=== PATIENT | female | born 1940 | race Caucasian/White ===

== ENCOUNTER 2018-02-26 19:42 | Inpatient (IN) ==
[2018-02-26] MEDS ORDERED: Ipratropium/Albuterol Neb 3 ML IH ONE (20:04)
--- NOTE | 2018-02-26 20:25 | Emergency Department Note ---
Disposition Clinical Impression: Sepsis Qualifiers: Sepsis type: sepsis due to unspecified organism Qualified Code(s): A41.9 - Sepsis, unspecified organism Disposition: Admitted As Inpatient Condition: Fair Forms: ED Satisfaction Letter Time of Disposition: 21:33 General Adult HPI - General Chief complaint: ED Shortness of Breath/Dyspnea Stated complaint: "LEANDRA" Time Seen by Provider: 02/26/18 19:54 Source: patient, family Mode of arrival: private vehicle Limitations: other Nursing Notes Reviewed: Yes Vital Signs Reviewed: Yes - History of Present Illness HPI Narrative: Patient is an 78-year-old female with no known medical problems that is only taking gabapentin, sertraline, Protonix who was recently admitted to [facility] last week Tuesday through for a UTI. During this admission they discovered that she had cancer in her liver, colon, and metastatic disease. She was scheduled for a biopsy this week but her condition deteriorated over the weekend, and family brought her into the emergency department to be evaluated. She is currently complaining of a fever, difficulty breathing, right upper quadrant abdominal pain, and a 4 pound weight gain over the last 1 day. Family is also complaining that she has no appetite and has not been eating or drinking as she should for the last several weeks. Pain Scale: 0 - Related Data Allergies Allergy/AdvReac Type Severity Reaction Status Date / Time No Known Allergies Allergy Verified 06/08/17 08:17 Constitutional: Reports: fever, chills Cardiovascular: Denies: chest pain Respiratory: Reports: cough, sputum production (frothy sputum) Gastrointestinal: Reports: abdominal pain, vomiting (post-tussive emesis), diarrhea, hematochezia ("coffee ground stool") Neurological: Reports: weakness Past Medical History - Past Medical History Medical history: Reports: cancer Surgical history: Reports: hysterectomy Psychiatric history: Reports: anxiety, depression - Social History Smoking Status: Former smoker Smokeless Tobacco Status: No Alcohol use: Reports: none Drug use: Reports: none Physical Exam - General Limitations: other General appearance: alert, in distress (breathing through pursed lips, diaphoretic) - Head Head exam: atraumatic, normocephalic - Eye Eye exam: Present: PERRL, EOMI, other (conjunctival pallor) - ENT ENT exam: mucous membranes moist - Neck Neck exam: Present: normal inspection, full ROM - Chest Chest inspection: Present: normal inspection, symmetric chest wall rise - Expanded Respiratory Exam Location: wheezes: Lower, rales: Lower - Cardiovascular Cardiovascular exam: Present: tachycardia - Abdominal Exam Abdominal exam: Present: soft, tenderness Abdominal tenderness: Present: RUQ, RLQ, suprapubic - Expanded Lower Extremity Exam Lower leg exam: Present: other (1+ valarie pitting edema) - Back Exam Back exam: Present: other (kyphotic) - Psychiatric Psychiatric exam: Present: anxious - Skin Skin exam: Present: dry, intact, other (warm to touch) Course Course Narrative: Pt has several positive signs for sepsis including tachycardia, tachypnea, and elevated temperature. Pt has valarie rales and signs of fluid overload so will cautiously hydrate her with an initial bolus of 500mL. Will get CXR, lab work to include blood cultures, lactic acid, CBC, BMP, hepatic panel, coagulation factors, stool guiac, troponin, EKG. Vital Signs Temperature 102.1 F H 02/26/18 19:52 Pulse Rate 115 02/26/18 19:52 Respiratory Rate 33 02/26/18 19:52 Blood Pressure 91/60 02/26/18 19:52 O2 Sat by Pulse Oximetry 92 02/26/18 19:52 Temperature 102.1 F H 02/26/18 19:52 Pulse Rate 115 02/26/18 19:52 Respiratory Rate 33 02/26/18 19:52 Blood Pressure 91/60 02/26/18 19:52 O2 Sat by Pulse Oximetry 92 02/26/18 19:52 Oxygen Delivery Oxygen Delivery Room Air Medical Decision Making - [facility] Narrative Medical decision making narrative: Pt's WBC was >22k, lactic was >2, she remained tachycardic in the low 100's, and temperature was in excess of 102 taken orally. She meets all SIRS criteria, and with recent admission for UTI, presumed urosepsis. Pt was given a dose of vancomycin and rocephin while in the department. Family's main concern was her weight gain and difficulty breathing, explained to them that she will need to be admitted for IV antibiotics and further workup. They expressed concerns that she has had recent Ct scans which show fairly extensive metastatic disease from an unknown source. She is scheduled to have biopsies at [facility] this upcoming Tuesday for further management, but wanted to have this managed here instead. I explained that she will need to have her current issue resolved before the cancer can be addressed. Family expressed understanding. Family and pt were given an opportunity to ask questions and their concerns were addressed. Spoke with Dr. Kinney, hospitalist, who accepts pt. - Medical Records Medical records reviewed: Yes I reviewed the patient's medical records. - Lab Data Lab results reviewed: Yes I reviewed the patient's lab results. Result diagrams: 02/26/18 20:05 02/26/18 20:05 Lab Results 02/26/18 02/26/18 02/26/18 Range/Units 20:05 20:05 20:05 WBC 22.3 H (4.3-11.1) K/mcL RBC 3.95 (3.82-4.97) M/mcL Hgb 10.8 L (11.5-15.4) g/dL Hct 33.6 L (35.3-44.9) % MCV 85.1 (83.0-100.0) fL MCH 27.3 L (28.0-33.3) pg MCHC 32.1 (31.6-35.5) g/dL RDW 15.2 H (11.5-14.5) % Plt Count 345 (140-400) K/mcL MPV 11.1 (9.4-12.4) fL Immature Gran % 1.7 (0-4) % Seg Neutrophils % 85.9 % Lymphocytes % 4.7 % Monocytes % 7.6 % Eosinophils % 0.0 % Basophils % 0.1 % Neutrophils # 19.1 H (1.6-8.9) K/mcL Lymphocytes # 1.1 (0.6-4.6) K/mcL Monocytes # 1.7 H (0.0-1.3) K/mcL Eosinophils # 0.0 (0.0-0.6) K/mcL Basophils # 0.0 (0.0-0.2) K/mcL PT (9.4-12.1) Seconds INR APTT (26.0-36.0) Seconds Sodium 133 L (136-145) mEq/L Potassium 3.6 (3.5-5.1) mEq/L Chloride 96 L (98-107) mEq/L Carbon Dioxide 25 (23-29) mEq/L BUN 14 (8-23) mg/dL Creatinine 0.94 (0.60-1.20) mg/dL Est GFR ( Amer) > 60 (> 60) Est GFR (Non-Af Amer) 57 L (> 60) BUN/Creatinine Ratio 15 (6-26) Glucose 144 H (70-105) mg/dL Calculated Osmolality 279 L (280-300) Lactic Acid 2.9 H (0.5-2.2) mmol/L Calcium 8.2 L (8.6-10.3) mg/dL Total Bilirubin 0.7 (0.3-1.0) mg/dL Direct Bilirubin 0.3 H (0.0-0.2) mg/dL Indirect Bilirubin 0.4 (0.0-1.2) mg/dL AST 97 H (13-39) Units/L ALT 36 (7-52) Units/L Alkaline Phosphatase 158 H (34-104) Units/L Troponin I 0.05 H* (< 0.04) ng/mL B-Natriuretic Peptide (Less than 100) pg/mL Serum Total Protein 6.4 (6.4-8.9) g/dL Albumin 2.9 L (3.5-5.7) g/dL Globulin 3.5 (2.4-3.5) g/dL Albumin/Globulin Ratio 0.8 L (1.1-2.2) Stool Occult Bld Scrn (Negative) 02/26/18 02/26/18 02/26/18 Range/Units 20:05 20:05 21:27 WBC (4.3-11.1) K/mcL RBC (3.82-4.97) M/mcL Hgb (11.5-15.4) g/dL Hct (35.3-44.9) % MCV (83.0-100.0) fL MCH (28.0-33.3) pg MCHC (31.6-35.5) g/dL RDW (11.5-14.5) % Plt Count (140-400) K/mcL MPV (9.4-12.4) fL Immature Gran % (0-4) % Seg Neutrophils % % Lymphocytes % % Monocytes % % Eosinophils % % Basophils % % Neutrophils # (1.6-8.9) K/mcL Lymphocytes # (0.6-4.6) K/mcL Monocytes # (0.0-1.3) K/mcL Eosinophils # (0.0-0.6) K/mcL Basophils # (0.0-0.2) K/mcL PT 17.6 H (9.4-12.1) Seconds INR 1.6 APTT 35.8 (26.0-36.0) Seconds Sodium (136-145) mEq/L Potassium (3.5-5.1) mEq/L Chloride (98-107) mEq/L Carbon Dioxide (23-29) mEq/L BUN (8-23) mg/dL Creatinine (0.60-1.20) mg/dL Est GFR ( Amer) (> 60) Est GFR (Non-Af Amer) (> 60) BUN/Creatinine Ratio (6-26) Glucose (70-105) mg/dL Calculated Osmolality (280-300) Lactic Acid (0.5-2.2) mmol/L Calcium (8.6-10.3) mg/dL Total Bilirubin (0.3-1.0) mg/dL Direct Bilirubin (0.0-0.2) mg/dL Indirect Bilirubin (0.0-1.2) mg/dL AST (13-39) Units/L ALT (7-52) Units/L Alkaline Phosphatase (34-104) Units/L Troponin I (< 0.04) ng/mL B-Natriuretic Peptide 94 (Less than 100) pg/mL Serum Total Protein (6.4-8.9) g/dL Albumin (3.5-5.7) g/dL Globulin (2.4-3.5) g/dL Albumin/Globulin Ratio (1.1-2.2) Stool Occult Bld Scrn Negative (Negative) - Radiology Data Radiology results reviewed: Yes I reviewed the patient's radiology results. Chest X-Ray 02/26/18 20:04 IMPRESSION: Questionable area of nodular increased opacification in the right upper lobe; however, overlying EKG lie limit sensitivity. Need for repeat evaluation should be determined clinically no focal consolidation elsewhere. D/ / Yoshi Bahena / Yoshi Bahena Interpreting Provider: Yoshi Bahena - EKG Data EKG #1 EKG attestation: Yes I reviewed and interpreted this EKG. EKG results narrative: HR 113, rhythm sinus tachycardia, axis left at -56. KS 141, QRS 82, QTc 320. No evidence of St elevation or depression.
--- NOTE | 2018-02-26 20:30 | Emergency Department Note ---
Disposition Clinical Impression: Sepsis Qualifiers: Sepsis type: sepsis due to unspecified organism Qualified Code(s): A41.9 - Sepsis, unspecified organism Disposition: Admitted As Inpatient Condition: Serious Forms: ED Satisfaction Letter General Adult HPI - General Chief complaint: ED Shortness of Breath/Dyspnea Stated complaint: "LEANDRA" Time Seen by Provider: 02/26/18 19:54 Source: patient, family Mode of arrival: private vehicle Limitations: other - History of Present Illness HPI Narrative: Attestation note: Patient was seen with the emergency medicine resident/nurse practitioner/physician general surgery physician assistant/transitional resident/medical student: Dr. KELSEY BOB I have personally performed a face to face evaluation on this patient. I have reviewed and agree with history and physical examination patient management and disposition. Briefly the salient points of the case are as follows: 78-year-old female via private vehicle accompanied by family members for shortness of breath. And fever slight confusion. Recently diagnosed by report with metastatic carcinoma involving liver and colon, and UTI. Patient says she has been having dark stools and she is not on blood thinners. She is febrile up to 102 tachycardic to 1:15 tachypnea to 33 hypoxic 92% on room air. Patient has bibasilar rales pitting edema patient is sepsis criteria positive. Patient will undergo a modified sepsis protocol due to the fact that we believe CHF is in the differential here we will hydrate cautiously and judiciously. Patient will get 500 mg bolus awaiting troponin lactic acid urinalysis and chest x-ray. Admission anticipated. Provided 45 minutes critical care service for this patient. Pain Scale: 0 - Related Data Allergies Allergy/AdvReac Type Severity Reaction Status Date / Time No Known Allergies Allergy Verified 06/08/17 08:17 Past Medical History - Past Medical History Medical history: Reports: cancer Surgical history: Reports: hysterectomy Psychiatric history: Reports: anxiety, depression - Social History Smoking Status: Former smoker Smokeless Tobacco Status: No Alcohol use: Reports: none Drug use: Reports: none Physical Exam - General Limitations: other General appearance: alert Course Vital Signs Temperature 102.1 F H 02/26/18 19:52 Pulse Rate 115 02/26/18 19:52 Respiratory Rate 33 02/26/18 19:52 Blood Pressure 91/60 02/26/18 19:52 O2 Sat by Pulse Oximetry 92 02/26/18 19:52 Temperature 102.1 F H 02/26/18 19:52 Pulse Rate 115 02/26/18 19:52 Respiratory Rate 33 02/26/18 19:52 Blood Pressure 91/60 02/26/18 19:52 O2 Sat by Pulse Oximetry 92 02/26/18 19:52 Oxygen Delivery Oxygen Delivery Room Air
[2018-02-26 20:36] LABS: Basophils % 0.1 %; Hematocrit 33.6 % (35.3-44.9); Hemoglobin 10.8 g/dL (11.5-15.4); Immature Granulocytes % 1.7 % (0-4); Lymphocytes # 1.1 K/mcL (0.6-4.6); Lymphocytes % 4.7 %; Mean Corpuscular HGB Conc 32.1 g/dL (31.6-35.5); Mean Corpuscular Hemoglobin 27.3 pg (28.0-33.3); Mean Corpuscular Volume 85.1 fL (83.0-100.0); Mean Platelet Volume 11.1 fL (9.4-12.4); Monocytes # 1.7 K/mcL (0.0-1.3); Monocytes % 7.6 %; Neutrophils # 19.1 K/mcL (1.6-8.9); Platelet Count 345 K/mcL (140-400); Red Blood Count 3.95 M/mcL (3.82-4.97); Red Cell Distribution Width 15.2 % (11.5-14.5); Segmented Neutrophils % 85.9 %
[2018-02-26 20:43] LABS: INR 1.6; Prothrombin Time 17.6 Seconds (9.4-12.1)
[2018-02-26 20:46] LABS: Activated Partial Thrombo Time 35.8 Seconds (26.0-36.0)
[2018-02-26 20:58] LABS: Alanine Aminotransferase 36 Units/L (7-52); Albumin 2.9 g/dL (3.5-5.7); Albumin/Globulin Ratio 0.8 (1.1-2.2); Alkaline Phosphatase 158 Units/L (34-104); Aspartate Amino Transferase 97 Units/L (13-39); BUN/Creatinine Ratio 15 (6-26); Bilirubin,Direct 0.3 mg/dL (0.0-0.2); Bilirubin,Indirect 0.4 mg/dL (0.0-1.2); Bilirubin,Total 0.7 mg/dL (0.3-1.0); Blood Urea Nitrogen 14 mg/dL (8-23); Calcium 8.2 mg/dL (8.6-10.3); Carbon Dioxide 25 mEq/L (23-29); Chloride 96 mEq/L (98-107); Globulin 3.5 g/dL (2.4-3.5); Glucose 144 mg/dL (70-105); Osmolality,Calculated 279 (280-300); Potassium 3.6 mEq/L (3.5-5.1); Sodium 133 mEq/L (136-145); Total Protein 6.4 g/dL (6.4-8.9); eGFR For Non-African Americans 57 (> 60)
[2018-02-26 21:05] LABS: Troponin I 0.05 ng/mL (< 0.04)
[2018-02-26] MEDS ORDERED: Aspirin 325 MG TABLET PO ONE (21:05)
[2018-02-26] MEDS ORDERED: cefTRIAXone 2,000 MG in Water for inj. (sterile) 20 ML 20 ML IVP ONE (21:05)
[2018-02-26] MEDS ORDERED: 0.9 % Sodium Chloride 500 ML IVC ONE (21:29)
[2018-02-27] MEDS ORDERED: Isovue-370 500 ML INFUS..BTL IV ONE (02:42)
--- NOTE | 2018-02-27 02:53 | Internal Med History&Physical ---
Addendum entered and electronically signed by Eric Kinney MD 02/27/18 19:47: I saw and evaluated the patient. I reviewed the residents note, performed my own physical examination and agree with findings and plan as documented in the residents note. Patient seen and examined on 02/27/18. Patient meeting sepsis criteria. Unclear source at this point. Patient has diagnosis of cancer however. Agree with repeat imaging, follow up the results, broad spectrum antibiotics. Original Note: Date of Encounter: 02/27/18 Time of Encounter: 02:50 Internal Medicine - H&P: HPI Chief complaint: Weakness Admitted From: Home Plans for Post Hospital Care: Home History of present illness: Ms. Cohen is a 78 year old female who presents here with chief complaint of weakness. Patient reports that she was just discharged her from [facility] after being treated for UTI and during that time she had right upper quadrant pain and underwent CT abdomen pelvis which showed multiple liver nodules and lung nodules. At [facility] patient had EGD and colonoscopy which were negative. She was treated with ceftriaxone IV 3 days. Patient had follow-up with oncology outpatient and for outpatient biopsy. Patient was discharged last but reports since then she is has been feeling very weak to the point she is not able to walk. She has gained 4 pounds in the last 24 hours. She reports having 2 episodes of coughing spells after eating and thereafter vomiting up her b reakfast. She denies bloody vomiting. Reviewing past medical records her colonoscopy done in May 2017 showed gastroparesis. Patient also reports bloating of her belly. She denies sick contacts. She reports a fever of 102 2 days ago. Patient denies headache, blurry vision, eye pain, eye discharge, ear pain, ear discharge, chest pain, nausea, vomiting, diarrhea, lower extremity pain, dysuria, hematuria. She reports lower extremity swelling, cough, shortness of breath. Past Med Surg Social Fam HX - Past Medical History Medical history: cancer Additional medical history: skin cancer, gastro ulcers Psychiatric history: anxiety, depression - Past Surgical History Surgical History: hysterectomy Additional surgical history: bladder sx, tendon repair, cscope - Social History Smoking Status: Former smoker Smokeless Tobacco Status: No Alcohol use: none Drug use: none Internal Medicine - H&P: Meds Allergy/AdvReac Type Severity Reaction Status Date / Time No Known Allergies Allergy Verified 06/08/17 08:17 All Systems PM: A 10-system review of systems was performed and is negative for pertinent findings except as documented above in the HPI. Review of systems: Constitutional: Reports fever, chills HEENT: Denies headache, trauma, blurry vision, eye discharge, ear pain, ear di scharge neck pain, sore throat, rhinorrhea Heart: Denies chest pain palpitations, reports LE edema Lungs: Reports shortness of breath cough Abdomen: Denies abdominal pain nausea vomiting diarrhea MSK: Denies back pain, falls, joint pain Kidney: Denies dysuria, hematuria Skin: Denies rash, ulcers Neuro: Denies numbness and tingling Psych: denies anxiety, depression - Constitutional Vitals: Temp Pulse Resp BP Pulse Ox 98.8 F 71 16 96/58 94 02/26/18 22:33 02/26/18 22:33 02/26/18 22:33 02/26/18 22:33 02/26/18 22:33 Exam: General: pleasant, without distress HEENT: Head atraumatic, normocephalic, EOMI, PERRL, absent ear discharge or trauma, Moist Mucous Membranes, uvula midline Neck: nontender to palpation, absent lymphadenopathy, Cardiovascualr: Regular rate and rhythm with no murmur, absent gallops or rubs, 1+ pedal edema, radial pulses 2 out of 4 Lungs: Bibasilar crackles, mild, not in respiratory distress Abdomen: Soft nontender, nondistended positive bowel sounds, absent hepatomegaly Skin: warm and dry, absent rash, absent open wounds and nodules MSK: absent clubbing, cyanosis, joints without swelling Neuro: Cranial nerves II through XII intact, UE and LE sensation equal bilaterally, UE and LEstrength 5/5, alert oriented 3, Psych: good insight and judgment, depressed Internal Med - H&P Results - Labs CBC & Chem 7: 02/27/18 03:03 02/27/18 03:03 Labs: Short CBC 02/26/18 Range/Units 20:05 WBC 22.3 H (4.3-11.1) K/mcL Hgb 10.8 L (11.5-15.4) g/dL Hct 33.6 L (35.3-44.9) % Plt Count 345 (140-400) K/mcL Neutrophils # 19.1 H (1.6-8.9) K/mcL BMP 02/26/18 20:05 Sodium 133 L Potassium 3.6 Chloride 96 L Carbon Dioxide 25 BUN 14 Creatinine 0.94 Glucose 144 H Calcium 8.2 L Cardiac Enzymes 02/26/18 Range/Units 20:05 Troponin I 0.05 H* (< 0.04) ng/mL Liver Function 02/26/18 Range/Units 20:05 Total Bilirubin 0.7 (0.3-1.0) mg/dL Direct Bilirubin 0.3 H (0.0-0.2) mg/dL AST 97 H (13-39) Units/L ALT 36 (7-52) Units/L Alkaline Phosphatase 158 H (34-104) Units/L Albumin 2.9 L (3.5-5.7) g/dL - Impressions ITS Impressions Chest X-Ray 02/26/18 20:04 IMPRESSION: Questionable area of nodular increased opacification in the right upper lobe; however, overlying EKG lie limit sensitivity. Need for repeat evaluation should be determined clinically no focal consolidation elsewhere. D/ / Yoshi Bahena / Yoshi Bahena Interpreting Provider: Yoshi Bahena - Assessment and plan (1) Sepsis Current Visit: Yes Status: Acute Assessment and plan: fever, leukocytosis, tachycardia, tachypnea Etiology unknown She was recently treated at [facility] for UTI with ceftriaxone for 3 days Blood cultures and urine cultures pending (collected after antibiotics given in ED) Initial lactic acid was 2.9 and repeat was 1.1 Patient was given IV fluids however she was not given sepsis dose as she is short of breath and has pulmonary crackles Patient was given vancomycin in the ED as well as ceftriaxone Chest x-ray negative for infection. We will obtain CT abdomen and pelvis and CT chest with contrast vancomycin and zosyn Qualifiers: Sepsis type: sepsis due to unspecified organism Qualified Code(s): A41.9 - Sepsis, unspecified organism (2) Acute respiratory failure with hypoxia Current Visit: Yes Status: Acute Assessment and plan: Suspecting secondary to fluid overload Patient does not have a history of heart disease, congestive heart failure Blood pressure is 96/58 she is receiving fluids for sepsis She is on 2 L oxygen satting 96%. Plan is to monitor via continuous pulse ox echocardiogram (3) Metastatic disease Current Visit: Yes Status: Acute Assessment and plan: CT scan at [facility] showed suspected sigmoid colon mass with metastasis to liver suspected pulmonary metastasis and suspected osseous metastasis. Patient underwent EGD and colonoscopy at [facility] which were negative for cancer. Oncology consulted. CT abdomen pelvis and CT chest ordered with IV contrast. (4) DVT prophylaxis Current Visit: Yes Status: Acute Assessment and plan: Heparin subcutaneous (5) Elevated troponin Current Visit: Yes Status: Acute Assessment and plan: Patient has elevated troponin of 0.05 and 0.06 respectively She denies history of heart disease She was given aspirin on admission. Was normal sinus tachycardia without ST elevation or depression. Patient denies chest pain. heart score 3 We will order echocardiogram - Time Spent With Patient Total time spent is greater than 50% in coordination of care (as documented) at patient's floor/unit and/or counseling patient:
[2018-02-27] MEDS ORDERED: Piperacillin/Tazobactam 3.375 GM in 0.9 % Sodium Chloride Mini Bag 100 ML IVPB SCH (03:00)
[2018-02-27 03:21] LABS: Basophils % 0.1 %; Hematocrit 30.3 % (35.3-44.9); Hemoglobin 9.6 g/dL (11.5-15.4); Lymphocytes # 1.4 K/mcL (0.6-4.6); Lymphocytes % 7.6 %; Mean Corpuscular HGB Conc 31.7 g/dL (31.6-35.5); Mean Corpuscular Hemoglobin 27.6 pg (28.0-33.3); Mean Corpuscular Volume 87.1 fL (83.0-100.0); Mean Platelet Volume 11.2 fL (9.4-12.4); Monocytes # 1.2 K/mcL (0.0-1.3); Monocytes % 6.4 %; Neutrophils # 15.6 K/mcL (1.6-8.9); Platelet Count 264 K/mcL (140-400); Red Blood Count 3.48 M/mcL (3.82-4.97); Red Cell Distribution Width 15.3 % (11.5-14.5); Segmented Neutrophils % 84.9 %
[2018-02-27 03:38] LABS: BUN/Creatinine Ratio 16 (6-26); Blood Urea Nitrogen 17 mg/dL (8-23); Calcium 7.8 mg/dL (8.6-10.3); Carbon Dioxide 28 mEq/L (23-29); Chloride 99 mEq/L (98-107); Glucose 111 mg/dL (70-105); Osmolality,Calculated 284 (280-300); Potassium 4.2 mEq/L (3.5-5.1); Sodium 136 mEq/L (136-145); eGFR For Non-African Americans 50 (> 60)
[2018-02-27 06:31] LABS: Bilirubin,Urine Small (Negative); Blood,Urine Negative (Negative); Clarity,Urine Cloudy (Clear); Color,Urine Dark Yellow (Yellow); Glucose,Urine (UA) Normal (Normal); Ketones,Urine Negative (Negative); Leukocyte Esterase,Urine Trace (Negative); Nitrite,Urine Negative (Negative); PH,Urine 5.5 pH Units (5.0-8.0); Protein,Urine 30 mg/dL (Neg-Trace); Specific Gravity,Urine 1.026 (1.010-1.025); Urobilinogen,Urine Normal (Normal)
[2018-02-27 06:34] LABS: Bacteria,Urine None Seen per hpf (None-Few); RBC,Urine 0-3 per hpf (0-3); Squamous Epithelial Cell,Urine Many per lpf (None-Few)
[2018-02-27 06:52] LABS: Hyaline Casts,Urine Moderate per lpf (None-Few)
[2018-02-27] MEDS: *HR* Heparin 5,000 UNIT/ML VIAL SQ SCH ×3 (06:59→22:40)
[2018-02-27] MEDS: Piperacillin/Tazobactam 3.375 GM in 0.9 % Sodium Chloride Mini Bag 100 ML IVPB SCH ×3 (08:32→22:40)
[2018-02-27] MEDS ORDERED: *HR* Dextrose 50 % in Water (Syg) 50 ML SYRINGE IVP PRN (09:21)
[2018-02-27] MEDS ORDERED: Dextrose Gel 15 GM/37.5 ML TUBE PO PRN ×2 (09:21)
[2018-02-27] MEDS ORDERED: D5% in Water 1,000 ML IVC PRN (09:21)
[2018-02-27] MEDS ORDERED: Albuterol 2.5 MG/3 ML NEBULIZER IH PRN (09:22)
[2018-02-27] MEDS ORDERED: Acetaminophen 650 MG RECTAL SUPP RC PRN (09:49)
[2018-02-27] MEDS ORDERED: MethylPREDNISolone 40 MG/ML VIAL IVP ONE (09:59)
--- NOTE | 2018-02-27 09:59 | Event Note ---
Date of Encounter: 02/27/18 Time of Encounter: 09:47 Patient seen and evaluated at bed side, patient reports that she is still feeling short of breath. Patient reports productive cough of yellow sputum, plus fever for the past couple of day after being discharged from another facility. They also report that she has gained about 9 pounds in less than a week. Physical exam: General: AOX$. in mild distress due to shortness of breath Lungs: crackles at the bases b/l, mild expiratory wheezing in the right lung. Heart: RRR, normal S1S2, no murmur, rugs or gallops Abdo: RUQ tenderness to palpation, hyperactive BS in all 4 quadrants. Extr: trace edema in the lower extr. Neuro: CN II-XII intact Rest of the physical exam unremarkable. Assessment and Plan 1. Sepsis possible due to pneumonia vs UTI vs r/o abdominal process 2. Pneumonia 3. Liver Nodules possible metastatic disease vs primary? 4. VTE prophylaxis 5. COPD 6. HTN 7. UTI 8. Elevated trops possible due to demand ischemia in the settings of sepsis Plan started on empiric antibiotics blood culture and urine culture CT chest abd/pelvis Hem&Onc has been consulted started on maintenance IV fluids D5NS@45mls/hr as patient is NPO to avoid hypoglycemia Accu-checks Q6HR plus lispro sliding scale PPI 40mg/IV daily Serial trops Furosemide 40mg/IV BID strict intake and output Nebs Q4RT scheduled solu-medrol 40mg/IV x1 limited TTE
[2018-02-27] MEDS: D5% in 0.9% NACL 1,000 ML IVC SCH (10:34)
[2018-02-27] MEDS: Pantoprazole 40 MG VIAL IVP SCH (10:36)
[2018-02-27] MEDS: Furosemide 40 MG/4 ML VIAL IVP SCH ×2 (10:36→17:29)
[2018-02-27] MEDS: Albuterol 2.5 MG/3 ML NEBULIZER IH SCH ×5 (10:37→23:45)
[2018-02-27] MEDS: Ondansetron 4 MG/2 ML VIAL IVP PRN (10:48)
[2018-02-27] MEDS: Insulin LISPRO 300 UNITS/3 ML VIAL SQ SCH ×2 (10:48→17:29)
[2018-02-27] MEDS ORDERED: Isovue-370 500 ML INFUS..BTL PO ONE (11:30)
[2018-02-27] MEDS: Acetaminophen 325 MG TABLET PO PRN (13:48)
--- NOTE | 2018-02-27 15:23 | Oncology Inp Consult Note ---
<Samantha Decker L - Last Filed: 02/27/18 17:11> Date of Encounter: 02/27/18 Time of Encounter: 15:21 Assessment and Plan (1) Metastatic disease Status: Acute Assessment and plan: CT chest/abdomen/pelvis obtained today reveals findings highly concerning for malignancy until proven otherwise with metastatic disease in the bilateral lungs, liver, and mediastinal and portocaval lymph nodes. Radiographic images were discussed with patient and family at bedside today along with need for tissue confirmation with CT guided liver bx Consult to IR placed for tomorrow, patient will be NPO after midnight Differential list remains long which may include cholangiocarcinoma, GI primary, lung primary, lymphoma, among others Further treatment options to be discussed once final pathology report received Of note, patient does not need to remain inpatient until final path has resulted should she be cleared otherwise from a medical standpoint We will continue to follow patient during her hospital stay, outpatient follow up will be arranged (2) Sepsis Status: Acute Assessment and plan: Etiology unclear with fever (TMAX 102.1 since admission),neutrophil predominant leukocytosis, tachycardia, tachypnea Recently treated at [facility] for UTI Blood cultures-NGTD Urine culture-trace leuk est, appears contaminated CXR negative Acute respiratory failure, suspecting fluid overload, Echo-pending Empirically treating with vanc/zosyn Qualifiers: Sepsis type: sepsis due to unspecified organism Qualified Code(s): A41.9 - Sepsis, unspecified organism - Data of Consult Patient: new to practice Consult date: 02/27/18 Requesting Physician: Sreekanth Archer MD Primary Care Provider: PCP NONE - Consult Narrative Reason for consult: Abnormal CT chest/abd/pel History of present illness: Ms. Cohen is a 78 year old female who presented to [facility] with chief complaint of weakness. She spent Tuesday- of last week in [facility] ER for similar complaints. She was found to have a UTI at that time which was treated with Rocephin. She had a CT chest/abdomen/pelvis which had revealed liver/lung lesions ([facility] report not available at this time) and she was planned for an outpatient CT guided liver lesion bx tomorrow with [facility]. She apparently had a EGD/Colonoscopy at [facility] last week which is reportedly negative (will request report). Since her discharge her dsicharge had progressed to the point where she had been unable to ambulate which led to her admission. Ms. Cohen states that she has just "not been feeling well" for a couple of months with fatigue, generalized malaise, SOB on exertion and poor appetite. She has recently lost about 15 pounds unintentionally. She reports pain to her RUQ abdomen. Generalized joint pain, mainly in bilateral hips. She reports fevers, chills and drenching night sweats. Patient denies headache, blurry vision, visual changes, chest pain, nausea, vomiting, diarrhea, lower extremity pain, dysuria, hematuria. She is a former smoker. Past Med Surg Social Fam HX - Past Medical History Medical history: cancer Additional medical history: skin cancer, gastro ulcers Psychiatric history: anxiety, depression - Past Surgical History Surgical History: hysterectomy Additional surgical history: bladder sx, tendon repair, cscope - Social History Smoking Status: Former smoker Smokeless Tobacco Status: No Alcohol use: none Drug use: none Medications and Allergies Gabapentin [Neurontin] 600 mg PO BID 02/27/18 [History] Pantoprazole Sodium [Protonix] 40 mg PO DAILY 02/27/18 [History] RX: Sertraline [Zoloft] 50 mg PO DAILY 02/27/18 [History] Allergy/AdvReac Type Severity Reaction Status Date / Time No Known Allergies Allergy Verified 02/27/18 08:26 Constitutional: Present: anorexia, chills, fatigue, fever(s), malaise, weakness, weight loss Eyes: Absent: change in vision Nose, mouth and throat: Absent: dysphagia Cardiovascular: Absent: chest pain, palpitations Respiratory: Present: cough, dyspnea on exertion. Absent: hemoptysis Gastrointestinal: Present: abdominal pain. Absent: change in bowel habits, hematochezia, melena, nausea, vomiting Genitourinary: Absent: dysuria Musculoskeletal: Present: arthralgias, muscle weakness, myalgias Integumentary: Absent: wounds Neurological: Absent: focal weakness Hematologic/Lymphatic: Present: as per HPI Oncology - Exam - Constitutional Vitals: Temp Pulse Resp BP Pulse Ox 101.4 F H 115 16 138/83 96 02/27/18 13:40 02/27/18 11:08 02/27/18 11:27 02/27/18 11:08 02/27/18 11:27 General appearance: febrile, cooperative, no acute distress - Head Head exam: Present: atraumatic - ENT ENT exam: Present: mucous membranes moist - Neck Neck exam: Absent: lymphadenopathy - Respiratory Respiratory exam: Present: decreased breath sounds. Absent: respiratory distress - Cardiovascular Cardiovascular exam: Present: RRR, +S1, +S2 - GI/Abdominal GI/Abdominal exam: Present: normal bowel sounds, soft. Absent: guarding, rebound Additional comments: RUQ tenderness - Extremities Exam Extremities exam: Absent: calf tenderness Additional comments: mild BLE edema - Neurological Exam Neurological exam: Present: alert, oriented X3, no focal deficits, strengths equal and symetr throughout - Psychiatric Psychiatric exam: Present: normal affect, normal mood Oncology - Results Labs: Consult Discharge Plan - Plan Referrals: NONE,PCP [Primary Care Provider] - <Sven Gr - Last Filed: 02/28/18 07:45> - Data of Consult Requesting Physician: Sreekanth Archer MD Primary Care Provider: PCP NONE - Consult Narrative History of present illness: Ms. Cohen is a 78 year old female Oncology - Exam - Constitutional Vitals: Temp Pulse Resp BP Pulse Ox 97.9 F 72 16 117/63 94 02/28/18 06:40 02/28/18 06:40 02/28/18 06:40 02/28/18 06:40 02/28/18 06:40 Oncology - Results Labs: 02/27/18 02/27/18 02/27/18 10:47 08:49 06:16 WBC RBC Hgb Hct MCV MCH MCHC RDW Plt Count MPV Immature Gran % Seg Neutrophils % Lymphocytes % Monocytes % Eosinophils % Basophils % Neutrophils # Lymphocytes # Monocytes # Eosinophils # Basophils # PT INR APTT Sodium Potassium Chloride Carbon Dioxide BUN Creatinine Est GFR ( Amer) Est GFR (Non-Af Amer) BUN/Creatinine Ratio Glucose POC Glucose 75 Calculated Osmolality Lactic Acid Calcium Total Bilirubin Direct Bilirubin Indirect Bilirubin AST ALT Alkaline Phosphatase Troponin I 0.04 H* B-Natriuretic Peptide Serum Total Protein Albumin Globulin Albumin/Globulin Ratio Urine Color Dark Yellow Urine Clarity Cloudy A Urine pH 5.5 Ur Specific [place] 1.026 H Urine Protein 30 H Urine Glucose (UA) Normal Urine Ketones Negative Urine Blood Negative Urine Nitrite Negative Urine Bilirubin Small H Urine Urobilinogen Normal Ur Leukocyte Esterase Trace H Urine Microscopic RBC 0-3 Urine Microscopic WBC 5-15 H Ur Squamous Epith Cells Many H Urine Bacteria None Seen Hyaline Casts Moderate H Ur Culture Indicated? NO. A Stool Occult Bld Scrn 02/27/18 02/27/18 02/27/18 03:03 03:03 03:03 WBC 18.4 H RBC 3.48 L Hgb 9.6 L Hct 30.3 L MCV 87.1 MCH 27.6 L MCHC 31.7 RDW 15.3 H Plt Count 264 MPV 11.2 Immature Gran % 1.0 Seg Neutrophils % 84.9 Lymphocytes % 7.6 Monocytes % 6.4 Eosinophils % 0.0 Basophils % 0.1 Neutrophils # 15.6 H Lymphocytes # 1.4 Monocytes # 1.2 Eosinophils # 0.0 Basophils # 0.0 PT INR APTT Sodium 136 Potassium 4.2 Chloride 99 Carbon Dioxide 28 BUN 17 Creatinine 1.05 Est GFR ( Amer) > 60 Est GFR (Non-Af Amer) 50 L BUN/Creatinine Ratio 16 Glucose 111 H POC Glucose Calculated Osmolality 284 Lactic Acid Calcium 7.8 L Total Bilirubin Direct Bilirubin Indirect Bilirubin AST ALT Alkaline Phosphatase Troponin I 0.06 H* B-Natriuretic Peptide Serum Total Protein Albumin Globulin Albumin/Globulin Ratio Urine Color Urine Clarity Urine pH Ur Specific [place] Urine Protein Urine Glucose (UA) Urine Ketones Urine Blood Urine Nitrite Urine Bilirubin Urine Urobilinogen Ur Leukocyte Esterase Urine Microscopic RBC Urine Microscopic WBC Ur Squamous Epith Cells Urine Bacteria Hyaline Casts Ur Culture Indicated? Stool Occult Bld Scrn 02/26/18 02/26/18 02/26/18 23:22 21:27 20:05 WBC RBC Hgb Hct MCV MCH MCHC RDW Plt Count MPV Immature Gran % Seg Neutrophils % Lymphocytes % Monocytes % Eosinophils % Basophils % Neutrophils # Lymphocytes # Monocytes # Eosinophils # Basophils # PT 17.6 H INR 1.6 APTT 35.8 Sodium Potassium Chloride Carbon Dioxide BUN Creatinine Est GFR ( Amer) Est GFR (Non-Af Amer) BUN/Creatinine Ratio Glucose POC Glucose Calculated Osmolality Lactic Acid 1.1 Calcium Total Bilirubin Direct Bilirubin Indirect Bilirubin AST ALT Alkaline Phosphatase Troponin I B-Natriuretic Peptide Serum Total Protein Albumin Globulin Albumin/Globulin Ratio Urine Color Urine Clarity Urine pH Ur Specific [place] Urine Protein Urine Glucose (UA) Urine Ketones Urine Blood Urine Nitrite Urine Bilirubin Urine Urobilinogen Ur Leukocyte Esterase Urine Microscopic RBC Urine Microscopic WBC Ur Squamous Epith Cells Urine Bacteria Hyaline Casts Ur Culture Indicated? Stool Occult Bld Scrn Negative 02/26/18 02/26/18 02/26/18 20:05 20:05 20:05 WBC RBC Hgb Hct MCV MCH MCHC RDW Plt Count MPV Immature Gran % Seg Neutrophils % Lymphocytes % Monocytes % Eosinophils % Basophils % Neutrophils # Lymphocytes # Monocytes # Eosinophils # Basophils # PT INR APTT Sodium 133 L Potassium 3.6 Chloride 96 L Carbon Dioxide 25 BUN 14 Creatinine 0.94 Est GFR ( Amer) > 60 Est GFR (Non-Af Amer) 57 L BUN/Creatinine Ratio 15 Glucose 144 H POC Glucose Calculated Osmolality 279 L Lactic Acid 2.9 H Calcium 8.2 L Total Bilirubin 0.7 Direct Bilirubin 0.3 H Indirect Bilirubin 0.4 AST 97 H ALT 36 Alkaline Phosphatase 158 H Troponin I 0.05 H* B-Natriuretic Peptide 94 Serum Total Protein 6.4 Albumin 2.9 L Globulin 3.5 Albumin/Globulin Ratio 0.8 L Urine Color Urine Clarity Urine pH Ur Specific [place] Urine Protein Urine Glucose (UA) Urine Ketones Urine Blood Urine Nitrite Urine Bilirubin Urine Urobilinogen Ur Leukocyte Esterase Urine Microscopic RBC Urine Microscopic WBC Ur Squamous Epith Cells Urine Bacteria Hyaline Casts Ur Culture Indicated? Stool Occult Bld Scrn 02/26/18 20:05 WBC 22.3 H RBC 3.95 Hgb 10.8 L Hct 33.6 L MCV 85.1 MCH 27.3 L MCHC 32.1 RDW 15.2 H Plt Count 345 MPV 11.1 Immature Gran % 1.7 Seg Neutrophils % 85.9 Lymphocytes % 4.7 Monocytes % 7.6 Eosinophils % 0.0 Basophils % 0.1 Neutrophils # 19.1 H Lymphocytes # 1.1 Monocytes # 1.7 H Eosinophils # 0.0 Basophils # 0.0 PT INR APTT Sodium Potassium Chloride Carbon Dioxide BUN Creatinine Est GFR ( Amer) Est GFR (Non-Af Amer) BUN/Creatinine Ratio Glucose POC Glucose Calculated Osmolality Lactic Acid Calcium Total Bilirubin Direct Bilirubin Indirect Bilirubin AST ALT Alkaline Phosphatase Troponin I B-Natriuretic Peptide Serum Total Protein Albumin Globulin Albumin/Globulin Ratio Urine Color Urine Clarity Urine pH Ur Specific [place] Urine Protein Urine Glucose (UA) Urine Ketones Urine Blood Urine Nitrite Urine Bilirubin Urine Urobilinogen Ur Leukocyte Esterase Urine Microscopic RBC Urine Microscopic WBC Ur Squamous Epith Cells Urine Bacteria Hyaline Casts Ur Culture Indicated? Stool Occult Bld Scrn - Attending Attestation I have seen and examined Ms. Cohen and agree with Ms. Decker's assessment. Patient appears to have a malignant process involving the majority of her liver as well as probable metastases involving the lungs. Primary at this juncture is unclear. She underwent normal EGD and colonoscopy at [facility]. This history is confirmed by the family as well. Patient remains unconvinced she has an underlying malignancy. I personally reviewed imaging and unfortunately believe she does have in fact have underlying metastatic malignancy undetermined primary. This certainly could represent a primary liver cancer, secondary process with metastases to the liver and lung, and less likely lymphoma. I reviewed her imaging results with the patient and family. I have ordered a CT- guided biopsy of the liver. We will discuss treatment options pending final pathology. Continue with supportive measures with hydration and infectious evaluation. Certainly her fevers may be related to the tumor burden in her liver although on infection should be ruled out. Inpatient Charges Provider: Dr. Elan Gr Consult - Inpatient Medicare Only: [id number]
[2018-02-28] MEDS: Insulin LISPRO 300 UNITS/3 ML VIAL SQ SCH ×5 (00:58→21:00)
[2018-02-28] MEDS: Albuterol 2.5 MG/3 ML NEBULIZER IH SCH ×6 (04:18→23:25)
[2018-02-28] MEDS: Piperacillin/Tazobactam 3.375 GM in 0.9 % Sodium Chloride Mini Bag 100 ML IVPB SCH ×2 (06:38→15:35)
[2018-02-28] MEDS: *HR* Heparin 5,000 UNIT/ML VIAL SQ SCH ×2 (07:02→14:57)
[2018-02-28] MEDS: Pantoprazole 40 MG VIAL IVP SCH (09:45)
[2018-02-28] MEDS: Furosemide 40 MG/4 ML VIAL IVP SCH (09:45)
[2018-02-28 12:53] LABS: Basophils % 0.1 %; Hematocrit 28.9 % (35.3-44.9); Hemoglobin 9.1 g/dL (11.5-15.4); Immature Granulocytes % 0.7 % (0-4); Lymphocytes # 0.9 K/mcL (0.6-4.6); Lymphocytes % 4.8 %; Mean Corpuscular HGB Conc 31.5 g/dL (31.6-35.5); Mean Corpuscular Hemoglobin 27.6 pg (28.0-33.3); Mean Corpuscular Volume 87.6 fL (83.0-100.0); Mean Platelet Volume 11.3 fL (9.4-12.4); Monocytes # 0.6 K/mcL (0.0-1.3); Monocytes % 3.5 %; Neutrophils # 16.2 K/mcL (1.6-8.9); Platelet Count 333 K/mcL (140-400); Red Cell Distribution Width 15.4 % (11.5-14.5); Segmented Neutrophils % 90.9 %
--- NOTE | 2018-02-28 12:53 | Internal Med Progress Note ---
Hospitalist Progress Note - Encounter Date of Encounter: 02/28/18 Time of Encounter: 09:00 - Subjective Interval History: Pt is less SOB, no further fever. Denies cough. - Exam Vitals: Temp Pulse Resp BP Pulse Ox 97.7 F 73 15 124/68 95 02/28/18 10:36 02/28/18 10:36 02/28/18 10:36 02/28/18 10:36 02/28/18 10:36 Exam: General: pleasant, without distress HEENT: Head atraumatic, normocephalic, EOMI, PERRL, absent ear discharge or trauma, Moist Mucous Membranes, uvula midline Neck: nontender to palpation, absent lymphadenopathy, Cardiovascualr: Regular rate and rhythm with no murmur, absent gallops or rubs, 1+ pedal edema, radial pulses 2 out of 4 Lungs: Bibasilar crackles, mild, not in respiratory distress Abdomen: Soft nontender, nondistended positive bowel sounds, absent hepatomegaly Skin: warm and dry, absent rash, absent open wounds and nodules MSK: absent clubbing, cyanosis, joints without swelling Neuro: Cranial nerves II through XII intact, UE and LE sensation equal bilaterally, UE and LEstrength 5/5, alert oriented 3, Psych: good insight and judgment, depressed - Assessment and Plan (1) Acute respiratory failure with hypoxia Current Visit: Yes Status: Acute Assessment and Plan: Slightly improved now. Lung metastatic disease vs PNA? vs Fluid overload. - Cont supportive treatment. - Echo shows EF 60-65%, Mild diastolic dysfunction, BNP 95, will switch lasix to PO. (2) DVT prophylaxis Current Visit: Yes Status: Acute Assessment and Plan: Heparin SC (3) Elevated troponin Current Visit: Yes Status: Acute Assessment and Plan: Mild elevated troponin on a sepsis picture, 3 sets of troponin 0.05-0.06-0.04, pt denies chest pain, likely demand ischemia. (4) Metastatic disease Current Visit: Yes Status: Acute Assessment and Plan: Oncology consult appreciated. Plan for IR biopsy. (5) Sepsis Current Visit: Yes Status: Acute Assessment and Plan: Etiology undetermined. Early PNA vs UTI. - Still has fever yesterday afternoon. Leukocytosis persists - Cont empirical vanco and zosyn, f/u blood culture. DVT Prophylaxis: Heparin sc - Time Spent with Patient Total time spent is greater than 50% in coordination of care (as documented) at patient's floor/unit and/or counseling patient: 30 min 25 - 35 minutes Plan of Care Discussed with: family Internal Medicine: Result - Labs CBC & Chem 7: 02/27/18 03:03 02/27/18 03:03 - ABG Interpretation ABG results: PT/INR, D-dimer PT 17.6 Seconds (9.4-12.1) H 02/26/18 20:05 - Impressions Impressions Echocardiogram 02/27/18 03:01 Impressions: LVEF 60-65%. Normal LV chamber size, wall thickness and function. Atypical septal motion consistent with bundle branch block. Mild left ventricular diastolic dysfunction. Normal right ventricular structure and function. No evidence of pulmonary hypertension. Abdomen/Pelvis CT 02/27/18 10:45 IMPRESSION: 1. Findings of metastatic disease in the bilateral lungs, liver, and mediastinal and portocaval lymph nodes. There may also be nonenlarged metastatic right supraclavicular lymph nodes. Potential primary considerations include a paramediastinal nodule in the right upper lobe or less likely liver. Consider biopsy and/or PET. 2. Incidental findings as above. D/ / Rubio Zapata MD / Rubio Zapata MD Interpreting Provider: Rubio Zapata MD Chest CT 02/27/18 10:45 IMPRESSION: 1. Findings of metastatic disease in the bilateral lungs, liver, and mediastinal and portocaval lymph nodes. There may also be nonenlarged metastatic right supraclavicular lymph nodes. Potential primary considerations include a paramediastinal nodule in the right upper lobe or less likely liver. Consider biopsy and/or PET. 2. Incidental findings as above. D/ / Rubio Zapata MD / Rubio Zapata MD Interpreting Provider: Rubio Zapata MD Consult Discharge Plan - Plan Referrals: NONE,PCP [Primary Care Provider] - (5) Sepsis Qualifiers: Sepsis type: sepsis due to unspecified organism Qualified Code(s): A41.9 - Sepsis, unspecified organism
[2018-02-28 13:07] LABS: BUN/Creatinine Ratio 30 (6-26); Blood Urea Nitrogen 23 mg/dL (8-23); Carbon Dioxide 30 mEq/L (23-29); Chloride 102 mEq/L (98-107); Glucose 118 mg/dL (70-105); Osmolality,Calculated 297 (280-300); Potassium 3.2 mEq/L (3.5-5.1); Sodium 141 mEq/L (136-145); eGFR For Non-African Americans > 60 (> 60)
[2018-02-28] MEDS ORDERED: *HR* FentaNYL (PF) 100 MCG/2 ML VIAL ONE (14:22)
[2018-02-28] MEDS ORDERED: *HR* Midazolam HCl 2 MG/2 ML VIAL ONE (14:22)
[2018-02-28] MEDS ORDERED: 0.9 % Sodium Chloride 500 ML ONE (14:23)
[2018-02-28] MEDS ORDERED: *HR* FentaNYL (PF) 100 MCG/2 ML VIAL IVP ONE (14:25)
[2018-02-28] MEDS ORDERED: *HR* Midazolam HCl 2 MG/2 ML VIAL IVP ONE (14:26)
--- NOTE | 2018-02-28 15:24 | Pre-Sedation Evaluation ---
Pre-sedation evaluation - Pre-sedation checklist Date of procedure: 02/28/18 Procedure: liver biopsy Recent Vitals: Last Vital Signs Temp 97.7 F 02/28/18 10:36 Pulse 74 02/28/18 14:44 Resp 16 02/28/18 11:51 BP 103/61 02/28/18 14:44 Pulse Ox 95 02/28/18 14:44 H&P (including ROS) documented in medical record: Yes Previous reaction to sedatives/anesthetics: No Dietary Status: NPO after Midnight Airway Assessment: Patient can open mouth completely, TMJ function normal, Micrognathia (under-bite, receding chin) absent, Neck with adequate range of motion Possible difficult airway: No ASA Classification *see protocol: CLASS II-Mild systemic disease Plan of Care: Pt appropriate candidate for procedure/moderate/conscious sedation, Risks/benefits of procedure/sedation discussed w/ patient/family, If not NPO; Risk of intake outweiged by necessity to perform procedure Cardiac Registry (Cardio Only) - Clincal Frailty Scale Clinical Frailty Scale: Managing Well
[2018-02-28] MEDS: D5% in 0.9% NACL 1,000 ML IVC SCH (15:34)
--- NOTE | 2018-02-28 16:04 | Procedure Note ---
Date of procedure: 02/28/18 Pre-op diagnosis: Liver masses Post-op diagnosis: same Procedure: Date 02/28/2018 Time 1330 Indication: Liver masses Resident: Stephen Mancera DO Attending: Dr. Birdie Pickard A time out was completed verifying correct patient, procedure, site, position. Vital signs were monitored throughout the patient procedure. The patient was laid in the supine position and position and site were identified with the use of a CT scanner. Appropriate site and angle were identified. Site of entry was marked, site of entry was prepped and draped in sterile fashion. 1% lidocaine was used to anesthetize the surrounding skin area. An introducer needle was stylette was inserted to appropriate depth of 7 cm. The position was confirmed with repeat CT scan. 3 core liver specimens were obtained through punch biopsy and the specimens were evaluated by pathologist who was present during the procedure. With appropriate samples obtained the introducer needle was removed and postprocedure CT scan was performed. The patient was transferred back to the inpatient unit without complication. Dr. Birdie Pickard was present for the entire procedure. Estimated blood loss: 1 mL The patient tolerated the procedure well and there were no complications. Anesthesia: local Surgeon: Stephen Mancera Was there an parts room assistant present: Yes Tin Pourer: Birdie Pickard Estimated blood loss (cc): 1 Specimen: liver biopsy specimens x3 Pathology: other Condition: stable Disposition: floor
--- NOTE | 2018-02-28 16:56 | Oncology Inp Progress Note ---
<Samantha Decker L - Last Filed: 02/28/18 16:54> Date of Encounter: 02/28/18 Time of Encounter: 16:00 (1) Metastatic disease Current Visit: Yes Status: Acute Assessment and plan: CT chest/abdomen/pelvis reveals findings highly concerning for malignancy until proven otherwise with metastatic disease in the bilateral lungs, liver, and mediastinal and portocaval lymph nodes. Radiographic images were discussed with patient and family at bedside today along with need for tissue confirmation with CT guided liver bx S/P CT guided core needle bx liver lesion today Exact primary is unknown, differential list remains lengthy which may include primary liver cancer with metastases, GI primary with mets, lung primary with mets, lymphoma (although less likely), among others Further treatment options to be discussed once final pathology report received Of note, patient does not need to remain inpatient until final path has resulted should she be cleared otherwise from a medical standpoint We will continue to follow patient during her hospital stay, outpatient follow up will be arranged (2) Sepsis Current Visit: Yes Status: Acute Assessment and plan: Etiology unclear with fever (TMAX 102.1 since admission),neutrophil predominant leukocytosis, tachycardia, tachypnea Recently treated at [place] for UTI Blood cultures-NGTD Urine culture-trace leuk est, appears contaminated CXR negative Acute respiratory failure, suspecting fluid overload, Echo-pending Empirically treating with vanc/zosyn Improving, with tachycardia, tachypnea resolved. She has been afebrile x24 hours Her neutrophil predominant/fevers may be secondary to tumor burden Continue to evaluate for infectious source, although source has not yet been identified Check respiratory PCR Qualifiers: Sepsis type: sepsis due to unspecified organism Qualified Code(s): A41.9 - Sepsis, unspecified organism Oncology: Subj Interval history: Ms. Cohen tolerated her biopsy well. No acute events overnight. SOB/Cough improving. Afebrile overnight. - Constitutional Vitals: Vital Signs Temp Pulse Resp BP Pulse Ox 02/28/18 16:34 16 96 02/28/18 16:11 76 115/74 95 02/28/18 15:56 97.8 F 73 118/75 96 02/28/18 15:41 70 106/69 94 02/28/18 15:26 98.5 F 71 14 110/70 94 02/28/18 14:44 74 103/61 95 02/28/18 14:39 73 111/60 96 02/28/18 14:34 71 119/56 95 02/28/18 11:51 16 95 02/28/18 10:36 97.7 F 73 15 124/68 95 02/28/18 09:50 95 02/28/18 07:50 16 95 02/28/18 06:40 97.9 F 72 16 117/63 94 02/28/18 04:18 16 98 02/28/18 03:43 97.8 F 60 17 101/64 95 02/27/18 23:46 18 97 02/27/18 21:06 18 95 02/27/18 20:00 97.9 F 65 17 112/70 97 Intake and Output 02/28/18 02/28/18 02/28/18 07:59 15:59 23:59 Intake Total 100 / 100 1100 / 1100 Output Total 0 / 0 Balance 100 / 100 1100 / 1100 Intake: IV Fluids 100 / 100 1100 / 1100 D5% And 0.9% Nacl 1000 Ml 1,000 1000 / 1000 ML @ 45 mls/hr IVC .[id number] [facility] Rx#:[id number] Zosyn 3.375 GM In 0.9 % Sodium 100 / 100 100 / 100 Chloride (Mini-Bag +) 100 ML @ 25 mls/hr IVPB Q8H [facility] Rx#: [id number] Oral 0 / 0 Output: Urine 0 / 0 Other: Stool Size Small Stool Consistency loose Stool Color Brown Yellow Green # Voids 1 # Bowel Movements 1 Blood Glucose* 123 103 General appearance: cooperative, no acute distress, no febrile - Head Head exam: Present: atraumatic - ENT ENT exam: Present: mucous membranes moist - Respiratory Respiratory exam: Present: decreased breath sounds. Absent: respiratory distress - Cardiovascular Cardiovascular exam: Present: RRR, +S1, +S2 - GI/Abdominal GI/Abdominal exam: Present: normal bowel sounds, soft, tenderness (tenderness RUQ) - Extremities Exam Extremities exam: Absent: calf tenderness - Neurological Exam Neurological exam: Present: alert, oriented X3, no focal deficits, strengths equal and symetr throughout - Psychiatric Psychiatric exam: Present: normal affect, normal mood - Skin Skin exam: Present: dry, intact, normal color, warm Oncology: Obj Data - Labs CBC & Chem 7: 02/28/18 10:07 02/28/18 10:07 - Impressions Impressions Echocardiogram 02/27/18 03:01 Impressions: LVEF 60-65%. Normal LV chamber size, wall thickness and function. Atypical septal motion consistent with bundle branch block. Mild left ventricular diastolic dysfunction. Normal right ventricular structure and function. No evidence of pulmonary hypertension. Liver Biopsy CT 02/28/18 00:00 IMPRESSION: Successful CT guided core biopsy of the right lobe liver mass. D/ / 02/28/2018 15:52:20 Birdie Pickard MD / bcarter Interpreting Provider: Birdie Pickard MD - ABG Interpretation ABG results: PT/INR, D-dimer PT 17.6 Seconds (9.4-12.1) H 02/26/18 20:05 Consult Discharge Plan - Plan Referrals: NONE,PCP [Primary Care Provider] - <Sven Gr - Last Filed: 02/28/18 21:39> - Constitutional Vitals: Vital Signs Temp Pulse Resp BP Pulse Ox 02/28/18 20:17 18 95 02/28/18 19:27 99.8 F H 74 18 96/59 95 02/28/18 16:34 16 96 02/28/18 16:11 76 115/74 95 02/28/18 15:56 97.8 F 73 118/75 96 02/28/18 15:41 70 106/69 94 02/28/18 15:26 98.5 F 71 14 110/70 94 02/28/18 14:44 74 103/61 95 02/28/18 14:39 73 111/60 96 02/28/18 14:34 71 119/56 95 02/28/18 11:51 16 95 02/28/18 10:36 97.7 F 73 15 124/68 95 02/28/18 09:50 95 02/28/18 07:50 16 95 02/28/18 06:40 97.9 F 72 16 117/63 94 02/28/18 04:18 16 98 02/28/18 03:43 97.8 F 60 17 101/64 95 02/27/18 23:46 18 97 Intake and Output 02/28/18 02/28/18 03/01/18 08:59 16:59 00:59 Intake Total 1100 / 1100 100 / 100 Output Total 0 / 0 350 / 350 Balance 1100 / 1100 100 / 100 -350 / -350 Intake: IV Fluids 1100 / 1100 100 / 100 D5% And 0.9% Nacl 1000 Ml 1,000 1000 / 1000 ML @ 45 mls/hr IVC .[id number] [facility] Rx#:[id number] Zosyn 3.375 GM In 0.9 % Sodium 100 / 100 100 / 100 Chloride (Mini-Bag +) 100 ML @ 25 mls/hr IVPB Q8H [facility] Rx#: [id number] Oral 0 / 0 Output: Urine 0 / 0 350 / 350 Other: Stool Size Small Small Stool Consistency loose soft Stool Color Brown Brown Yellow Green # Voids 1 # Bowel Movements 1 1 Blood Glucose* 123 103 164 Oncology: Obj Data - Labs CBC & Chem 7: 02/28/18 10:07 02/28/18 10:07 Labs: Laboratory Results - last 24 hr 02/27/18 02/27/18 02/28/18 16:54 20:03 00:45 WBC RBC Hgb Hct MCV MCH MCHC RDW Plt Count MPV Immature Gran % Seg Neutrophils % Lymphocytes % Monocytes % Eosinophils % Basophils % Neutrophils # Lymphocytes # Monocytes # Eosinophils # Basophils # Sodium Potassium Chloride Carbon Dioxide BUN Creatinine Est GFR ( Amer) Est GFR (Non-Af Amer) BUN/Creatinine Ratio Glucose POC Glucose 172 H 190 H 154 H Calculated Osmolality Calcium Chlamy pneumoniae PCR Adenovirus (PCR) B. pertussis DNA (PCR) B.parapertussis DNA PCR Coronavirus OC43 (PCR) Coronavirus HKU1 (PCR) Coronavirus 229E (PCR) Coronavirus NL63 (PCR) Human Metapneumovir PCR Influenza A (H1) PCR Influ A (H1N1/09) PCR Influenza A (H3) PCR Influenza A Untype (PCR) Influenza Type B (PCR) M.pneumoniae DNA (PCR) Parainfluenza 1 (PCR) Parainfluenza 2 (PCR) Parainfluenza 3 (PCR) Parainfluenza 4 (PCR) RSV (PCR) Entero/Rhino (PCR) 02/28/18 02/28/18 02/28/18 06:44 10:07 10:07 WBC 17.8 H RBC 3.30 L Hgb 9.1 L Hct 28.9 L MCV 87.6 MCH 27.6 L MCHC 31.5 L RDW 15.4 H Plt Count 333 MPV 11.3 Immature Gran % 0.7 Seg Neutrophils % 90.9 Lymphocytes % 4.8 Monocytes % 3.5 Eosinophils % 0.0 Basophils % 0.1 Neutrophils # 16.2 H Lymphocytes # 0.9 Monocytes # 0.6 Eosinophils # 0.0 Basophils # 0.0 Sodium 141 Potassium 3.2 L Chloride 102 Carbon Dioxide 30 H BUN 23 Creatinine 0.76 Est GFR ( Amer) > 60 Est GFR (Non-Af Amer) > 60 BUN/Creatinine Ratio 30 H Glucose 118 H POC Glucose 123 H Calculated Osmolality 297 Calcium 8.0 L Chlamy pneumoniae PCR Adenovirus (PCR) B. pertussis DNA (PCR) B.parapertussis DNA PCR Coronavirus OC43 (PCR) Coronavirus HKU1 (PCR) Coronavirus 229E (PCR) Coronavirus NL63 (PCR) Human Metapneumovir PCR Influenza A (H1) PCR Influ A (H1N1) PCR Influenza A (H3) PCR Influenza A Untype (PCR) Influenza Type B (PCR) M.pneumoniae DNA (PCR) Parainfluenza 1 (PCR) Parainfluenza 2 (PCR) Parainfluenza 3 (PCR) Parainfluenza 4 (PCR) RSV (PCR) Entero/Rhino (PCR) 02/28/18 18:11 WBC RBC Hgb Hct MCV MCH MCHC RDW Plt Count MPV Immature Gran % Seg Neutrophils % Lymphocytes % Monocytes % Eosinophils % Basophils % Neutrophils # Lymphocytes # Monocytes # Eosinophils # Basophils # Sodium Potassium Chloride Carbon Dioxide BUN Creatinine Est GFR ( Amer) Est GFR (Non-Af Amer) BUN/Creatinine Ratio Glucose POC Glucose Calculated Osmolality Calcium Chlamy pneumoniae PCR Not Detected Adenovirus (PCR) Not Detected B. pertussis DNA (PCR) Not Detected B.parapertussis DNA PCR Not Detected Coronavirus OC43 (PCR) Not Detected Coronavirus HKU1 (PCR) Not Detected Coronavirus 229E (PCR) Not Detected Coronavirus NL63 (PCR) Not Detected Human Metapneumovir PCR Not Detected Influenza A (H1) PCR Not Detected Influ A (H1N1/09) PCR Not Detected Influenza A (H3) PCR Not Detected Influenza A Untype (PCR) Not Detected Influenza Type B (PCR) Not Detected M.pneumoniae DNA (PCR) Not Detected Parainfluenza 1 (PCR) Not Detected Parainfluenza 2 (PCR) Not Detected Parainfluenza 3 (PCR) Not Detected Parainfluenza 4 (PCR) Not Detected RSV (PCR) Not Detected Entero/Rhino (PCR) Not Detected - Impressions Impressions Liver Biopsy CT 02/28/18 00:00 IMPRESSION: Successful CT guided core biopsy of the right lobe liver mass. D/ / 02/28/2018 15:52:20 Birdie Pickard MD / bcarter Interpreting Provider: Birdie Pickard MD - ABG Interpretation ABG results: PT/INR, D-dimer PT 17.6 Seconds (9.4-12.1) H 02/26/18 20:05 Inpatient Charges Provider: Dr. Elan Gr Follow up - Inpatient: [id number] - Attending Attestation I examined this patient and my medical decision-making was reviewed with the Advanced Practice Nurse. I agree with the documented findings, disposition and treatment plan as described except to the extent set forth below. She is feeling better. Fevers have improved clinically. Biopsy completed. Explained to family results will likely take until Thurs/Fri. Continue with infectious workup and PT/OT evaluation.
[2018-02-28 20:27] LABS: Adenovirus Not Detected (Not Detect); Bordetella Pertussis Not Detected (Not Detect); Chlamydophila pneumoniae Not Detected (Not Detect); Coronavirus 229E Not Detected (Not Detect); Coronavirus HKU1 Not Detected (Not Detect); Coronavirus NL63 Not Detected (Not Detect); Coronavirus OC43 Not Detected (Not Detect); Human Metapneumovirus Not Detected (Not Detect); Human Rhinovirus/Enterovirus Not Detected (Not Detect); Influenza A Subtype 2009 H1 Not Detected (Not Detect); Influenza A Untypeable Not Detected (Not Detect); Influenza B Not Detected (Not Detect); Mycoplasma pneumoniae Not Detected (Not Detect); Parainfluenza Virus 1 Not Detected (Not Detect); Parainfluenza Virus 2 Not Detected (Not Detect); Parainfluenza Virus 3 Not Detected (Not Detect); Parainfluenza Virus 4 Not Detected (Not Detect); Respiratory Syncytial Virus Not Detected (Not Detect)
[2018-03-01] MEDS: Piperacillin/Tazobactam 3.375 GM in 0.9 % Sodium Chloride Mini Bag 100 ML IVPB SCH ×3 (00:10→16:00)
[2018-03-01] MEDS: *HR* Heparin 5,000 UNIT/ML VIAL SQ SCH ×4 (00:10→20:19)
[2018-03-01 04:01] LABS: Basophils % 0.1 %; Hematocrit 26.4 % (35.3-44.9); Hemoglobin 8.2 g/dL (11.5-15.4); Lymphocytes # 0.9 K/mcL (0.6-4.6); Lymphocytes % 7.3 %; Mean Corpuscular HGB Conc 31.1 g/dL (31.6-35.5); Mean Corpuscular Hemoglobin 27.3 pg (28.0-33.3); Mean Platelet Volume 10.8 fL (9.4-12.4); Monocytes # 0.6 K/mcL (0.0-1.3); Neutrophils # 10.7 K/mcL (1.6-8.9); Platelet Count 308 K/mcL (140-400); Red Cell Distribution Width 15.7 % (11.5-14.5); Segmented Neutrophils % 86.6 %
[2018-03-01 04:33] LABS: BUN/Creatinine Ratio 26 (6-26); Blood Urea Nitrogen 20 mg/dL (8-23); Calcium 8.2 mg/dL (8.6-10.3); Carbon Dioxide 31 mEq/L (23-29); Chloride 103 mEq/L (98-107); Glucose 103 mg/dL (70-105); Osmolality,Calculated 295 (280-300); Potassium 3.3 mEq/L (3.5-5.1); Sodium 141 mEq/L (136-145); eGFR For Non-African Americans > 60 (> 60)
[2018-03-01] MEDS: Albuterol 2.5 MG/3 ML NEBULIZER IH SCH ×6 (04:37→23:28)
[2018-03-01 06:44] LABS: Vancomycin,Trough 15 mcg/mL (5-10)
[2018-03-01] MEDS: Furosemide 20 MG TABLET PO SCH (08:38)
[2018-03-01] MEDS: Insulin LISPRO 300 UNITS/3 ML VIAL SQ SCH ×4 (08:40→19:53)
--- NOTE | 2018-03-01 13:45 | Internal Med Progress Note ---
Hospitalist Progress Note - Encounter Date of Encounter: 03/01/18 Time of Encounter: 09:00 - Subjective Interval History: Pt is less SOB, T 99.8 yesterday evening. Denies cough or dysuria. Mild RUQ pain. - Exam Vitals: Temp Pulse Resp BP Pulse Ox 98.1 F 71 17 118/73 100 03/01/18 11:25 03/01/18 11:25 03/01/18 11:25 03/01/18 11:25 03/01/18 11:25 Exam: General: pleasant, without distress HEENT: Head atraumatic, normocephalic, EOMI, PERRL, absent ear discharge or trauma, Moist Mucous Membranes, uvula midline Neck: nontender to palpation, absent lymphadenopathy, Cardiovascualr: Regular rate and rhythm with no murmur, absent gallops or rubs, 1+ pedal edema, radial pulses 2 out of 4 Lungs: Bibasilar crackles, mild, not in respiratory distress Abdomen: Soft, mild RUQ tenderness w/o rebound/guarding, nondistended positive bowel sounds, absent hepatomegaly Skin: warm and dry, absent rash, absent open wounds and nodules MSK: absent clubbing, cyanosis, joints without swelling Neuro: Cranial nerves II through XII intact, UE and LE sensation equal bilateral ly, UE and LEstrength 5/5, alert oriented 3, Psych: good insight and judgment, depressed - Assessment and Plan (1) Acute respiratory failure with hypoxia Current Visit: Yes Status: Acute Assessment and Plan: Slightly improved now. Lung metastatic disease vs PNA? vs Fluid overload. - Cont supportive treatment. - Echo shows EF 60-65%, Mild diastolic dysfunction, BNP 95, will switch lasix to PO. (2) DVT prophylaxis Current Visit: Yes Status: Acute Assessment and Plan: Heparin SC (3) Elevated troponin Current Visit: Yes Status: Acute Assessment and Plan: Mild elevated troponin on a sepsis picture, 3 sets of troponin 0.05-0.06-0.04, pt denies chest pain, likely demand ischemia. (4) Metastatic disease Current Visit: Yes Status: Acute Assessment and Plan: Oncology consult appreciated. Had liver biopsy. Result pending, will cont follow up with oncology after discharge. (5) Sepsis Current Visit: Yes Status: Acute Assessment and Plan: Etiology undetermined. Early PNA vs UTI. - Improved leukocytosis. No fever - Cont empirical vanco and zosyn, blood culture no growth so far. DVT Prophylaxis: Heparin sc - Time Spent with Patient Total time spent is greater than 50% in coordination of care (as documented) at patient's floor/unit and/or counseling patient: 40 min Greater than 35 minutes Plan of Care Discussed with: patient Internal Medicine: Result - Labs CBC & Chem 7: 03/01/18 03:50 03/01/18 03:50 Labs: Short CBC 03/01/18 Range/Units 03:50 WBC 12.4 H (4.3-11.1) K/mcL Hgb 8.2 L (11.5-15.4) g/dL Hct 26.4 L (35.3-44.9) % Plt Count 308 (140-400) K/mcL Neutrophils # 10.7 H (1.6-8.9) K/mcL BMP 03/01/18 03:50 Sodium 141 Potassium 3.3 L Chloride 103 Carbon Dioxide 31 H BUN 20 Creatinine 0.78 Glucose 103 Calcium 8.2 L - ABG Interpretation ABG results: PT/INR, D-dimer PT 17.6 Seconds (9.4-12.1) H 02/26/18 20:05 - Impressions Impressions Liver Biopsy CT 02/28/18 00:00 IMPRESSION: Successful CT guided core biopsy of the right lobe liver mass. D/ / 02/28/2018 15:52:20 Birdie Pickard MD / bcarter Interpreting Provider: Birdie Pickard MD Consult Discharge Plan - Plan Referrals: NONE,PCP [Primary Care Provider] - (5) Sepsis Qualifiers: Sepsis type: sepsis due to unspecified organism Qualified Code(s): A41.9 - Sepsis, unspecified organism
[2018-03-01] MEDS: Acetaminophen 325 MG TABLET PO PRN (16:05)
--- NOTE | 2018-03-01 17:21 | Oncology Inp Progress Note ---
<Samantha Decker L - Last Filed: 03/01/18 17:18> Date of Encounter: 03/01/18 Time of Encounter: 16:00 (1) Metastatic disease Current Visit: Yes Status: Acute Assessment and plan: CT chest/abdomen/pelvis reveals findings highly concerning for malignancy until proven otherwise with metastatic disease in the bilateral lungs, liver, and mediastinal and portocaval lymph nodes. S/P CT guided core needle bx liver lesion with pathology still pending Exact primary is unknown, differential list remains lengthy which may include primary liver cancer with metastases, GI primary with mets, lung primary with mets, lymphoma (although less likely), among others Plan: Awaiting final pathology to discuss treatment options which will be initiated as an outpatient (patient does not need to stay inpatient for path to result) Patient and family hve concerns in regards to her appetite and mobility as well as support services once patient returns home Consult PT/OT and dietary services We will start remeron 7.5 mg to assist with appetite, mood and insomnia Encouraged intake and activity as tolerated (2) Sepsis Current Visit: Yes Status: Acute Assessment and plan: Etiology unclear with fever,neutrophil predominant leukocytosis, tachycardia, tachypnea initially on presentation Recently treated at [place] for UTI Blood cultures-NGTD Urine culture-trace leuk est, appears contaminated CXR negative Acute respiratory failure, suspecting fluid overload, lasix is ordered Empirically treating with vanc/zosyn Check respiratory PCR-Negative Fever trend, respiratory symptoms, vitals and leukocytosis appear to be improving Likely consider ATB de-escalation when cleared per primary team Qualifiers: Sepsis type: sepsis due to unspecified organism Qualified Code(s): A41.9 - Sepsis, unspecified organism Oncology: Subj Interval history: Ms. Cohen had no acute events overnight. Her family is at bedside. She reports RUQ abdominal pain. Her appetite is poor, she experiences indigestion with eating. She is not sleeping well which is multifactorial. Patient and family are concerned about her needs for physical therapy moving forward, we arranging for PT/OT evaluation. She had been up to the chair for a good bit of the morning. - Constitutional Vitals: Vital Signs Temp Pulse Resp BP Pulse Ox 03/01/18 16:23 97.9 F 77 18 119/74 94 03/01/18 16:05 18 97 03/01/18 11:25 98.1 F 71 17 118/73 100 03/01/18 11:18 18 97 03/01/18 07:50 18 90 03/01/18 07:47 98.0 F 74 18 112/71 90 03/01/18 04:52 98.3 F 79 18 128/71 98 03/01/18 04:37 17 97 02/28/18 23:25 17 96 02/28/18 23:09 98.2 F 78 18 117/69 96 02/28/18 20:17 18 95 02/28/18 19:27 99.8 F H 74 18 96/59 95 Intake and Output 03/01/18 03/01/18 03/01/18 07:59 15:59 23:59 Intake Total 100 / 100 460 / 460 Output Total 500 / 500 Balance 100 / 100 -40 / -40 Intake: IV Fluids 100 / 100 100 / 100 Zosyn 3.375 GM In 0.9 % Sodium 100 / 100 100 / 100 Chloride (Mini-Bag +) 100 ML @ 25 mls/hr IVPB Q8H [facility] Rx#: [id number] Oral 360 / 360 Output: Urine 500 / 500 Other: Meal Breakfast Percent of Meal Consumed 0% Stool Size Moderate Stool Consistency loose Stool Color Brown # Voids 1 # Bowel Movements 1 Weight 97.1 kg Blood Glucose* 101 128 Patient Weight 03/01/18 23:59 Weight 97.1 kg General appearance: cooperative, no acute distress, no febrile - Head Head exam: Present: atraumatic - ENT ENT exam: Present: mucous membranes moist - Respiratory Respiratory exam: Present: decreased breath sounds. Absent: respiratory distress - Cardiovascular Cardiovascular exam: Present: RRR, +S1, +S2 - GI/Abdominal GI/Abdominal exam: Present: normal bowel sounds, soft, tenderness. Absent: guarding, rebound - Extremities Exam Extremities exam: Absent: calf tenderness - Neurological Exam Neurological exam: Present: alert, oriented X3, no focal deficits, strengths equal and symetr throughout - Psychiatric Psychiatric exam: Present: normal affect, normal mood - Skin Skin exam: Present: dry, intact, normal color, warm Oncology: Obj Data - Labs CBC & Chem 7: 03/01/18 03:50 03/01/18 03:50 - Impressions Impressions Liver Biopsy CT 02/28/18 00:00 IMPRESSION: Successful CT guided core biopsy of the right lobe liver mass. D/ / 02/28/2018 15:52:20 Birdie Pickard MD / bcarter Interpreting Provider: Birdie Pickard MD - ABG Interpretation ABG results: PT/INR, D-dimer PT 17.6 Seconds (9.4-12.1) H 02/26/18 20:05 Consult Discharge Plan - Plan Referrals: NONE,PCP [Primary Care Provider] - <Sven Gr - Last Filed: 03/01/18 20:57> - Constitutional Vitals: Vital Signs Temp Pulse Resp BP Pulse Ox 03/01/18 19:40 16 92 03/01/18 19:30 97.7 F 63 16 93/54 96 03/01/18 16:23 97.9 F 77 18 119/74 94 03/01/18 16:05 18 97 03/01/18 11:25 98.1 F 71 17 118/73 100 03/01/18 11:18 18 97 03/01/18 07:50 18 90 03/01/18 07:47 98.0 F 74 18 112/71 90 03/01/18 04:52 98.3 F 79 18 128/71 98 03/01/18 04:37 17 97 02/28/18 23:25 17 96 02/28/18 23:09 98.2 F 78 18 117/69 96 Intake and Output 03/01/18 03/01/18 03/02/18 08:59 16:59 00:59 Intake Total 100 / 100 460 / 460 100 / 100 Output Total 500 / 500 Balance 100 / 100 -40 / -40 100 / 100 Intake: IV Fluids 100 / 100 100 / 100 100 / 100 Zosyn 3.375 GM In 0.9 % Sodium 100 / 100 100 / 100 100 / 100 Chloride (Mini-Bag +) 100 ML @ 25 mls/hr IVPB Q8H [facility] Rx#: [id number] Oral 360 / 360 Output: Urine 500 / 500 Other: Meal Breakfast Percent of Meal Consumed 0% Stool Size Moderate Stool Consistency loose Stool Color Brown # Voids 1 # Bowel Movements 1 Weight 97.1 kg Blood Glucose* 101 128 147 Patient Weight 03/02/18 00:59 Weight 97.1 kg Oncology: Obj Data - Labs CBC & Chem 7: 03/01/18 03:50 03/01/18 03:50 Labs: Laboratory Results - last 24 hr 02/28/18 02/28/18 02/28/18 10:40 15:49 19:25 WBC RBC Hgb Hct MCV MCH MCHC RDW Plt Count MPV Immature Gran % Seg Neutrophils % Lymphocytes % Monocytes % Eosinophils % Basophils % Neutrophils # Lymphocytes # Monocytes # Eosinophils # Basophils # Sodium Potassium Chloride Carbon Dioxide BUN Creatinine Est GFR ( Amer) Est GFR (Non-Af Amer) BUN/Creatinine Ratio Glucose POC Glucose 114 H 103 H 164 H Calculated Osmolality Calcium Vancomycin Trough 03/01/18 03/01/18 03/01/18 03:50 03:50 07:47 WBC 12.4 H RBC 3.00 L Hgb 8.2 L Hct 26.4 L MCV 88.0 MCH 27.3 L MCHC 31.1 L RDW 15.7 H Plt Count 308 MPV 10.8 Immature Gran % 1.0 Seg Neutrophils % 86.6 Lymphocytes % 7.3 Monocytes % 5.0 Eosinophils % 0.0 Basophils % 0.1 Neutrophils # 10.7 H Lymphocytes # 0.9 Monocytes # 0.6 Eosinophils # 0.0 Basophils # 0.0 Sodium 141 Potassium 3.3 L Chloride 103 Carbon Dioxide 31 H BUN 20 Creatinine 0.78 Est GFR ( Amer) > 60 Est GFR (Non-Af Amer) > 60 BUN/Creatinine Ratio 26 Glucose 103 POC Glucose 101 H Calculated Osmolality 295 Calcium 8.2 L Vancomycin Trough 15 H 03/01/18 11:23 WBC RBC Hgb Hct MCV MCH MCHC RDW Plt Count MPV Immature Gran % Seg Neutrophils % Lymphocytes % Monocytes % Eosinophils % Basophils % Neutrophils # Lymphocytes # Monocytes # Eosinophils # Basophils # Sodium Potassium Chloride Carbon Dioxide BUN Creatinine Est GFR ( Amer) Est GFR (Non-Af Amer) BUN/Creatinine Ratio Glucose POC Glucose 90 Calculated Osmolality Calcium Vancomycin Trough - Impressions Impressions Liver Biopsy CT 02/28/18 00:00 IMPRESSION: Successful CT guided core biopsy of the right lobe liver mass. D/ / 02/28/2018 15:52:20 Birdie Pickard MD / bcarter Interpreting Provider: Birdie Pickard MD - ABG Interpretation ABG results: PT/INR, D-dimer PT 17.6 Seconds (9.4-12.1) H 02/26/18 20:05 Inpatient Charges Provider: Dr. Elan Gr Follow up - Inpatient: [id number] - Attending Attestation I examined this patient and my medical decision-making was reviewed with the Advanced Practice Nurse. I agree with the documented findings, disposition and treatment plan as described except to the extent set forth below. She is feeling better. Afebrile since 02/27. Normal bowel movements. Mild abdominal pain about RUQ, stable. Pathology pending. PT recommended. Remeron started at night to aid appetite. Hopeful discharge soon. Pathology will be likely resulted Tuesday.
[2018-03-01] MEDS: Mirtazapine 15 MG TABLET PO SCH (20:19)
[2018-03-02] MEDS: D5% in 0.9% NACL 1,000 ML IVC SCH (00:20)
[2018-03-02] MEDS: Piperacillin/Tazobactam 3.375 GM in 0.9 % Sodium Chloride Mini Bag 100 ML IVPB SCH ×2 (00:25→07:45)
[2018-03-02] MEDS: Albuterol 2.5 MG/3 ML NEBULIZER IH SCH ×5 (03:15→20:41)
[2018-03-02 05:19] LABS: Basophils % 0.1 %; Eosinophils % 0.1 %; Hematocrit 25.3 % (35.3-44.9); Immature Granulocytes % 0.9 % (0-4); Lymphocytes # 1.2 K/mcL (0.6-4.6); Lymphocytes % 12.4 %; Mean Corpuscular HGB Conc 31.6 g/dL (31.6-35.5); Mean Corpuscular Hemoglobin 27.8 pg (28.0-33.3); Mean Corpuscular Volume 87.8 fL (83.0-100.0); Mean Platelet Volume 11.2 fL (9.4-12.4); Monocytes # 0.6 K/mcL (0.0-1.3); Monocytes % 6.3 %; Neutrophils # 7.8 K/mcL (1.6-8.9); Platelet Count 302 K/mcL (140-400); Red Blood Count 2.88 M/mcL (3.82-4.97); Red Cell Distribution Width 15.7 % (11.5-14.5); Segmented Neutrophils % 80.2 %
[2018-03-02 05:34] LABS: BUN/Creatinine Ratio 22 (6-26); Blood Urea Nitrogen 14 mg/dL (8-23); Carbon Dioxide 29 mEq/L (23-29); Chloride 103 mEq/L (98-107); Glucose 89 mg/dL (70-105); Osmolality,Calculated 290 (280-300); Potassium 3.8 mEq/L (3.5-5.1); Sodium 140 mEq/L (136-145); eGFR For Non-African Americans > 60 (> 60)
[2018-03-02] MEDS: *HR* Heparin 5,000 UNIT/ML VIAL SQ SCH ×3 (06:11→22:02)
[2018-03-02] MEDS: Insulin LISPRO 300 UNITS/3 ML VIAL SQ SCH ×4 (07:37→22:00)
[2018-03-02] MEDS: Furosemide 20 MG TABLET PO SCH (07:49)
[2018-03-02] MEDS: Acetaminophen 325 MG TABLET PO PRN (07:49)
[2018-03-02] MEDS: Lactobacillus 1 EACH CAP.SPRINK PO SCH (07:51)
[2018-03-02] MEDS: levoFLOXacin 750 MG TABLET PO SCH (10:28)
--- NOTE | 2018-03-02 11:26 | Internal Med Progress Note ---
Hospitalist Progress Note - Encounter Date of Encounter: 03/02/18 Time of Encounter: 09:00 - Subjective Interval History: Pt is less SOB, still on O2, no cough. Low fever this AM 100.3. Denies dysuria. Mild RUQ pain. - Exam Vitals: Temp Pulse Resp BP Pulse Ox 97.6 F 74 18 91/62 94 03/02/18 11:01 03/02/18 11:01 03/02/18 11:02 03/02/18 11:01 03/02/18 11:02 Exam: General: pleasant, without distress HEENT: Head atraumatic, normocephalic, EOMI, PERRL, absent ear discharge or trauma, Moist Mucous Membranes, uvula midline Neck: nontender to palpation, absent lymphadenopathy, Cardiovascualr: Regular rate and rhythm with no murmur, absent gallops or rubs, 1+ pedal edema, radial pulses 2 out of 4 Lungs: Bibasilar crackles, mild, not in respiratory distress Abdomen: Soft, mild RUQ tenderness w/o rebound/guarding, nondistended positive bowel sounds, absent hepatomegaly Skin: warm and dry, absent rash, absent open wounds and nodules MSK: absent clubbing, cyanosis, joints without swelling Neuro: Cranial nerves II through XII intact, UE and LE sensation equal bilaterally, UE and LEstrength 5/5, alert oriented 3, Psych: good insight and judgment, depressed - Assessment and Plan (1) DVT prophylaxis Current Visit: Yes Status: Acute Assessment and Plan: Heparin SC (2) Elevated troponin Current Visit: Yes Status: Acute Assessment and Plan: Mild elevated troponin on a sepsis picture, 3 sets of troponin 0.05-0.06-0.04, pt denies chest pain, likely demand ischemia. (3) Metastatic disease Current Visit: Yes Status: Acute Assessment and Plan: Oncology consult appreciated. Had liver biopsy. Result pending, will cont follow up with oncology after discharge. (4) Sepsis Current Visit: Yes Status: Acute Assessment and Plan: Etiology undetermined. Early PNA vs UTI. - Improved leukocytosis. Still low fever, difficult to say it is from infection or metastatic tumor - Finished 5 days of vanco and zosyn, blood culture no growth so far. Will switch to po levaquin now as WBC get down to normal, clinically pt has improved, no dysuria. DVT Prophylaxis: Heparin sc - Summary of Assessment and Plan Summary of Assessment and Plan: Plan to d/c soon, need PT/OT recommendation, benefit director consult as pt has poor appetite. May need Home O2. - Time Spent with Patient Total time spent is greater than 50% in coordination of care (as documented) at patient's floor/unit and/or counseling patient: 30 min 25 - 35 minutes Plan of Care Discussed with: patient Internal Medicine: Result - Labs CBC & Chem 7: 03/02/18 04:50 03/02/18 04:50 Labs: Short CBC 03/02/18 Range/Units 04:50 WBC 9.8 (4.3-11.1) K/mcL Hgb 8.0 L (11.5-15.4) g/dL Hct 25.3 L (35.3-44.9) % Plt Count 302 (140-400) K/mcL Neutrophils # 7.8 (1.6-8.9) K/mcL BMP 03/02/18 04:50 Sodium 140 Potassium 3.8 Chloride 103 Carbon Dioxide 29 BUN 14 Creatinine 0.63 Glucose 89 Calcium 8.0 L - ABG Interpretation ABG results: PT/INR, D-dimer PT 17.6 Seconds (9.4-12.1) H 02/26/18 20:05 Consult Discharge Plan - Plan Referrals: NONE,PCP [Primary Care Provider] - (4) Sepsis Qualifiers: Sepsis type: sepsis due to unspecified organism Qualified Code(s): A41.9 - Sepsis, unspecified organism
--- NOTE | 2018-03-02 17:10 | Oncology Inp Progress Note ---
<Samantha Decker L - Last Filed: 03/02/18 17:08> Date of Encounter: 03/02/18 Time of Encounter: 13:00 (1) Metastatic disease Current Visit: Yes Status: Acute Assessment and plan: CT chest/abdomen/pelvis reveals findings highly concerning for malignancy until proven otherwise with metastatic disease in the bilateral lungs, liver, and mediastinal and portocaval lymph nodes. S/P CT guided core needle bx liver lesion with official sign off still pending, however, in further discussion today with pathology her biopsy does resemble an adenocarcinoma. Origin of the adenocarcinoma will be determined with pending IHC stains. Ms. Cohen will have a follow up with Dr. Gr arranged for of next week, following her PET scan planned on Tuesday of next week which will need to be done as an outpatient. We will send for Next Gen/Foundation One Sequencing to determine appropriateness of targeted therapy Remeron has been started to help with sleep, mood and appetite. Please continue at discharge Per patient and family, she may be discharged within the next day pending clearance from her medical team. From an oncology standpoint further discussions and diagnostics will be performed as an outpatient. I will give patient follow up information prior to her discharge. We will otherwise sign off at this time, feel free to contact with any other questions or concerns. Oncology: Subj Interval history: Ms. Cohen is feeling slightly improved today. She has been evaluated by PT/OT who have recommended home health with therapy services. She slept well last night. Appetite has been slightly improved today in comparison with previous days. Family are at bedside. - Constitutional Vitals: Vital Signs Temp Pulse Resp BP Pulse Ox 03/02/18 15:47 98.4 F 70 16 143/76 96 03/02/18 11:02 18 94 03/02/18 11:01 97.6 F 74 16 91/62 100 03/02/18 07:39 18 92 03/02/18 07:12 100.2 F H 82 16 145/81 95 03/02/18 03:57 99 F 76 15 121/76 93 03/02/18 03:17 16 92 03/01/18 23:31 16 93 03/01/18 23:28 98.7 F 74 15 143/83 92 03/01/18 19:40 16 92 03/01/18 19:30 97.7 F 63 16 93/54 96 Intake and Output 03/02/18 03/02/18 03/02/18 07:59 15:59 23:59 Intake Total 350 / 350 440 / 440 Output Total 200 / 200 Balance 350 / 350 240 / 240 Intake: IV Fluids 350 / 350 Zosyn 3.375 GM In 0.9 % Sodium 100 / 100 Chloride (Mini-Bag +) 100 ML @ 25 mls/hr IVPB Q8H [facility]IA[facility] Rx#: [id number] Vancocin 1,500 MG In 0.9 % 250 / 250 Sodium Chloride 250 ML @ 166.67 mls/hr IVPB Q24H [facility]IA[facility] Rx#: [id number] Oral 440 / 440 Output: Urine 200 / 200 Other: Meal Lunch Percent of Meal Consumed 100% # Voids 1 Blood Glucose* 85 87 General appearance: cooperative, no acute distress, no febrile - Head Head exam: Present: atraumatic - ENT ENT exam: Present: mucous membranes moist - Respiratory Respiratory exam: Present: CTAB. Absent: respiratory distress - Cardiovascular Cardiovascular exam: Present: RRR, +S1, +S2 - GI/Abdominal GI/Abdominal exam: Present: normal bowel sounds, soft Additional comments: mild tenderness RUQ - Extremities Exam Extremities exam: Absent: calf tenderness - Neurological Exam Neurological exam: Present: alert, oriented X3, no focal deficits, strengths equal and symetr throughout - Psychiatric Psychiatric exam: Present: normal affect, normal mood - Skin Skin exam: Present: dry, intact, normal color, warm Oncology: Obj Data - Labs CBC & Chem 7: 03/02/18 04:50 03/02/18 04:50 - ABG Interpretation ABG results: PT/INR, D-dimer PT 17.6 Seconds (9.4-12.1) H 02/26/18 20:05 Consult Discharge Plan - Plan Referrals: NONE,PCP [Primary Care Provider] - <Sven Gr - Last Filed: 03/03/18 08:44> - Constitutional Vitals: Vital Signs Temp Pulse Resp BP Pulse Ox 03/03/18 07:46 100.9 F H 95 16 116/73 93 03/03/18 07:29 14 96 03/03/18 04:38 14 96 03/03/18 04:19 99.3 F 79 15 132/77 95 03/03/18 00:19 18 98 03/02/18 23:30 99.4 F 76 14 122/74 95 03/02/18 20:45 18 95 03/02/18 19:18 99.6 F 81 15 123/70 93 03/02/18 16:40 18 98 03/02/18 15:47 98.4 F 70 16 143/76 96 03/02/18 11:02 18 94 03/02/18 11:01 97.6 F 74 16 91/62 100 Intake and Output 03/02/18 03/03/18 03/03/18 16:59 00:59 08:59 Intake Total 440 / 440 Output Total 100 / 100 500 / 500 Balance 340 / 340 -500 / -500 Intake: Oral 440 / 440 Output: Urine 100 / 100 500 / 500 Other: Meal Lunch Percent of Meal Consumed 100% Stool Size Small Stool Consistency liquid # Bowel Movements 1 Weight 98.9 kg Blood Glucose* 87 117 78 Oncology: Obj Data - Labs CBC & Chem 7: 03/03/18 06:35 03/03/18 06:35 Labs: Laboratory Results - last 24 hr 03/01/18 03/01/18 03/02/18 15:50 19:34 07:14 WBC RBC Hgb Hct MCV MCH MCHC RDW Plt Count MPV Immature Gran % Seg Neutrophils % Lymphocytes % Monocytes % Eosinophils % Basophils % Neutrophils # Lymphocytes # Monocytes # Eosinophils # Basophils # Sodium Potassium Chloride Carbon Dioxide BUN Creatinine Est GFR ( Amer) Est GFR (Non-Af Amer) BUN/Creatinine Ratio Glucose POC Glucose 128 H 147 H 85 Calculated Osmolality Calcium 03/02/18 03/02/18 03/03/18 11:04 15:47 06:35 WBC 14.2 H RBC 3.05 L Hgb 8.3 L Hct 26.5 L MCV 86.9 MCH 27.2 L MCHC 31.3 L RDW 15.8 H Plt Count 333 MPV 10.5 Immature Gran % 0.9 Seg Neutrophils % 86.0 Lymphocytes % 7.3 Monocytes % 5.6 Eosinophils % 0.1 Basophils % 0.1 Neutrophils # 12.2 H Lymphocytes # 1.0 Monocytes # 0.8 Eosinophils # 0.0 Basophils # 0.0 Sodium Potassium Chloride Carbon Dioxide BUN Creatinine Est GFR ( Amer) Est GFR (Non-Af Amer) BUN/Creatinine Ratio Glucose POC Glucose 122 H 87 Calculated Osmolality Calcium 03/03/18 06:35 WBC RBC Hgb Hct MCV MCH MCHC RDW Plt Count MPV Immature Gran % Seg Neutrophils % Lymphocytes % Monocytes % Eosinophils % Basophils % Neutrophils # Lymphocytes # Monocytes # Eosinophils # Basophils # Sodium 138 Potassium 3.8 Chloride 100 Carbon Dioxide 29 BUN 9 Creatinine 0.55 L Est GFR ( Amer) > 60 Est GFR (Non-Af Amer) > 60 BUN/Creatinine Ratio 16 Glucose 82 POC Glucose Calculated Osmolality 284 Calcium 8.2 L - ABG Interpretation ABG results: PT/INR, D-dimer PT 17.6 Seconds (9.4-12.1) H 02/26/18 20:05 Inpatient Charges Provider: Dr. Elan Gr Follow up - Inpatient: [id number] - Attending Attestation I examined this patient and my medical decision-making was reviewed with the Advanced Practice Nurse. I agree with the documented findings, disposition and treatment plan as described except to the extent set forth below. She is feeling better. She has defervesced and her energy is improved. She is eating better and ambulating. Pathology does show adenocarcinoma by preliminary report. Origin is to be determined. This was discussed with the family today. I recommended further staining to try to delineate origin of the cancer. I also discussed pursuing Foundation 1 testing which will be requested as well. I will establish outpatient follow-up in my office next week to discuss further management of her carcinoma. Patient and family were informed of the diagnosis as well as the implications of having metastatic adenocarcinoma. Treatment is to be determined. All questions were answered to the best of my ability. I spent 40 minutes in [id number] time counseling the patient today. Follow-up will be established as above. We will otherwise sign off. Patient may be discharged per the primary team.
[2018-03-02] MEDS: Mirtazapine 15 MG TABLET PO SCH (22:01)
[2018-03-03] MEDS: Albuterol 2.5 MG/3 ML NEBULIZER IH SCH ×6 (00:17→20:34)
[2018-03-03] MEDS: *HR* Heparin 5,000 UNIT/ML VIAL SQ SCH ×3 (06:36→20:54)
[2018-03-03 07:50] LABS: Basophils % 0.1 %; Eosinophils % 0.1 %; Hematocrit 26.5 % (35.3-44.9); Hemoglobin 8.3 g/dL (11.5-15.4); Immature Granulocytes % 0.9 % (0-4); Lymphocytes % 7.3 %; Mean Corpuscular HGB Conc 31.3 g/dL (31.6-35.5); Mean Corpuscular Hemoglobin 27.2 pg (28.0-33.3); Mean Corpuscular Volume 86.9 fL (83.0-100.0); Mean Platelet Volume 10.5 fL (9.4-12.4); Monocytes # 0.8 K/mcL (0.0-1.3); Monocytes % 5.6 %; Neutrophils # 12.2 K/mcL (1.6-8.9); Platelet Count 333 K/mcL (140-400); Red Blood Count 3.05 M/mcL (3.82-4.97); Red Cell Distribution Width 15.8 % (11.5-14.5)
[2018-03-03 08:09] LABS: BUN/Creatinine Ratio 16 (6-26); Blood Urea Nitrogen 9 mg/dL (8-23); Calcium 8.2 mg/dL (8.6-10.3); Carbon Dioxide 29 mEq/L (23-29); Chloride 100 mEq/L (98-107); Glucose 82 mg/dL (70-105); Osmolality,Calculated 284 (280-300); Potassium 3.8 mEq/L (3.5-5.1); Sodium 138 mEq/L (136-145); eGFR For Non-African Americans > 60 (> 60)
[2018-03-03] MEDS: Insulin LISPRO 300 UNITS/3 ML VIAL SQ SCH ×4 (08:35→20:28)
[2018-03-03] MEDS: Lactobacillus 1 EACH CAP.SPRINK PO SCH (08:51)
[2018-03-03] MEDS: Furosemide 20 MG TABLET PO SCH (08:51)
[2018-03-03] MEDS: Acetaminophen 325 MG TABLET PO PRN (08:52)
[2018-03-03] MEDS: levoFLOXacin 750 MG TABLET PO SCH (08:52)
--- NOTE | 2018-03-03 15:41 | Electrocardiograph Report ---
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
[2018-03-03] MEDS: Piperacillin/Tazobactam 3.375 GM in 0.9 % Sodium Chloride Mini Bag 100 ML IVPB SCH (17:29)
--- NOTE | 2018-03-03 19:22 | Oncology Inp Progress Note ---
<Samantha Decker L - Last Filed: 03/03/18 14:11> Date of Encounter: 03/03/18 Time of Encounter: 14:05 (1) Metastatic disease Current Visit: Yes Status: Acute Assessment and plan: CT chest/abdomen/pelvis reveals metastatic disease in the bilateral lungs, liver, and mediastinal and portocaval lymph nodes. S/P CT guided core needle bx liver lesion with official sign off still pending, however, in further discussion today with pathology her biopsy does resemble an adenocarcinoma. Origin of the adenocarcinoma will be determined with pending IHC stains. Ms. Cohen will have a follow up with Dr. Gr arranged for of next week, following her PET scan planned on Tuesday of next week which will need to be done as an outpatient. We will send for Next Gen/Foundation One Sequencing to determine appropriateness of targeted therapy Remeron has been started to help with sleep, mood and appetite. Please continue at discharge She was given information for follow up with Dr. Gr today (2) Leukocytosis Current Visit: Yes Status: Acute Assessment and plan: Patient initially meeting sepsis criteria upon admission Recently treated at [facility] for UTI, discharged 3 days prior to current admission to [facility] Blood cultures revealed NGTD Urine culture with skin contaminants CXR was negative Respiratory PCR was negative Empiric treatment with vancomycin and Zosyn was initiated upon admission and later de-escalated to PO Levaquin Her WBC count normalized yesterday to 9.8, increased today to 14.2, She has experienced intermittent fevers since her admission, MAXIMUM TEMPERATURE of 100.9 in past 24 hours at around 700 this morning. ID has been consulted by hospitalist this morning, appreciate recommendations Unless clear etiology of her infectious source is found of which workup thus far appears to be negative, her neutrophil predominant leukocytosis and fevers may very well be secondary to her active malignant state. Hepatocellular carcinoma or other tumors metastatic to the liver are known to cause FUO (final path is still pending but patient does have significant liver metastases with greater than [address] Follow up information has been given to patient/family We will otherwise sign off, please feel free to contact for any other questions or concerns Qualifiers: Qualified Code(s): D72.828 - Other elevated white blood cell count Oncology: Subj Interval history: Ms. Cohen feels well today. Her ROS is mainly unremarkable other than fatigue and manageable RUQ pain for which she declines need for pain medication for. She had a 100.9F temperature this morning. Her WBC resulted at 14.3 this AM, an increase from the day prior. - Constitutional Vitals: Vital Signs Temp Pulse Resp BP Pulse Ox 03/03/18 11:23 16 96 03/03/18 11:11 97.7 F 84 16 93/61 96 03/03/18 09:23 96 03/03/18 09:01 93 03/03/18 07:46 100.9 F H 95 16 116/73 93 03/03/18 07:29 14 96 03/03/18 04:38 14 96 03/03/18 04:19 99.3 F 79 15 132/77 95 03/03/18 00:19 18 98 03/02/18 23:30 99.4 F 76 14 122/74 95 03/02/18 20:45 18 95 03/02/18 19:18 99.6 F 81 15 123/70 93 03/02/18 16:40 18 98 03/02/18 15:47 98.4 F 70 16 143/76 96 Intake and Output 03/02/18 03/03/18 03/03/18 23:59 07:59 15:59 Intake Total 950 / 950 Output Total 500 / 500 Balance -500 / -500 950 / 950 Intake: Oral 950 / 950 Output: Urine 500 / 500 Other: Meal Lunch Percent of Meal Consumed 100% Stool Size Small Stool Consistency liquid # Bowel Movements 1 Weight 98.9 kg Blood Glucose* 117 78 120 General appearance: cooperative, no acute distress, no febrile - ENT ENT exam: Present: mucous membranes moist - Respiratory Respiratory exam: Present: decreased breath sounds, CTAB. Absent: respiratory distress - Cardiovascular Cardiovascular exam: Present: RRR, +S1, +S2 - GI/Abdominal GI/Abdominal exam: Present: normal bowel sounds, soft, tenderness (RUQ) - Extremities Exam Extremities exam: Present: pedal edema. Absent: calf tenderness - Neurological Exam Neurological exam: Present: alert, oriented X3, no focal deficits, strengths equal and symetr throughout - Psychiatric Psychiatric exam: Present: flat affect - Skin Skin exam: Present: dry, intact, normal color, warm Oncology: Obj Data - Labs CBC & Chem 7: 03/03/18 06:35 03/03/18 06:35 - ABG Interpretation ABG results: PT/INR, D-dimer PT 17.6 Seconds (9.4-12.1) H 02/26/18 20:05 Consult Discharge Plan - Plan Referrals: NONE,PCP [Primary Care Provider] - <[email or web address] novak - Last Filed: 03/03/18 19:18> Oncology: Subj Interval history: I examined this patient and my medical decision-making was reviewed with the Advanced Practice Nurse, Samantha Decker. I agree with the documented findings, disposition and treatment plan as described except to the extent set forth below. - Constitutional Vitals: Vital Signs Temp Pulse Resp BP Pulse Ox 03/03/18 16:29 98.9 F 84 16 110/69 96 03/03/18 15:59 16 96 03/03/18 11:23 16 96 03/03/18 11:11 97.7 F 84 16 93/61 96 03/03/18 09:23 96 03/03/18 09:01 93 03/03/18 07:46 100.9 F H 95 16 116/73 93 03/03/18 07:29 14 96 03/03/18 04:38 14 96 03/03/18 04:19 99.3 F 79 15 132/77 95 03/03/18 00:19 18 98 03/02/18 23:30 99.4 F 76 14 122/74 95 03/02/18 20:45 18 95 03/02/18 19:18 99.6 F 81 15 123/70 93 Intake and Output 03/03/18 03/03/18 03/03/18 07:59 15:59 23:59 Intake Total 950 / 950 Output Total 500 / 500 Balance -500 / -500 950 / 950 Intake: Oral 950 / 950 Output: Urine 500 / 500 Other: Meal Lunch Percent of Meal Consumed 100% Stool Size Small Stool Consistency liquid # Bowel Movements 1 Blood Glucose* 78 120 125 Oncology: Obj Data - Labs CBC & Chem 7: 03/03/18 06:35 03/03/18 06:35 Labs: Laboratory Results - last 24 hr 03/02/18 03/03/18 03/03/18 19:21 06:35 06:35 WBC 14.2 H RBC 3.05 L Hgb 8.3 L Hct 26.5 L MCV 86.9 MCH 27.2 L MCHC 31.3 L RDW 15.8 H Plt Count 333 MPV 10.5 Immature Gran % 0.9 Seg Neutrophils % 86.0 Lymphocytes % 7.3 Monocytes % 5.6 Eosinophils % 0.1 Basophils % 0.1 Neutrophils # 12.2 H Lymphocytes # 1.0 Monocytes # 0.8 Eosinophils # 0.0 Basophils # 0.0 Sodium 138 Potassium 3.8 Chloride 100 Carbon Dioxide 29 BUN 9 Creatinine 0.55 L Est GFR ( Amer) > 60 Est GFR (Non-Af Amer) > 60 BUN/Creatinine Ratio 16 Glucose 82 POC Glucose 117 H Calculated Osmolality 284 Calcium 8.2 L 03/03/18 07:43 WBC RBC Hgb Hct MCV MCH MCHC RDW Plt Count MPV Immature Gran % Seg Neutrophils % Lymphocytes % Monocytes % Eosinophils % Basophils % Neutrophils # Lymphocytes # Monocytes # Eosinophils # Basophils # Sodium Potassium Chloride Carbon Dioxide BUN Creatinine Est GFR ( Amer) Est GFR (Non-Af Amer) BUN/Creatinine Ratio Glucose POC Glucose 78 Calculated Osmolality Calcium - ABG Interpretation ABG results: PT/INR, D-dimer PT 17.6 Seconds (9.4-12.1) H 02/26/18 20:05 Inpatient Charges Follow up - Inpatient: [id number]
--- NOTE | 2018-03-03 19:26 | Infectious Disease Consult ---
Date of Encounter: 03/03/18 Time of Encounter: 10:20 Assessment and Plan (1) Sepsis Status: Acute Assessment and plan: - Meets 4/4 SIRS criteria with fever 102.1, HR 115, RR 33, WBC 22.3 on presentation - Source: Unclear - Organism: unknown - Etiology less likely infectious, more likely related to malignancy as below, however will workup alternatives. - Continues to meet sepsis criteria today with fever 100.9 and HR 95 overnight, WBC 14.2 (leukocyte predominance) - WBC had initially improved to 9.8 yesterday on Vancomycin and Zosyn - UA shows trace leukocyte esterase, many epithelial cells. - Blood culture 02/27 NG x 2 - ROS does not point to suspected infectious diagnosis CT abdomen/pelvis on 02/27 showed findings of metastatic disease in the bilateral lungs, liver and mediastinal and portacaval lymph nodes. No obvious infection CT of the chest on 02/27 showed nodules indicative of metastatic disease as above. Again no obvious signs of infection CXR on 02/26 showed an area of nodular increased opacification of the right upper lobe Started on vancomycin, Zosyn on presentation. Completed total of 5 days. Stopped 03/02 Levaquin started 03/02, total of 1 day. Plan - Suspect this is most likely related to malignancy versus less likely reactive, inflammatory, infectious etiologies - We will repeat CT scan of chest, abdomen and pelvis to rule out new infectious causes - We will repeat urinalysis, blood cultures - Obtain strep pneumo urine antigen, Legionella antigen - We will restart vancomycin and Zosyn as patient appeared to be clinically improving on those antibiotics. (day 6) - Will obtain urine results and culture from [place]. - Depending on results of CT scan, it would be reasonable to discharge over weekend on PO abx. Qualifiers: Sepsis type: sepsis due to unspecified organism Qualified Code(s): A41.9 - Sepsis, unspecified organism (2) Leukocytosis Status: Acute Assessment and plan: - as above. - Neutrophil predominant. - Etiology unclear. Qualifiers: Leukocytosis type: other Qualified Code(s): D72.828 - Other elevated white blood cell count (3) Metastatic disease Status: Acute Assessment and plan: - Mets to liver, lung. - Primary site unclear, staining pending. - Liver bx performed and pending. - Heme/Onc following. Infectious Disease HPI - Data of Consult Patient: new to practice Consult date: 03/03/18 Requesting Physician: Sreekanth Archer MD Primary Care Provider: PCP NONE - Consult Narrative Reason for consult: Persistent leukocytosis and fevers History of present illness: Ms. Cohen is a 78 year old female who presents to the ED with compliant of shortness of breath on 02/26. Infectious disease is consulted for persistent leukocytosis and fever on 03/03. Patient has a PMH of cancer in liver, colon and metastatic disease, recent UTI, anxiety, remote past history of smoking tobacco while teenager briefly and depression. Patient was recently admitted to [facility] for weakness from 02/19 to 02/23 for a UTI and treated with 3 day course of rocephin. There was concern at that visit for malignancy given CT of the pelvis showing liver and lung nodules however EGD and colonoscopy were performed with negative findings and she was instructed to follow up with heme/onc as an outpatient. She states she was feeling better briefly before becoming lethargic, decreased appetite again before this admission. Patient presented to the ED with shortness of breath and weakness on 02/26. On presentation, she was febrile at 102.1, HR 115, BP 91/60, RR 33. She had a WBC of 22.3 with normal differentiation. Her lactic acid was 2.9. Urinalysis on admission had trace leukocyte esterase and pyuria with many epithelial cells. Blood cultures were drawn on 02/27 and are pending. CXR showed questionable area of nodular opacification in RUL. CT chest, abd, pelvis was obtained with findings of likely metastatic disease in bilateral lungs, liver, and mediastinal LN and portocaval LN. Potential primary source was RUL or less likely liver. Liver biopsy obtained 02/28 and pending. Onc following. E chocardiogram shows EF 60-65% and mild diastolic dysfunction. She was started on Vancomycin and zosyn. Patient is seen. Has a fever of 100.9 and heart rate is 95. Appears alert and oriented x3. Admits to shortness of breath on exertion. Upon questioning patient denies night sweats, chills, myalgias or fatigue. Denies other extremity joint pain or stiffness. Denies nausea, vomiting or diarrhea. Admits to abdominal pain which she points is at RLQ. Denies chest pain. Denies any oral thrush or skin lesions. Patient states appetite is normal. Patient traveled to [place] on January and stayed with son. No sick contacts reported during stay. Denies dysuria, frequency, urgency. Does admit to one loose bowel movement this morning but otherwise normal for her. CC: Sreekanth Archer MD Past Med Surg Social Fam HX - Past Medical History Medical history: cancer Additional medical history: skin cancer, gastro ulcers Psychiatric history: anxiety, depression - Past Surgical History Surgical History: hysterectomy Additional surgical history: bladder sx, tendon repair, cscope - Social History Smoking Status: Former smoker Smokeless Tobacco Status: No Alcohol use: none Drug use: none Infectious Disease-CN:Meds Gabapentin [Neurontin] 600 mg PO BID 02/27/18 [History] Pantoprazole Sodium [Protonix] 40 mg PO DAILY 02/27/18 [History] RX: Sertraline [Zoloft] 50 mg PO DAILY 02/27/18 [History] Allergy/AdvReac Type Severity Reaction Status Date / Time No Known Allergies Allergy Verified 02/27/18 08:26 Review of systems: - Constitutional: Admits to fevers, chills., Fatigue. Denies weight loss - Head/Neck: Denies JEAN, neck stiffness - EENT: Denies vision changes/blurriness, tinnitus, auditory changes, rhinorrhea, congestion, sore throat, odynaphagia - CVS: Admits to dyspnea on exertion. Denies chest pain, palpitations, orthopnea, edema, PND, - Pulm: Admits to shortness of breath. Denies cough, sputum, hematemesis, wheezing - GI: Admits to decreased appetite, abdominal pain. Denies nausea, vomiting, diarrhea, constipation, melena - : Denies dysuria, increased frequency, urgency, hematuria, - MSK: Denies joint pain, limited ROM, joint swelling - Skin: Denies rashes, ulcers, color changes - Neuro: Denies JEAN, paresthesias, focal deficits, ataxia Exam - Constitutional Vitals: Temp Pulse Resp BP Pulse Ox 97.7 F 84 16 93/61 96 03/03/18 11:11 03/03/18 11:11 03/03/18 11:23 03/03/18 11:11 03/03/18 11:23 Exam: Gen.: Vitals noted. No acute distress. AAOx3. Resting comfortably in bed Neck: No lymphadenopathy, no nuchal regidity or limited ROM. HEENT: PERRL/EOMI, oropharynx clear, Normocephalic, atraumatic, MMM, no oral thrush, no conjunctival hemorrhage Cardiac: RRR, no murmur, +S1/S2 Pulmonary: CTA bilaterally, no wheezes, rales or rhonchi, equal chest expansion Abdomen: soft, mildly tender to palpation diffusely but in right lower quadrant most prominently., BS noted, no guarding, no rebound. MSK: ROM intact, no joint swelling noted Extremities: no BLE edema, nontender calf, no cyanosis or clubbing Skin: No rashes appreciated Neuro: A&Ox3, moves all extremities, no focal deficits Psych: Appropriate mood and behavior Infectious Disease CN: Results - Labs CBC & Chem 7: 03/03/18 06:35 03/03/18 06:35 Cultures: Cultures 02/27/18 03:03 Blood Culture - Preliminary Peripheral Venipuncture Culture is incubating and being continuously monitored for growth. Final report to follow. 02/27/18 03:03 Blood Culture - Preliminary Peripheral Venipuncture Culture is incubating and being continuously monitored for growth. Final report to follow. Serology: Serology 02/28/18 02/27/18 02/26/18 Range/Units 18:11 06:16 21:27 Urine Color Dark Yellow (Yellow) Urine Clarity Cloudy A (Clear) Urine pH 5.5 (5.0-8.0) pH Units Ur Specific [place] 1.026 H (1.010-1.025) Urine Protein 30 H (Neg-Trace) mg/dL Urine Glucose (UA) Normal (Normal) mg/dL Urine Ketones Negative (Negative) mg/dL Urine Blood Negative (Negative) Urine Nitrite Negative (Negative) Urine Bilirubin Small H (Negative) Urine Urobilinogen Normal (Normal) mg/dL Ur Leukocyte Esterase Trace H (Negative) Urine Microscopic RBC 0-3 (0-3) per hpf Urine Microscopic WBC 5-15 H (0-3) per hpf Ur Squamous Epith Cells Many H (None-Few) per lpf Urine Bacteria None Seen (None-Few) per hpf Hyaline Casts Moderate H (None-Few) per lpf Ur Culture Indicated? NO. A (NO) Stool Occult Bld Scrn Negative (Negative) Chlamy pneumoniae PCR Not Detected (Not Detect) Adenovirus (PCR) Not Detected (Not Detect) B. pertussis DNA (PCR) Not Detected (Not Detect) B.parapertussis DNA PCR Not Detected (Not Detect) Coronavirus OC43 (PCR) Not Detected (Not Detect) Coronavirus HKU1 (PCR) Not Detected (Not Detect) Coronavirus 229E (PCR) Not Detected (Not Detect) Coronavirus NL63 (PCR) Not Detected (Not Detect) Human Metapneumovir PCR Not Detected (Not Detect) Influenza A (H1) PCR Not Detected (Not Detect) Influ A (H1N1/09) PCR Not Detected (Not Detect) Influenza A (H3) PCR Not Detected (Not Detect) Influenza A Untype (PCR) Not Detected (Not Detect) Influenza Type B (PCR) Not Detected (Not Detect) M.pneumoniae DNA (PCR) Not Detected (Not Detect) Parainfluenza 1 (PCR) Not Detected (Not Detect) Parainfluenza 2 (PCR) Not Detected (Not Detect) Parainfluenza 3 (PCR) Not Detected (Not Detect) Parainfluenza 4 (PCR) Not Detected (Not Detect) RSV (PCR) Not Detected (Not Detect) Entero/Rhino (PCR) Not Detected (Not Detect) Consult Discharge Plan - Plan Referrals: NONE,PCP [Primary Care Provider] - - Attending Attestation I examined this patient and my medical decision-making was reviewed with the Resident Physician. I agree with the documented findings, disposition and treatment plan as described except to the extent set forth below. This is an addendum to original report dictated by resident physician. Please refer to resident's note for full detail. Patient is an 78-year-old woman who presented to [facility] on 02/26/2018 with shortness of breath. Workup revealed metastatic disease in the bilateral lungs, liver and mediastinal and portocaval lymph nodes. Primary source of the malignancy is not clear yet. Status post liver biopsy with pathology report pending. I did discuss with the hematology/oncology team and they think this is highly malignant. Apparently during this time patient continued to have leukocytosis and fever. The interesting thing is when the patient was on broad- spectrum antibiotics including vancomycin/Zosyn her fever curve improved and actually resolved and her WBC continued to improve from 20 to on admission to 9.8 on 03/02/2018. Patient was switched to Levaquin and vancomycin and Zosyn were stopped and then the patient's fever curve started getting worse and the WBC increased back up to 14,000. Extensive physical exam and review of system really did not suggest an active infection. Patient denies any complaints. She did have one episode of diarrhea but not enough to be called C. difficile. Patient also has this chronic abdominal pain not sure if this is from all the metastases. After long discussion with the family who is eager to take the patient home and discussing with hematology/oncology and the primary team, we decided to be aggressive and repeat CT chest abdomen pelvis picture there is no acute infection or intra-abdominal perforation or post obstructive pneumonia etc. We will also get blood cultures. Repeat urine culture. Restart vancomycin and Zosyn will call vancomycin trough around 10. Once the cultures finalize and the imaging is reviewed we will make further recommendations on what antibiotics he use if any and for what duration. Prognosis is guarded at best. Appreciate oncology recommendations
--- NOTE | 2018-03-03 19:34 | Internal Med Progress Note ---
Hospitalist Progress Note - Encounter Date of Encounter: 03/03/18 Time of Encounter: 09:00 - Subjective Interval History: Pt is less SOB, still on O2, no cough. Low fever this AM 100.9. Denies dysuria. Mild RUQ pain. WBC level increased. - Exam Vitals: Temp Pulse Resp BP Pulse Ox 97.7 F 84 16 93/61 96 03/03/18 11:11 03/03/18 11:11 03/03/18 15:59 03/03/18 11:11 03/03/18 15:59 Exam: General: pleasant, without distress HEENT: Head atraumatic, normocephalic, EOMI, PERRL, absent ear discharge or trauma, Moist Mucous Membranes, uvula midline Neck: nontender to palpation, absent lymphadenopathy, Cardiovascualr: Regular rate and rhythm with no murmur, absent gallops or rubs, 1+ pedal edema, radial pulses 2 out of 4 Lungs: Bibasilar crackles, mild, not in respiratory distress Abdomen: Soft, mild RUQ tenderness w/o rebound/guarding, nondistended positive bowel sounds, absent hepatomegaly Skin: warm and dry, absent rash, absent open wounds and nodules MSK: absent clubbing, cyanosis, joints without swelling Neuro: Cranial nerves II through XII intact, UE and LE sensation equal bilaterally, UE and LEstrength 5/5, alert oriented 3, Psych: good insight and judgment, depressed - Assessment and Plan (1) DVT prophylaxis Current Visit: Yes Status: Acute Assessment and Plan: Heparin SC (2) Elevated troponin Current Visit: Yes Status: Acute Assessment and Plan: Mild elevated troponin on a sepsis picture, 3 sets of troponin 0.05-0.06-0.04, pt denies chest pain, likely demand ischemia. (3) Metastatic disease Current Visit: Yes Status: Acute Assessment and Plan: Oncology consult appreciated. Had liver biopsy. Result pending, will cont follow up with oncology after discharge. (4) Sepsis Current Visit: Yes Status: Acute Assessment and Plan: Etiology undetermined. Early PNA vs UTI. - Improved leukocytosis on vanco and zosyn but increased WBC again. Still low fever, difficult to say it is from infection or metastatic tumor - ID consult appreciated. Restart vanco and zosyn now. F/U new culture and CT result. DVT Prophylaxis: Heparin sc - Time Spent with Patient Total time spent is greater than 50% in coordination of care (as documented) at patient's floor/unit and/or counseling patient: 40 min Greater than 35 minutes Plan of Care Discussed with: patient Internal Medicine: Result - Labs CBC & Chem 7: 03/03/18 06:35 03/03/18 06:35 Labs: Short CBC 03/03/18 Range/Units 06:35 WBC 14.2 H (4.3-11.1) K/mcL Hgb 8.3 L (11.5-15.4) g/dL Hct 26.5 L (35.3-44.9) % Plt Count 333 (140-400) K/mcL Neutrophils # 12.2 H (1.6-8.9) K/mcL BMP 03/03/18 06:35 Sodium 138 Potassium 3.8 Chloride 100 Carbon Dioxide 29 BUN 9 Creatinine 0.55 L Glucose 82 Calcium 8.2 L - ABG Interpretation ABG results: PT/INR, D-dimer PT 17.6 Seconds (9.4-12.1) H 02/26/18 20:05 Consult Discharge Plan - Plan Referrals: NONE,PCP [Primary Care Provider] - (4) Sepsis Qualifiers: Sepsis type: sepsis due to unspecified organism Qualified Code(s): A41.9 - Sepsis, unspecified organism
[2018-03-03 20:27] LABS: Bilirubin,Urine Small (Negative); Blood,Urine Negative (Negative); Clarity,Urine Slightly Cloudy (Clear); Color,Urine Yellow (Yellow); Glucose,Urine (UA) Normal (Normal); Ketones,Urine Trace mg/dL (Negative); Leukocyte Esterase,Urine Negative (Negative); Nitrite,Urine Negative (Negative); PH,Urine 5.5 pH Units (5.0-8.0); Protein,Urine 30 mg/dL (Neg-Trace); Specific Gravity,Urine 1.025 (1.010-1.025); Urobilinogen,Urine Normal (Normal)
[2018-03-03 20:48] LABS: Bacteria,Urine Few per hpf (None-Few); RBC,Urine 0-3 per hpf (0-3); Squamous Epithelial Cell,Urine Many per lpf (None-Few); WBC,Urine 0-3 per hpf (0-3)
[2018-03-03] MEDS: Mirtazapine 15 MG TABLET PO SCH (20:54)
[2018-03-04] MEDS: Albuterol 2.5 MG/3 ML NEBULIZER IH SCH ×7 (00:20→23:42)
[2018-03-04] MEDS: Piperacillin/Tazobactam 3.375 GM in 0.9 % Sodium Chloride Mini Bag 100 ML IVPB SCH ×3 (00:43→15:52)
[2018-03-04] MEDS: *HR* Heparin 5,000 UNIT/ML VIAL SQ SCH ×3 (05:26→21:27)
[2018-03-04 05:39] LABS: Basophils % 0.1 %; Eosinophils # 0.1 K/mcL (0.0-0.6); Eosinophils % 0.4 %; Hemoglobin 8.1 g/dL (11.5-15.4); Immature Granulocytes % 1.5 % (0-4); Lymphocytes # 1.1 K/mcL (0.6-4.6); Lymphocytes % 8.5 %; Mean Corpuscular HGB Conc 31.2 g/dL (31.6-35.5); Mean Corpuscular Hemoglobin 27.3 pg (28.0-33.3); Mean Corpuscular Volume 87.5 fL (83.0-100.0); Mean Platelet Volume 10.7 fL (9.4-12.4); Monocytes # 0.8 K/mcL (0.0-1.3); Monocytes % 6.1 %; Neutrophils # 11.3 K/mcL (1.6-8.9); Platelet Count 332 K/mcL (140-400); Red Blood Count 2.97 M/mcL (3.82-4.97); Red Cell Distribution Width 15.9 % (11.5-14.5); Segmented Neutrophils % 83.4 %
[2018-03-04] MEDS: Insulin LISPRO 300 UNITS/3 ML VIAL SQ SCH ×4 (07:35→20:58)
[2018-03-04] MEDS: Lactobacillus 1 EACH CAP.SPRINK PO SCH (08:11)
[2018-03-04] MEDS: Furosemide 20 MG TABLET PO SCH (08:12)
[2018-03-04] MEDS: Ondansetron 4 MG/2 ML VIAL IVP PRN (08:39)
--- NOTE | 2018-03-04 13:19 | Internal Med Progress Note ---
Hospitalist Progress Note - Encounter Date of Encounter: 03/04/18 Time of Encounter: 09:00 - Subjective Interval History: Pt still mild SOB, still on O2, no increased cough. No fever overnight. Mild RUQ pain. - Exam Vitals: Temp Pulse Resp BP Pulse Ox 99.2 F 78 16 106/69 92 03/04/18 11:03 03/04/18 11:03 03/04/18 11:15 03/04/18 11:03 03/04/18 11:15 Exam: General: AAO x 3, without distress HEENT: Head atraumatic, normocephalic, EOMI, PERRL, absent ear discharge or trauma, Moist Mucous Membranes, uvula midline Neck: nontender to palpation, absent lymphadenopathy, Cardiovascualr: Regular rate and rhythm with no murmur, absent gallops or rubs, 1+ pedal edema, radial pulses 2 out of 4 Lungs: CTA b/L Abdomen: Soft, mild RUQ tenderness w/o rebound/guarding, nondistended positive bowel sounds, absent hepatomegaly Skin: warm and dry, absent rash, absent open wounds and nodules MSK: absent clubbing, cyanosis, joints without swelling Neuro: Cranial nerves II through XII intact, UE and LE sensation equal bilaterally, UE and LEstrength 5/5, alert oriented 3, Psych: good insight and judgment, depressed - Assessment and Plan (1) DVT prophylaxis Current Visit: Yes Status: Acute Assessment and Plan: Heparin SC (2) Elevated troponin Current Visit: Yes Status: Acute Assessment and Plan: Mild elevated troponin on a sepsis picture, 3 sets of troponin 0.05-0.06-0.04, pt denies chest pain, likely demand ischemia. (3) Metastatic disease Current Visit: Yes Status: Acute Assessment and Plan: Oncology consult appreciated. Had liver biopsy. Result pending, will cont follow up with oncology after discharge. (4) Sepsis Current Visit: Yes Status: Acute Assessment and Plan: Repeat CT shows new consolidation, consider HAP - ID consult appreciated. Restart vanco and zosyn now. - WBC slightly trend down today. - Blood culture repeated, f/u result. (5) HAP (hospital-acquired pneumonia) Current Visit: Yes Status: Acute Assessment and Plan: Repeat CT shows PNA, will treat pt as HAP with vanco and zosyn. Legionella and macoplasm test negative, no levaquin added. Further abx treatment per ID. DVT Prophylaxis: Heparin SC - Time Spent with Patient Total time spent is greater than 50% in coordination of care (as documented) at patient's floor/unit and/or counseling patient: 40 min Greater than 35 minutes Plan of Care Discussed with: patient Internal Medicine: Result - Labs CBC & Chem 7: 03/04/18 05:18 03/03/18 06:35 Labs: Short CBC 03/04/18 Range/Units 05:18 WBC 13.5 H (4.3-11.1) K/mcL Hgb 8.1 L (11.5-15.4) g/dL Hct 26.0 L (35.3-44.9) % Plt Count 332 (140-400) K/mcL Neutrophils # 11.3 H (1.6-8.9) K/mcL Urine 03/03/18 Range/Units 19:49 Urine Color Yellow (Yellow) Urine Clarity Slightly Cloudy A (Clear) Urine pH 5.5 (5.0-8.0) pH Units Ur Specific [place] 1.025 (1.010-1.025) Urine Protein 30 H (Neg-Trace) mg/dL Urine Glucose (UA) Normal (Normal) mg/dL - ABG Interpretation ABG results: PT/INR, D-dimer PT 17.6 Seconds (9.4-12.1) H 02/26/18 20:05 - Impressions Impressions Abdomen/Pelvis CT 03/03/18 14:33 IMPRESSION: Within the chest, there is redemonstration of metastatic disease. However, there is also new consolidation seen within the posterior right upper lobe, along with small bilateral pleural effusions with adjacent airspace disease. Pneumonia and/or aspiration is likely. Given the pleural effusions, also correlate with any clinical evidence of a component of pulmonary edema. Redemonstration of metastatic disease within the abdomen pelvis, which appears basically unchanged, given differences in technique. There is small volume ascites within the abdomen, which is new when compared to the previous exam. Moderate stool burden, especially within the rectum. D/ / Alexis Watkins MD / Alexis Watkins MD Interpreting Provider: Alexis Watkins MD Chest CT 03/03/18 14:33 IMPRESSION: Within the chest, there is redemonstration of metastatic disease. However, there is also new consolidation seen within the posterior right upper lobe, along with small bilateral pleural effusions with adjacent airspace disease. Pneumonia and/or aspiration is likely. Given the pleural effusions, also correlate with any clinical evidence of a component of pulmonary edema. Redemonstration of metastatic disease within the abdomen pelvis, which appears basically unchanged, given differences in technique. There is small volume ascites within the abdomen, which is new when compared to the previous exam. Moderate stool burden, especially within the rectum. D/ / Alexis Watkins MD / Alexis Watkins MD Interpreting Provider: Alexis Watkins MD Consult Discharge Plan - Plan Referrals: NONE,PCP [Primary Care Provider] - (4) Sepsis Qualifiers: Sepsis type: sepsis due to unspecified organism Qualified Code(s): A41.9 - Sepsis, unspecified organism
[2018-03-04] MEDS: Acetaminophen 325 MG TABLET PO PRN (16:55)
[2018-03-04] MEDS: Mirtazapine 15 MG TABLET PO SCH (21:26)
[2018-03-05] MEDS: Piperacillin/Tazobactam 3.375 GM in 0.9 % Sodium Chloride Mini Bag 100 ML IVPB SCH ×2 (01:06→13:29)
[2018-03-05] MEDS ORDERED: *HR* LORazepam 0.5 MG TABLET PO ONE (01:10)
[2018-03-05] MEDS: Albuterol 2.5 MG/3 ML NEBULIZER IH SCH ×6 (04:30→23:21)
[2018-03-05 05:49] LABS: Basophils % 0.2 %; Eosinophils % 0.1 %; Hematocrit 25.7 % (35.3-44.9); Immature Granulocytes % 1.7 % (0-4); Lymphocytes # 1.6 K/mcL (0.6-4.6); Lymphocytes % 10.8 %; Mean Corpuscular HGB Conc 31.1 g/dL (31.6-35.5); Mean Corpuscular Hemoglobin 27.2 pg (28.0-33.3); Mean Corpuscular Volume 87.4 fL (83.0-100.0); Mean Platelet Volume 10.6 fL (9.4-12.4); Monocytes # 0.9 K/mcL (0.0-1.3); Neutrophils # 11.7 K/mcL (1.6-8.9); Platelet Count 323 K/mcL (140-400); Red Blood Count 2.94 M/mcL (3.82-4.97); Segmented Neutrophils % 81.2 %
[2018-03-05 06:08] LABS: Calcium 7.9 mg/dL (8.6-10.3); Potassium 3.7 mEq/L (3.5-5.1)
[2018-03-05] MEDS: *HR* Heparin 5,000 UNIT/ML VIAL SQ SCH ×3 (06:45→20:51)
[2018-03-05] MEDS: Insulin LISPRO 300 UNITS/3 ML VIAL SQ SCH ×4 (08:25→22:26)
[2018-03-05] MEDS ORDERED: Aminoglycoside Consult 1 EACH MC ONE (08:53)
[2018-03-05] MEDS: Lactobacillus 1 EACH CAP.SPRINK PO SCH (09:34)
--- NOTE | 2018-03-05 12:59 | Internal Med Progress Note ---
Hospitalist Progress Note - Encounter Date of Encounter: 03/05/18 Time of Encounter: 09:00 - Subjective Interval History: Pt still mild SOB, still on O2, no increased cough. No fever overnight. Mild RUQ pain. Feels frustrated because cannot go home. - Exam Vitals: Temp Pulse Resp BP Pulse Ox 99 F 91 16 95/60 92 03/05/18 11:00 03/05/18 11:00 03/05/18 11:13 03/05/18 11:00 03/05/18 11:13 Exam: General: AAO x 3, without distress HEENT: Head atraumatic, normocephalic, EOMI, PERRL, absent ear discharge or trauma, Moist Mucous Membranes, uvula midline Neck: nontender to palpation, absent lymphadenopathy, Cardiovascualr: Regular rate and rhythm with no murmur, absent gallops or rubs, 1+ pedal edema, radial pulses 2 out of 4 Lungs: CTA b/L Abdomen: Soft, mild RUQ tenderness w/o rebound/guarding, nondistended positive bowel sounds, absent hepatomegaly Skin: warm and dry, absent rash, absent open wounds and nodules MSK: absent clubbing, cyanosis, joints without swelling Neuro: Cranial nerves II through XII intact, UE and LE sensation equal bilaterally, UE and LEstrength 5/5, alert oriented 3, Psych: good insight and judgment, depressed - Assessment and Plan (1) DVT prophylaxis Current Visit: Yes Status: Acute Assessment and Plan: Heparin SC (2) Elevated troponin Current Visit: Yes Status: Acute Assessment and Plan: Mild elevated troponin on a sepsis picture, 3 sets of troponin 0.05-0.06-0.04, pt denies chest pain, likely demand ischemia. (3) Metastatic disease Current Visit: Yes Status: Acute Assessment and Plan: Oncology consult appreciated. Had liver biopsy. Result pending, will cont follow up with oncology after discharge. (4) Sepsis Current Visit: Yes Status: Acute Assessment and Plan: Repeat CT shows new consolidation, consider HAP - ID consult appreciated. - Hold vanco b/o [place], cont zosyn with dosing per renal function - MRSA screen negative. - Persist leukocytosis, no fever. - Blood culture repeated, f/u result. (5) HAP (hospital-acquired pneumonia) Current Visit: Yes Status: Acute Assessment and Plan: Repeat CT shows PNA, will treat pt as HAP with zosyn. Hold vanco now b/o [place]. Legionella and macoplasm test negative, no levaquin added. Further abx choice per ID. (6) Acute renal failure Current Visit: Yes Status: Acute Assessment and Plan: Mild elevated Cr level to 1.32, vanco trough 31. Will hold vanco and lasix now, avoid nephrotoxic medications. Closely monitor renal function. DVT Prophylaxis: Heparin SC - Time Spent with Patient Total time spent is greater than 50% in coordination of care (as documented) at patient's floor/unit and/or counseling patient: 25 - 35 minutes Plan of Care Discussed with: patient Internal Medicine: Result - Labs CBC & Chem 7: 03/05/18 05:33 03/05/18 04:00 Labs: Short CBC 03/05/18 Range/Units 05:33 WBC 14.4 H (4.3-11.1) K/mcL Hgb 8.0 L (11.5-15.4) g/dL Hct 25.7 L (35.3-44.9) % Plt Count 323 (140-400) K/mcL Neutrophils # 11.7 H (1.6-8.9) K/mcL BMP 03/05/18 04:00 Sodium 138 Potassium 3.7 Chloride 100 Carbon Dioxide 24 BUN 13 Creatinine 1.32 H Glucose 69 L Calcium 7.9 L - ABG Interpretation ABG results: PT/INR, D-dimer PT 17.6 Seconds (9.4-12.1) H 02/26/18 20:05 Consult Discharge Plan - Plan Referrals: NONE,PCP [Primary Care Provider] - (4) Sepsis Qualifiers: Sepsis type: sepsis due to unspecified organism Qualified Code(s): A41.9 - Sepsis, unspecified organism (6) Acute renal failure Qualifiers: Acute renal failure type: unspecified Qualified Code(s): N17.9 - Acute kidney failure, unspecified
[2018-03-05] MEDS: Mirtazapine 15 MG TABLET PO SCH (20:51)
[2018-03-06] MEDS: Piperacillin/Tazobactam 3.375 GM in 0.9 % Sodium Chloride Mini Bag 100 ML IVPB SCH (00:30)
[2018-03-06] MEDS: Albuterol 2.5 MG/3 ML NEBULIZER IH SCH ×5 (04:08→20:12)
[2018-03-06] MEDS: *HR* Heparin 5,000 UNIT/ML VIAL SQ SCH ×3 (05:08→20:29)
[2018-03-06 05:41] LABS: Basophils % 0.2 %; Eosinophils % 0.3 %; Hematocrit 23.9 % (35.3-44.9); Hemoglobin 7.5 g/dL (11.5-15.4); Immature Granulocytes % 1.5 % (0-4); Lymphocytes # 1.1 K/mcL (0.6-4.6); Lymphocytes % 9.4 %; Mean Corpuscular HGB Conc 31.4 g/dL (31.6-35.5); Mean Corpuscular Hemoglobin 27.1 pg (28.0-33.3); Mean Corpuscular Volume 86.3 fL (83.0-100.0); Mean Platelet Volume 10.7 fL (9.4-12.4); Monocytes # 0.7 K/mcL (0.0-1.3); Neutrophils # 9.6 K/mcL (1.6-8.9); Platelet Count 331 K/mcL (140-400); Red Blood Count 2.77 M/mcL (3.82-4.97); Red Cell Distribution Width 16.1 % (11.5-14.5); Segmented Neutrophils % 82.6 %
[2018-03-06] MEDS: Acetaminophen 325 MG TABLET PO PRN ×2 (05:48→16:40)
[2018-03-06 06:08] LABS: Calcium 7.8 mg/dL (8.6-10.3); Potassium 3.6 mEq/L (3.5-5.1)
[2018-03-06] MEDS: Insulin LISPRO 300 UNITS/3 ML VIAL SQ SCH ×4 (07:13→21:00)
[2018-03-06] MEDS: Lactobacillus 1 EACH CAP.SPRINK PO SCH (07:47)
--- NOTE | 2018-03-06 15:49 | Internal Med Progress Note ---
Hospitalist Progress Note - Encounter Date of Encounter: 03/06/18 Time of Encounter: 09:00 - Subjective Interval History: Pt still mild SOB, still on O2, no increased cough or worsening SOB. Still spike low fever. - Exam Vitals: Temp Pulse Resp BP Pulse Ox 98.9 F 84 12 123/73 98 03/06/18 11:30 03/06/18 11:30 03/06/18 12:00 03/06/18 11:30 03/06/18 12:00 Exam: General: AAO x 3, without distress HEENT: Head atraumatic, normocephalic, EOMI, PERRL, absent ear discharge or trauma, Moist Mucous Membranes, uvula midline Neck: nontender to palpation, absent lymphadenopathy, Cardiovascualr: Regular rate and rhythm with no murmur, absent gallops or rubs, 1+ pedal edema, radial pulses 2 out of 4 Lungs: Scattered crackles b/l Abdomen: Soft, mild RUQ tenderness w/o rebound/guarding, nondistended positive bowel sounds, absent hepatomegaly Skin: warm and dry, absent rash, absent open wounds and nodules MSK: absent clubbing, cyanosis, joints without swelling Neuro: Cranial nerves II through XII intact, UE and LE sensation equal bilaterally, UE and LEstrength 5/5, alert oriented 3, Psych: good insight and judgment, depressed - Assessment and Plan (1) DVT prophylaxis Current Visit: Yes Status: Acute Assessment and Plan: Heparin SC (2) Elevated troponin Current Visit: Yes Status: Acute Assessment and Plan: Mild elevated troponin on a sepsis picture, 3 sets of troponin 0.05-0.06-0.04, pt denies chest pain, likely demand ischemia. (3) Metastatic disease Current Visit: Yes Status: Acute Assessment and Plan: Oncology consult appreciated. Had liver biopsy. Result pending, will cont follow up with oncology after discharge. (4) Sepsis Current Visit: Yes Status: Acute Assessment and Plan: Repeat CT shows new consolidation, consider HAP - ID consult appreciated. - WBC trend down, switch to po doxycyclin and augmentin today per ID - MRSA screen negative. - Repeated blood culture so far no growth. (5) HAP (hospital-acquired pneumonia) Current Visit: Yes Status: Acute Assessment and Plan: Repeat CT shows PNA, switch to po augmentin and doxycyclin now. (6) Acute renal failure Current Visit: Yes Status: Acute Assessment and Plan: Possibly due to vanco use. Worsening renal function to Cr 1.69 today, pt state good urine output (750 ml per RN record), avoid nephrotoxic medications. Cont to closely monitor renal function. Consider nephro consult if still getting worse. Strict I/O. DVT Prophylaxis: Heparin SC - Time Spent with Patient Total time spent is greater than 50% in coordination of care (as documented) at patient's floor/unit and/or counseling patient: 25 - 35 minutes Plan of Care Discussed with: family Internal Medicine: Result - Labs CBC & Chem 7: 03/06/18 04:00 03/06/18 05:07 Labs: Short CBC 03/06/18 Range/Units 04:00 WBC 11.6 H (4.3-11.1) K/mcL Hgb 7.5 L (11.5-15.4) g/dL Hct 23.9 L (35.3-44.9) % Plt Count 331 (140-400) K/mcL Neutrophils # 9.6 H (1.6-8.9) K/mcL BMP 03/06/18 05:07 Sodium 138 Potassium 3.6 Chloride 100 Carbon Dioxide 28 BUN 16 Creatinine 1.69 H Glucose 71 Calcium 7.8 L - ABG Interpretation ABG results: PT/INR, D-dimer PT 17.6 Seconds (9.4-12.1) H 02/26/18 20:05 Consult Discharge Plan - Plan Referrals: NONE,PCP [Primary Care Provider] - (4) Sepsis Qualifiers: Sepsis type: sepsis due to unspecified organism Qualified Code(s): A41.9 - Se psis, unspecified organism (6) Acute renal failure Qualifiers: Acute renal failure type: unspecified Qualified Code(s): N17.9 - Acute kidney failure, unspecified
[2018-03-06] MEDS ORDERED: Piperacillin/Tazobactam 3.375 GM in 0.9 % Sodium Chloride Mini Bag 100 ML IVPB SCH (16:00)
--- NOTE | 2018-03-06 16:34 | Infectious Disease Progress No ---
Date of Encounter: 03/06/18 Time of Encounter: 10:42 - Assessment and Plan (1) Sepsis Current Visit: Yes Status: Resolved -Resolved - Met 4/4 SIRS criteria with fever 102.1, HR 115, RR 33, WBC 22.3 on presentation - Source: Pulmonary - Organism: unknown - Etiology possibly mixed with malignancy etiology - No longer meets sirs criteria however was noted to have a fever of 100.7 last evening. Leukocytosis has resolved to 11.6 - WBC had initially improved to 9.8 yesterday on Vancomycin and Zosyn - UA shows trace leukocyte esterase, many epithelial cells. - Blood culture 02/27 NG x 2 - Blood culture 03/03 NG x2 - Strep pneumo urine antigen, Legionella negative - MRSA swab negative on day [address] abdomen/pelvis on 02/27 showed findings of metastatic disease in the bilateral lungs, liver and mediastinal and portacaval lymph nodes. No obvious infection CT of the chest on 02/27 showed nodules indicative of metastatic disease as above. Again no obvious signs of infection CXR on 02/26 showed an area of nodular increased opacification of the right upper lobe CT of the chest, abdomen and pelvis on 03/03 does show suspicious right upper lobe consolidation suspicious for pneumonia and/or aspiration. Started on vancomycin, Zosyn on presentation. Completed total of 5 days. Stopped 03/02. Restarted 03/03 Levaquin started 03/02, total of 1 day. Plan - Currently has received 8 days of vancomycin, 9 days of Zosyn. - We will discontinue vancomycin and Zosyn. Will start Augmentin and doxycycline to cover for both aspiration and MRSA. Recommended treatment through 03/17/18. -We will defer to primary team for need for [employer] if concern for aspiration Qualifiers: Sepsis type: sepsis due to unspecified organism Qualified Code(s): A41.9 - Sepsis, unspecified organism (2) Leukocytosis Current Visit: Yes Status: Acute As above for sepsis Likely secondary to combination of malignancy, reaction, infection Qualifiers: Leukocytosis type: other Qualified Code(s): D72.828 - Other elevated white blood cell count (3) Acute renal failure Current Visit: Yes Status: Acute - BUNs/creatinine of 16/1.69 - Patient did present with creatinine of 0.94 - Patient does admit to poor by mouth intake, in combination with vancomycin therapy - Vancomycin has been held on previous 2 doses. We will discontinue today - Further management per primary team - Renally dose antibiotics Qualifiers: Acute renal failure type: unspecified Qualified Code(s): N17.9 - Acute kidney failure, unspecified (4) Metastatic disease Current Visit: Yes Status: Acute - Mets to liver, lung. - Primary site unclear, staining pending. - Liver bx performed and pending. - Heme/Onc following. We will follow up as outpatient - Subjective Interval history: Patient was seen and examined up at since morning with family. She states that overall she is feeling well with no symptoms of fevers, chills. Her shortness of breath has resolved. She is not complaining of cough at this time. Infect Dis PN-Objective Data - Labs CBC & Chem 7: 03/06/18 04:00 03/06/18 05:07 Labs: Laboratory Results - last 24 hr 03/04/18 03/05/18 03/05/18 20:36 07:57 12:05 WBC RBC Hgb Hct MCV MCH MCHC RDW Plt Count MPV Immature Gran % Seg Neutrophils % Lymphocytes % Monocytes % Eosinophils % Basophils % Neutrophils # Lymphocytes # Monocytes # Eosinophils # Basophils # Sodium Potassium Chloride Carbon Dioxide BUN Creatinine Est GFR ( Amer) Est GFR (Non-Af Amer) BUN/Creatinine Ratio Glucose POC Glucose 87 66 L 124 H Calculated Osmolality Calcium Vancomycin Trough 03/05/18 03/06/18 03/06/18 16:07 04:00 05:07 WBC 11.6 H RBC 2.77 L Hgb 7.5 L Hct 23.9 L MCV 86.3 MCH 27.1 L MCHC 31.4 L RDW 16.1 H Plt Count 331 MPV 10.7 Immature Gran % 1.5 Seg Neutrophils % 82.6 Lymphocytes % 9.4 Monocytes % 6.0 Eosinophils % 0.3 Basophils % 0.2 Neutrophils # 9.6 H Lymphocytes # 1.1 Monocytes # 0.7 Eosinophils # 0.0 Basophils # 0.0 Sodium 138 Potassium 3.6 Chloride 100 Carbon Dioxide 28 BUN 16 Creatinine 1.69 H Est GFR ( Amer) 35 L Est GFR (Non-Af Amer) 29 L BUN/Creatinine Ratio 9 Glucose 71 POC Glucose 94 Calculated Osmolality 286 Calcium 7.8 L Vancomycin Trough 20 H Cultures: Cultures 02/27/18 03:03 Blood Culture - Final Peripheral Venipuncture No growth. Final report. 02/27/18 03:03 Blood Culture - Final Peripheral Venipuncture No growth. Final report. 03/03/18 19:49 Legionella Antigen - Final Urine,Clean Catch Streptococcus pneumoniae Antigen (M - Final 03/03/18 14:52 Blood Culture - Preliminary Peripheral Venipuncture Culture is incubating and being continuously m onitored for growth. Final report to follow. 03/03/18 14:52 Blood Culture - Preliminary Peripheral Venipuncture Culture is incubating and being continuously monitored for growth. Final report to follow. Serology 03/05/18 03/03/18 02/28/18 Range/Units 09:48 19:49 18:11 Urine Color Yellow (Yellow) Urine Clarity Slightly Cloudy A (Clear) Urine pH 5.5 (5.0-8.0) pH Units Ur Specific [place] 1.025 (1.010-1.025) Urine Protein 30 H (Neg-Trace) mg/dL Urine Glucose (UA) Normal (Normal) mg/dL Urine Ketones Trace H (Negative) mg/dL Urine Blood Negative (Negative) Urine Nitrite Negative (Negative) Urine Bilirubin Small H (Negative) Urine Urobilinogen Normal (Normal) mg/dL Ur Leukocyte Esterase Negative (Negative) Urine Microscopic RBC 0-3 (0-3) per hpf Urine Microscopic WBC 0-3 (0-3) per hpf Ur Squamous Epith Cells Many H (None-Few) per lpf Urine Bacteria Few (None-Few) per hpf Hyaline Casts (None-Few) per lpf Ur Culture Indicated? NO (NO) Nasal Screen MRSA (PCR) Negative (Negative) Stool Occult Bld Scrn (Negative) Chlamy pneumoniae PCR Not Detected (Not Detect) Adenovirus (PCR) Not Detected (Not Detect) B. pertussis DNA (PCR) Not Detected (Not Detect) B.parapertussis DNA PCR Not Detected (Not Detect) Coronavirus OC43 (PCR) Not Detected (Not Detect) Coronavirus HKU1 (PCR) Not Detected (Not Detect) Coronavirus 229E (PCR) Not Detected (Not Detect) Coronavirus NL63 (PCR) Not Detected (Not Detect) Human Metapneumovir PCR Not Detected (Not Detect) Influenza A (H1) PCR Not Detected (Not Detect) Influ A (H1N1/09) PCR Not Detected (Not Detect) Influenza A (H3) PCR Not Detected (Not Detect) Influenza A Untype (PCR) Not Detected (Not Detect) Influenza Type B (PCR) Not Detected (Not Detect) M.pneumoniae DNA (PCR) Not Detected (Not Detect) Parainfluenza 1 (PCR) Not Detected (Not Detect) Parainfluenza 2 (PCR) Not Detected (Not Detect) Parainfluenza 3 (PCR) Not Detected (Not Detect) Parainfluenza 4 (PCR) Not Detected (Not Detect) RSV (PCR) Not Detected (Not Detect) Entero/Rhino (PCR) Not Detected (Not Detect) 02/27/18 02/26/18 Range/Units 06:16 21:27 Urine Color Dark Yellow (Yellow) Urine Clarity Cloudy A (Clear) Urine pH 5.5 (5.0-8.0) pH Units Ur Specific [place] 1.026 H (1.010-1.025) Urine Protein 30 H (Neg-Trace) mg/dL Urine Glucose (UA) Normal (Normal) mg/dL Urine Ketones Negative (Negative) mg/dL Urine Blood Negative (Negative) Urine Nitrite Negative (Negative) Urine Bilirubin Small H (Negative) Urine Urobilinogen Normal (Normal) mg/dL Ur Leukocyte Esterase Trace H (Negative) Urine Microscopic RBC 0-3 (0-3) per hpf Urine Microscopic WBC 5-15 H (0-3) per hpf Ur Squamous Epith Cells Many H (None-Few) per lpf Urine Bacteria None Seen (None-Few) per hpf Hyaline Casts Moderate H (None-Few) per lpf Ur Culture Indicated? NO. A (NO) Nasal Screen MRSA (PCR) (Negative) Stool Occult Bld Scrn Negative (Negative) Chlamy pneumoniae PCR (Not Detect) Adenovirus (PCR) (Not Detect) B. pertussis DNA (PCR) (Not Detect) B.parapertussis DNA PCR (Not Detect) Coronavirus OC43 (PCR) (Not Detect) Coronavirus HKU1 (PCR) (Not Detect) Coronavirus 229E (PCR) (Not Detect) Coronavirus NL63 (PCR) (Not Detect) Human Metapneumovir PCR (Not Detect) Influenza A (H1) PCR (Not Detect) Influ A (H1N1/09) PCR (Not Detect) Influenza A (H3) PCR (Not Detect) Influenza A Untype (PCR) (Not Detect) Influenza Type B (PCR) (Not Detect) M.pneumoniae DNA (PCR) (Not Detect) Parainfluenza 1 (PCR) (Not Detect) Parainfluenza 2 (PCR) (Not Detect) Parainfluenza 3 (PCR) (Not Detect) Parainfluenza 4 (PCR) (Not Detect) RSV (PCR) (Not Detect) Entero/Rhino (PCR) (Not Detect) Exam - Constitutional Vitals: Temp Pulse Resp BP Pulse Ox 98.9 F 84 12 123/73 98 03/06/18 11:30 03/06/18 11:30 03/06/18 12:00 03/06/18 11:30 03/06/18 12:00 Exam: Gen.: Vitals noted. No acute distress. AAOx3 HEENT: PERRL/EOMI, oropharynx clear, Normocephalic, atraumatic, MMM Cardiac: RRR, no murmur, +S1/S2 Pulmonary: CTA bilaterally, no wheezes, rales or rhonchi, equal chest expansion Abdomen: soft, nontender, BS noted, no guarding, no rebound. MSK: ROM intact, no joint swelling noted Extremities: no BLE edema, nontender calf, no cyanosis or clubbing Neuro: A&Ox3, moves all extremities, no focal deficits Psych: Appropriate mood and behavior Consult Discharge Plan - Plan Referrals: NONE,PCP [Primary Care Provider] - - Attending Attestation I examined this patient and my medical decision-making was reviewed with the Resident Physician. I agree with the documented findings, disposition and treatment plan as described except to the extent set forth below.
[2018-03-06] MEDS: Amoxicillin/Clavulanate 500 MG TABLET PO SCH (16:40)
[2018-03-06] MEDS: Doxycycline 100 MG CAPSULE PO SCH (20:28)
[2018-03-06] MEDS: Mirtazapine 15 MG TABLET PO SCH (20:28)
[2018-03-07] MEDS: Albuterol 2.5 MG/3 ML NEBULIZER IH SCH ×4 (00:14→11:57)
[2018-03-07] MEDS ORDERED: Melatonin 3 MG TABLET PO ONE (04:04)
[2018-03-07] MEDS: *HR* Heparin 5,000 UNIT/ML VIAL SQ SCH ×3 (04:19→20:29)
[2018-03-07 04:22] LABS: Basophils % 0.2 %; Eosinophils % 0.2 %; Hematocrit 23.1 % (35.3-44.9); Hemoglobin 7.4 g/dL (11.5-15.4); Immature Granulocytes % 1.5 % (0-4); Lymphocytes # 0.9 K/mcL (0.6-4.6); Lymphocytes % 6.9 %; Mean Corpuscular Hemoglobin 27.3 pg (28.0-33.3); Mean Corpuscular Volume 85.2 fL (83.0-100.0); Mean Platelet Volume 10.7 fL (9.4-12.4); Monocytes # 0.7 K/mcL (0.0-1.3); Neutrophils # 11.3 K/mcL (1.6-8.9); Platelet Count 310 K/mcL (140-400); Red Blood Count 2.71 M/mcL (3.82-4.97); Segmented Neutrophils % 86.2 %
[2018-03-07 04:30] LABS: Calcium 7.7 mg/dL (8.6-10.3); Potassium 3.5 mEq/L (3.5-5.1)
[2018-03-07] MEDS: Insulin LISPRO 300 UNITS/3 ML VIAL SQ SCH ×4 (07:20→20:19)
[2018-03-07] MEDS ORDERED: 0.9 % Sodium Chloride 1,000 ML IVC SCH (08:00)
[2018-03-07] MEDS: Doxycycline 100 MG CAPSULE PO SCH ×2 (09:01→20:29)
[2018-03-07] MEDS: Amoxicillin/Clavulanate 500 MG TABLET PO SCH ×2 (09:01→17:03)
[2018-03-07] MEDS: Lactobacillus 1 EACH CAP.SPRINK PO SCH (09:01)
--- NOTE | 2018-03-07 09:22 | Internal Med Progress Note ---
Hospitalist Progress Note - Encounter Date of Encounter: 03/07/18 Time of Encounter: 08:50 - Subjective Interval History: Seen and evaluated at bedside with her daughter 78 YO F being managed for sepsis ivonne due to HCAP treated with vanco and zosyn. 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 Infectious disease since signed off 03/06. The patient is now on oral antibiotics. Of note, patient's renal function continues to worsen, vancomycin was discontinued 03/04 - Exam Vitals: Temp Pulse Resp BP Pulse Ox 98.9 F 92 16 116/64 95 03/07/18 07:10 03/07/18 07:10 03/07/18 07:45 03/07/18 07:10 03/07/18 07:45 Exam: General: AAO x 3, without distress HEENT: Head atraumatic, normocephalic, EOMI, PERRL, absent ear discharge or trauma, Moist Mucous Membranes, uvula midline Neck: Normal inspection Cardiovascular: Regular rate and rhythm with no murmur, absent gallops or rubs, 1+ pedal edema, radial pulses 2 out of 4 Lungs: Scattered crackles to the neck Abdomen: Soft, mild RUQ tenderness w/o rebound/guarding, nondistended positive bowel sounds, absent hepatomegaly Skin: warm and dry, absent rash, absent open wounds and nodules MSK: absent clubbing, cyanosis, joints without swelling Neuro: Cranial nerves II through XII intact, UE and LE sensation equal bilaterally, UE and LEstrength 5/5, alert oriented 3, Psych: good insight and judgment, flat affect - Assessment and Plan (1) Sepsis Current Visit: Yes Status: Resolved Assessment and Plan: Met 4/4 SIRS criteria with fever 102.1, HR 115, RR 33, WBC 22.3 on presentation Source is likely pulmonary as Repeat CT 03/03 shows new consolidation, consider HAP Cultures negative till date and causative organism is unknown, MRSA screen negative Legionella and Strep Ag negative ID consult appreciated. Patient has received 8 days of vancomycin, 9 days of Zosyn Now on doxycycline and Augmetin, recommended to continue through 03/17 Leukocytosis improving, still having fevers,last temp 101.8 on 03/06 Fever might also be due to her metastatic disease Will continue to monitor (2) Metastatic disease Current Visit: Yes Status: Acute Assessment and Plan: Oncology consult appreciated. Had liver biopsy. Result pending, will cont follow up with oncology after discharge. (3) DVT prophylaxis Current Visit: Yes Status: Acute Assessment and Plan: Heparin SC (4) Elevated troponin Current Visit: Yes Status: Acute Assessment and Plan: Mild elevated troponin on a sepsis picture, 3 sets of troponin 0.05-0.06-0.04, pt denies chest pain, likely demand ischemia. (5) HAP (hospital-acquired pneumonia) Current Visit: Yes Status: Acute Assessment and Plan: As in sepsis (6) Acute renal failure Current Visit: Yes Status: Acute Assessment and Plan: Possibly due to vanco use. Presenting Cr 0.55, Cr now 1.7 UO per chart is 750 on 03/05 , no records since then patient had not made urine since a.m, according tt her daughter Wayne strict I and Os Started on gentle hydration, 75cc/hr, monitor resp status, nephrology evaluation DVT Prophylaxis: Heparin SC - Time Spent with Patient Total time spent is greater than 50% in coordination of care (as documented) at patient's floor/unit and/or counseling patient: Plan of Care Discussed with: patient Internal Medicine: Result - Labs CBC & Chem 7: 03/07/18 03:45 03/07/18 03:45 Labs: Short CBC 03/07/18 Range/Units 03:45 WBC 13.1 H (4.3-11.1) K/mcL Hgb 7.4 L (11.5-15.4) g/dL Hct 23.1 L (35.3-44.9) % Plt Count 310 (140-400) K/mcL Neutrophils # 11.3 H (1.6-8.9) K/mcL BMP 03/07/18 03:45 Sodium 140 Potassium 3.5 Chloride 101 Carbon Dioxide 30 H BUN 19 Creatinine 1.77 H Glucose 86 Calcium 7.7 L - ABG Interpretation ABG results: PT/INR, D-dimer PT 17.6 Seconds (9.4-12.1) H 02/26/18 20:05 Consult Discharge Plan - Plan Referrals: NONE,PCP [Primary Care Provider] - (1) Sepsis Qualifiers: Sepsis type: sepsis due to unspecified organism Qualified Code(s): A41.9 - Sepsis, unspecified organism (6) Acute renal failure Qualifiers: Acute renal failure type: unspecified Qualified Code(s): N17.9 - Acute kidney failure, unspecified
--- NOTE | 2018-03-07 11:40 | Nephrology Consult Note ---
Date of Encounter: 03/07/18 Time of Encounter: 11:30 Assessment and Plan (1) GARLAND (acute kidney injury) Current Visit: Yes Status: Acute Baseline GFR appears to be greater than 60. GFR is 28 today. No urine output noted in EMR, instructed RN to please keep accurate I&O. Avoid nephrotoxins and renal dose as needed. GARLAND workup has been ordered. (2) HAP (hospital-acquired pneumonia) Current Visit: Yes Status: Acute Per ID. (3) Metastatic disease Current Visit: Yes Status: Acute (4) Sepsis Current Visit: Yes Status: Resolved Per ID. Qualifiers: Sepsis type: sepsis due to unspecified organism Qualified Code(s): A41.9 - Sepsis, unspecified organism History of Present Illness - Reason for Consult Consult date: 03/07/18 Acute Kidney Injury Requesting physician: Sam Guzmán - Chief Complaint difficulty in breathing - History of Present Illness Ms. Cohen is a 78-year-old female that presented to the ED on 02/26/18 for deterioration in health. She was inpatient at [facility] the week before and treated for UTI. During that admission it was found that she had cancer in her liver, colon, and metastatic disease. She was scheduled for a biopsy later in the week but did not feel well at home and was brought to the ED by concerned family members. She did report a fever, difficulty in breathing, and right upper quadrant abdominal pain. No known medical history. She is currently being seen by oncology, appreciate recommendations. She is a DNR CC/DNI. [place] [facility] have been consulted to evaluate acute kidney injury. Her EMR GFR is routinely greater than 60 and she has never been told that she has CKD in the past. She has never seen a sales warehouse driver in the past. She does admit to using 2-4 Aleve tablets a week for arthritis pain. Her daughter is at bedside and reports that she is still making urine, however there is no urine output for yesterday or today. GARLAND workup has been ordered to rule out other metabolic processes. It seems likely that AK I is related to IV vancomycin was stopped on 03/04/18. Past Med Surg Social Fam HX - Past Medical History Medical history: cancer Additional medical history: skin cancer, gastro ulcers Psychiatric history: anxiety, depression - Past Surgical History Surgical History: hysterectomy Additional surgical history: bladder sx, tendon repair, cscope - Social History Smoking Status: Former smoker Smokeless Tobacco Status: No Alcohol use: none Drug use: none Medications and Allergies Gabapentin [Neurontin] 600 mg PO BID 02/27/18 [History] Pantoprazole Sodium [Protonix] 40 mg PO DAILY 02/27/18 [History] Sertraline [Zoloft] 50 mg PO DAILY 02/27/18 [History] Allergy/AdvReac Type Severity Reaction Status Date / Time No Known Allergies Allergy Verified 02/27/18 08:26 Review of Systems All Systems review (narrative): The remainder of the systems are negative. Constitutional: chills, fatigue, fever(s) Cardiovascular: dyspnea, no chest pain, no edema, no orthopnea, no palpitations Gastrointestinal: abdominal pain, nausea, no diarrhea, no vomiting Genitourinary Female: no flank pain, no hematuria, no urinary frequency, no urinary hesitancy, no urinary incontinence Exam - Vital Signs Vital signs: Initial Vital Signs Temp Pulse Resp BP Pulse Ox 102.1 F H 115 33 91/60 92 02/26/18 19:52 02/26/18 19:52 02/26/18 19:52 02/26/18 19:52 02/26/18 19:52 Vital Signs - Last 8 Hours Temp Pulse Resp BP Pulse Ox 03/07/18 11:05 95 03/07/18 10:58 98.7 F 83 16 106/65 95 03/07/18 07:45 16 95 03/07/18 07:10 98.9 F 92 16 116/64 93 03/07/18 04:50 18 94 03/07/18 04:32 99.4 F 81 16 124/67 94 Intake and Output 03/06/18 03/07/18 03/07/18 23:59 07:59 15:59 Intake Total 0 / 0 Balance 0 / 0 Intake: Oral 0 / 0 Other: Weight 82.4 kg Blood Glucose* 144 83 131 - General Appearance General appearance: well-developed, well-nourished, obese EENT: ATNC, hearing intact, vision intact Neck: supple Respiratory: clear Cardiology: edema (Trace bilat lower extremity edema noted. ), normal S1, normal S2 Gastrointestinal: normoactive bowel sounds, no tenderness, no guarding Integumentary: no rash, warm and dry Neurologic: alert and oriented x3 Psychiatric: mood/affect appropriate, cooperative Results - Lab Results 03/07/18 03:45 03/07/18 03:45 Most recent lab results Calcium 7.7 mg/dL (8.6-10.3) L 03/07/18 03:45 Consult Discharge Plan - Plan Referrals: NONE,PCP [Primary Care Provider] -
[2018-03-07 13:10] LABS: Bilirubin,Urine Negative (Negative); Blood,Urine Negative (Negative); Clarity,Urine Cloudy (Clear); Color,Urine Yellow (Yellow); Glucose,Urine (UA) Normal (Normal); Ketones,Urine Negative (Negative); Leukocyte Esterase,Urine Moderate (Negative); Nitrite,Urine Negative (Negative); PH,Urine 5.5 pH Units (5.0-8.0); Protein,Urine 30 mg/dL (Neg-Trace); Specific Gravity,Urine 1.018 (1.010-1.025); Urobilinogen,Urine Normal (Normal)
[2018-03-07 13:12] LABS: Bacteria,Urine None Seen per hpf (None-Few); Squamous Epithelial Cell,Urine Many per lpf (None-Few); WBC,Urine 50-100 per hpf (0-3)
[2018-03-07] MEDS ORDERED: Albuterol 2.5 MG/3 ML NEBULIZER IH PRN (13:35)
[2018-03-07 13:36] LABS: Protein/Creatinine Ratio,Urine 0.87 mg/mg (0.00-0.20); Sodium, Urine 14.7 mEq/L
--- NOTE | 2018-03-07 13:52 | Infectious Disease Progress No ---
Date of Encounter: 03/07/18 Time of Encounter: 13:50 - Assessment and Plan (1) Sepsis Current Visit: Yes Status: Resolved -Resolved - Met 4/4 SIRS criteria with fever 102.1, HR 115, RR 33, WBC 22.3 on presentation - Source: Pulmonary - Organism: unknown - Etiology possibly mixed with malignancy etiology - Continues to intermittently meet sirs criteria with a fever of 101.8 last evening. Leukocytosis has been stable at 13.1 - Was transitioned from vancomycin and Zosyn to by mouth Augmentin and doxycycline yesterday 03/07 - UA shows trace leukocyte esterase, many epithelial cells. - Blood culture 02/27 NG x 2 - Blood culture 03/03 NG x2 - Strep pneumo urine antigen, Legionella negative - MRSA swab negative on day [address] abdomen/pelvis on 02/27 showed findings of metastatic disease in the bilateral lungs, liver and mediastinal and portacaval lymph nodes. No obvious infection CT of the chest on 02/27 showed nodules indicative of metastatic disease as above. Again no obvious signs of infection CXR on 02/26 showed an area of nodular increased opacification of the right upper lobe CT of the chest, abdomen and pelvis on 03/03 does show suspicious right upper lobe consolidation suspicious for pneumonia and/or aspiration. Started on vancomycin, Zosyn on presentation. Completed 8 days of vancomycin, 9 days of Zosyn Levaquin started 03/02, stopped 03/03, total of 1 day. Plan - Etiologies of fevers and leukocytosis may be mixed and related to known malignancy. We will continue monitor on current regimen at this time -Continue Augmentin and doxycycline, day 2. Recommend continuation of treatment through 03/17/18 -We will defer to primary team for need for [employer] if concern for aspiration Qualifiers: Sepsis type: sepsis due to unspecified organism Qualified Code(s): A41.9 - Sepsis, unspecified organism (2) Leukocytosis Current Visit: Yes Status: Acute As above for sepsis Likely secondary to combination of malignancy, reaction, infection Qualifiers: Leukocytosis type: other Qualified Code(s): D72.828 - Other elevated white blood cell count (3) Acute renal failure Current Visit: Yes Status: Acute - BUN/creatinine of 19/1.77, which is stable from yesterday at 1.69 - Patient did present with creatinine of 0.94 - Patient does admit to poor by mouth intake, in combination with vancomycin therapy. Vancomycin trough of 20 on 03/07 - Vancomycin has been discontinued - Further management per primary team. Nephrology has been consulted - Renally dose antibiotics Qualifiers: Acute renal failure type: unspecified Qualified Code(s): N17.9 - Acute kidney failure, unspecified (4) Metastatic disease Current Visit: Yes Status: Acute - Mets to liver, lung. - Primary site unclear, staining pending. - Liver bx performed and pending. - Heme/Onc following. We will follow up as outpatient - Subjective Interval history: Patient was seen and examined up at since morning with family. She states overall she is feeling about the same with no complaints of fevers, chills. She is still oxygen dependent on 2 L via nasal cannula. She is still complaining of a productive cough with thick yellow sputum. Denies any symptoms of nausea, vomiting, changes in bowel movement, changes in urination. Infect Dis PN-Objective Data - Labs CBC & Chem 7: 03/08/18 05:56 03/08/18 05:56 Labs: Laboratory Results - last 24 hr 03/05/18 03/06/18 03/06/18 21:01 07:08 11:30 WBC RBC Hgb Hct MCV MCH MCHC RDW Plt Count MPV Immature Gran % Seg Neutrophils % Lymphocytes % Monocytes % Eosinophils % Basophils % Neutrophils # Lymphocytes # Monocytes # Eosinophils # Basophils # Sodium Potassium Chloride Carbon Dioxide BUN Creatinine Est GFR ( Amer) Est GFR (Non-Af Amer) BUN/Creatinine Ratio Glucose POC Glucose 105 H 72 103 H Calculated Osmolality Calcium Urine Color Urine Clarity Urine pH Ur Specific [place] Urine Protein Urine Glucose (UA) Urine Ketones Urine Blood Urine Nitrite Urine Bilirubin Urine Urobilinogen Ur Leukocyte Esterase Urine Microscopic RBC Urine Microscopic WBC Ur Squamous Epith Cells Urine Bacteria Urine Creatinine Protein/Creatinin Ratio Urine Sodium Urine Total Protein 03/06/18 03/07/18 03/07/18 16:46 03:45 03:45 WBC 13.1 H RBC 2.71 L Hgb 7.4 L Hct 23.1 L MCV 85.2 MCH 27.3 L MCHC 32.0 RDW 16.0 H Plt Count 310 MPV 10.7 Immature Gran % 1.5 Seg Neutrophils % 86.2 Lymphocytes % 6.9 Monocytes % 5.0 Eosinophils % 0.2 Basophils % 0.2 Neutrophils # 11.3 H Lymphocytes # 0.9 Monocytes # 0.7 Eosinophils # 0.0 Basophils # 0.0 Sodium 140 Potassium 3.5 Chloride 101 Carbon Dioxide 30 H BUN 19 Creatinine 1.77 H Est GFR ( Amer) 33 L Est GFR (Non-Af Amer) 28 L BUN/Creatinine Ratio 11 Glucose 86 POC Glucose 112 H Calculated Osmolality 292 Calcium 7.7 L Urine Color Urine Clarity Urine pH Ur Specific [place] Urine Protein Urine Glucose (UA) Urine Ketones Urine Blood Urine Nitrite Urine Bilirubin Urine Urobilinogen Ur Leukocyte Esterase Urine Microscopic RBC Urine Microscopic WBC Ur Squamous Epith Cells Urine Bacteria Urine Creatinine Protein/Creatinin Ratio Urine Sodium Urine Total Protein 03/07/18 03/07/18 12:37 12:37 WBC RBC Hgb Hct MCV MCH MCHC RDW Plt Count MPV Immature Gran % Seg Neutrophils % Lymphocytes % Monocytes % Eosinophils % Basophils % Neutrophils # Lymphocytes # Monocytes # Eosinophils # Basophils # Sodium Potassium Chloride Carbon Dioxide BUN Creatinine Est GFR ( Amer) Est GFR (Non-Af Amer) BUN/Creatinine Ratio Glucose POC Glucose Calculated Osmolality Calcium Urine Color Yellow Urine Clarity Cloudy A Urine pH 5.5 Ur Specific [place] 1.018 Urine Protein 30 H Urine Glucose (UA) Normal Urine Ketones Negative Urine Blood Negative Urine Nitrite Negative Urine Bilirubin Negative Urine Urobilinogen Normal Ur Leukocyte Esterase Moderate H Urine Microscopic RBC 3-5 H Urine Microscopic WBC 50-100 H Ur Squamous Epith Cells Many H Urine Bacteria None Seen Urine Creatinine 140 Protein/Creatinin Ratio 0.87 H Urine Sodium 14.7 Urine Total Protein 122 H Cultures: Cultures 02/27/18 03:03 Blood Culture - Final Peripheral Venipuncture No growth. Final report. 02/27/18 03:03 Blood Culture - Final Peripheral Venipuncture No growth. Final report. 03/03/18 19:49 Legionella Antigen - Final Urine,Clean Catch Streptococcus pneumoniae Antigen (M - Final 03/03/18 14:52 Blood Culture - Preliminary Peripheral Venipuncture Culture is incubating and being continuously monitored for growth. Final report to follow. 03/03/18 14:52 Blood Culture - Preliminary Peripheral Venipuncture Culture is incubating and being continuously monitored for growth. Final report to follow. Serology 03/07/18 03/07/18 03/05/18 Range/Units 12:37 12:37 09:48 Urine Color Yellow (Yellow) Urine Clarity Cloudy A (Clear) Urine pH 5.5 (5.0-8.0) pH Units Ur Specific [place] 1.018 (1.010-1.025) Urine Protein 30 H (Neg-Trace) mg/dL Urine Glucose (UA) Normal (Normal) mg/dL Urine Ketones Negative (Negative) mg/dL Urine Blood Negative (Negative) Urine Nitrite Negative (Negative) Urine Bilirubin Negative (Negative) Urine Urobilinogen Normal (Normal) mg/dL Ur Leukocyte Esterase Moderate H (Negative) Urine Microscopic RBC 3-5 H (0-3) per hpf Urine Microscopic WBC 50-100 H (0-3) per hpf Ur Eosinophil Smear Pending Ur Squamous Epith Cells Many H (None-Few) per lpf Urine Bacteria None Seen (None-Few) per hpf Hyaline Casts (None-Few) per lpf Ur Culture Indicated? (NO) Urine Creatinine 140 mg/dL Protein/Creatinin Ratio 0.87 H (0.00-0.20) mg/mg Urine Sodium 14.7 mEq/L Urine Total Protein 122 H (1-14) mg/dL Nasal Screen MRSA (PCR) Negative (Negative) Stool Occult Bld Scrn (Negative) Chlamy pneumoniae PCR (Not Detect) Adenovirus (PCR) (Not Detect) B. pertussis DNA (PCR) (Not Detect) B.parapertussis DNA PCR (Not Detect) Coronavirus OC43 (PCR) (Not Detect) Coronavirus HKU1 (PCR) (Not Detect) Coronavirus 229E (PCR) (Not Detect) Coronavirus NL63 (PCR) (Not Detect) Human Metapneumovir PCR (Not Detect) Influenza A (H1) PCR (Not Detect) Influ A (H1N1/09) PCR (Not Detect) Influenza A (H3) PCR (Not Detect) Influenza A Untype (PCR) (Not Detect) Influenza Type B (PCR) (Not Detect) M.pneumoniae DNA (PCR) (Not Detect) Parainfluenza 1 (PCR) (Not Detect) Parainfluenza 2 (PCR) (Not Detect) Parainfluenza 3 (PCR) (Not Detect) Parainfluenza 4 (PCR) (Not Detect) RSV (PCR) (Not Detect) Entero/Rhino (PCR) (Not Detect) 03/03/18 02/28/18 02/27/18 Range/Units 19:49 18:11 06:16 Urine Color Yellow Dark Yellow (Yellow) Urine Clarity Slightly Cloudy A Cloudy A (Clear) Urine pH 5.5 5.5 (5.0-8.0) pH Units Ur Specific [place] 1.025 1.026 H (1.010-1.025) Urine Protein 30 H 30 H (Neg-Trace) mg/dL Urine Glucose (UA) Normal Normal (Normal) mg/dL Urine Ketones Trace H Negative (Negative) mg/dL Urine Blood Negative Negative (Negative) Urine Nitrite Negative Negative (Negative) Urine Bilirubin Small H Small H (Negative) Urine Urobilinogen Normal Normal (Normal) mg/dL Ur Leukocyte Esterase Negative Trace H (Negative) Urine Microscopic RBC 0-3 0-3 (0-3) per hpf Urine Microscopic WBC 0-3 5-15 H (0-3) per hpf Ur Eosinophil Smear Ur Squamous Epith Cells Many H Many H (None-Few) per lpf Urine Bacteria Few None Seen (None-Few) per hpf Hyaline Casts Moderate H (None-Few) per lpf Ur Culture Indicated? NO NO. A (NO) Urine Creatinine mg/dL Protein/Creatinin Ratio (0.00-0.20) mg/mg Urine Sodium mEq/L Urine Total Protein (1-14) mg/dL Nasal Screen MRSA (PCR) (Negative) Stool Occult Bld Scrn (Negative) Chlamy pneumoniae PCR Not Detected (Not Detect) Adenovirus (PCR) Not Detected (Not Detect) B. pertussis DNA (PCR) Not Detected (Not Detect) B.parapertussis DNA PCR Not Detected (Not Detect) Coronavirus OC43 (PCR) Not Detected (Not Detect) Coronavirus HKU1 (PCR) Not Detected (Not Detect) Coronavirus 229E (PCR) Not Detected (Not Detect) Coronavirus NL63 (PCR) Not Detected (Not Detect) Human Metapneumovir PCR Not Detected (Not Detect) Influenza A (H1) PCR Not Detected (Not Detect) Influ A (H1N1/09) PCR Not Detected (Not Detect) Influenza A (H3) PCR Not Detected (Not Detect) Influenza A Untype (PCR) Not Detected (Not Detect) Influenza Type B (PCR) Not Detected (Not Detect) M.pneumoniae DNA (PCR) Not Detected (Not Detect) Parainfluenza 1 (PCR) Not Detected (Not Detect) Parainfluenza 2 (PCR) Not Detected (Not Detect) Parainfluenza 3 (PCR) Not Detected (Not Detect) Parainfluenza 4 (PCR) Not Detected (Not Detect) RSV (PCR) Not Detected (Not Detect) Entero/Rhino (PCR) Not Detected (Not Detect) 02/26/18 Range/Units 21:27 Urine Color (Yellow) Urine Clarity (Clear) Urine pH (5.0-8.0) pH Units Ur Specific [place] (1.010-1.025) Urine Protein (Neg-Trace) mg/dL Urine Glucose (UA) (Normal) mg/dL Urine Ketones (Negative) mg/dL Urine Blood (Negative) Urine Nitrite (Negative) Urine Bilirubin (Negative) Urine Urobilinogen (Normal) mg/dL Ur Leukocyte Esterase (Negative) Urine Microscopic RBC (0-3) per hpf Urine Microscopic WBC (0-3) per hpf Ur Eosinophil Smear Ur Squamous Epith Cells (None-Few) per lpf Urine Bacteria (None-Few) per hpf Hyaline Casts (None-Few) per lpf Ur Culture Indicated? (NO) Urine Creatinine mg/dL Protein/Creatinin Ratio (0.00-0.20) mg/mg Urine Sodium mEq/L Urine Total Protein (1-14) mg/dL Nasal Screen MRSA (PCR) (Negative) Stool Occult Bld Scrn Negative (Negative) Chlamy pneumoniae PCR (Not Detect) Adenovirus (PCR) (Not Detect) B. pertussis DNA (PCR) (Not Detect) B.parapertussis DNA PCR (Not Detect) Coronavirus OC43 (PCR) (Not Detect) Coronavirus HKU1 (PCR) (Not Detect) Coronavirus 229E (PCR) (Not Detect) Coronavirus NL63 (PCR) (Not Detect) Human Metapneumovir PCR (Not Detect) Influenza A (H1) PCR (Not Detect) Influ A (H1N1/09) PCR (Not Detect) Influenza A (H3) PCR (Not Detect) Influenza A Untype (PCR) (Not Detect) Influenza Type B (PCR) (Not Detect) M.pneumoniae DNA (PCR) (Not Detect) Parainfluenza 1 (PCR) (Not Detect) Parainfluenza 2 (PCR) (Not Detect) Parainfluenza 3 (PCR) (Not Detect) Parainfluenza 4 (PCR) (Not Detect) RSV (PCR) (Not Detect) Entero/Rhino (PCR) (Not Detect) Exam - Constitutional Vitals: Temp Pulse Resp BP Pulse Ox 98.7 F 83 16 106/65 96 03/07/18 10:58 03/07/18 10:58 03/07/18 11:57 03/07/18 10:58 03/07/18 11:57 Exam: Gen.: Vitals noted. No acute distress. AAOx3 HEENT: PERRL/EOMI, oropharynx clear, Normocephalic, atraumatic, MMM Cardiac: RRR, no murmur, +S1/S2 Pulmonary: And expiratory wheezes appreciated on auscultation. equal chest expansion Abdomen: soft, nontender, BS noted, no guarding, no rebound. Extremities: 2+, R>L BLE edema, nontender calf, no cyanosis or clubbing Neuro: A&Ox3, moves all extremities, no focal deficits Psych: Appropriate mood and behavior Consult Discharge Plan - Plan Referrals: NONE,PCP [Primary Care Provider] - - Attending Attestation I examined this patient and my medical decision-making was reviewed with the Resident Physician. I agree with the documented findings, disposition and treatment plan as described except to the extent set forth below. 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 I expect her kidney function to plateau and then hopefully start improving Appreciate nephrology recommendation Continue current antibiotics Prognosis poor
[2018-03-07] MEDS: Ipratropium/Albuterol Neb 3 ML IH SCH ×2 (15:39→21:00)
[2018-03-07] MEDS: Ondansetron 4 MG/2 ML VIAL IVP PRN (18:34)
[2018-03-07] MEDS: Acetaminophen 325 MG TABLET PO PRN (20:28)
[2018-03-07] MEDS: Mirtazapine 15 MG TABLET PO SCH (20:29)
[2018-03-08] MEDS: Ipratropium/Albuterol Neb 3 ML IH SCH ×4 (03:13→22:28)
[2018-03-08] MEDS: *HR* Heparin 5,000 UNIT/ML VIAL SQ SCH ×3 (05:38→20:14)
[2018-03-08 06:13] LABS: Basophils % 0.2 %; Eosinophils % 0.1 %; Hematocrit 27.4 % (35.3-44.9); Hemoglobin 8.6 g/dL (11.5-15.4); Immature Granulocytes % 1.5 % (0-4); Lymphocytes # 0.9 K/mcL (0.6-4.6); Lymphocytes % 5.4 %; Mean Corpuscular HGB Conc 31.4 g/dL (31.6-35.5); Mean Corpuscular Hemoglobin 27.1 pg (28.0-33.3); Mean Corpuscular Volume 86.4 fL (83.0-100.0); Mean Platelet Volume 10.5 fL (9.4-12.4); Monocytes # 0.8 K/mcL (0.0-1.3); Monocytes % 4.7 %; Neutrophils # 14.8 K/mcL (1.6-8.9); Platelet Count 302 K/mcL (140-400); Red Blood Count 3.17 M/mcL (3.82-4.97); Red Cell Distribution Width 16.2 % (11.5-14.5); Segmented Neutrophils % 88.1 %
[2018-03-08 06:30] LABS: Uric Acid 7.3 mg/dL (2.3-7.6)
[2018-03-08 06:32] LABS: Calcium 7.8 mg/dL (8.6-10.3); Potassium 3.5 mEq/L (3.5-5.1)
[2018-03-08 06:45] LABS: VBG Ionized Calcium 1.05 mmol/L (1.15-1.35)
[2018-03-08 06:59] LABS: Hepatitis A Antibody IgM Nonreactive (Nonreactive); Hepatitis B Core IgM Nonreactive (Nonreactive); Hepatitis B Surface Antigen Nonreactive (Nonreactive); Hepatitis C Virus Antibody Nonreactive (Nonreactive)
[2018-03-08] MEDS: Lactobacillus 1 EACH CAP.SPRINK PO SCH (08:08)
[2018-03-08] MEDS: Amoxicillin/Clavulanate 500 MG TABLET PO SCH ×2 (08:09→17:13)
[2018-03-08] MEDS: Doxycycline 100 MG CAPSULE PO SCH ×2 (08:09→20:14)
[2018-03-08] MEDS: Insulin LISPRO 300 UNITS/3 ML VIAL SQ SCH ×4 (08:09→20:25)
--- NOTE | 2018-03-08 10:15 | Infectious Disease Progress No ---
Date of Encounter: 03/08/18 Time of Encounter: 10:09 - Assessment and Plan (1) Sepsis Status: Resolved -Resolved - Met 4/4 SIRS criteria with fever 102.1, HR 115, RR 33, WBC 22.3 on presentation - Source: Pulmonary - Organism: unknown - Etiology possibly mixed with malignancy etiology - Continues to intermittently meet sirs criteria heart rate of 106 and leukocytosis 16.7 which is mildly increased from 13.1 - Was transitioned from vancomycin and Zosyn to by mouth Augmentin and doxycycline 03/07 - UA shows trace leukocyte esterase, many epithelial cells. - Blood culture 02/27 NG x 2 - Blood culture 03/03 NG x2 - Strep pneumo urine antigen, Legionella negative - MRSA swab negative on day [address] abdomen/pelvis on 02/27 showed findings of metastatic disease in the bilateral lungs, liver and mediastinal and portacaval lymph nodes. No obvious infection CT of the chest on 02/27 showed nodules indicative of metastatic disease as above. Again no obvious signs of infection CXR on 02/26 showed an area of nodular increased opacification of the right upper lobe CT of the chest, abdomen and pelvis on 03/03 does show suspicious right upper lobe consolidation suspicious for pneumonia and/or aspiration. Started on vancomycin, Zosyn on presentation. Completed 8 days of vancomycin, 9 days of Zosyn Levaquin started 03/02, stopped 03/03, total of 1 day. --Per patient, primary team is considering repeat chest x-ray. I do agree with this to further evaluate for her increasing shortness of breath as well as increasing leukocytosis. Plan - Etiologies of fevers and leukocytosis may be mixed and related to known malignancy. We will continue monitor on current regimen at this time - If Xray shows worsening of PNA, consider broadening Abx coverage to zosyn. CrCl >20, no need to dose adjust. - Will also obtain peripheral smear to check for toxic granulation. -Continue Augmentin and doxycycline, day 3. Recommend continuation of treatment through 03/17/18 -We will defer to primary team for need for MANAGER [employer] if concern for aspiration Qualifiers: Sepsis type: sepsis due to unspecified organism Qualified Code(s): A41.9 - Sepsis, unspecified organism (2) Leukocytosis Status: Acute As above for sepsis Likely secondary to combination of malignancy, reaction, infection Qualifiers: Leukocytosis type: other Qualified Code(s): D72.828 - Other elevated white blood cell count (3) Acute renal failure Status: Acute - Creatinine 1.70 which is mildly improved from 1.77 yesterday - Patient did present with creatinine of 0.94 - Patient does admit to poor by mouth intake, in combination with vancomycin therapy. Vancomycin trough of 20 on 03/07 - Vancomycin has been discontinued - Further management per primary team. Nephrology has been consulted - Renally dose antibiotics Qualifiers: Acute renal failure type: unspecified Qualified Code(s): N17.9 - Acute kidney failure, unspecified (4) Metastatic disease Status: Acute - Mets to liver, lung. - Primary site unclear, staining pending. - Liver bx performed and pending. - Heme/Onc following. We will follow up as outpatient (5) Acute respiratory failure with hypoxia Status: Acute - Tolerating 2L O2 - Known PNA on CT as above - +5.5L since admission, however unclear of etiology - Management as above and per primary team. - Subjective Interval history: Patient was seen and examined up at since morning with family. She states overall she is feeling about the same as yesterday but is complaining of increased shortness of breath with wheezing. She continues to have a productive cough with thick yellow sputum. She did have one episode of emesis yesterday after drinking a large amount of ice water prior to her retroperitoneal ultrasound. She denies any further symptoms of nausea, vomiting as well as fevers, chills, dysuria, frequency, urgency, hematuria, changes in bowel movements. Infect Dis PN-Objective Data - Labs CBC & Chem 7: 03/09/18 03:50 03/09/18 03:50 Labs: Laboratory Results - last 24 hr 03/06/18 03/07/18 03/07/18 20:22 07:06 10:53 WBC RBC Hgb Hct MCV MCH MCHC RDW Plt Count MPV Immature Gran % Seg Neutrophils % Lymphocytes % Monocytes % Eosinophils % Basophils % Neutrophils # Lymphocytes # Monocytes # Eosinophils # Basophils # Sodium Potassium Chloride Carbon Dioxide BUN Creatinine Est GFR ( Amer) Est GFR (Non-Af Amer) BUN/Creatinine Ratio Glucose POC Glucose 144 H 83 131 H Calculated Osmolality Uric Acid Calcium Venous Ioniz Calcium Creatine Kinase Urine Color Urine Clarity Urine pH Ur Specific [place] Urine Protein Urine Glucose (UA) Urine Ketones Urine Blood Urine Nitrite Urine Bilirubin Urine Urobilinogen Ur Leukocyte Esterase Urine Microscopic RBC Urine Microscopic WBC Ur Eosinophil Smear Ur Squamous Epith Cells Urine Bacteria Urine Creatinine Protein/Creatinin Ratio Urine Sodium Urine Total Protein Stool Occult Blood Hepatitis A IgM Ab Hep Bs Antigen Hep B Core IgM Ab Hepatitis C Ab Screen Blood Type Antibody Screen 03/07/18 03/07/18 03/07/18 12:37 12:37 13:13 WBC RBC Hgb Hct MCV MCH MCHC RDW Plt Count MPV Immature Gran % Seg Neutrophils % Lymphocytes % Monocytes % Eosinophils % Basophils % Neutrophils # Lymphocytes # Monocytes # Eosinophils # Basophils # Sodium Potassium Chloride Carbon Dioxide BUN Creatinine Est GFR ( Amer) Est GFR (Non-Af Amer) BUN/Creatinine Ratio Glucose POC Glucose Calculated Osmolality Uric Acid Calcium Venous Ioniz Calcium Creatine Kinase Urine Color Yellow Urine Clarity Cloudy A Urine pH 5.5 Ur Specific [place] 1.018 Urine Protein 30 H Urine Glucose (UA) Normal Urine Ketones Negative Urine Blood Negative Urine Nitrite Negative Urine Bilirubin Negative Urine Urobilinogen Normal Ur Leukocyte Esterase Moderate H Urine Microscopic RBC 3-5 H Urine Microscopic WBC 50-100 H Ur Eosinophil Smear 0 Ur Squamous Epith Cells Many H Urine Bacteria None Seen Urine Creatinine 140 Protein/Creatinin Ratio 0.87 H Urine Sodium 14.7 Urine Total Protein 122 H Stool Occult Blood Hepatitis A IgM Ab Hep Bs Antigen Hep B Core IgM Ab Hepatitis C Ab Screen Blood Type A POSITIVE Antibody Screen NEGATIVE 03/07/18 03/07/18 03/07/18 15:58 17:00 19:15 WBC RBC Hgb Hct MCV MCH MCHC RDW Plt Count MPV Immature Gran % Seg Neutrophils % Lymphocytes % Monocytes % Eosinophils % Basophils % Neutrophils # Lymphocytes # Monocytes # Eosinophils # Basophils # Sodium Potassium Chloride Carbon Dioxide BUN Creatinine Est GFR ( Amer) Est GFR (Non-Af Amer) BUN/Creatinine Ratio Glucose POC Glucose 97 88 Calculated Osmolality Uric Acid Calcium Venous Ioniz Calcium Creatine Kinase Urine Color Urine Clarity Urine pH Ur Specific [place] Urine Protein Urine Glucose (UA) Urine Ketones Urine Blood Urine Nitrite Urine Bilirubin Urine Urobilinogen Ur Leukocyte Esterase Urine Microscopic RBC Urine Microscopic WBC Ur Eosinophil Smear Ur Squamous Epith Cells Urine Bacteria Urine Creatinine Protein/Creatinin Ratio Urine Sodium Urine Total Protein Stool Occult Blood Negative Hepatitis A IgM Ab Hep Bs Antigen Hep B Core IgM Ab Hepatitis C Ab Screen Blood Type Antibody Screen 03/08/18 03/08/18 03/08/18 05:56 05:56 05:56 WBC 16.7 H RBC 3.17 L Hgb 8.6 L Hct 27.4 L MCV 86.4 MCH 27.1 L MCHC 31.4 L RDW 16.2 H Plt Count 302 MPV 10.5 Immature Gran % 1.5 Seg Neutrophils % 88.1 Lymphocytes % 5.4 Monocytes % 4.7 Eosinophils % 0.1 Basophils % 0.2 Neutrophils # 14.8 H Lymphocytes # 0.9 Monocytes # 0.8 Eosinophils # 0.0 Basophils # 0.0 Sodium 139 Potassium 3.5 Chloride 102 Carbon Dioxide 28 BUN 21 Creatinine 1.70 H Est GFR ( Amer) 35 L Est GFR (Non-Af Amer) 29 L BUN/Creatinine Ratio 12 Glucose 74 POC Glucose Calculated Osmolality 290 Uric Acid 7.3 Calcium 7.8 L Venous Ioniz Calcium Creatine Kinase 30 Urine Color Urine Clarity Urine pH Ur Specific [place] Urine Protein Urine Glucose (UA) Urine Ketones Urine Blood Urine Nitrite Urine Bilirubin Urine Urobilinogen Ur Leukocyte Esterase Urine Microscopic RBC Urine Microscopic WBC Ur Eosinophil Smear Ur Squamous Epith Cells Urine Bacteria Urine Creatinine Protein/Creatinin Ratio Urine Sodium Urine Total Protein Stool Occult Blood Hepatitis A IgM Ab Hep Bs Antigen Hep B Core IgM Ab Hepatitis C Ab Screen Blood Type Antibody Screen 03/08/18 03/08/18 05:56 06:41 WBC RBC Hgb Hct MCV MCH MCHC RDW Plt Count MPV Immature Gran % Seg Neutrophils % Lymphocytes % Monocytes % Eosinophils % Basophils % Neutrophils # Lymphocytes # Monocytes # Eosinophils # Basophils # Sodium Potassium Chloride Carbon Dioxide BUN Creatinine Est GFR ( Amer) Est GFR (Non-Af Amer) BUN/Creatinine Ratio Glucose POC Glucose Calculated Osmolality Uric Acid Calcium Venous Ioniz Calcium 1.05 L Creatine Kinase Urine Color Urine Clarity Urine pH Ur Specific [place] Urine Protein Urine Glucose (UA) Urine Ketones Urine Blood Urine Nitrite Urine Bilirubin Urine Urobilinogen Ur Leukocyte Esterase Urine Microscopic RBC Urine Microscopic WBC Ur Eosinophil Smear Ur Squamous Epith Cells Urine Bacteria Urine Creatinine Protein/Creatinin Ratio Urine Sodium Urine Total Protein Stool Occult Blood Hepatitis A IgM Ab Nonreactive Hep Bs Antigen Nonreactive Hep B Core IgM Ab Nonreactive Hepatitis C Ab Screen Nonreactive Blood Type Antibody Screen Cultures: Cultures 02/27/18 03:03 Blood Culture - Final Peripheral Venipuncture No growth. Final report. 02/27/18 03:03 Blood Culture - Final Peripheral Venipuncture No growth. Final report. 03/03/18 19:49 Legionella Antigen - Final Urine,Clean Catch Streptococcus pneumoniae Antigen (M - Final 03/03/18 14:52 Blood Culture - Preliminary Peripheral Venipuncture Culture is incubating and being continuously monitored for growth. Final report to follow. 03/03/18 14:52 Blood Culture - Preliminary Peripheral Venipuncture Culture is incubating and being continuously monitored for growth. Final report to follow. Serology 03/08/18 03/07/18 03/07/18 Range/Units 05:56 17:00 12:37 Urine Color (Yellow) Urine Clarity (Clear) Urine pH (5.0-8.0) pH Units Ur Specific [place] (1.010-1.025) Urine Protein (Neg-Trace) mg/dL Urine Glucose (UA) (Normal) mg/dL Urine Ketones (Negative) mg/dL Urine Blood (Negative) Urine Nitrite (Negative) Urine Bilirubin (Negative) Urine Urobilinogen (Normal) mg/dL Ur Leukocyte Esterase (Negative) Urine Microscopic RBC (0-3) per hpf Urine Microscopic WBC (0-3) per hpf Ur Eosinophil Smear (None Seen) % Ur Squamous Epith Cells (None-Few) per lpf Urine Bacteria (None-Few) per hpf Hyaline Casts (None-Few) per lpf Ur Culture Indicated? (NO) Urine Creatinine 140 mg/dL Protein/Creatinin Ratio 0.87 H (0.00-0.20) mg/mg Urine Sodium 14.7 mEq/L Urine Total Protein 122 H (1-14) mg/dL Nasal Screen MRSA (PCR) (Negative) Stool Occult Bld Scrn (Negative) Stool Occult Blood Negative (Negative) Chlamy pneumoniae PCR (Not Detect) Adenovirus (PCR) (Not Detect) B. pertussis DNA (PCR) (Not Detect) B.parapertussis DNA PCR (Not Detect) Coronavirus OC43 (PCR) (Not Detect) Coronavirus HKU1 (PCR) (Not Detect) Coronavirus 229E (PCR) (Not Detect) Coronavirus NL63 (PCR) (Not Detect) Hepatitis A IgM Ab Nonreactive (Nonreactive) Hep Bs Antigen Nonreactive (Nonreactive) Hep B Core IgM Ab Nonreactive (Nonreactive) Hepatitis C Ab Screen Nonreactive (Nonreactive) Human Metapneumovir PCR (Not Detect) Influenza A (H1) PCR (Not Detect) Influ A (H1N1/09) PCR (Not Detect) Influenza A (H3) PCR (Not Detect) Influenza A Untype (PCR) (Not Detect) Influenza Type B (PCR) (Not Detect) M.pneumoniae DNA (PCR) (Not Detect) Parainfluenza 1 (PCR) (Not Detect) Parainfluenza 2 (PCR) (Not Detect) Parainfluenza 3 (PCR) (Not Detect) Parainfluenza 4 (PCR) (Not Detect) RSV (PCR) (Not Detect) Entero/Rhino (PCR) (Not Detect) 03/07/18 03/05/18 03/03/18 Range/Units 12:37 09:48 19:49 Urine Color Yellow Yellow (Yellow) Urine Clarity Cloudy A Slightly Cloudy A (Clear) Urine pH 5.5 5.5 (5.0-8.0) pH Units Ur Specific [place] 1.018 1.025 (1.010-1.025) Urine Protein 30 H 30 H (Neg-Trace) mg/dL Urine Glucose (UA) Normal Normal (Normal) mg/dL Urine Ketones Negative Trace H (Negative) mg/dL Urine Blood Negative Negative (Negative) Urine Nitrite Negative Negative (Negative) Urine Bilirubin Negative Small H (Negative) Urine Urobilinogen Normal Normal (Normal) mg/dL Ur Leukocyte Esterase Moderate H Negative (Negative) Urine Microscopic RBC 3-5 H 0-3 (0-3) per hpf Urine Microscopic WBC 50-100 H 0-3 (0-3) per hpf Ur Eosinophil Smear 0 (None Seen) % Ur Squamous Epith Cells Many H Many H (None-Few) per lpf Urine Bacteria None Seen Few (None-Few) per hpf Hyaline Casts (None-Few) per lpf Ur Culture Indicated? NO (NO) Urine Creatinine mg/dL Protein/Creatinin Ratio (0.00-0.20) mg/mg Urine Sodium mEq/L Urine Total Protein (1-14) mg/dL Nasal Screen MRSA (PCR) Negative (Negative) Stool Occult Bld Scrn (Negative) Stool Occult Blood (Negative) Chlamy pneumoniae PCR (Not Detect) Adenovirus (PCR) (Not Detect) B. pertussis DNA (PCR) (Not Detect) B.parapertussis DNA PCR (Not Detect) Coronavirus OC43 (PCR) (Not Detect) Coronavirus HKU1 (PCR) (Not Detect) Coronavirus 229E (PCR) (Not Detect) Coronavirus NL63 (PCR) (Not Detect) Hepatitis A IgM Ab (Nonreactive) Hep Bs Antigen (Nonreactive) Hep B Core IgM Ab (Nonreactive) Hepatitis C Ab Screen (Nonreactive) Human Metapneumovir PCR (Not Detect) Influenza A (H1) PCR (Not Detect) Influ A (H1N1/09) PCR (Not Detect) Influenza A (H3) PCR (Not Detect) Influenza A Untype (PCR) (Not Detect) Influenza Type B (PCR) (Not Detect) M.pneumoniae DNA (PCR) (Not Detect) Parainfluenza 1 (PCR) (Not Detect) Parainfluenza 2 (PCR) (Not Detect) Parainfluenza 3 (PCR) (Not Detect) Parainfluenza 4 (PCR) (Not Detect) RSV (PCR) (Not Detect) Entero/Rhino (PCR) (Not Detect) 02/28/18 02/27/18 02/26/18 Range/Units 18:11 06:16 21:27 Urine Color Dark Yellow (Yellow) Urine Clarity Cloudy A (Clear) Urine pH 5.5 (5.0-8.0) pH Units Ur Specific [place] 1.026 H (1.010-1.025) Urine Protein 30 H (Neg-Trace) mg/dL Urine Glucose (UA) Normal (Normal) mg/dL Urine Ketones Negative (Negative) mg/dL Urine Blood Negative (Negative) Urine Nitrite Negative (Negative) Urine Bilirubin Small H (Negative) Urine Urobilinogen Normal (Normal) mg/dL Ur Leukocyte Esterase Trace H (Negative) Urine Microscopic RBC 0-3 (0-3) per hpf Urine Microscopic WBC 5-15 H (0-3) per hpf Ur Eosinophil Smear (None Seen) % Ur Squamous Epith Cells Many H (None-Few) per lpf Urine Bacteria None Seen (None-Few) per hpf Hyaline Casts Moderate H (None-Few) per lpf Ur Culture Indicated? NO. A (NO) Urine Creatinine mg/dL Protein/Creatinin Ratio (0.00-0.20) mg/mg Urine Sodium mEq/L Urine Total Protein (1-14) mg/dL Nasal Screen MRSA (PCR) (Negative) Stool Occult Bld Scrn Negative (Negative) Stool Occult Blood (Negative) Chlamy pneumoniae PCR Not Detected (Not Detect) Adenovirus (PCR) Not Detected (Not Detect) B. pertussis DNA (PCR) Not Detected (Not Detect) B.parapertussis DNA PCR Not Detected (Not Detect) Coronavirus OC43 (PCR) Not Detected (Not Detect) Coronavirus HKU1 (PCR) Not Detected (Not Detect) Coronavirus 229E (PCR) Not Detected (Not Detect) Coronavirus NL63 (PCR) Not Detected (Not Detect) Hepatitis A IgM Ab (Nonreactive) Hep Bs Antigen (Nonreactive) Hep B Core IgM Ab (Nonreactive) Hepatitis C Ab Screen (Nonreactive) Human Metapneumovir PCR Not Detected (Not Detect) Influenza A (H1) PCR Not Detected (Not Detect) Influ A (H1N1/09) PCR Not Detected (Not Detect) Influenza A (H3) PCR Not Detected (Not Detect) Influenza A Untype (PCR) Not Detected (Not Detect) Influenza Type B (PCR) Not Detected (Not Detect) M.pneumoniae DNA (PCR) Not Detected (Not Detect) Parainfluenza 1 (PCR) Not Detected (Not Detect) Parainfluenza 2 (PCR) Not Detected (Not Detect) Parainfluenza 3 (PCR) Not Detected (Not Detect) Parainfluenza 4 (PCR) Not Detected (Not Detect) RSV (PCR) Not Detected (Not Detect) Entero/Rhino (PCR) Not Detected (Not Detect) - Impressions Impressions Retroperitoneum Ultrasound 03/07/18 18:00 IMPRESSION: Normal sonographic appearance of the kidneys. Hepatic metastatic disease. D/ / 03/07/2018 19:07:23 Mac Kimbrough MD / caterina Interpreting Provider: Mac Kimbrough MD Exam - Constitutional Vitals: Temp Pulse Resp BP Pulse Ox 98.3 F 106 16 138/83 91 03/08/18 07:13 03/08/18 07:13 03/08/18 07:13 03/08/18 07:13 03/08/18 07:13 Exam: Gen.: Vitals noted. No acute distress. AAOx3 HEENT: PERRL/EOMI, oropharynx clear, Normocephalic, atraumatic, MMM Cardiac: RRR, no murmur, +S1/S2 Pulmonary: Very faint expiratory wheezes diffusely, slight crackles auscultated in left middle. equal chest expansion Abdomen: soft, nontender, BS noted, no guarding, no rebound. MSK: ROM intact, no joint swelling noted Extremities: 2+ BL pitting edema, nontender calf, no cyanosis or clubbing Neuro: A&Ox3, moves all extremities, no focal deficits Psych: Appropriate mood and behavior Consult Discharge Plan - Plan Instructions: Acute Respiratory Distress Syndrome (DC), Acute Kidney Injury (DC), Anemia (GEN), Pneumonia (DC) Referrals: Yolanda Watts MD [Non-Partnered Physician] - (Office will call patient with an appointment date and time. If you do not hear from them by Tuesday after noon please call and get a 5-7 day hospital follow up) Prescriptions: RX: Albuterol Neb [Proventil Neb] 2.5 mg IH Q4H PRN #12 PRN Reason: Shortness Of Breath/Wheezing RX: Amoxicillin/Clavulanate [Augmentin] 500 mg PO BIDWM #16 tablet RX: Doxycycline 100 mg PO BID #16 capsule RX: Furosemide [Lasix] 20 mg PO DAILY #30 tablet RX: Lactobacillus [Culturelle] 2 each PO DAILY #60 cap.sprink RX: Mirtazapine [Remeron] 7.5 mg PO HS #15 tablet - Attending Attestation I examined this patient and my medical decision-making was reviewed with the Resident Physician. I agree with the documented findings, disposition and treatment plan as described except to the extent set forth below.
--- NOTE | 2018-03-08 11:05 | Internal Med Progress Note ---
Hospitalist Progress Note - Encounter Date of Encounter: 03/08/18 Time of Encounter: 09:00 - Subjective Interval History: Seen and evaluated at bedside with her daughter 78 YO F being managed for sepsis ivonne due to HCAP treated with vanco and zosyn. She has significant metastatic disease to lung and liver from an unknown primary, likely adenocarcinoma according to onc Patient also with acute resp failure requiring O2,not previously on O2 prior to admission Infectious disease was following for suspected sepsis and persistent leukocytosis. The patient is now on oral antibiotics. Of note, patient's renal function continues to worsen, vancomycin was discontinued 03/04 Last fever 03/06 , afebrile since Patient today wheezing diffusely on exam, she denies new complains UA from 03/07 noted, LE +, will order culture since leukocytosis is persistent FOBT was negative and Hb stable at 8 Will repeat CXR - Exam Vitals: Temp Pulse Resp BP Pulse Ox 98.4 F 110 16 92/63 91 03/08/18 11:02 03/08/18 11:02 03/08/18 11:02 03/08/18 11:02 03/08/18 11:02 Exam: General: AAO x 3, without distress HEENT: Head atraumatic, normocephalic, EOMI, PERRL, absent ear discharge or trauma, Moist Mucous Membranes, uvula midline Neck: Normal inspection Cardiovascular: Regular rate and rhythm with no murmur, absent gallops or rubs, 1+ pedal edema, radial pulses 2 out of 4 Lungs: Scattered crackles to the neck, diffuse wheezig audibly Abdomen: Soft, mild RUQ tenderness w/o rebound/guarding, nondistended positive bowel sounds, absent hepatomegaly Skin: warm and dry, absent rash, absent open wounds and nodules MSK: absent clubbing, cyanosis, joints without swelling, bilateral pitting pedal edema Neuro: Cranial nerves II through XII intact, UE and LE sensation equal bi laterally, UE and LEstrength 5/5, alert oriented 3, Psych: good insight and judgment, flat affect - Assessment and Plan (1) Sepsis Current Visit: Yes Status: Resolved Assessment and Plan: Met 4/4 SIRS criteria with fever 102.1, HR 115, RR 33, WBC 22.3 on presentation Source is likely pulmonary as Repeat CT 03/03 shows new consolidation, consider HAP Cultures negative till date and causative organism is unknown, MRSA screen negative Legionella and Strep Ag negative ID consult appreciated. Patient has received 8 days of vancomycin, 9 days of Zosyn Now on doxycycline and Augmetin, recommended to continue through 03/17 Leukocytosis remains persistent and worsening still having fevers,last temp 101.8 on 03/06 Repeat CXR ordered for today Continue current antibiotics, pending CXR review (2) Metastatic disease Current Visit: Yes Status: Acute Assessment and Plan: Oncology consult appreciated. Had liver biopsy. Result pending, will cont follow up with oncology after discharge. (3) DVT prophylaxis Current Visit: Yes Status: Acute Assessment and Plan: Heparin SC (4) Elevated troponin Current Visit: Yes Status: Acute Assessment and Plan: Mild elevated troponin on a sepsis picture, 3 sets of troponin 0.05-0.06-0.04, pt denies chest pain, likely demand ischemia. (5) HAP (hospital-acquired pneumonia) Current Visit: Yes Status: Acute Assessment and Plan: As in sepsis Rpt CXR today 03/08 (6) Acute renal failure Current Visit: Yes Status: Acute Assessment and Plan: Possibly due to vanco use. Presenting Cr 0.55, Cr now 1.7 UO per chart is 750 on 03/05 UOP 400 cc 03/07 Continue strict I and Os Continue gentle hydration (7) Anemia Current Visit: Yes Status: Acute Assessment and Plan: Presented with Hb of 10.8, baseline 13 (2015) Hb 03/07 7.4, FOBT negative, no obvious source Patient with new diagnosis of adenocarcinoma with sepsis Check Anemia work up Continue to monitor Type and screen done Transfuse for Hb <7 - Time Spent with Patient Total time spent is greater than 50% in coordination of care (as documented) at patient's floor/unit and/or counseling patient: Plan of Care Discussed with: patient Internal Medicine: Result - Labs CBC & Chem 7: 03/08/18 05:56 03/08/18 05:56 Labs: Short CBC 03/08/18 Range/Units 05:56 WBC 16.7 H (4.3-11.1) K/mcL Hgb 8.6 L (11.5-15.4) g/dL Hct 27.4 L (35.3-44.9) % Plt Count 302 (140-400) K/mcL Neutrophils # 14.8 H (1.6-8.9) K/mcL BMP 03/08/18 05:56 Sodium 139 Potassium 3.5 Chloride 102 Carbon Dioxide 28 BUN 21 Creatinine 1.70 H Glucose 74 Calcium 7.8 L Urine 03/07/18 Range/Units 12:37 Urine Color Yellow (Yellow) Urine Clarity Cloudy A (Clear) Urine pH 5.5 (5.0-8.0) pH Units Ur Specific [place] 1.018 (1.010-1.025) Urine Protein 30 H (Neg-Trace) mg/dL Urine Glucose (UA) Normal (Normal) mg/dL - ABG Interpretation ABG results: PT/INR, D-dimer PT 17.6 Seconds (9.4-12.1) H 02/26/18 20:05 - Impressions Impressions Retroperitoneum Ultrasound 03/07/18 18:00 IMPRESSION: Normal sonographic appearance of the kidneys. Hepatic metastatic disease. D/ / 03/07/2018 19:07:23 Mac Kimbrough MD / caterina Interpreting Provider: Mac Kimbrough MD Consult Discharge Plan - Plan Referrals: NONE,PCP [Primary Care Provider] - (1) Sepsis Qualifiers: Sepsis type: sepsis due to unspecified organism Qualified Code(s): A41.9 - Sepsis, unspecified organism (6) Acute renal failure Qualifiers: Acute renal failure type: unspecified Qualified Code(s): N17.9 - Acute kidney failure, unspecified (7) Anemia Qualifiers: Anemia type: unspecified type Qualified Code(s): D64.9 - Anemia, unspecified
[2018-03-08] MEDS ORDERED: 0.9 % Sodium Chloride 1,000 ML IVC SCH (12:00)
--- NOTE | 2018-03-08 12:19 | Nephrology Progress Note ---
Addendum entered and electronically signed by Rod Wise MD 03/08/18 22:59: I examined this patient and discussed the medical decision-making with DANIELLE Bearden. I agree with the documented findings, disposition and treatment plan as described except to the extent set forth below. Original Note: Date of Encounter: 03/08/18 Time of Encounter: 12:17 - Assessment and Plan (1) GARLAND (acute kidney injury) Current Visit: Yes Status: Acute Baseline GFR appears to be greater than 60. GFR is 29 today. 400 cc urine noted in EMR, encouraged accurate I/O. Avoid nephrotoxins and renal dose as needed. GARLAND workup unremarkable, most likely from IV vanco. 1 liter NS ordered. (2) HAP (hospital-acquired pneumonia) Current Visit: Yes Status: Acute Per ID. (3) Metastatic disease Current Visit: Yes Status: Acute Per oncology. (4) Sepsis Current Visit: Yes Status: Resolved Per ID. Qualifiers: Sepsis type: sepsis due to unspecified organism Qualified Code(s): A41.9 - Sepsis, unspecified organism (5) Anemia Current Visit: Yes Status: Acute Goal Hgb 10-11. Hgb today is 8.6. Iron profile ordered for am. Qualifiers: Anemia type: unspecified type Qualified Code(s): D64.9 - Anemia, unspecified Subjective Principal diagnosis: LEANDRA Interval history: Pt seen and examined, doing well. Denies nausea/vomiting/diarrhea. Admits to feeling fatigued. Encouraged adequate PO intake with patient. Objective - Vital Signs Vital signs: Vital Signs Temp Pulse Resp BP Pulse Ox 03/08/18 11:02 98.4 F 110 16 92/63 91 03/08/18 07:13 98.3 F 106 16 138/83 91 03/08/18 03:23 98.7 F 82 16 112/68 93 03/07/18 21:00 18 91 03/07/18 19:16 99.2 F 98 17 125/79 92 03/07/18 16:00 99.1 F 83 16 119/71 95 Intake and Output 03/07/18 03/08/18 03/08/18 23:59 07:59 15:59 Intake Total 945 / 945 400 / 400 760 / 760 Output Total 200 / 200 Balance 745 / 745 400 / 400 760 / 760 Intake: Oral 945 / 945 400 / 400 760 / 760 Output: Urine 200 / 200 Other: Meal Dinner Breakfast Percent of Meal Consumed 0% 0% Stool Size Small Stool Consistency soft Stool Color Green Weight 86.8 kg Blood Glucose* 88 70 105 Patient Weight 03/08/18 23:59 Weight 86.8 kg - General Appearance General appearance: Present: well-developed, well-nourished EENT: Present: ATNC, hearing intact, vision intact Neck: Present: supple Respiratory: Present: clear Cardiology: Present: no edema, normal S1, normal S2 Gastrointestinal: Present: normoactive bowel sounds, no tenderness, no guarding Integumentary: Present: no rash, warm and dry Neurologic: Present: alert and oriented x3 Psychiatric: Present: mood/affect appropriate, cooperative - Lab 03/08/18 05:56 03/08/18 05:56 Most recent lab results Calcium 7.8 mg/dL (8.6-10.3) L 03/08/18 05:56 Urine Creatinine 140 mg/dL 03/07/18 12:37 Urine Sodium 14.7 mEq/L 03/07/18 12:37 Urine Total Protein 122 mg/dL (1-14) H 03/07/18 12:37 Consult Discharge Plan - Plan Referrals: NONE,PCP [Primary Care Provider] -
[2018-03-08] MEDS: Acetaminophen 325 MG TABLET PO PRN (20:14)
[2018-03-08] MEDS: Mirtazapine 15 MG TABLET PO SCH (20:14)
[2018-03-09 04:11] LABS: Basophils % 0.1 %; Eosinophils % 0.2 %; Hematocrit 23.2 % (35.3-44.9); Hemoglobin 7.1 g/dL (11.5-15.4); Immature Granulocytes % 1.4 % (0-4); Lymphocytes # 1.1 K/mcL (0.6-4.6); Lymphocytes % 7.7 %; Mean Corpuscular HGB Conc 30.6 g/dL (31.6-35.5); Mean Corpuscular Hemoglobin 26.7 pg (28.0-33.3); Mean Corpuscular Volume 87.2 fL (83.0-100.0); Mean Platelet Volume 10.7 fL (9.4-12.4); Monocytes # 0.7 K/mcL (0.0-1.3); Monocytes % 4.9 %; Neutrophils # 12.5 K/mcL (1.6-8.9); Platelet Count 235 K/mcL (140-400); Red Blood Count 2.66 M/mcL (3.82-4.97); Red Cell Distribution Width 16.2 % (11.5-14.5); Segmented Neutrophils % 85.7 %
[2018-03-09 04:30] LABS: Alanine Aminotransferase 16 Units/L (7-52); Albumin 2.1 g/dL (3.5-5.7); Albumin/Globulin Ratio 0.8 (1.1-2.2); Alkaline Phosphatase 151 Units/L (34-104); Aspartate Amino Transferase 51 Units/L (13-39); BUN/Creatinine Ratio 13 (6-26); Bilirubin,Total 0.4 mg/dL (0.3-1.0); Blood Urea Nitrogen 23 mg/dL (8-23); Calcium 7.5 mg/dL (8.6-10.3); Carbon Dioxide 25 mEq/L (23-29); Chloride 103 mEq/L (98-107); Globulin 2.6 g/dL (2.4-3.5); Glucose 85 mg/dL (70-105); Osmolality,Calculated 289 (280-300); Potassium 3.3 mEq/L (3.5-5.1); Sodium 138 mEq/L (136-145); Total Protein 4.7 g/dL (6.4-8.9); eGFR For Non-African Americans 28 (> 60)
[2018-03-09] MEDS: Ipratropium/Albuterol Neb 3 ML IH SCH ×3 (04:48→16:35)
[2018-03-09] MEDS: *HR* Heparin 5,000 UNIT/ML VIAL SQ SCH ×2 (05:24→13:55)
[2018-03-09 06:05] LABS: Iron < 10 mcg/dL (50-170); Transferrin 82 mg/dL (203-362)
[2018-03-09 06:25] LABS: Ferritin > 1500 ng/mL (10-120)
[2018-03-09] MEDS: Insulin LISPRO 300 UNITS/3 ML VIAL SQ SCH ×2 (07:15→11:45)
[2018-03-09] MEDS: Amoxicillin/Clavulanate 500 MG TABLET PO SCH (09:50)
[2018-03-09] MEDS: Lactobacillus 1 EACH CAP.SPRINK PO SCH (09:50)
[2018-03-09] MEDS: Doxycycline 100 MG CAPSULE PO SCH (09:50)
--- NOTE | 2018-03-09 10:52 | Nephrology Progress Note ---
Date of Encounter: 03/09/18 Time of Encounter: 10:49 - Assessment and Plan (1) GARLAND (acute kidney injury) Current Visit: Yes Status: Acute Baseline GFR appears to be greater than 60. GFR is 28 today. Unsure if I/O is accurate. Avoid nephrotoxins and renal dose as needed. GARLAND workup unremarkable, most likely from IV vanco. (2) HAP (hospital-acquired pneumonia) Current Visit: Yes Status: Acute Per ID. (3) Metastatic disease Current Visit: Yes Status: Acute Per oncology. (4) Sepsis Current Visit: Yes Status: Resolved Per ID. Qualifiers: Sepsis type: sepsis due to unspecified organism Qualified Code(s): A41.9 - Sepsis, unspecified organism (5) Anemia Current Visit: Yes Status: Acute Goal Hgb 10-11. Hgb is 7.1. Iron profile: Iron is less than 10. T sat TNP Transferrin 82 Ferritin greater than 1500. Folate 12.9. Stool Occult Blood is negative. Qualifiers: Anemia type: unspecified type Qualified Code(s): D64.9 - Anemia, unspecified Subjective Principal diagnosis: LEANDRA Interval history: Pt seen and examined, doing well. Denies nausea/vomiting/diarrhea. Is overall feeling better today. Asks when she can go home. Objective - Vital Signs Vital signs: Vital Signs Temp Pulse Resp BP Pulse Ox 03/09/18 07:09 98.7 F 93 14 125/71 98 03/09/18 04:48 16 95 03/09/18 03:25 99.6 F 81 16 122/74 93 03/08/18 23:06 97.5 F L 78 16 109/69 95 03/08/18 22:28 18 95 03/08/18 19:45 98.8 F 93 16 105/69 92 03/08/18 16:42 16 94 03/08/18 15:44 98.2 F 92 16 93/63 92 03/08/18 11:02 98.4 F 110 16 92/63 91 Intake and Output 03/08/18 03/09/18 03/09/18 23:59 07:59 15:59 Output Total 200 / 200 Balance -200 / -200 Output: Urine 200 / 200 Other: # Voids 1 Weight 88.6 kg Blood Glucose* 129 82 - General Appearance General appearance: Present: well-developed, well-nourished EENT: Present: ATNC, hearing intact, vision intact Neck: Present: supple Respiratory: Present: clear Cardiology: Present: no edema, normal S1, normal S2 Gastrointestinal: Present: normoactive bowel sounds, no tenderness, no guarding Integumentary: Present: no rash, warm and dry Neurologic: Present: alert and oriented x3 Psychiatric: Present: mood/affect appropriate, cooperative - Lab 03/09/18 03:50 03/09/18 03:50 Most recent lab results Calcium 7.5 mg/dL (8.6-10.3) L 03/09/18 03:50 Urine Creatinine 140 mg/dL 03/07/18 12:37 Urine Sodium 14.7 mEq/L 03/07/18 12:37 Urine Total Protein 122 mg/dL (1-14) H 03/07/18 12:37 Consult Discharge Plan - Plan Referrals: Yolanda Watts MD [Non-Partnered Physician] -
[2018-03-09 11:29] VITALS: BP 100/64
--- NOTE | 2018-03-09 11:57 | Infectious Disease Progress No ---
Date of Encounter: 03/09/18 Time of Encounter: 10:10 - Assessment and Plan (1) Sepsis Status: Resolved The patient had four SIRS criteria on admission. Likely secondary to PNA. Improved. WBC remains elevated, but improved. Afebrile x 36 hours. Tachycardia and tachypnea resolved. Blood cultures drawn 02/27/18 x 2 sets are negative. Repeat blood cultures drawn 03/03/18 are negative x 2 sets. CXR on 02/26 showed an area of nodular increased opacification of the right upper lobe. CT abdomen/pelvis on 02/27 showed findings of metastatic disease in the bilateral lungs, liver and mediastinal and portacaval lymph nodes. No obvious infection CT of the chest on 02/27 showed nodules indicative of metastatic disease as above. Again no obvious signs of infection CT of the chest, abdomen and pelvis on 03/03 does show suspicious right upper lobe consolidation suspicious for pneumonia and/or aspiration. Completed 8 days of Vanc and 9 days of Zosyn. Currently on Augmentin and doxycycline. Recommendations: Await peripheral smear. Continue doxycycline 100mg PO BID. (day 3) Continue Augmentin 875mg PO BID. (day 3) Duration of treatment depends on the clinical picture, but recommend continuing treatment through 03/17/18. Monitor renal function and for drug toxicity and dose-adjust antibiotics. Qualifiers: Sepsis type: sepsis due to unspecified organism Qualified Code(s): A41.9 - Sepsis, unspecified organism (2) Leukocytosis Status: Acute As above for sepsis Likely secondary to combination of malignancy, reaction, infection. Peripheral smear is pending. Qualifiers: Leukocytosis type: other Qualified Code(s): D72.828 - Other elevated white blood cell count (3) HAP (hospital-acquired pneumonia) Status: Acute Location: [facility]. Causative organism: Unclear. CT chest suspicious for RUL pneumonia. S. pneumo and Legionella UAT negative. Unable to get sputum culture as the patient does not have a cough. Antibiotics as above. (4) Acute respiratory failure with hypoxia Status: Acute Likely secondary to PNA and malignancy. Tolerating 2L O2 Known PNA on CT as above Management as above and per primary team. (5) Acute renal failure Status: Acute Etiology unclear. Stable. Nephrology consulted. Continue to trend. Dose-adjust antibiotics. Qualifiers: Acute renal failure type: unspecified Qualified Code(s): N17.9 - Acute kidney failure, unspecified (6) Metastatic disease Status: Acute Mets to liver, lung. Primary site unclear, staining pending. Liver bx performed and pending. Heme/Onc following. We will follow up as outpatient. - Subjective Interval history: Patient seen and examined. No acute events noted overnight. Patient states overall she fells better and wants to go home. Denies fevers, chills, or rigors. Denies chest pain, shortness of breath, or cough. Denies nausea, vomiting, or diarrhea. Denies abdominal pain or urinary complaints. Denies oral thrush. Denies pain anywhere at this time. She reports she was able to eat breakfast and her appetite is better. Infect Dis PN-Objective Data - Labs CBC & Chem 7: 03/09/18 03:50 03/09/18 03:50 Labs: Laboratory Results - last 24 hr 03/08/18 03/08/18 03/08/18 07:03 10:58 15:41 WBC RBC Hgb Hct MCV MCH MCHC RDW Plt Count MPV Immature Gran % Seg Neutrophils % Lymphocytes % Monocytes % Eosinophils % Basophils % Neutrophils # Lymphocytes # Monocytes # Eosinophils # Basophils # Smear Path Review Sodium Potassium Chloride Carbon Dioxide BUN Creatinine Est GFR ( Amer) Est GFR (Non-Af Amer) BUN/Creatinine Ratio Glucose POC Glucose 70 105 H 132 H Calculated Osmolality Calcium Iron % Saturation Transferrin Ferritin Total Bilirubin AST ALT Alkaline Phosphatase Serum Total Protein Albumin Globulin Albumin/Globulin Ratio Folate 03/08/18 03/09/18 03/09/18 19:48 03:50 03:50 WBC 14.6 H RBC 2.66 L Hgb 7.1 L D Hct 23.2 L MCV 87.2 MCH 26.7 L MCHC 30.6 L RDW 16.2 H Plt Count 235 MPV 10.7 Immature Gran % 1.4 Seg Neutrophils % 85.7 Lymphocytes % 7.7 Monocytes % 4.9 Eosinophils % 0.2 Basophils % 0.1 Neutrophils # 12.5 H Lymphocytes # 1.1 Monocytes # 0.7 Eosinophils # 0.0 Basophils # 0.0 Smear Path Review Sodium 138 Potassium 3.3 L Chloride 103 Carbon Dioxide 25 BUN 23 Creatinine 1.77 H Est GFR ( Amer) 33 L Est GFR (Non-Af Amer) 28 L BUN/Creatinine Ratio 13 Glucose 85 POC Glucose 129 H Calculated Osmolality 289 Calcium 7.5 L Iron < 10 L % Saturation TNP Transferrin 82 L Ferritin > 1500 H Total Bilirubin 0.4 AST 51 H ALT 16 Alkaline Phosphatase 151 H Serum Total Protein 4.7 L Albumin 2.1 L Globulin 2.6 Albumin/Globulin Ratio 0.8 L Folate 03/09/18 03/09/18 03/09/18 06:15 06:15 07:11 WBC RBC Hgb Hct MCV MCH MCHC RDW Plt Count MPV Immature Gran % Seg Neutrophils % Lymphocytes % Monocytes % Eosinophils % Basophils % Neutrophils # Lymphocytes # Monocytes # Eosinophils # Basophils # Smear Path Review See Below Sodium Potassium Chloride Carbon Dioxide BUN Creatinine Est GFR ( Amer) Est GFR (Non-Af Amer) BUN/Creatinine Ratio Glucose POC Glucose 82 Calculated Osmolality Calcium Iron % Saturation Transferrin Ferritin Total Bilirubin AST ALT Alkaline Phosphatase Serum Total Protein Albumin Globulin Albumin/Globulin Ratio Folate 12.9 Cultures: Cultures 03/03/18 14:52 Blood Culture - Final Peripheral Venipuncture No growth. Final report. 03/03/18 14:52 Blood Culture - Final Peripheral Venipuncture No growth. Final report. 02/27/18 03:03 Blood Culture - Final Peripheral Venipuncture No growth. Final report. 02/27/18 03:03 Blood Culture - Final Peripheral Venipuncture No growth. Final report. 03/03/18 19:49 Legionella Antigen - Final Urine,Clean Catch Streptococcus pneumoniae Antigen (M - Final Serology 03/08/18 03/07/18 03/07/18 Range/Units 05:56 17:00 12:37 Urine Color (Yellow) Urine Clarity (Clear) Urine pH (5.0-8.0) pH Units Ur Specific Squires (1.010-1.025) Urine Protein (Neg-Trace) mg/dL Urine Glucose (UA) (Normal) mg/dL Urine Ketones (Negative) mg/dL Urine Blood (Negative) Urine Nitrite (Negative) Urine Bilirubin (Negative) Urine Urobilinogen (Normal) mg/dL Ur Leukocyte Esterase (Negative) Urine Microscopic RBC (0-3) per hpf Urine Microscopic WBC (0-3) per hpf Ur Eosinophil Smear (None Seen) % Ur Squamous Epith Cells (None-Few) per lpf Urine Bacteria (None-Few) per hpf Hyaline Casts (None-Few) per lpf Ur Culture Indicated? (NO) Urine Creatinine 140 mg/dL Protein/Creatinin Ratio 0.87 H (0.00-0.20) mg/mg Urine Sodium 14.7 mEq/L Urine Total Protein 122 H (1-14) mg/dL Nasal Screen MRSA (PCR) (Negative) Stool Occult Bld Scrn (Negative) Stool Occult Blood Negative (Negative) Chlamy pneumoniae PCR (Not Detect) Adenovirus (PCR) (Not Detect) B. pertussis DNA (PCR) (Not Detect) B.parapertussis DNA PCR (Not Detect) Coronavirus OC43 (PCR) (Not Detect) Coronavirus HKU1 (PCR) (Not Detect) Coronavirus 229E (PCR) (Not Detect) Coronavirus NL63 (PCR) (Not Detect) Hepatitis A IgM Ab Nonreactive (Nonreactive) Hep Bs Antigen Nonreactive (Nonreactive) Hep B Core IgM Ab Nonreactive (Nonreactive) Hepatitis C Ab Screen Nonreactive (Nonreactive) Human Metapneumovir PCR (Not Detect) Influenza A (H1) PCR (Not Detect) Influ A (H1N1/09) PCR (Not Detect) Influenza A (H3) PCR (Not Detect) Influenza A Untype (PCR) (Not Detect) Influenza Type B (PCR) (Not Detect) M.pneumoniae DNA (PCR) (Not Detect) Parainfluenza 1 (PCR) (Not Detect) Parainfluenza 2 (PCR) (Not Detect) Parainfluenza 3 (PCR) (Not Detect) Parainfluenza 4 (PCR) (Not Detect) RSV (PCR) (Not Detect) Entero/Rhino (PCR) (Not Detect) 03/07/18 03/05/18 03/03/18 Range/Units 12:37 09:48 19:49 Urine Color Yellow Yellow (Yellow) Urine Clarity Cloudy A Slightly Cloudy A (Clear) Urine pH 5.5 5.5 (5.0-8.0) pH Units Ur Specific Squires 1.018 1.025 (1.010-1.025) Urine Protein 30 H 30 H (Neg-Trace) mg/dL Urine Glucose (UA) Normal Normal (Normal) mg/dL Urine Ketones Negative Trace H (Negative) mg/dL Urine Blood Negative Negative (Negative) Urine Nitrite Negative Negative (Negative) Urine Bilirubin Negative Small H (Negative) Urine Urobilinogen Normal Normal (Normal) mg/dL Ur Leukocyte Esterase Moderate H Negative (Negative) Urine Microscopic RBC 3-5 H 0-3 (0-3) per hpf Urine Microscopic WBC 50-100 H 0-3 (0-3) per hpf Ur Eosinophil Smear 0 (None Seen) % Ur Squamous Epith Cells Many H Many H (None-Few) per lpf Urine Bacteria None Seen Few (None-Few) per hpf Hyaline Casts (None-Few) per lpf Ur Culture Indicated? NO (NO) Urine Creatinine mg/dL Protein/Creatinin Ratio (0.00-0.20) mg/mg Urine Sodium mEq/L Urine Total Protein (1-14) mg/dL Nasal Screen MRSA (PCR) Negative (Negative) Stool Occult Bld Scrn (Negative) Stool Occult Blood (Negative) Chlamy pneumoniae PCR (Not Detect) Adenovirus (PCR) (Not Detect) B. pertussis DNA (PCR) (Not Detect) B.parapertussis DNA PCR (Not Detect) Coronavirus OC43 (PCR) (Not Detect) Coronavirus HKU1 (PCR) (Not Detect) Coronavirus 229E (PCR) (Not Detect) Coronavirus NL63 (PCR) (Not Detect) Hepatitis A IgM Ab (Nonreactive) Hep Bs Antigen (Nonreactive) Hep B Core IgM Ab (Nonreactive) Hepatitis C Ab Screen (Nonreactive) Human Metapneumovir PCR (Not Detect) Influenza A (H1) PCR (Not Detect) Influ A (H1N1/09) PCR (Not Detect) Influenza A (H3) PCR (Not Detect) Influenza A Untype (PCR) (Not Detect) Influenza Type B (PCR) (Not Detect) M.pneumoniae DNA (PCR) (Not Detect) Parainfluenza 1 (PCR) (Not Detect) Parainfluenza 2 (PCR) (Not Detect) Parainfluenza 3 (PCR) (Not Detect) Parainfluenza 4 (PCR) (Not Detect) RSV (PCR) (Not Detect) Entero/Rhino (PCR) (Not Detect) 02/28/18 02/27/18 02/26/18 Range/Units 18:11 06:16 21:27 Urine Color Dark Yellow (Yellow) Urine Clarity Cloudy A (Clear) Urine pH 5.5 (5.0-8.0) pH Units Ur Specific Squires 1.026 H (1.010-1.025) Urine Protein 30 H (Neg-Trace) mg/dL Urine Glucose (UA) Normal (Normal) mg/dL Urine Ketones Negative (Negative) mg/dL Urine Blood Negative (Negative) Urine Nitrite Negative (Negative) Urine Bilirubin Small H (Negative) Urine Urobilinogen Normal (Normal) mg/dL Ur Leukocyte Esterase Trace H (Negative) Urine Microscopic RBC 0-3 (0-3) per hpf Urine Microscopic WBC 5-15 H (0-3) per hpf Ur Eosinophil Smear (None Seen) % Ur Squamous Epith Cells Many H (None-Few) per lpf Urine Bacteria None Seen (None-Few) per hpf Hyaline Casts Moderate H (None-Few) per lpf Ur Culture Indicated? NO. A (NO) Urine Creatinine mg/dL Protein/Creatinin Ratio (0.00-0.20) mg/mg Urine Sodium mEq/L Urine Total Protein (1-14) mg/dL Nasal Screen MRSA (PCR) (Negative) Stool Occult Bld Scrn Negative (Negative) Stool Occult Blood (Negative) Chlamy pneumoniae PCR Not Detected (Not Detect) Adenovirus (PCR) Not Detected (Not Detect) B. pertussis DNA (PCR) Not Detected (Not Detect) B.parapertussis DNA PCR Not Detected (Not Detect) Coronavirus OC43 (PCR) Not Detected (Not Detect) Coronavirus HKU1 (PCR) Not Detected (Not Detect) Coronavirus 229E (PCR) Not Detected (Not Detect) Coronavirus NL63 (PCR) Not Detected (Not Detect) Hepatitis A IgM Ab (Nonreactive) Hep Bs Antigen (Nonreactive) Hep B Core IgM Ab (Nonreactive) Hepatitis C Ab Screen (Nonreactive) Human Metapneumovir PCR Not Detected (Not Detect) Influenza A (H1) PCR Not Detected (Not Detect) Influ A (H1N1/09) PCR Not Detected (Not Detect) Influenza A (H3) PCR Not Detected (Not Detect) Influenza A Untype (PCR) Not Detected (Not Detect) Influenza Type B (PCR) Not Detected (Not Detect) M.pneumoniae DNA (PCR) Not Detected (Not Detect) Parainfluenza 1 (PCR) Not Detected (Not Detect) Parainfluenza 2 (PCR) Not Detected (Not Detect) Parainfluenza 3 (PCR) Not Detected (Not Detect) Parainfluenza 4 (PCR) Not Detected (Not Detect) RSV (PCR) Not Detected (Not Detect) Entero/Rhino (PCR) Not Detected (Not Detect) - Impressions Impressions Chest X-Ray 03/08/18 12:37 IMPRESSION: No evidence of acute cardiopulmonary disease. A known mild pneumonia in the posterior right upper lobe, as well as small bilateral pleural effusions seen on recent chest CT, are not evident on the current radiograph. CT follow-up is recommended. There is known metastatic disease in the chest, which is also not well visualized radiographically. D/ / Mac Roper MD / Mac Roper MD Interpreting Provider: Mac Roper MD Exam - Constitutional Vitals: Temp Pulse Resp BP Pulse Ox 98.1 F 81 16 100/64 100 03/09/18 11:28 03/09/18 11:28 03/09/18 11:28 03/09/18 11:28 03/09/18 11:28 General appearance: cooperative, no acute distress, obese - Head Head exam: Present: atraumatic, normal inspection, normocephalic - Eye Eye exam: Present: EOMI, normal appearance, PERRL Pupils: Present: normal accommodation - ENT ENT exam: Present: mucous membranes moist - Neck Neck exam: Present: normal inspection - Respiratory Respiratory exam: Present: CTAB. Absent: rales, respiratory distress, rhonchi, wheezes - Cardiovascular Cardiovascular exam: Present: RRR, +S1, +S2 - GI/Abdominal GI/Abdominal exam: Present: distended (obese), normal bowel sounds, soft. Abs ent: tenderness - Extremities Exam Extremities exam: Present: normal inspection. Absent: joint swelling, pedal edema, tenderness - Neurological Exam Neurological exam: Present: alert, oriented X3, no focal deficits - Psychiatric Psychiatric exam: Present: normal affect, normal mood - Skin Skin exam: Present: dry, intact, normal color, warm Consult Discharge Plan - Plan Instructions: Acute Respiratory Distress Syndrome (DC), Acute Kidney Injury (DC), Anemia (GEN), Pneumonia (DC) Referrals: Yolanda Watts MD [Non-Partnered Physician] - (Office will call patient with an appointment date and time. If you do not hear from them by Tuesday after noon ple ase call and get a 5-7 day hospital follow up) Prescriptions: RX: Albuterol Neb [Proventil Neb] 2.5 mg IH Q4H PRN #12 PRN Reason: Shortness Of Breath/Wheezing RX: Amoxicillin/Clavulanate [Augmentin] 500 mg PO BIDWM #16 tablet RX: Doxycycline 100 mg PO BID #16 capsule RX: Furosemide [Lasix] 20 mg PO DAILY #30 tablet RX: Lactobacillus [Culturelle] 2 each PO DAILY #60 cap.sprink RX: Mirtazapine [Remeron] 7.5 mg PO HS #15 tablet - Attending Attestation I examined this patient and my medical decision-making was reviewed [facility]. I agree with the documented findings, disposition and treatment plan as described except to the extent set forth below.
--- NOTE | 2018-03-09 13:17 | Discharge Summary ---
- NOTES TO OUTPATIENT PROVIDER Notes to Outpatient Provider: Follow up with PCP for HB and Chem check. Patient has a prolonged hospital course with GARLAND (likely pre-renal and due to vanco toxicity), Sepsis due to PNA, Acute hypoxic respiratory failure and COPDE. Of note, her renal function has not improved, nor return to baseline, patient has a new anemia with unknown source with Hb of 7. 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 Herself anf her daughter have decided to be discharged home regardless , with close follow up with PCP. They understand the risk of worsening renal disease, electrolyte derangement and possible further morbidity with anemia. She is to complete her antibiotics courde through 03/17. She also qualified for home O2 and is discharged on same. Follow up with PCP and Oncology Orders not resulted at time of discharge: Pending orders 03/08/18 10:32 Culture,Urine [RM] Stat 03/10/18 04:00 Chem 7 [Basic Metabolic Panel] AM 0400 Complete Blood Count [HEME] AM 0400 Date of Encounter: 03/09/18 Time of Encounter: 13:17 - Discharge Diagnosis (1) Sepsis Priority: Primary Status: Resolved Assessment and Plan: Met 4/4 SIRS criteria on admission, with fever 102.1, HR 115, RR 33, WBC 22.3 on presentation Source is likely pulmonary as Repeat CT 03/03 shows new consolidation Pneumonia is bacterial, organism unknown Cultures negative till date and causative organism is unknown, MRSA screen negative Legionella and Strep Ag negative Patient has received 8 days of vancomycin, 9 days of Zosyn Now on doxycycline and Augmetin, recommended to continue through 03/17 Leukocytosis remains persistent She has been afebrile since 03/06 Repeat CXR ordered for today03/08 showed stable PNA and metastatic disease Patient also with acute hypoxic failure requiring O2 Discharged home with antibiotics, throu 03/17 Qualifiers: Sepsis type: sepsis due to unspecified organism Qualified Code(s): A41.9 - Sepsis, unspecified organism (2) Metastatic disease Priority: Primary Status: Acute Assessment and Plan: Oncology consult appreciated. Had liver biopsy. Result pending, will cont follow up with oncology after discharge. (3) DVT prophylaxis Priority: Primary Status: Resolved (4) Elevated troponin Priority: Primary Status: Resolved Assessment and Plan: Mild elevated troponin on a sepsis picture, 3 sets of troponin 0.05-0.06-0.04, pt denies chest pain, likely demand ischemia. (5) HAP (hospital-acquired pneumonia) Priority: Primary Status: Acute Assessment and Plan: See sepsis (6) Acute renal failure Priority: Primary Status: Acute Assessment and Plan: Possibly due to vanco use. Presenting Cr 0.55, Cr now 1.77 Renal USS unremarkable, nephrology was following Renal function did not improve with IVF hydration Follow up with PCP and or nephrology Qualifiers: Acute renal failure type: unspecified Qualified Code(s): N17.9 - Acute kidney failure, unspecified (7) Anemia Priority: Primary Status: Acute Assessment and Plan: Presented with Hb of 10.8, baseline 13 (2015) Hb 03/07 7.4, FOBT negative, no obvious source Patient with new diagnosis of adenocarcinoma with sepsis Iron levels low, Hb this a.m 7 Patient wishes to not await further monitoring Follow up with PCP and or oncology Qualifiers: Anemia type: unspecified type Qualified Code(s): D64.9 - Anemia, unspecified (8) COPD (chronic obstructive pulmonary disease) Priority: Secondary Status: Suspected Assessment and Plan: continue duonebs and O2 at home Qualifiers: COPD type: unspecified COPD Qualified Code(s): J44.9 - Chronic obstructive pulmonary disease, unspecified (9) Acute respiratory failure with hypoxia Priority: Primary Status: Acute Assessment and Plan: Discharged home with home O2 Hospital course: Ms. Cohen is a 78 year old female Patient has a prolonged hospital course with G[facility] (likely pre-renal and due to vanco toxicity), Sepsis due to PNA, Acute hypoxic respiratory failure and COPDE. Of note, her renal function has not improved, nor return to baseline, patient has a new anemia with unknown source with Hb of 7. 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 They understand the risk of worsening renal disease, electrolyte derangement and possible further morbidity with anemia. She is to complete her antibiotics courde through 03/17. She also qualified for home O2 and is discharged on same Follow up with PCP for HB and Chem check. Follow up with Oncology for metastatic disease See each individual diagnosis for further details Discharge discussed with: patient, family, nurse, case management - Time Spent with Patient Total time spent providing and/or coordinating discharge services: Greater than 30 minutes (45 mins spent on chart review, face to face, education, documentation and med rec) - Discharge Medications Home Medications: Gabapentin [Neurontin] 600 mg PO BID 02/27/18 [History] Pantoprazole Sodium [Protonix] 40 mg PO DAILY 02/27/18 [History] RX: Sertraline [Zoloft] 50 mg PO DAILY 02/27/18 [History] Allergies/Adverse Reactions: Allergy/AdvReac Type Severity Reaction Status Date / Time No Known Allergies Allergy Verified 02/27/18 08:26 Date of admission: 02/27/18 12:56 Primary care physician: PCP NONE Consults: 02/26/18 23:01 Consult to Pastoral Services [CONS] Routine Comment: 02/27/18 02:44 Consult to Oncology [CONS] Routine Consulting Provider: [facility] Reason for Consult: metastatic disease, unknown primary Call Completed: No 02/27/18 17:07 Consult to Interventional Radiology [CONS] Routine Consulting Provider: Radiology Interventional [facility] Reason for Consult: ct guided bx liver lesion (order placed after hours, will call in AM) Call Completed: No 02/28/18 10:08 Consult to Invasive Line Access Team [CONS] Routine Reason for Consult: limited IV access Line Type: EPIV Time Notified: 10:09 Call Completed: Yes 03/01/18 15:30 Consult to Occupational Therapy [CONS] Routine Comment: Evaluate, develop and implement POC Reason for Consult: weakness Does patient have active BEDREST order?: No Is patient medically & hemodynamically stable?: Yes Patient assessed for mobility or mobilized this visit?: Yes Consult to Physical Therapy [CONS] Routine Comment: Evaluate, develop and implement POC Reason for Consult: weakness Does patient have active BEDREST order?: Yes Is patient medically & hemodynamically stable?: Yes Patient assessed for mobility or mobilized this visit?: No consult to wood preparation supervisor [Consult to Nutrition] [CONS] Routine Comment: Consulting Provider: NUTRITION Reason for Dietary Consult: Other Other:: poor appetite 03/01/18 15:36 Consult to Social Service(Oncology) [CONS] Routine Comment: y Consulting Provider: Hall,Yinzhong Reason for Consult: home services Time Notified: 15:37 Call Completed: Yes 03/03/18 08:54 Consult to Infectious Diseases [CONS] Routine Consulting Provider: [facility] [place] Reason for Consult: Persist leukocytosis and fever Call Completed: No 03/07/18 07:56 Consult to Nephrology [CONS] Routine Consulting Provider: [facility] [place]/AGUSTIN/YAN/LYNDON Reason for Consult: GARLAND Call Completed: No Discharging clinician: Sam Guzmán Anticipated date of discharge: 03/09/18 - Constitutional Vitals: Temp Pulse Resp BP Pulse Ox 98.1 F 81 16 100/64 100 03/09/18 11:28 03/09/18 11:28 03/09/18 11:28 03/09/18 11:28 03/09/18 11:28 Exam: General: AAO x 3, without distress HEENT: Head atraumatic, normocephalic, EOMI, PERRL, absent ear discharge or trauma, Moist Mucous Membranes, uvula midline Neck: Normal inspection Cardiovascular: Regular rate and rhythm with no murmur, absent gallops or rubs, 1+ pedal edema, radial pulses 2 out of 4 Lungs: Scattered crackles up to to the neck, no wheezing today Abdomen: Soft, mild RUQ tenderness w/o rebound/guarding, non-distended positive bowel sounds, absent hepatomegaly Skin: warm and dry, absent rash, absent open wounds and nodules MSK: absent clubbing, cyanosis, joints without swelling, bilateral pitting pedal edema Neuro: Cranial nerves II through XII intact, UE and LE sensation equal bilaterally, UE and LEstrength 5/5, alert oriented 3, Psych: good insight and judgment, flat affect - Patient Status Disposition: Home Health Service Condition: Fair Functional capacity at discharge: uses cane/walker Overall status at discharge: patient is not back to baseline - Discharge Instructions Follow Up With: Yolanda Watts MD [Non-Partnered Physician] - - Diet and Activity Activity: resume usual activities as tolerated, wear oxygen at all times Diet: low salt diet
--- NOTE | 2018-03-09 15:37 | Physician Discharge Referral ---
Home Health/Hosp Referral Info Transfer to: Home Health Provider in Charge Post Discharge: PCP - Diagnosis (1) Sepsis Priority: Primary Status: Resolved (2) Metastatic disease Priority: Primary Status: Acute (3) DVT prophylaxis Priority: Primary Status: Resolved (4) Elevated troponin Priority: Primary Status: Resolved (5) HAP (hospital-acquired pneumonia) Priority: Primary Status: Acute (6) Acute renal failure Priority: Primary Status: Acute (7) Anemia Priority: Primary Status: Acute (8) COPD (chronic obstructive pulmonary disease) Priority: Secondary Status: Suspected (9) Acute respiratory failure with hypoxia Priority: Primary Status: Acute - Respiratory Orders Oxygen / L per min Smoking Cessation: Smoking cessation has been advised. For more information, call the [employer] Quit Line at 1-833-REFN-NOW. - Diet/Nutrition Diet/Nutrition Orders: Renal, Cardiac - Services Needed Following services are medically necessary services: Nursing, Home Health Aide, Physical Therapy, Occupational Therapy - Transfer Medications Prescriptions: Albuterol Neb [Proventil Neb] 2.5 mg IH Q4H PRN #12 PRN Reason: Shortness Of Breath/Wheezing Amoxicillin/Clavulanate [Augmentin] 500 mg PO BIDWM #16 tablet Doxycycline 100 mg PO BID #16 capsule Furosemide [Lasix] 20 mg PO DAILY #30 tablet Lactobacillus [Culturelle] 2 each PO DAILY #60 cap.sprink Mirtazapine [Remeron] 7.5 mg PO HS #15 tablet Home Medications: Gabapentin [Neurontin] 600 mg PO BID 02/27/18 [History] Pantoprazole Sodium [Protonix] 40 mg PO DAILY 02/27/18 [History] Sertraline [Zoloft] 50 mg PO DAILY 02/27/18 [History] Albuterol Neb [Proventil Neb] 2.5 mg IH Q4H PRN #12 03/09/18 [Rx] Amoxicillin/Clavulanate [Augmentin] 500 mg PO BIDWM #16 tablet 03/09/18 [Rx] Doxycycline 100 mg PO BID #16 capsule 03/09/18 [Rx] Furosemide [Lasix] 20 mg PO DAILY #30 tablet 03/09/18 [Rx] Lactobacillus [Culturelle] 2 each PO DAILY #60 cap.sprink 03/09/18 [Rx] Mirtazapine [Remeron] 7.5 mg PO HS #15 tablet 03/09/18 [Rx] Allergies/Adverse Reactions: Allergy/AdvReac Type Severity Reaction Status Date / Time No Known Allergies Allergy Verified 02/27/18 08:26 Certification: Further, I certify that my clinical findings support that this patient is homebound (i.e. absences from home require considerable and taxing effort and are for medical reasons or gnosticism services or infrequently or short duration when for other reasons) because: Homebound Reason: Patient requires assistance of a person or device to safely leave home Attestation: My signature below is to certify that this patient is under my care and that I, or nurse practitioner, or a physician's assistant site manager working with me, has a [id number] encounter with this patient.
== END 2018-03-09 17:33 | disposition home health service (06) | DRG 871 ==
LOC: EMEROOARM 19:42 → 2ANU 19:42 → SUATTDRO 21:43 → 2ANU 22:19 → SUATTDRO 02-27 12:56 → 2ANU 02-28 15:53
PROVIDERS: ADMIT Family Medicine; ATTEND Internal Medicine

== ENCOUNTER 2018-03-13 19:07 | Inpatient (IN) ==
[2018-03-13] MEDS ORDERED: 0.9 % Sodium Chloride 1,000 ML IVC ONE (19:35)
--- NOTE | 2018-03-13 19:37 | Emergency Department Note ---
Disposition Clinical Impression: Elevated troponin, Dehydration, Lower extremity edema Sepsis Qualifiers: Sepsis type: sepsis due to unspecified organism Qualified Code(s): A41.9 - Sepsis, unspecified organism Pneumonia Qualifiers: Pneumonia type: due to unspecified organism Laterality: bilateral Lung location: upper lobe of lung Qualified Code(s): J18.1 - Lobar pneumonia, unspecified organism Disposition: Admitted As Inpatient Condition: Fair Time of Disposition: 03:39 General Adult HPI - General Chief complaint: ED Fever Stated complaint: "weakness,fever,abnormal labs sent by " Time Seen by Provider: 03/13/18 19:21 Source: patient Mode of arrival: ambulatory Limitations: no limitations Nursing Notes Reviewed: Yes Vital Signs Reviewed: Yes - History of Present Illness HPI Narrative: Patient is an 78-year-old female with a past medical history of HTN, HLD, COPD (former smoker), carotid stenosis, 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 Discussed the emergency department for evaluation of weakness. Patient was recently discharged from the hospital after being treated for sepsis secondary to pneumonia. Patient did have improvement of symptoms upon discharge however since discharge patient's condition is been declining states that she is feels very weak and is unable to perform activities that she usually is able to and had labwork done earlier today which showed worsening of her leukocytosis as well as kidney injury and was told to come to the emergency department for evaluation. Patient was on Augmentin and doxycycline outpatient which was to be completed by March 17. Chest admits to taking dose of Lasix this past weekend but concerns for fluid overload states that she initially had improvement however she began to worsen again afterwards. She denies any nausea, vomiting, chest pain, dyspnea, abdominal pain, diarrhea. She missed a fever yesterday evening of 102 degrees Fahrenheit. Pain Scale: 8 - Related Data Home Medications Medication Instructions Recorded Confirmed RX: Gabapentin [Neurontin] 600 mg PO BID 02/27/18 02/27/18 RX: Pantoprazole Sodium [Protonix] 40 mg PO DAILY 02/27/18 02/27/18 RX: Sertraline [Zoloft] 50 mg PO DAILY 02/27/18 02/27/18 Previous Rx's Medication Instructions Recorded RX: Albuterol Neb [Proventil Neb] 2.5 mg IH Q4H PRN #12 03/09/18 RX: Amoxicillin/Clavulanate 500 mg PO BIDWM #16 tablet 03/09/18 [Augmentin] RX: Doxycycline 100 mg PO BID #16 capsule 03/09/18 RX: Furosemide [Lasix] 20 mg PO DAILY #30 tablet 03/09/18 RX: Lactobacillus [Culturelle] 2 each PO DAILY #60 cap.sprink 03/09/18 RX: Mirtazapine [Remeron] 7.5 mg PO HS #15 tablet 03/09/18 Allergies Allergy/AdvReac Type Severity Reaction Status Date / Time No Known Allergies Allergy Verified 03/13/18 19:12 All systems ED: reviewed and negative except as stated. Review of Systems: As Per HPI Constitutional: Reports: fever, chills, weakness Cardiovascular: Denies: chest pain, palpitations, dyspnea on exertion Respiratory: Denies: cough, dyspnea Gastrointestinal: Denies: abdominal pain, nausea, vomiting Genitourinary: Denies: urgency, dysuria Integumentary: Denies: rash Past Medical History - Past Medical History Medical history: Reports: cancer Surgical history: Reports: hysterectomy Psychiatric history: Reports: anxiety, depression - Social History Smoking Status: Former smoker Smokeless Tobacco Status: No Alcohol use: Reports: none Drug use: Reports: none Physical Exam Patient is laying in the room with occult hollow over her face. She is in no acute distress. She is tachycardic and borderline hypotensive with systolic in the 90s. She is on 2 L nasal cannula with oxygen saturation 95% according to family the patient has been on 2 L since discharge from the hospital for COPD. - General Limitations: no limitations General appearance: alert, in no apparent distress - Head Head exam: atraumatic, normocephalic - Eye Eye exam: Present: normal appearance, PERRL, EOMI - ENT ENT exam: normal exam, normal oropharynx, mucous membranes dry - Neck Neck exam: Present: normal inspection, full ROM, trachea midline - Chest Chest inspection: Present: normal inspection, symmetric chest wall rise - Respiratory Respiratory exam: Present: other (Crackles in the bilateral bases.). Absent: respiratory distress - Cardiovascular Cardiovascular exam: Present: regular rate, normal rhythm, tachycardia, normal heart sounds, +S1, +S2 - Abdominal Exam Abdominal exam: Present: soft, Non-Tender, normal bowel sounds - Extremities Exam Extremities exam: Present: normal capillary refill, pedal edema. Absent: tenderness - Neurological Exam Neurological exam: Present: alert, oriented X3 - Psychiatric Psychiatric exam: Present: normal affect, normal mood - Skin Skin exam: Present: warm, dry, intact, normal color Course Course Narrative: Patient was discharged recently from [facility] after being treated for sepsis secondary to him pneumonia. According the patient family since discharge over the past 4 days patient has been becoming progressively weak as well as spiking a fever yesterday of 102.6 which was resolved today. The family mentions concern for fluid overload on Tuesday in which they gave the patient a double dose of her Lasix which she has been off since her prior hospitalization. This initially she had improvement in symptoms however she began to his parents increasing weakness. Pulmonary review patient's lab work she has a significant leukocytosis in the 20,000. Her hemoglobin is 8.7 which appears to be a chronic anemia. Her lab work is remarkable for signs of dehydration as well as acute kidney injury. Her troponin is elevated at 0.1. BNP is low. Patient's chest x-ray shows bilateral atypical pneumonia. Her EKG was nonischemic. Patient was treated for pneumonia and considered septic therefore she received 1 L of normal saline. She did not receive the 30 mL perky bolus due to having edema of the bilateral extremities as well as crackles in the bases so fluids were given cautiously. Patient is going to be admitted to the hospital for pneumonia she was started on IV antibiotics in the emergency department. Is also concerned the patient is potentially hypovolemic secondary to her Lasix dosage was given 2 days ago. Patient's tachycardia and borderline hypotension improved with fluids. Admission to the hospital by Dr. Kinney. Vital Signs Temperature 98.0 F 03/13/18 19:10 Pulse Rate 105 03/13/18 19:10 Respiratory Rate 18 03/13/18 19:10 Blood Pressure 87/54 03/13/18 19:10 O2 Sat by Pulse Oximetry 97 03/13/18 19:10 Temperature 98.0 F 03/13/18 19:37 Pulse Rate 96 03/13/18 21:55 Respiratory Rate 16 03/13/18 21:55 Blood Pressure 98/49 03/13/18 21:55 O2 Sat by Pulse Oximetry 96 03/13/18 21:55 Oxygen Delivery Oxygen Delivery Nasal Cannula Medical Decision Making - Medical Records Medical records reviewed: Yes I reviewed the patient's medical records. - Lab Data Lab results reviewed: Yes I reviewed the patient's lab results. Result diagrams: 03/14/18 03:25 03/14/18 03:25 Lab Results 03/13/18 03/13/18 03/13/18 Range/Units 20:32 20:32 20:32 WBC 20.3 H (4.3-11.1) K/mcL RBC 3.14 L (3.82-4.97) M/mcL Hgb 8.4 L (11.5-15.4) g/dL Hct 27.2 L (35.3-44.9) % MCV 86.6 (83.0-100.0) fL MCH 26.8 L (28.0-33.3) pg MCHC 30.9 L (31.6-35.5) g/dL RDW 16.8 H (11.5-14.5) % Plt Count 209 (140-400) K/mcL MPV 11.8 (9.4-12.4) fL Immature Gran % 2.0 (0-4) % Seg Neutrophils % 85.2 % Lymphocytes % 7.7 % Monocytes % 5.0 % Eosinophils % 0.0 % Basophils % 0.1 % Neutrophils # 17.3 H (1.6-8.9) K/mcL Lymphocytes # 1.6 (0.6-4.6) K/mcL Monocytes # 1.0 (0.0-1.3) K/mcL Eosinophils # 0.0 (0.0-0.6) K/mcL Basophils # 0.0 (0.0-0.2) K/mcL Nucleated RBCs/100 WBC 0.2 H (0) /100 WBC Sodium 140 (136-145) mEq/L Potassium 3.8 (3.5-5.1) mEq/L Chloride 102 (98-107) mEq/L Carbon Dioxide 25 (23-29) mEq/L BUN 37 H (8-23) mg/dL Creatinine 2.15 H (0.60-1.20) mg/dL Est GFR ( Amer) 27 L (> 60) Est GFR (Non-Af Amer) 22 L (> 60) BUN/Creatinine Ratio 17 (6-26) Glucose 88 (70-105) mg/dL Calculated Osmolality 298 (280-300) Lactic Acid 2.2 (0.5-2.2) mmol/L Calcium 7.8 L (8.6-10.3) mg/dL Phosphorus 4.0 (2.7-4.5) mg/dL Magnesium 1.5 L (1.6-2.6) mg/dL Total Bilirubin 0.5 (0.3-1.0) mg/dL Direct Bilirubin 0.2 (0.0-0.2) mg/dL Indirect Bilirubin 0.3 (0.0-1.2) mg/dL AST 96 H (13-39) Units/L ALT 22 (7-52) Units/L Alkaline Phosphatase 202 H (34-104) Units/L Troponin I 0.12 H* (< 0.04) ng/mL B-Natriuretic Peptide (Less than 100) pg/mL Serum Total Protein 5.5 L (6.4-8.9) g/dL Albumin 2.2 L (3.5-5.7) g/dL Globulin 3.3 (2.4-3.5) g/dL Albumin/Globulin Ratio 0.7 L (1.1-2.2) Urine Color (Yellow) Urine Clarity (Clear) Urine pH (5.0-8.0) pH Units Ur Specific [place] (1.010-1.025) Urine Protein (Neg-Trace) mg/dL Urine Glucose (UA) (Normal) mg/dL Urine Ketones (Negative) mg/dL Urine Blood (Negative) Urine Nitrite (Negative) Urine Bilirubin (Negative) Urine Urobilinogen (Normal) mg/dL Ur Leukocyte Esterase (Negative) Urine Microscopic RBC (0-3) per hpf Urine Microscopic WBC (0-3) per hpf Ur Squamous Epith Cells (None-Few) per lpf Urine Bacteria (None-Few) per hpf Hyaline Casts (None-Few) per lpf Ur Culture Indicated? (NO) 03/13/18 03/13/18 Range/Units 20:32 21:01 WBC (4.3-11.1) K/mcL RBC (3.82-4.97) M/mcL Hgb (11.5-15.4) g/dL Hct (35.3-44.9) % MCV (83.0-100.0) fL MCH (28.0-33.3) pg MCHC (31.6-35.5) g/dL RDW (11.5-14.5) % Plt Count (140-400) K/mcL MPV (9.4-12.4) fL Immature Gran % (0-4) % Seg Neutrophils % % Lymphocytes % % Monocytes % % Eosinophils % % Basophils % % Neutrophils # (1.6-8.9) K/mcL Lymphocytes # (0.6-4.6) K/mcL Monocytes # (0.0-1.3) K/mcL Eosinophils # (0.0-0.6) K/mcL Basophils # (0.0-0.2) K/mcL Nucleated RBCs/100 WBC (0) /100 WBC Sodium (136-145) mEq/L Potassium (3.5-5.1) mEq/L Chloride (98-107) mEq/L Carbon Dioxide (23-29) mEq/L BUN (8-23) mg/dL Creatinine (0.60-1.20) mg/dL Est GFR ( Amer) (> 60) Est GFR (Non-Af Amer) (> 60) BUN/Creatinine Ratio (6-26) Glucose (70-105) mg/dL Calculated Osmolality (280-300) Lactic Acid (0.5-2.2) mmol/L Calcium (8.6-10.3) mg/dL Phosphorus (2.7-4.5) mg/dL Magnesium (1.6-2.6) mg/dL Total Bilirubin (0.3-1.0) mg/dL Direct Bilirubin (0.0-0.2) mg/dL Indirect Bilirubin (0.0-1.2) mg/dL AST (13-39) Units/L ALT (7-52) Units/L Alkaline Phosphatase (34-104) Units/L Troponin I (< 0.04) ng/mL B-Natriuretic Peptide 158 H (Less than 100) pg/mL Serum Total Protein (6.4-8.9) g/dL Albumin (3.5-5.7) g/dL Globulin (2.4-3.5) g/dL Albumin/Globulin Ratio (1.1-2.2) Urine Color Dark Yellow (Yellow) Urine Clarity Turbid A (Clear) Urine pH 5.0 (5.0-8.0) pH Units Ur Specific [place] 1.029 H (1.010-1.025) Urine Protein 30 H (Neg-Trace) mg/dL Urine Glucose (UA) Normal (Normal) mg/dL Urine Ketones Negative (Negative) mg/dL Urine Blood Trace H (Negative) Urine Nitrite Negative (Negative) Urine Bilirubin Small H (Negative) Urine Urobilinogen Normal (Normal) mg/dL Ur Leukocyte Esterase Small H (Negative) Urine Microscopic RBC 0-3 (0-3) per hpf Urine Microscopic WBC 15-30 H (0-3) per hpf Ur Squamous Epith Cells Many H (None-Few) per lpf Urine Bacteria None Seen (None-Few) per hpf Hyaline Casts Few (None-Few) per lpf Ur Culture Indicated? NO. A (NO) - Radiology Data Radiology results reviewed: Yes I reviewed the patient's radiology results. Chest X-Ray 03/13/18 19:35 IMPRESSION: Bilateral upper lobe infiltrates, stable compared to the most recent chest. D/ / Jack Donovan MD / Jack Donovan MD Interpreting Provider: Jack Donovan MD - EKG Data EKG #1 EKG attestation: Yes I reviewed and interpreted this EKG. EKG results narrative: EKG done at 19:31 shows sinus tachycardia rate of 102 bpm. Normal axis. Intervals within normal limits. No ischemic. Critical Care Time Critical Care Time: Yes Total Critical Care Time: 35 Attestation: Non-ST elevation myocardial infarction, acute bacteremia. Hypotension. Attestation Statement - Attestation Attestation: Dr. Matthews note: Patient was seen in conjunction with resident Dr. Vargas. Please see his charting for complete documentation. I spent [id number] time with the patient and I agree with the patient's treatment and disposition. Patient arrives with family who report a measured temperature for the last day and a half. Patient was admitted until 5 days ago for pneumonia. At baseline she is on oxygen. She arrives with hypoxia with saturations between 85 and 87%. She denies any pain. She complains of weakness. Her weakness and blood pressure are consistent with over diuresis. She mentate's well. She has no focal neurological signs or symptoms. She denies diaphoresis chest pain or any increase in her baseline shortness of breath. Elevated troponin is noted. Troponins will be trended. Hydration was given to the extent necessary due to her edema. Infection is covering cultures are obtained. Admitted in stabilized and improved condition
[2018-03-13 20:45] LABS: Basophils % 0.1 %; Hematocrit 27.2 % (35.3-44.9); Hemoglobin 8.4 g/dL (11.5-15.4); Lymphocytes # 1.6 K/mcL (0.6-4.6); Lymphocytes % 7.7 %; Mean Corpuscular HGB Conc 30.9 g/dL (31.6-35.5); Mean Corpuscular Hemoglobin 26.8 pg (28.0-33.3); Mean Corpuscular Volume 86.6 fL (83.0-100.0); Mean Platelet Volume 11.8 fL (9.4-12.4); Neutrophils # 17.3 K/mcL (1.6-8.9); Nucleated Red Blood Cells 0.2 /100 WBC (0); Platelet Count 209 K/mcL (140-400); Red Blood Count 3.14 M/mcL (3.82-4.97); Red Cell Distribution Width 16.8 % (11.5-14.5); Segmented Neutrophils % 85.2 %
[2018-03-13 21:07] LABS: Albumin 2.2 g/dL (3.5-5.7); Albumin/Globulin Ratio 0.7 (1.1-2.2); Bilirubin,Direct 0.2 mg/dL (0.0-0.2); Bilirubin,Indirect 0.3 mg/dL (0.0-1.2); Bilirubin,Total 0.5 mg/dL (0.3-1.0); Calcium 7.8 mg/dL (8.6-10.3); Globulin 3.3 g/dL (2.4-3.5); Magnesium 1.5 mg/dL (1.6-2.6); Potassium 3.8 mEq/L (3.5-5.1); Total Protein 5.5 g/dL (6.4-8.9)
[2018-03-13 21:09] LABS: Troponin I 0.12 ng/mL (< 0.04)
[2018-03-13 21:10] LABS: Bilirubin,Urine Small (Negative); Blood,Urine Trace (Negative); Clarity,Urine Turbid (Clear); Color,Urine Dark Yellow (Yellow); Glucose,Urine (UA) Normal (Normal); Ketones,Urine Negative (Negative); Leukocyte Esterase,Urine Small (Negative); Nitrite,Urine Negative (Negative); Protein,Urine 30 mg/dL (Neg-Trace); Specific Gravity,Urine 1.029 (1.010-1.025); Urobilinogen,Urine Normal (Normal)
[2018-03-13 21:12] LABS: Bacteria,Urine None Seen per hpf (None-Few); Squamous Epithelial Cell,Urine Many per lpf (None-Few); WBC,Urine 15-30 per hpf (0-3)
[2018-03-13] MEDS ORDERED: Aspirin 325 MG TABLET PO ONE (21:36)
[2018-03-13] MEDS ORDERED: Piperacillin/Tazobactam 3.375 GM in Water for inj. (sterile) 20 ML 20 ML IVP ONE (21:37)
[2018-03-13 21:46] LABS: Hyaline Casts,Urine Few per lpf (None-Few); RBC,Urine 0-3 per hpf (0-3)
[2018-03-13] MEDS ORDERED: 0.9 % Sodium Chloride 500 ML ONE (23:04)
[2018-03-14] MEDS ORDERED: Acetaminophen 325 MG TABLET PO PRN (00:28)
[2018-03-14] MEDS ORDERED: Naloxone 0.4 MG/ML INJ IVP PRN (00:28)
[2018-03-14] MEDS ORDERED: Levofloxacin 750 MG/150 ML 750 MG/150 ML BAG IVPB SCH (01:00)
--- NOTE | 2018-03-14 01:01 | Internal Med History&Physical ---
<RylandTristen márquez - Last Filed: 03/14/18 01:33> Date of Encounter: 03/14/18 Time of Encounter: 00:45 Internal Medicine - H&P: HPI Chief complaint: lethargy, fevers, chills Admitted From: Emergency Dept Plans for Post Hospital Care: Home History of present illness: Ms. 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 Patient arrived to [facility] with complaint of significant lethargy, fever's, chills, nonproductive cough, intermittent shortness of breath. Of note, patient was recently hospitalized from 02/27 03/09 after being treated for sepsis secondary to pneumonia, acute hypoxic respiratory failure with COPD exacerbation and GARLAND. She was discharged home on 2L oxygen. During this time, she had been seen by infectious disease service, and was discharged home on Augmentin and doxycycline. She was discharged home with home health. Patient states that ever since going home on 03/09 she has been feeling ill. Her symptoms started about 3 days ago with lethargy, intermittent fevers above 101, chills. Patient also looks complains of lower extremity swelling for which her PCP had prescribed her Lasix. She complains of nonproductive cough, shortness of breath with intermittent diarrhea and occasional bloody bowel movements (has history of hemorrhoids). Patient denies nausea, vomiting, chest pain, hematuria. Today, patient had labs drawn by home health nurse which showed elevated white blood cell count and worsened renal function. Patient was advised to come to the emergency department by her PCP. Past Med Surg Social Fam HX - Past Medical History Medical history: cancer Additional medical history: skin cancer, gastro ulcers Psychiatric history: anxiety, depression - Past Surgical History Surgical History: hysterectomy Additional surgical history: bladder sx, tendon repair, cscope - Social History Smoking Status: Former smoker Smokeless Tobacco Status: No Alcohol use: none Drug use: none Internal Medicine - H&P: Meds Gabapentin [Neurontin] 600 mg PO BID 02/27/18 [History] Pantoprazole Sodium [Protonix] 40 mg PO DAILY 02/27/18 [History] Sertraline [Zoloft] 50 mg PO DAILY 02/27/18 [History] Albuterol Neb [Proventil Neb] 2.5 mg IH Q4H PRN #12 03/09/18 [Rx] Amoxicillin/Clavulanate [Augmentin] 500 mg PO BIDWM #16 tablet 03/09/18 [Rx] Doxycycline 100 mg PO BID #16 capsule 03/09/18 [Rx] Furosemide [Lasix] 20 mg PO DAILY #30 tablet 03/09/18 [Rx] Lactobacillus [Culturelle] 2 each PO DAILY #60 cap.sprink 03/09/18 [Rx] Mirtazapine [Remeron] 7.5 mg PO HS #15 tablet 03/09/18 [Rx] Allergy/AdvReac Type Severity Reaction Status Date / Time No Known Allergies Allergy Verified 03/13/18 19:12 All Systems PM: A 10-system review of systems was performed and is negative for pertinent fi ndings except as documented above in the HPI. - Constitutional Constitutional: as per HPI - EENT Eyes: as per HPI Ears: as per HPI Nose, mouth and throat: as per HPI - Breasts Breasts: as per HPI - Cardiovascular Cardiovascular ROS IM: as per HPI - Respiratory Respiratory: as per HPI - Gastrointestinal Gastrointestinal: as per HPI - Genitourinary Genitourinary: as per HPI Menstruation: as per HPI - Musculoskeletal Musculoskeletal ROS IM: as per HPI - Integumentary Integumentary IM: as per HPI - Neurological Neurological ROS: as per HPI - Psychiatric Psychiatric: as per HPI - Endocrine Endocrine IM: as per HPI - Hematologic/Lymphatic Hematologic/Lymphatic: as per HPI - Allergic/Immunologic Allergic/Immunologic: as per HPI - Constitutional Vitals: Temp Pulse Resp BP Pulse Ox 98.0 F 96 16 98/49 96 03/13/18 19:37 03/13/18 21:55 03/13/18 21:55 03/13/18 21:55 03/13/18 21:55 General appearance: Present: A&O X 3, pleasant Exam: extremely lethargic, slow to answer questions. - Head Head exam: Present: atraumatic, normocephalic - Neck Neck exam general surgery: Present: supple, trachea midline - Respiratory Additional comments: coarse rales heard throughout all lung randle. no wheezing appreciated. - Cardiovascular Cardiovascular exam: Present: RRR, +S1, +S2 - GI/Abdominal GI/Abdominal exam: Present: soft, tenderness (tenderness to palpation in right lower quadrant. ). Absent: distended - Extremities Exam Extremities exam: Absent: cyanotic Additional comments: +2 bilateral lower extremity pitting edema. - Neurological Exam Neurological exam: Present: alert, oriented X3 - Psychiatric Psychiatric exam: Present: flat affect - Skin Skin exam: Present: intact Internal Med - H&P Results - Labs CBC & Chem 7: 03/13/18 20:32 03/13/18 20:32 Labs: Short CBC 03/13/18 Range/Units 20:32 WBC 20.3 H (4.3-11.1) K/mcL Hgb 8.4 L (11.5-15.4) g/dL Hct 27.2 L (35.3-44.9) % Plt Count 209 (140-400) K/mcL Neutrophils # 17.3 H (1.6-8.9) K/mcL BMP 03/13/18 20:32 Sodium 140 Potassium 3.8 Chloride 102 Carbon Dioxide 25 BUN 37 H Creatinine 2.15 H Glucose 88 Calcium 7.8 L Cardiac Enzymes 03/13/18 Range/Units 20:32 Troponin I 0.12 H* (< 0.04) ng/mL Liver Function 03/13/18 Range/Units 20:32 Total Bilirubin 0.5 (0.3-1.0) mg/dL Direct Bilirubin 0.2 (0.0-0.2) mg/dL AST 96 H (13-39) Units/L ALT 22 (7-52) Units/L Alkaline Phosphatase 202 H (34-104) Units/L Albumin 2.2 L (3.5-5.7) g/dL Urine 03/13/18 Range/Units 21:01 Urine Color Dark Yellow (Yellow) Urine Clarity Turbid A (Clear) Urine pH 5.0 (5.0-8.0) pH Units Ur Specific [place] 1.029 H (1.010-1.025) Urine Protein 30 H (Neg-Trace) mg/dL Urine Glucose (UA) Normal (Normal) mg/dL - Impressions ITS Impressions Chest X-Ray 03/13/18 19:35 IMPRESSION: Bilateral upper lobe infiltrates, stable compared to the most recent chest. D/ / Jack Donovan MD / Jack Donovan MD Interpreting Provider: Jack Donovan MD - Assessment and plan (1) Sepsis Current Visit: No Status: Resolved Assessment and plan: HR>90, WBC 20.3. Lactic acid 2.2 Source of infection likely pneumonia. Chest x-ray shows bilateral upper lobe infiltrates patient received one dose of vancomycin, one dose of Zosyn, 1 L fluid bolus and emergency department. Plan: blood cultures x2, sputum culture pending legionella, strep pneumo Ag, Respiratory infectious panel pending zyvox, zosyn, day 1 Infectious disease re consulted- appreciate recs. Qualifiers: Sepsis type: sepsis due to unspecified organism Qualified Code(s): A41.9 - Sepsis, unspecified organism (2) Acute respiratory failure with hypoxia Current Visit: No Status: Acute Assessment and plan: likely secondary to PNA. Patient discharge during last hospitalization with 2 L oxygen at home. We will continue this as inpatient (3) GARLAND (acute kidney injury) Current Visit: No Status: Acute Assessment and plan: Cr 2.15- baseline Cr normal. 03/07 retroperitoneal ultrasound was unremarkable. GARLAND likely multifactorial secondary to poor oral intake due to illness. Also likely due to iatrogenic causes from lasix and vancomycin. Plan: renally dose all meds, avoid nephrotoxins consult to nephrology-appreciate recs urine urea, urine Cr pending. Gentle IV Fluids (4) Elevated troponin Current Visit: No Status: Resolved Assessment and plan: Troponin 0.12, chest pain free. Etiology likely secondary to sepsis. Continued to trend. (5) Metastatic disease Current Visit: No Status: Acute Assessment and plan: 03/03 CT chest, abdomen, pelvis showed metastatic disease within bilateral lungs, liver, mediastinal and portocaval lymph nodes. Plan: Seeing oncology as outpatient (6) COPD (chronic obstructive pulmonary disease) Current Visit: No Status: Chronic Qualifiers: COPD type: unspecified COPD Qualified Code(s): J44.9 - Chronic obstructive pulmonary disease, unspecified (7) DVT prophylaxis Current Visit: No Status: Resolved Assessment and plan: Heparin SQ - Time Spent With Patient Total time spent is greater than 50% in coordination of care (as documented) at patient's floor/unit and/or counseling patient: <Colt Livingston - Last Filed: 03/14/18 04:43> Date of Encounter: 03/14/18 Time of Encounter: 03:55 - Constitutional Constitutional: chills, fever(s) - Cardiovascular Cardiovascular ROS IM: dyspnea, dyspnea on exertion, no chest pain, no orthopnea, no paroxysmal nocturnal dyspnea - Respiratory Respiratory: cough, chest congestion, excessive phlegm production, pain with cough, no hemoptysis - Genitourinary Genitourinary: no dysuria, no flank pain, no hematuria - Musculoskeletal Musculoskeletal ROS IM: no arthralgias, no back pain - Integumentary Integumentary IM: no rash, no jaundice - Neurological Neurological ROS: no focal weakness, no frequent falls - Psychiatric Psychiatric: no anxiety, no depression - Constitutional Vitals: Temp Pulse Resp BP Pulse Ox 98.3 F 82 18 86/45 97 03/14/18 04:23 03/14/18 04:23 03/14/18 04:23 03/14/18 04:23 03/14/18 04:23 General appearance: Present: cooperative, mild distress, A&O X 3, pleasant, answers questions appropriately Exam: ill, non-toxic, mild respiratory distress, easily arousable now and appropriate - Head Head exam: Present: normal inspection - Eye Eye exam: Present: EOMI, PERRL. Absent: scleral icterus - ENT ENT exam: Present: mucous membranes dry, normal exam, normal oropharynx - Neck Neck exam general surgery: Present: supple, trachea midline - Respiratory Respiratory exam: Present: accessory muscle use, rales, respiratory distress, rhonchi. Absent: chest wall tenderness, wheezes - Cardiovascular Cardiovascular exam: Present: distant heart sounds, RRR, +S1, +S2, systolic murmur. Absent: diastolic murmur - GI/Abdominal GI/Abdominal exam: Present: soft. Absent: guarding, tenderness - Extremities Exam Extremities exam: Present: pedal edema (2+), warm, radial pulses palpable and symmetrical. Absent: calf tenderness, joint swelling - Back Exam Back exam: Absent: CVA tenderness (L), CVA tenderness (R) - Neurological Exam Neurological exam: Present: alert, oriented X3, no focal deficits - Psychiatric Psychiatric exam: Present: normal affect, normal mood - Skin Skin exam: Present: dry, intact, warm Internal Med - H&P Results - Labs CBC & Chem 7: 03/14/18 03:25 03/14/18 03:25 Labs: Short CBC 03/13/18 03/14/18 Range/Units 20:32 03:25 WBC 20.3 H 17.5 H (4.3-11.1) K/mcL Hgb 8.4 L 7.3 L (11.5-15.4) g/dL Hct 27.2 L 24.2 L (35.3-44.9) % Plt Count 209 177 (140-400) K/mcL Neutrophils # 17.3 H 14.4 H (1.6-8.9) K/mcL BMP 03/13/18 03/14/18 20:32 03:25 Sodium 140 140 Potassium 3.8 4.1 Chloride 102 107 Carbon Dioxide 25 24 BUN 37 H 38 H Creatinine 2.15 H 2.06 H Glucose 88 76 Calcium 7.8 L 7.3 L Cardiac Enzymes 03/13/18 03/14/18 Range/Units 20:32 03:25 Troponin I 0.12 H* 0.10 H* (< 0.04) ng/mL Liver Function 03/13/18 03/14/18 Range/Units 20:32 03:25 Total Bilirubin 0.5 0.5 (0.3-1.0) mg/dL Direct Bilirubin 0.2 (0.0-0.2) mg/dL AST 96 H 78 H (13-39) Units/L ALT 22 18 (7-52) Units/L Alkaline Phosphatase 202 H 177 H (34-104) Units/L Albumin 2.2 L 1.9 L (3.5-5.7) g/dL Urine 03/13/18 Range/Units 21:01 Urine Color Dark Yellow (Yellow) Urine Clarity Turbid A (Clear) Urine pH 5.0 (5.0-8.0) pH Units Ur Specific [place] 1.029 H (1.010-1.025) Urine Protein 30 H (Neg-Trace) mg/dL Urine Glucose (UA) Normal (Normal) mg/dL - Impressions ITS Impressions Chest X-Ray 03/13/18 19:35 IMPRESSION: Bilateral upper lobe infiltrates, stable compared to the most recent chest. D/ / Jack Donovan MD / Jack Donovan MD Interpreting Provider: Jack Donovan MD - Time Spent With Patient Total time spent is greater than 50% in coordination of care (as documented) at patient's floor/unit and/or counseling patient: - Attending Attestation I discussed the patient [place], past medical history, review of systems, lab data, exam findings, and imaging findings with Dr. Wheatley. I then saw and examined patient independently. Patient appears to be ill but nontoxic. Blood pressure is borderline low running around 90s/50s with mean arterial pressure about 63- 65. She admits to having had cough, subjective fevers, chills, dyspnea, and worsening weakness. She was recently discharged from the hospital and treated for pneumonia. However, since then, she has present continued to decline at home despite antibiotics and treatments rendered at discharge. She denies any hemoptysis or orthopnea. However, she has worsened clinically since her discharge. We will continue her on antibiotics as prescribed above as well as supportive measures. Should her blood pressure decline or she become hemodynamically unstable, she may need a central line placed and have pressors and hemodynamic support provided intravenously. Given her renal dysfunction, we will hold off on Vancomycin and proceed with Zyvox for HCAP coverage. We will ask nephrology to see patient. Although she is fluid overloaded, she appears to be intravascularly dry. Thus, we will continue will slow luci IVF hydration. Other than my comments above and noted physical exam findings, I agree with Dr. Wheatley's assessment and plan.
[2018-03-14] MEDS ORDERED: 0.9 % Sodium Chloride 1,000 ML IVC SCH (02:00)
[2018-03-14 02:04] LABS: Creatinine,Urine 128 mg/dL
[2018-03-14 03:17] LABS: Adenovirus Not Detected (Not Detect); Bordetella Pertussis Not Detected (Not Detect); Chlamydophila pneumoniae Not Detected (Not Detect); Coronavirus 229E Not Detected (Not Detect); Coronavirus HKU1 Not Detected (Not Detect); Coronavirus NL63 Not Detected (Not Detect); Coronavirus OC43 Not Detected (Not Detect); Human Metapneumovirus Not Detected (Not Detect); Human Rhinovirus/Enterovirus Not Detected (Not Detect); Influenza A Subtype 2009 H1 Not Detected (Not Detect); Influenza A Untypeable Not Detected (Not Detect); Influenza B Not Detected (Not Detect); Mycoplasma pneumoniae Not Detected (Not Detect); Parainfluenza Virus 1 Not Detected (Not Detect); Parainfluenza Virus 2 Not Detected (Not Detect); Parainfluenza Virus 3 Not Detected (Not Detect); Parainfluenza Virus 4 Not Detected (Not Detect); Respiratory Syncytial Virus Not Detected (Not Detect)
[2018-03-14 03:41] LABS: Basophils % 0.1 %; Eosinophils % 0.1 %; Hematocrit 24.2 % (35.3-44.9); Hemoglobin 7.3 g/dL (11.5-15.4); Lymphocytes # 1.9 K/mcL (0.6-4.6); Lymphocytes % 10.9 %; Mean Corpuscular HGB Conc 30.2 g/dL (31.6-35.5); Mean Corpuscular Hemoglobin 26.4 pg (28.0-33.3); Mean Corpuscular Volume 87.4 fL (83.0-100.0); Mean Platelet Volume 11.6 fL (9.4-12.4); Monocytes # 0.8 K/mcL (0.0-1.3); Monocytes % 4.5 %; Neutrophils # 14.4 K/mcL (1.6-8.9); Nucleated Red Blood Cells 0.1 /100 WBC (0); Platelet Count 177 K/mcL (140-400); Red Blood Count 2.77 M/mcL (3.82-4.97); Red Cell Distribution Width 17.1 % (11.5-14.5); Segmented Neutrophils % 82.4 %
[2018-03-14 03:49] LABS: INR 1.5; Prothrombin Time 16.5 Seconds (9.4-12.1)
[2018-03-14 03:56] LABS: Albumin 1.9 g/dL (3.5-5.7); Albumin/Globulin Ratio 0.7 (1.1-2.2); Bilirubin,Total 0.5 mg/dL (0.3-1.0); Calcium 7.3 mg/dL (8.6-10.3); Globulin 2.9 g/dL (2.4-3.5); Magnesium 2.1 mg/dL (1.6-2.6); Phosphorous 4.8 mg/dL (2.7-4.5); Potassium 4.1 mEq/L (3.5-5.1); Total Protein 4.8 g/dL (6.4-8.9)
[2018-03-14] MEDS: Ipratropium/Albuterol Neb 3 ML IH SCH ×6 (04:05→23:54)
[2018-03-14] MEDS ORDERED: Albuterol 2.5 MG/3 ML NEBULIZER IH PRN ×2 (04:44→13:09)
[2018-03-14] MEDS: *HR* Heparin 5,000 UNIT/ML VIAL SQ SCH ×3 (05:57→20:27)
[2018-03-14] MEDS ORDERED: Piperacillin/Tazobactam 3.375 GM in 0.9 % Sodium Chloride Mini Bag 100 ML IVPB SCH (08:00)
[2018-03-14] MEDS: Piperacillin/Tazobactam 3.375 GM in 0.9 % Sodium Chloride Mini Bag 100 ML IVPB SCH ×2 (08:46→20:27)
--- NOTE | 2018-03-14 14:03 | Nephrology Consult Note ---
Date of Encounter: 03/14/18 Time of Encounter: 13:51 Assessment and Plan (1) GARLAND (acute kidney injury) Current Visit: No Status: Acute GFR last month was greater than 60. GFR is now 23. Avoid nephrotoxins and renal dose. Strict I/O Urine NA, Eosinophil, ordered. CPK and Uric Acid order for tomorrow morning. (2) Dehydration Current Visit: Yes Status: Acute Continue with IVF. Encouraged adequate PO intake. (3) Elevated troponin Current Visit: Yes Status: Acute 0.12 and 0.10. Per primary. (4) Lower extremity edema Current Visit: Yes Status: Acute see above. (5) Pneumonia Current Visit: Yes Status: Acute Per primary. Qualifiers: Pneumonia type: due to unspecified organism Laterality: bilateral Lung location: upper lobe of lung Qualified Code(s): J18.1 - Lobar pneumonia, unspecified organism History of Present Illness - Reason for Consult Consult date: 03/14/18 Acute Kidney Injury, Chronic Kidney Disease - Chief Complaint weakness, fever - History of Present Illness Ms. Cohen is an 78 year old female who presented to ED with fever and weakness after being discharged on 03/09/18. She was admitted last visit for pneumonia with sepsis and unfortunately had a decline in her renal function. She was recently diagnosed with CA of the liver and colon with mets. She was set up for a liver biopsy last week, but it had to be rescheduled due to her hospitalization. The daughter is with her at the bedside and reports she was doing a little better after discharge but then progressively got weak and developed a fever. Tmax of 101 at home. She was just admitted to [facility] on Tuesday, and the nurse was there for a visit and a lab draw. When the RN called the results to the patient, she was told to come back to the hospital for evaluation. Last month the patients GFR was greater than 60. It is now 23. The patient had never seen a manager car in the past but she will see [facility] upon d/c. She did admit to occasional NSAID use, but has since stopped. The patient did receive IV vanco, Zosyn, and Levaquin, but has since been changed to IV Zyvox. She was also on IV vanco last stay, which could have contributed to her decline in GFR. She also tells me that she has not been drinking much at home, because she hasnt felt up to it. No FH of HD or CKD. She is staying with her daughter currently. She is a former smoker, denies illicit drug use or Etoh. I will order a urine Sodium , CPK, and urine eosinophil. Past Med Surg Social Fam HX - Past Medical History Medical history: cancer Additional medical history: skin cancer, gastro ulcers Psychiatric history: anxiety, depression - Past Surgical History Surgical History: hysterectomy Additional surgical history: bladder sx, tendon repair, cscope - Social History Smoking Status: Former smoker Smokeless Tobacco Status: No Alcohol use: none Drug use: none Medications and Allergies Gabapentin [Neurontin] 600 mg PO BID 02/27/18 [History] Pantoprazole Sodium [Protonix] 40 mg PO DAILY 02/27/18 [History] Sertraline [Zoloft] 50 mg PO DAILY 02/27/18 [History] Albuterol Neb [Proventil Neb] 2.5 mg IH Q4H PRN #12 03/09/18 [Rx] Amoxicillin/Clavulanate [Augmentin] 500 mg PO BIDWM #16 tablet 03/09/18 [Rx] Doxycycline 100 mg PO BID #16 capsule 03/09/18 [Rx] Furosemide [Lasix] 20 mg PO DAILY #30 tablet 03/09/18 [Rx] Lactobacillus [Culturelle] 2 each PO DAILY #60 cap.sprink 03/09/18 [Rx] Mirtazapine [Remeron] 7.5 mg PO HS #15 tablet 03/09/18 [Rx] Potassium Chloride 20 meq PO DAILY 03/14/18 [History] predniSONE [PredniSONE] 40 mg PO DAILY 03/14/18 [History] Allergy/AdvReac Type Severity Reaction Status Date / Time No Known Allergies Allergy Verified 03/13/18 19:12 Review of Systems All Systems review (narrative): The remainder of the systems are negative. Constitutional: chills, fatigue, fever(s) Cardiovascular: dyspnea, no chest pain, no edema Respiratory: no cough Gastrointestinal: no abdominal pain, no diarrhea, no melena, no nausea, no vomiting Genitourinary Female: no dysuria, no flank pain, no hematuria, no urinary frequency, no urinary incontinence, no urinary urgency Exam - Vital Signs Vital signs: Initial Vital Signs Temp Pulse Resp BP Pulse Ox 98.0 F 105 18 87/54 97 11/05/18 19:10 03/13/18 19:10 03/13/18 19:10 03/13/18 19:10 03/13/18 19:10 Vital Signs - Last 8 Hours Temp Pulse Resp BP Pulse Ox 03/14/18 11:55 98.8 F 95 20 99/50 92 03/14/18 11:32 20 100/50 95 03/14/18 08:01 98.2 F 89 18 100/50 93 03/14/18 07:44 19 95 Intake and Output 03/13/18 03/14/18 03/14/18 23:59 07:59 15:59 Intake Total 1000 / 1000 404 / 404 540 / 540 Output Total 150 / 150 100 / 100 Balance 1000 / 1000 254 / 254 440 / 440 Intake: IV Fluids 1000 / 1000 404 / 404 100 / 100 0.9 % Sodium Chloride 1,000 ML 1000 / 1000 @ 999 mls/hr IVC .Q1H1M ONE Rx# :[id number] Zyvox Premix 600mg/300mL 600 mg 300 / 300 In 300 ml @ 150 mls/hr IVPB Q12HR [facility] Rx#:[id number] Magnesium Sulfate 2 GM In 0.9 % 104 / 104 Sodium Chloride 100 ML @ 104 mls/hr IVPB ONCE ONE Rx#: [id number] Zosyn 3.375 GM In 0.9 % Sodium 100 / 100 Chloride (Mini-Bag +) 100 ML @ 25 mls/hr IVPB Q12H [facility] Rx#: [id number] Oral 440 / 440 Output: Catheter 150 / 150 100 / 100 Other: Meal Lunch Percent of Meal Consumed 10% Weight 85.865 kg 87.5 kg Patient Weight 03/14/18 23:59 Weight 87.5 kg - General Appearance General appearance: well-developed, well-nourished EENT: ATNC, hearing intact, vision intact Neck: supple Respiratory: clear Cardiology: edema (+1 pitting edema noted to bilat lower extremities.), normal S1, normal S2 Gastrointestinal: normoactive bowel sounds, no tenderness, no guarding Integumentary: no rash, warm and dry Neurologic: alert and oriented x3 Musculoskeletal: no deformities Psychiatric: mood/affect appropriate, cooperative Results - Lab Results 03/14/18 03:25 03/14/18 03:25 Most recent lab results Calcium 7.3 mg/dL (8.6-10.3) L 03/14/18 03:25 Phosphorus 4.8 mg/dL (2.7-4.5) H 03/14/18 03:25 Magnesium 2.1 mg/dL (1.6-2.6) 03/14/18 03:25 Urine Creatinine 128 mg/dL 03/14/18 01:20 Consult Discharge Plan - Plan Referrals: Yolanda Watts MD [Non-Partnered Physician] - 03/21/18 1:30 pm
--- NOTE | 2018-03-14 15:26 | Internal Med Progress Note ---
Hospitalist Progress Note - Encounter Date of Encounter: 03/14/18 Time of Encounter: 09:00 - Subjective Interval History: Pt is still weak, SOB is less. No fever overnight. - Exam Vitals: Temp Pulse Resp BP Pulse Ox 98.8 F 95 20 99/50 92 03/14/18 11:55 03/14/18 11:55 03/14/18 11:55 03/14/18 11:55 03/14/18 11:55 Exam: Pt is lethargic, in mild respiratory distress. HEENT: NC/AT, PERRL Neck: Supple, no JVD Lungs: B/L scattered rhonchi Heart: S1S2, RRR Abd: Soft, mild tenderness on RUL, BS normal. Ext: Mild b/l pedal edema. Neuro: AAO x3, no focal deficit. - Assessment and Plan (1) HCAP (healthcare-associated pneumonia) Current Visit: Yes Status: Acute Assessment and Plan: Pt has recently discharged with Dx of pneumonia on po abx. Has fever, leuko cytosis. CXR suggest PNA. - Cont abx linezolid and zosyn at this point, will consult ID for further management. - Cont suppotive treatment (2) Elevated troponin Current Visit: Yes Status: Acute Assessment and Plan: Mild elevated troponin, start to trend down, pt denies chest pain, pt has sepsis. - Most likely demand ischemia due to sepsis, second troponin trend down, will not perform any further cardio workup. (3) Lower extremity edema Current Visit: Yes Status: Acute Assessment and Plan: Mutiple factorial with low albumin and possible diastolic CHF (LVEF 60-65%). Lasix is on hold b/o [place]. (4) Acute renal failure Current Visit: No Status: Acute Assessment and Plan: Consult nephro, avoid nephrotoxic medications. Closely monitor renal function. (5) Leukocytosis Current Visit: No Status: Acute Assessment and Plan: Possibly due to pneumonia or malignancy. Cont abx treatment at this point. F/U CBC. (6) Metastatic disease Current Visit: No Status: Acute Assessment and Plan: Liver biopsy shows adenocarcinoma, primary site of malignancy is unclear. Pt is planned for PET as outpatient and f/u with oncology after she is stabilized. (7) COPD (chronic obstructive pulmonary disease) Current Visit: No Status: Chronic Assessment and Plan: No signs of exacerbation, cont duoneb PRN. (8) DVT prophylaxis Current Visit: No Status: Resolved Assessment and Plan: heparin SC (9) Sepsis Current Visit: No Status: Resolved Assessment and Plan: Pt meets sepsis criteria b/o leukocytosis, fever, tachycardia, and tachypnea. - IVF started in ER, lactate 2.2. - Cont abx treatment. (10) Abnormal liver function test Current Visit: Yes Status: Acute Assessment and Plan: CT abd shows liver metastesis. Pt has mild elevated AST, PT, and decreased albumin. Cont closely monitor pt. - Time Spent with Patient Total time spent is greater than 50% in coordination of care (as documented) at patient's floor/unit and/or counseling patient: 30 min 25 - 35 minutes Plan of Care Discussed with: family Internal Medicine: Result - Labs CBC & Chem 7: 03/14/18 03:25 03/14/18 03:25 Labs: Short CBC 03/13/18 03/14/18 Range/Units 20:32 03:25 WBC 20.3 H 17.5 H (4.3-11.1) K/mcL Hgb 8.4 L 7.3 L (11.5-15.4) g/dL Hct 27.2 L 24.2 L (35.3-44.9) % Plt Count 209 177 (140-400) K/mcL Neutrophils # 17.3 H 14.4 H (1.6-8.9) K/mcL BMP 03/13/18 03/14/18 20:32 03:25 Sodium 140 140 Potassium 3.8 4.1 Chloride 102 107 Carbon Dioxide 25 24 BUN 37 H 38 H Creatinine 2.15 H 2.06 H Glucose 88 76 Calcium 7.8 L 7.3 L Cardiac Enzymes 03/13/18 03/14/18 Range/Units 20:32 03:25 Troponin I 0.12 H* 0.10 H* (< 0.04) ng/mL Liver Function 03/13/18 03/14/18 Range/Units 20:32 03:25 Total Bilirubin 0.5 0.5 (0.3-1.0) mg/dL Direct Bilirubin 0.2 (0.0-0.2) mg/dL AST 96 H 78 H (13-39) Units/L ALT 22 18 (7-52) Units/L Alkaline Phosphatase 202 H 177 H (34-104) Units/L Albumin 2.2 L 1.9 L (3.5-5.7) g/dL Urine 03/13/18 Range/Units 21:01 Urine Color Dark Yellow (Yellow) Urine Clarity Turbid A (Clear) Urine pH 5.0 (5.0-8.0) pH Units Ur Specific [place] 1.029 H (1.010-1.025) Urine Protein 30 H (Neg-Trace) mg/dL Urine Glucose (UA) Normal (Normal) mg/dL - ABG Interpretation ABG results: PT/INR, D-dimer PT 16.5 Seconds (9.4-12.1) H 03/14/18 03:25 - Impressions Impressions Chest X-Ray 03/13/18 19:35 IMPRESSION: Bilateral upper lobe infiltrates, stable compared to the most recent chest. D/ / Jack Donovan MD / Jack Donovan MD Interpreting Provider: Jack Donovan MD Consult Discharge Plan - Plan Referrals: Yolanda Watts MD [Non-Partnered Physician] - 03/21/18 1:30 pm (4) Acute renal failure Qualifiers: Acute renal failure type: unspecified Qualified Code(s): N17.9 - Acute kidney failure, unspecified (5) Leukocytosis Qualifiers: Leukocytosis type: other Qualified Code(s): D72.828 - Other elevated white blood cell count (7) COPD (chronic obstructive pulmonary disease) Qualifiers: COPD type: unspecified COPD Qualified Code(s): J44.9 - Chronic obstructive pulmonary disease, unspecified (9) Sepsis Qualifiers: Sepsis type: sepsis due to unspecified organism Qualified Code(s): A41.9 - Sepsis, unspecified organism
--- NOTE | 2018-03-14 16:47 | Electrocardiograph Report ---
[place] [id number] Test Date: 2018-03-13 Pat Name: Cici Cohen Department: [id number] Room: 2N08 Gender: Wealth Management Director: : 1940 Requested By: Navin Vargas Order Number: [id number] Reading MD: Shannon Warren Measurements Intervals Protection Rate: 102 P: 58 NV: 150 QRS: -44 QRSD: 89 T: 34 QT: 326 QTc: 425 Interpretive Statements Sinus tachycardia Left anterior fascicular block Low voltage, precordial leads Poor R wave progression in precordial leads Electronically Signed On 03-14-2018 16:45:53 EST by Shannon Warren
--- NOTE | 2018-03-14 17:01 | Infectious Disease Consult ---
Date of Encounter: 03/14/18 Time of Encounter: 10:16 Assessment and Plan (1) Sepsis Status: Acute Assessment and plan: - Meets 2/4 sirs criteria on presentation with leukocytosis of 20.3 and tachycardia - Of note, on discharge at last hospital admission leukocytosis had been down trended to 14. Neutrophil predominance - Lactic acid was 2.2, patient did meet criteria for severe sepsis - Likely source: Pulmonary - Causative organism: Unclear - Clinically, review of systems is only positive for nonproductive cough as well as weakness/lethargy and loose bowel movements. - Continues to meet sirs criteria with tachycardia, tachypnea, leukocytosis whic h has down trended to 17 - Discharged home with doxycycline and Augmentin for concerns for aspiration, scheduled to continue course through 03/17/18 - Urinalysis is not impressive for infection and likely contaminated - Respiratory infectious panel negative - Legionella, strep antigen negative - Blood cultures on 03/13 no growth - Chest x-ray on admission showed bilateral upper lobe infiltrates which is stable from previous exam Started on Zyvox, Zosyn on admission. Plan - We will continue Zyvox, Zosyn, day #2 - We will repeat CT chest to evaluate for worsening of pneumonia - Etiology of leukocytosis and tachycardia may be related to known malignancy - We will also order C. difficile toxin as patient has been having loose bowel movements and recently been on antibiotics. Qualifiers: Sepsis type: sepsis due to unspecified organism Qualified Code(s): A41.9 - Sepsis, unspecified organism (2) Metastatic disease Status: Chronic Assessment and plan: As demonstrated on CT scans on last admission Follows with heme/onc as outpatient Unclear primary Management as outpatient. Poor prognosis (3) Elevated troponin Status: Acute Assessment and plan: - Troponin of 0.12, 0.10 in emergency department - This is likely due to demand ischemia in the setting of acute renal failure as below - Management per primary team (4) HAP (hospital-acquired pneumonia) Status: Acute Assessment and plan: As above for sepsis (5) Acute renal failure Status: Acute Assessment and plan: - BUNs/creatinine of 38/2.06 today - Stable from previous admission - Patient notably had normal kidney function at the start of last admission - Management per primary team and nephrology - Renally dose medications, avoid nephrotoxins Qualifiers: Acute renal failure type: unspecified Qualified Code(s): N17.9 - Acute kidney failure, unspecified Infectious Disease HPI - Data of Consult Patient: known to practice within the last 3 years Consult date: 03/14/18 Requesting Physician: Eric Kinney MD Primary Care Provider: PCP NONE - Consult Narrative Reason for consult: Recommendation for antibiotics History of present illness: Ms. Cohen is a 78 year old female who presents to ED from home on 03/13/18 for lethargy, fevers, chills. Infectious disease is consulted for recommendation of antibiotics on 03/14/18. Patient has a PMH of cancer with metastasis to liver, lung and unknown primary source, recent UTI, anxiety, remote past history of smoking tobacco while teenager briefly and depression. She was recently admitted from 03/03-03/09 for presenting with sepsis most likely secondary to aspiration pneumonia and had acute renal failure during that time. CT of the chest, abdomen and pelvis did show right upper lobe pneumonia as well as metastatic disease to lung and liver. She was discharged on 03/09 with antibiotics doxycycline and augmentin which she was set to continue until 03/17. She was also recently admitted to [facility] for weakness from 02/19 to 02/23 for a UTI and treated with 3 day course of rocephin. Patient has been seeing heme/onc for metastatic disease with scheduled PET scan later this week to determine primary location of adenocarcinoma on biopsy Patient presented to the ED with lethargy, fevers, chills on 03/13/16. She states that she had a tmax fever of 103 at home. She had 2/4 SIRS criteria on admission with tachycardia 105, leukocytosis of 20.3 and normal different patient. She was afebrile at 98 temperature. Her lactic acid was 2.2. BUN/Cr was 37/2.15. Her urine analysis was negative for nitrites and had a small amount of leukocyte esterase with many epithelial cells. Urinary legionella and Strep pneumonia antigens were negative. Blood culture pending. Respiratory infectious panel is negative. CXR on admission showed bilateral upper lobe infiltrates which is stable from previous chest x-ray on previous admission. Patient is currently on zyvox and zoysn. Patient is seen and able to answer questions. Admits to lethargy, fever, chills and denies night sweats. Reports a cough without any sputum or hemoptysis and denies shortness of breath. Denies chest pain. Admits to a right shoulder pain. Nothing makes it better or worse. Denies nausea, vomiting or abdominal pain. Has only been drinking liquids since she came back to hospital. She states they help to soothe her throat. Denies joint pain or sore throat. Denies any recent travel. She states that she does not feel worse since her discharge but that she is not getting any better in terms of her lethargy and is concerned about these recurrent fevers occurring approximately same time each evening. She does also admit to multiple loose stools on Tuesday and Tuesday, they occur when she urinates and she also admits to some hematochezia, approximately less than 1 tablespoon of blood. CC: Eric Kinney MD Past Med Surg Social Fam HX - Past Medical History Medical history: cancer Additional medical history: skin cancer, gastro ulcers Psychiatric history: anxiety, depression - Past Surgical History Surgical History: hysterectomy Additional surgical history: bladder sx, tendon repair, cscope - Social History Smoking Status: Former smoker Smokeless Tobacco Status: No Alcohol use: none Drug use: none Infectious Disease-CN:Meds RX: Gabapentin [Neurontin] 600 mg PO BID 02/27/18 [History] RX: Pantoprazole Sodium [Protonix] 40 mg PO DAILY 02/27/18 [History] RX: Sertraline [Zoloft] 50 mg PO DAILY 02/27/18 [History] RX: Albuterol Neb [Proventil Neb] 2.5 mg IH Q4H PRN #12 03/09/18 [Rx] RX: Amoxicillin/Clavulanate [Augmentin] 500 mg PO BIDWM #16 tablet 03/09/18 [Rx] RX: Doxycycline 100 mg PO BID #16 capsule 03/09/18 [Rx] RX: Furosemide [Lasix] 20 mg PO DAILY #30 tablet 03/09/18 [Rx] RX: Lactobacillus [Culturelle] 2 each PO DAILY #60 cap.sprink 03/09/18 [Rx] RX: Mirtazapine [Remeron] 7.5 mg PO HS #15 tablet 03/09/18 [Rx] RX: Potassium Chloride 20 meq PO DAILY 03/14/18 [History] predniSONE [PredniSONE] 40 mg PO DAILY 03/14/18 [History] Allergy/AdvReac Type Severity Reaction Status Date / Time No Known Allergies Allergy Verified 03/13/18 19:12 Review of systems: - Constitutional: Admits to fevers. Lethargy. Denies chills, weight loss - Head/Neck: Denies JEAN, neck stiffness - EENT: Admits to scratchy throat. Denies vision changes/blurriness, tinnitus, auditory changes, rhinorrhea, congestion, dysphagia, odynaphagia - CVS: Denies chest pain, palpitations, ENCINAS, orthopnea, edema, PND, - Pulm: Admits to nonproductive cough. Denies SOB, sputum, hematemesis, wheezing - GI: Admits to loose bowel movements 3. [place]. Denies abdominal pain, anorexia, nausea, vomiting, constipation, melena - : Denies dysuria, increased frequency, urgency, hematuria, - MSK: Denies joint pain, limited ROM - Skin: Denies rashes, ulcers, color changes, - Neuro: Denies JEAN, paresthesias, focal deficits, ataxia, Exam - Constitutional Vitals: Temp Pulse Resp BP Pulse Ox 98.8 F 95 16 99/50 94 03/14/18 11:55 03/14/18 11:55 03/14/18 16:45 03/14/18 11:55 03/14/18 16:45 Exam: Gen.: Vitals noted. No acute distress. AAOx3, resting comfortably in bed HEENT: PERRL/EOMI, oropharynx clear, Normocephalic, atraumatic, MMM Cardiac: RRR, no murmur, +S1/S2, no peripheral edema Pulmonary: Moderate crackles in the mid to upper lobes. equal chest expansion, no respiratory distress on 2 L of oxygen Abdomen: soft, very mild tenderness to right upper quadrant. BS noted, no guarding, no rebound. MSK: no joint swelling noted Extremities: no BLE edema, nontender calf, no cyanosis or clubbing Neuro: A&Ox3, moves all extremities, no focal deficits Psych: Appropriate mood and behavior Infectious Disease CN: Results - Labs CBC & Chem 7: 03/15/18 03:51 03/15/18 03:51 Cultures: Cultures 03/13/18 20:26 Blood Culture - Preliminary Peripheral Venipuncture Culture is incubating and being continuously monitored for growth. Final report to follow. 03/14/18 01:20 Legionella Antigen - Final Urine,[place] Streptococcus pneumoniae Antigen (M - Final 03/13/18 20:32 Blood Culture - Preliminary Peripheral Venipuncture Culture is incubating and being continuously monitored for growth. Final report to follow. Serology: Serology 03/14/18 03/14/18 03/13/18 Range/Units 01:20 01:20 21:01 Urine Color Dark Yellow (Yellow) Urine Clarity Turbid A (Clear) Urine pH 5.0 (5.0-8.0) pH Units Ur Specific [place] 1.029 H (1.010-1.025) Urine Protein 30 H (Neg-Trace) mg/dL Urine Glucose (UA) Normal (Normal) mg/dL Urine Ketones Negative (Negative) mg/dL Urine Blood Trace H (Negative) Urine Nitrite Negative (Negative) Urine Bilirubin Small H (Negative) Urine Urobilinogen Normal (Normal) mg/dL Ur Leukocyte Esterase Small H (Negative) Urine Microscopic RBC 0-3 (0-3) per hpf Urine Microscopic WBC 15-30 H (0-3) per hpf Ur Squamous Epith Cells Many H (None-Few) per lpf Urine Bacteria None Seen (None-Few) per hpf Hyaline Casts Few (None-Few) per lpf Ur Culture Indicated? NO. A (NO) Urine Creatinine 128 mg/dL Urine Urea Nitrogen 533 mg/dL Chlamy pneumoniae PCR Not Detected (Not Detect) Adenovirus (PCR) Not Detected (Not Detect) B. pertussis DNA (PCR) Not Detected (Not Detect) B.parapertussis DNA PCR Not Detected (Not Detect) Coronavirus OC43 (PCR) Not Detected (Not Detect) Coronavirus HKU1 (PCR) Not Detected (Not Detect) Coronavirus 229E (PCR) Not Detected (Not Detect) Coronavirus NL63 (PCR) Not Detected (Not Detect) Human Metapneumovir PCR Not Detected (Not Detect) Influenza A (H1) PCR Not Detected (Not Detect) Influ A (H1N1/09) PCR Not Detected (Not Detect) Influenza A (H3) PCR Not Detected (Not Detect) Influenza A Untype (PCR) Not Detected (Not Detect) Influenza Type B (PCR) Not Detected (Not Detect) M.pneumoniae DNA (PCR) Not Detected (Not Detect) Parainfluenza 1 (PCR) Not Detected (Not Detect) Parainfluenza 2 (PCR) Not Detected (Not Detect) Parainfluenza 3 (PCR) Not Detected (Not Detect) Parainfluenza 4 (PCR) Not Detected (Not Detect) RSV (PCR) Not Detected (Not Detect) Entero/Rhino (PCR) Not Detected (Not Detect) Consult Discharge Plan - Plan Referrals: Yolanda Watts MD [Non-Partnered Physician] - 03/21/18 1:30 pm - Attending Attestation I examined this patient and my medical decision-making was reviewed with the Resident Physician. I agree with the documented findings, disposition and treatment plan as described except to the extent set forth below. Patient is an 79-year-old woman who is well-known to our service was recently discharged for pneumonia and lung lesions likely primary cancer or metastatic cancer with metastases to the liver and to the skeletal bones. At that time patient was discharged on doxycycline and Augmentin to continue through 03/17/2018. Apparently while on antibiotics was having fevers chills and feeling worse at home with a MAXIMUM TEMPERATURE of 103 Fahrenheit per family. Patient was brought in back to the hospital for evaluation. Patient laying in bed and appears comfortable denies worsening collagenase worsening sputum production denies hemoptysis. Patient denies any sinus pressu re or sore throat denies any toothache. She does have some diarrhea that is watery bowel movements 2-3 times a day denies any urinary symptoms. Denies any other complaints. Assessment and plan: Sepsis secondary to unknown etiology could be secondary to colitis specially with diarrhea while on antibiotics Could be worsening of the pneumonia or maybe even postobstructive pneumonia Could be due to the malignancy itself At this point agree with getting blood cultures, repeat CT chest to compare to previous CT prior to discharge, and check C. difficile PCR if she has more than 3 bowel movements that are watery in 24 hour period. Agree with Zosyn and Zyvox for now. Patient with acute kidney injury and family does want give her vancomycin and that is understandable. Also cultures finalize her we have more information film better make a better recommendations and tailor antibiotics accordingly. Prognosis guarded at best.
[2018-03-14] MEDS: Melatonin 3 MG TABLET PO SCH (22:42)
[2018-03-14] MEDS: Mirtazapine 15 MG TABLET PO SCH (22:42)
[2018-03-15] MEDS: Ipratropium/Albuterol Neb 3 ML IH SCH ×6 (04:07→23:30)
[2018-03-15 04:16] LABS: Basophils % 0.2 %; Eosinophils % 0.2 %; Hematocrit 23.9 % (35.3-44.9); Hemoglobin 7.2 g/dL (11.5-15.4); Immature Granulocytes % 2.6 % (0-4); Lymphocytes # 1.3 K/mcL (0.6-4.6); Lymphocytes % 7.8 %; Mean Corpuscular HGB Conc 30.1 g/dL (31.6-35.5); Mean Corpuscular Hemoglobin 26.3 pg (28.0-33.3); Mean Corpuscular Volume 87.2 fL (83.0-100.0); Mean Platelet Volume 11.6 fL (9.4-12.4); Monocytes # 0.7 K/mcL (0.0-1.3); Monocytes % 4.4 %; Neutrophils # 14.1 K/mcL (1.6-8.9); Nucleated Red Blood Cells 0.2 /100 WBC (0); Platelet Count 208 K/mcL (140-400); Red Blood Count 2.74 M/mcL (3.82-4.97); Red Cell Distribution Width 17.2 % (11.5-14.5); Segmented Neutrophils % 84.8 %
[2018-03-15 04:28] LABS: Calcium 7.6 mg/dL (8.6-10.3); Potassium 3.8 mEq/L (3.5-5.1)
[2018-03-15 04:29] LABS: Uric Acid 10.7 mg/dL (2.3-7.6)
[2018-03-15 04:30] LABS: % Iron Saturation 9 % (15-50); Iron 10 mcg/dL (50-170); Transferrin 83 mg/dL (203-362)
[2018-03-15 05:02] LABS: Ferritin > 1500 ng/mL (10-120)
[2018-03-15] MEDS: *HR* Heparin 5,000 UNIT/ML VIAL SQ SCH ×3 (06:01→20:11)
[2018-03-15] MEDS: Lactobacillus 1 EACH CAP.SPRINK PO SCH (08:40)
[2018-03-15] MEDS: Piperacillin/Tazobactam 3.375 GM in 0.9 % Sodium Chloride Mini Bag 100 ML IVPB SCH ×2 (08:41→22:33)
--- NOTE | 2018-03-15 10:58 | Infectious Disease Progress No ---
Date of Encounter: 03/15/18 Time of Encounter: 10:51 - Assessment and Plan (1) Sepsis Current Visit: No Status: Acute - Meets 2/4 sirs criteria on presentation with leukocytosis of 20.3 and tachycardia - Of note, on discharge at last hospital admission leukocytosis had been down trended to 14. Neutrophil predominance - Lactic acid was 2.2, patient did meet criteria for severe sepsis - Likely source: Pulmonary - Causative organism: Unclear - Clinically, review of systems is only positive for nonproductive cough as well as weakness/lethargy and loose bowel movements. - Continues to meet sirs criteria with tachycardia, tachypnea, leukocytosis which has down trended to 16.7 (yesterday was 17.5) - Discharged home with doxycycline and Augmentin for concerns for aspiration, scheduled to continue course through 03/17/18 - Urinalysis is not impressive for infection and likely contaminated - Respiratory infectious panel negative - Legionella, strep antigen negative - Blood cultures on 03/13 no growth - Chest x-ray on admission showed bilateral upper lobe infiltrates -CT chest done on 03/14 showed some areas of parenchymal opacity has increased while others remain stable. -C. difficile toxin came back negative today Started on Zyvox, Zosyn on admission. Plan - We will continue Zyvox, Zosyn, day #3 -recommend consult to pulmonology -Etiology of leukocytosis and tachycardia may be related to known malignancy -discontinue contact precautions Qualifiers: Sepsis type: sepsis due to unspecified organism Qualified Code(s): A41.9 - Sepsis, unspecified organism (2) Metastatic disease Current Visit: No Status: Chronic As demonstrated on CT scans on last admission Follows with heme/onc as outpatient Unclear primary Management as outpatient. Poor prognosis (3) Elevated troponin Current Visit: No Status: Acute - Troponin of 0.12, 0.10 in emergency department - This is likely due to demand ischemia in the setting of acute renal failure as below - Management per primary team (4) HAP (hospital-acquired pneumonia) Current Visit: No Status: Acute CT chest on 03/14 showed some areas of parenchymal opacity has increased while others remain stable. Plan: as above for sepsis (5) Acute renal failure Current Visit: No Status: Acute - BUNs/creatinine of 37/1.93 today down from 38/2.06 yesterday - Stable from previous admission - Patient notably had normal kidney function at the start of last admission - Management per primary team and nephrology - Renally dose medications, avoid nephrotoxins Qualifiers: Acute renal failure type: unspecified Qualified Code(s): N17.9 - Acute kidney failure, unspecified - Subjective Interval history: Patient is seen. Appears tired but able to answer questions. She states that she was unable to sleep last night due to being "anxious". She reports no fever, night sweats, chills or myalgia's. She continues to report of a cough without any sputum or hemoptysis today. Denies shortness of breath and chest pain. Denies nausea, vomiting, abdominal pain. Still reporting diarrhea. Still has little appetite. Does not complain of the right shoulder pain today. Infect Dis PN-Objective Data - Labs CBC & Chem 7: 03/15/18 03:51 03/15/18 03:51 Labs: Laboratory Results - last 24 hr 03/14/18 03/14/18 03/15/18 22:54 22:54 03:51 WBC RBC Hgb Hct MCV MCH MCHC RDW Plt Count MPV Immature Gran % Seg Neutrophils % Lymphocytes % Monocytes % Eosinophils % Basophils % Neutrophils # Lymphocytes # Monocytes # Eosinophils # Basophils # Nucleated RBCs/100 WBC Sodium Potassium Chloride Carbon Dioxide BUN Creatinine Est GFR ( Amer) Est GFR (Non-Af Amer) BUN/Creatinine Ratio Glucose Calculated Osmolality Uric Acid 10.7 H Calcium Iron % Saturation Transferrin Ferritin Creatine Kinase 40 Folate Ur Eosinophil Smear 0 Urine Sodium < 10.0 Stool Occult Blood Stl C. diff Tox B Gene 03/15/18 03/15/18 03/15/18 03:51 03:51 03:51 WBC 16.7 H RBC 2.74 L Hgb 7.2 L Hct 23.9 L MCV 87.2 MCH 26.3 L MCHC 30.1 L RDW 17.2 H Plt Count 208 MPV 11.6 Immature Gran % 2.6 Seg Neutrophils % 84.8 Lymphocytes % 7.8 Monocytes % 4.4 Eosinophils % 0.2 Basophils % 0.2 Neutrophils # 14.1 H Lymphocytes # 1.3 Monocytes # 0.7 Eosinophils # 0.0 Basophils # 0.0 Nucleated RBCs/100 WBC 0.2 H Sodium Potassium Chloride Carbon Dioxide BUN Creatinine Est GFR ( Amer) Est GFR (Non-Af Amer) BUN/Creatinine Ratio Glucose Calculated Osmolality Uric Acid Calcium Iron 10 L % Saturation 9 L Transferrin 83 L Ferritin > 1500 H Creatine Kinase Folate 12.0 Ur Eosinophil Smear Urine Sodium Stool Occult Blood Stl C. diff Tox B Gene 03/15/18 03/15/18 03/15/18 03:51 06:30 06:30 WBC RBC Hgb Hct MCV MCH MCHC RDW Plt Count MPV Immature Gran % Seg Neutrophils % Lymphocytes % Monocytes % Eosinophils % Basophils % Neutrophils # Lymphocytes # Monocytes # Eosinophils # Basophils # Nucleated RBCs/100 WBC Sodium 139 Potassium 3.8 Chloride 107 Carbon Dioxide 23 BUN 37 H Creatinine 1.93 H Est GFR ( Amer) 30 L Est GFR (Non-Af Amer) 25 L BUN/Creatinine Ratio 19 Glucose 99 Calculated Osmolality 297 Uric Acid Calcium 7.6 L Iron % Saturation Transferrin Ferritin Creatine Kinase Folate Ur Eosinophil Smear Urine Sodium Stool Occult Blood Positive A Stl C. diff Tox B Gene Negative Cultures: Cultures 03/13/18 20:26 Blood Culture - Preliminary Peripheral Venipuncture Culture is incubating and being continuously monitor ed for growth. Final report to follow. 03/14/18 01:20 Legionella Antigen - Final Urine,[place] Streptococcus pneumoniae Antigen (M - Final 03/13/18 20:32 Blood Culture - Preliminary Peripheral Venipuncture Culture is incubating and being continuously monitored for growth. Final report to follow. Serology 03/15/18 03/15/18 03/14/18 Range/Units 06:30 06:30 22:54 Urine Color (Yellow) Urine Clarity (Clear) Urine pH (5.0-8.0) pH Units Ur Specific [place] (1.010-1.025) Urine Protein (Neg-Trace) mg/dL Urine Glucose (UA) (Normal) mg/dL Urine Ketones (Negative) mg/dL Urine Blood (Negative) Urine Nitrite (Negative) Urine Bilirubin (Negative) Urine Urobilinogen (Normal) mg/dL Ur Leukocyte Esterase (Negative) Urine Microscopic RBC (0-3) per hpf Urine Microscopic WBC (0-3) per hpf Ur Eosinophil Smear (None Seen) % Ur Squamous Epith Cells (None-Few) per lpf Urine Bacteria (None-Few) per hpf Hyaline Casts (None-Few) per lpf Ur Culture Indicated? (NO) Urine Creatinine mg/dL Urine Sodium < 10.0 mEq/L Urine Urea Nitrogen mg/dL Stool Occult Blood Positive A (Negative) Stl C. diff Tox B Gene Negative (Negative) Chlamy pneumoniae PCR (Not Detect) Adenovirus (PCR) (Not Detect) B. pertussis DNA (PCR) (Not Detect) B.parapertussis DNA PCR (Not Detect) Coronavirus OC43 (PCR) (Not Detect) Coronavirus HKU1 (PCR) (Not Detect) Coronavirus 229E (PCR) (Not Detect) Coronavirus NL63 (PCR) (Not Detect) Human Metapneumovir PCR (Not Detect) Influenza A (H1) PCR (Not Detect) Influ A (H1N1/09) PCR (Not Detect) Influenza A (H3) PCR (Not Detect) Influenza A Untype (PCR) (Not Detect) Influenza Type B (PCR) (Not Detect) M.pneumoniae DNA (PCR) (Not Detect) Parainfluenza 1 (PCR) (Not Detect) Parainfluenza 2 (PCR) (Not Detect) Parainfluenza 3 (PCR) (Not Detect) Parainfluenza 4 (PCR) (Not Detect) RSV (PCR) (Not Detect) Entero/Rhino (PCR) (Not Detect) 03/14/18 03/14/18 03/14/18 Range/Units 22:54 01:20 01:20 Urine Color (Yellow) Urine Clarity (Clear) Urine pH (5.0-8.0) pH Units Ur Specific [place] (1.010-1.025) Urine Protein (Neg-Trace) mg/dL Urine Glucose (UA) (Normal) mg/dL Urine Ketones (Negative) mg/dL Urine Blood (Negative) Urine Nitrite (Negative) Urine Bilirubin (Negative) Urine Urobilinogen (Normal) mg/dL Ur Leukocyte Esterase (Negative) Urine Microscopic RBC (0-3) per hpf Urine Microscopic WBC (0-3) per hpf Ur Eosinophil Smear 0 (None Seen) % Ur Squamous Epith Cells (None-Few) per lpf Urine Bacteria (None-Few) per hpf Hyaline Casts (None-Few) per lpf Ur Culture Indicated? (NO) Urine Creatinine 128 mg/dL Urine Sodium mEq/L Urine Urea Nitrogen 533 mg/dL Stool Occult Blood (Negative) Stl C. diff Tox B Gene (Negative) Chlamy pneumoniae PCR Not Detected (Not Detect) Adenovirus (PCR) Not Detected (Not Detect) B. pertussis DNA (PCR) Not Detected (Not Detect) B.parapertussis DNA PCR Not Detected (Not Detect) Coronavirus OC43 (PCR) Not Detected (Not Detect) Coronavirus HKU1 (PCR) Not Detected (Not Detect) Coronavirus 229E (PCR) Not Detected (Not Detect) Coronavirus NL63 (PCR) Not Detected (Not Detect) Human Metapneumovir PCR Not Detected (Not Detect) Influenza A (H1) PCR Not Detected (Not Detect) Influ A (H1N1/09) PCR Not Detected (Not Detect) Influenza A (H3) PCR Not Detected (Not Detect) Influenza A Untype (PCR) Not Detected (Not Detect) Influenza Type B (PCR) Not Detected (Not Detect) M.pneumoniae DNA (PCR) Not Detected (Not Detect) Parainfluenza 1 (PCR) Not Detected (Not Detect) Parainfluenza 2 (PCR) Not Detected (Not Detect) Parainfluenza 3 (PCR) Not Detected (Not Detect) Parainfluenza 4 (PCR) Not Detected (Not Detect) RSV (PCR) Not Detected (Not Detect) Entero/Rhino (PCR) Not Detected (Not Detect) 03/13/18 Range/Units 21:01 Urine Color Dark Yellow (Yellow) Urine Clarity Turbid A (Clear) Urine pH 5.0 (5.0-8.0) pH Units Ur Specific [place] 1.029 H (1.010-1.025) Urine Protein 30 H (Neg-Trace) mg/dL Urine Glucose (UA) Normal (Normal) mg/dL Urine Ketones Negative (Negative) mg/dL Urine Blood Trace H (Negative) Urine Nitrite Negative (Negative) Urine Bilirubin Small H (Negative) Urine Urobilinogen Normal (Normal) mg/dL Ur Leukocyte Esterase Small H (Negative) Urine Microscopic RBC 0-3 (0-3) per hpf Urine Microscopic WBC 15-30 H (0-3) per hpf Ur Eosinophil Smear (None Seen) % Ur Squamous Epith Cells Many H (None-Few) per lpf Urine Bacteria None Seen (None-Few) per hpf Hyaline Casts Few (None-Few) per lpf Ur Culture Indicated? NO. A (NO) Urine Creatinine mg/dL Urine Sodium mEq/L Urine Urea Nitrogen mg/dL Stool Occult Blood (Negative) Stl C. diff Tox B Gene (Negative) Chlamy pneumoniae PCR (Not Detect) Adenovirus (PCR) (Not Detect) B. pertussis DNA (PCR) (Not Detect) B.parapertussis DNA PCR (Not Detect) Coronavirus OC43 (PCR) (Not Detect) Coronavirus HKU1 (PCR) (Not Detect) Coronavirus 229E (PCR) (Not Detect) Coronavirus NL63 (PCR) (Not Detect) Human Metapneumovir PCR (Not Detect) Influenza A (H1) PCR (Not Detect) Influ A (H1N1/09) PCR (Not Detect) Influenza A (H3) PCR (Not Detect) Influenza A Untype (PCR) (Not Detect) Influenza Type B (PCR) (Not Detect) M.pneumoniae DNA (PCR) (Not Detect) Parainfluenza 1 (PCR) (Not Detect) Parainfluenza 2 (PCR) (Not Detect) Parainfluenza 3 (PCR) (Not Detect) Parainfluenza 4 (PCR) (Not Detect) RSV (PCR) (Not Detect) Entero/Rhino (PCR) (Not Detect) - Impressions Impressions Chest CT 03/14/18 17:30 IMPRESSION: Multifocal airspace disease bilaterally. Findings are indeterminate may represent pulmonary edema or pneumonia. Some of the areas of parenchymal opacity are increased in others are slightly improved. Multiple pulmonary nodules. These are indeterminate and could be secondary to an inflammatory/infectious process. Neoplastic nodules would be difficult to exclude. Mediastinal lymph nodes as described. The largest is stable to minimally decreased Pleural effusions bilaterally Hiatal hernia. Multiple liver lesions.. Liver lesions were described on a prior CT from March 03. D/ / Lio Beatty / Lio Beatty Interpreting Provider: Lio Beatty Exam - Constitutional Vitals: Temp Pulse Resp BP Pulse Ox 97.7 F 90 22 108/54 93 03/15/18 07:53 03/15/18 07:53 03/15/18 07:53 03/15/18 07:53 03/15/18 07:53 General appearance: mild distress - Respiratory Respiratory exam: Present: wheezes - Cardiovascular Cardiovascular exam: Present: RRR, +S1, +S2 - GI/Abdominal GI/Abdominal exam: Present: normal bowel sounds, soft. Absent: tenderness - Extremities Exam Extremities exam: Absent: calf tenderness Additional comments: bilateral pitting edema remains +2 - Psychiatric Psychiatric exam: Present: normal affect, normal mood - Skin Skin exam: Present: normal color Consult Discharge Plan - Plan Referrals: Yolanda Watts MD [Non-Partnered Physician] - 03/21/18 1:30 pm - Attending Attestation I examined this patient and my medical decision-making was reviewed with the Resident Physician. I agree with the documented findings, disposition and treatment plan as described except to the extent set forth below. Patient seen and examined. Patient also. Family at bedside. HEENT PERRLA, sclera non-icteric Lungs: Chest expanding symmetrically. Diffuse rhonchi but no wheezing. Cardiovascular: Regular rhythm with no murmur Abdomen: Soft nontender no guarding Extremities: Adequate perfusion no pitting edema Assessment and plan: Sepsis etiology likely secondary to pneumonia CT: MPRESSION: Multifocal airspace disease bilaterally. Findings are indeterminate may represent pulmonary edema or pneumonia. Some of the areas of parenchymal opacity are increased in others are slightly improved. Multiple pulmonary nodules. These are indeterminate and could be secondary to an inflammatory/infectious process. Neoplastic nodules would be difficult to exclude. no causitive organims identified Diarrhea likely secondary to Abx treatment - C diff was negative continue zyvox/zosyn for now prognosis guarded
--- NOTE | 2018-03-15 11:39 | Nephrology Progress Note ---
Date of Encounter: 03/15/18 Time of Encounter: 11:38 - Assessment and Plan (1) GARLAND (acute kidney injury) Current Visit: No Status: Acute GFR last month was greater than 60. GFR is now 25. Avoid nephrotoxins and renal dose. Strict I/O Uric Acid is 10.7. (2) Anemia Current Visit: No Status: Acute Goal HGb is 10-11. Hgb is 7.2, has trended down from 8.4. Stool Occult Blood is positive, suggest a GI consult. 1 Unit PRBC's ordered. Ferrous Sulfate ordered. Qualifiers: Anemia type: unspecified type Qualified Code(s): D64.9 - Anemia, unspecified (3) Dehydration Current Visit: Yes Status: Acute IVF stopped for now, will consider giving more after 1 unit PRBC's. (4) Elevated troponin Current Visit: Yes Status: Acute 0.12 and 0.10. Per primary. (5) Lower extremity edema Current Visit: Yes Status: Acute see above. (6) Pneumonia Current Visit: Yes Status: Acute Per primary. Qualifiers: Pneumonia type: due to unspecified organism Laterality: bilateral Lung location: upper lobe of lung Qualified Code(s): J18.1 - Lobar pneumonia, unspecified organism Subjective Principal diagnosis: weakness,fever Interval history: Pt seen and examined, doing okay. She appears very tired and has a washcloth over her eyes. She will answer questions when asked. Her daughter is at bedside. Objective - Vital Signs Vital signs: Vital Signs Temp Pulse Resp BP Pulse Ox 03/15/18 11:20 99.4 F 81 20 101/46 94 03/15/18 07:53 97.7 F 90 22 108/54 93 03/15/18 04:08 16 92 03/15/18 03:30 98.8 F 96 18 110/54 93 03/14/18 23:54 16 91 03/14/18 23:46 98.6 F 99 17 103/53 98 03/14/18 20:20 17 95 03/14/18 19:21 99.3 F 98 16 99/53 94 03/14/18 16:48 99.9 F H 97 18 103/52 91 03/14/18 16:45 16 94 03/14/18 11:55 98.8 F 95 20 99/50 92 Intake and Output 03/14/18 03/15/18 03/15/18 23:59 07:59 15:59 Intake Total 1300 / 1300 100 / 100 120 / 120 Output Total 200 / 200 300 / 300 Balance 1100 / 1100 100 / 100 -180 / -180 Intake: IV Fluids 1300 / 1300 100 / 100 0.9 % Sodium Chloride 1,000 ML 1000 / 1000 @ 75 mls/hr IVC .[id number] [facility] Rx #:[id number] Zyvox Premix 600mg/300mL 600 mg 300 / 300 In 300 ml @ 150 mls/hr IVPB Q12HR [facility] Rx#:[id number] Zosyn 3.375 GM In 0.9 % Sodium 100 / 100 Chloride (Mini-Bag +) 100 ML @ 25 mls/hr IVPB Q12H [facility] Rx#: [id number] Oral 120 / 120 Output: Catheter 200 / 200 300 / 300 Urethral (Becerra) 150 / 150 Other: Meal Breakfast Percent of Meal Consumed 5% Stool Size Moderate Large Stool Consistency soft Stool Color Brown Brown Green Bright Red Blood # Bowel Movements 1 Weight 88.6 kg Blood Glucose* 99 Patient Weight 03/15/18 23:59 Weight 88.6 kg - General Appearance General appearance: Present: well-developed, well-nourished, frail EENT: Present: ATNC, hearing intact, vision intact Neck: Present: supple Respiratory: Present: clear Cardiology: Present: edema (+1 pitting edema noted to bilat lower extremities.), normal S1, normal S2 Gastrointestinal: Present: normoactive bowel sounds, no tenderness, no guarding Integumentary: Present: no rash, warm and dry Neurologic: Present: alert and oriented x3 Musculoskeletal: Present: no deformities Psychiatric: Present: mood/affect appropriate, cooperative - Lab 03/15/18 03:51 03/15/18 03:51 Most recent lab results Calcium 7.6 mg/dL (8.6-10.3) L 03/15/18 03:51 Phosphorus 4.8 mg/dL (2.7-4.5) H 03/14/18 03:25 Magnesium 2.1 mg/dL (1.6-2.6) 03/14/18 03:25 Urine Creatinine 128 mg/dL 03/14/18 01:20 Urine Sodium < 10.0 mEq/L 03/14/18 22:54 Consult Discharge Plan - Plan Referrals: Yolanda Watts MD [Non-Partnered Physician] - 03/21/18 1:30 pm
--- NOTE | 2018-03-15 14:29 | Internal Med Progress Note ---
Hospitalist Progress Note - Encounter Date of Encounter: 03/15/18 Time of Encounter: 09:00 - Subjective Interval History: Pt is still weak, difficult to get up, Denies SOB or cough. Tmax 99.9 in last 24 hours. - Exam Vitals: Temp Pulse Resp BP Pulse Ox 99.4 F 81 20 101/46 94 03/15/18 11:20 03/15/18 11:20 03/15/18 11:20 03/15/18 11:20 03/15/18 12:00 Exam: Pt is lethargic, in mild respiratory distress. HEENT: NC/AT, PERRL Neck: Supple, no JVD Lungs: B/L scattered rhonchi Heart: S1S2, RRR Abd: Soft, mild tenderness on RUL, BS normal. Ext: Mild b/l pedal edema. Neuro: AAO x3, no focal deficit. - Assessment and Plan (1) HCAP (healthcare-associated pneumonia) Current Visit: Yes Status: Acute Assessment and Plan: Pt has recently discharged with Dx of pneumonia on po abx. Has fever, leukocytosis. CXR suggest PNA. - Cont abx linezolid and zosyn at this point, ID consult appreciated - Cont suppotive treatment (2) Elevated troponin Current Visit: Yes Status: Acute Assessment and Plan: Mild elevated troponin, start to trend down, pt denies chest pain, pt has sepsis. - Most likely demand ischemia due to sepsis, second troponin trend down, will not perform any further cardio workup. (3) Lower extremity edema Current Visit: Yes Status: Acute Assessment and Plan: Mutiple factorial with low albumin and possible diastolic CHF (LVEF 60-65%). Lasix is on hold b/o GARLAND. (4) Acute renal failure Current Visit: No Status: Acute Assessment and Plan: Consult nephro, avoid nephrotoxic medications. Closely monitor renal function. (5) Leukocytosis Current Visit: No Status: Acute Assessment and Plan: Possibly due to pneumonia or malignancy. Cont abx treatment at this point. F/U CBC. WBC slightly trend down. 20.3-17.5-16.7 (6) Metastatic disease Current Visit: No Status: Chronic Assessment and Plan: Liver biopsy shows adenocarcinoma, primary site of malignancy is unclear. Pt is planned for PET as outpatient and f/u with oncology. - Will consult oncology for further management. (7) COPD (chronic obstructive pulmonary disease) Current Visit: No Status: Chronic Assessment and Plan: No signs of exacerbation, cont duoneb PRN. (8) DVT prophylaxis Current Visit: No Status: Resolved Assessment and Plan: heparin SC (9) Sepsis Current Visit: No Status: Acute Assessment and Plan: Pt meets sepsis criteria b/o leukocytosis, fever, tachycardia, and tachypnea. - IVF started in ER, lactate 2.2. - Cont abx treatment. - Repeated CT chest suggest pneumonia. - ID consult appreciated. F/U blood culture (no growth so far) (10) Abnormal liver function test Current Visit: Yes Status: Acute Assessment and Plan: CT abd shows liver metastesis. Pt has mild elevated AST and PT, and decreased albumin. Cont closely monitor pt. (11) Anemia Current Visit: Yes Status: Acute Assessment and Plan: Anemia workup shows pt has low iron and high ferritin, consider anemia due to chronic disease. FOBT positive in ER noticed. However, pt's Hgb is generally stable. Per pt's daughter, Pt just had EGD and colonoscope done in [facility] about several wks ago. No further workup so far as pt is very weak and had metastatic disease. Will consider transfusion if Hgb < 7.0. - Time Spent with Patient Total time spent is greater than 50% in coordination of care (as documented) at patient's floor/unit and/or counseling patient: 30 min 25 - 35 minutes Plan of Care Discussed with: patient Internal Medicine: Result - Labs CBC & Chem 7: 03/15/18 03:51 03/15/18 03:51 Labs: Short CBC 03/15/18 Range/Units 03:51 WBC 16.7 H (4.3-11.1) K/mcL Hgb 7.2 L (11.5-15.4) g/dL Hct 23.9 L (35.3-44.9) % Plt Count 208 (140-400) K/mcL Neutrophils # 14.1 H (1.6-8.9) K/mcL BMP 03/15/18 03:51 Sodium 139 Potassium 3.8 Chloride 107 Carbon Dioxide 23 BUN 37 H Creatinine 1.93 H Glucose 99 Calcium 7.6 L - ABG Interpretation ABG results: PT/INR, D-dimer PT 16.5 Seconds (9.4-12.1) H 03/14/18 03:25 - Impressions Impressions Chest CT 03/14/18 17:30 IMPRESSION: Multifocal airspace disease bilaterally. Findings are indeterminate may represent pulmonary edema or pneumonia. Some of the areas of parenchymal opacity are increased in others are slightly improved. Multiple pulmonary nodules. These are indeterminate and could be secondary to an inflammatory/infectious process. Neoplastic nodules would be difficult to exclude. Mediastinal lymph nodes as described. The largest is stable to minimally decreased Pleural effusions bilaterally Hiatal hernia. Multiple liver lesions.. Liver lesions were described on a prior CT from March 03. D/ / Lio Beatty / Lio Beatty Interpreting Provider: Lio Beatty Consult Discharge Plan - Plan Referrals: Yolanda Watts MD [Non-Partnered Physician] - 03/21/18 1:30 pm (4) Acute renal failure Qualifiers: Acute renal failure type: unspecified Qualified Code(s): N17.9 - Acute kidney failure, unspecified (5) Leukocytosis Qualifiers: Leukocytosis type: other Qualified Code(s): D72.828 - Other elevated white blood cell count (7) COPD (chronic obstructive pulmonary disease) Qualifiers: COPD type: unspecified COPD Qualified Code(s): J44.9 - Chronic obstructive pulmonary disease, unspecified (9) Sepsis Qualifiers: Sepsis type: sepsis due to unspecified organism Qualified Code(s): A41.9 - Sepsis, unspecified organism (11) Anemia Qualifiers: Anemia type: other cause Other causes of anemia: chronic disease, other Qualified Code(s): D63.8 - Anemia in other chronic diseases classified elsewhere
[2018-03-15] MEDS ORDERED: 0.9 % Sodium Chloride 250 ML ONE (16:10)
--- NOTE | 2018-03-15 16:55 | Oncology Inp Consult Note ---
<Samantha Decker L - Last Filed: 03/16/18 10:58> Date of Encounter: 03/15/18 Time of Encounter: 16:00 Assessment and Plan (1) Metastatic disease Status: Chronic Assessment and plan: Adenocarcinoma unknown primary. CT-guided Liver biopsy on 02/27/2018 reveal adenocarcinoma with IMAN positive CK 7 positive CK [address] of the chest 03/14/18 which revealed Multifocal airspace disease bilaterally, known pulmonary nodules and liver lesions as well as mediastinal LN enlargement, right paratracheal lymph node 2.9 x 2 cm and bilateral pleural effusions. Differentials may include UNIT SUPERVISOR/Breast/ GI origin or cholangiocarcinoma I will call path in AM to add breast stains ER/PE/HER2 Of note, patient has further debilitated since her discharge. ECOG status currently 2-3. We discussed her decline in performance status with patient and family today which is of concern as treatment options may be limited should she continue to physically decline. We discussed an aggressive versus less aggressive treatment approach along with the overall palliative intent of her cancer treatment. Patient at this time wishes to continue to pursue an aggressive treatment approach and to discuss options for treatment which is still in a working process as we continue to determine origin of adenocarcinoma. Check tumor markers with CEA, CA 19-9 and AFP Consult nutritional services Consider PT/OT consult in near future (2) GARLAND (acute kidney injury) Status: Acute Assessment and plan: Acute since February Improving since admission with supportive measures Nephrology following, appreciate recommendations (3) Sepsis Status: Acute Assessment and plan: Meeting sepsis criteria on admission ID following and appreciate recommendations Started on Zyvox, Zosyn on admission Source is likely pulmonary but causative agent unknown Qualifiers: Sepsis type: sepsis due to unspecified organism Qualified Code(s): A41.9 - Sepsis, unspecified organism (4) Anemia Status: Acute Assessment and plan: Hgb 8.2---> decreased to 7.2 MCV normal Iron 10 with 9% saturation, ferritin >1500 Patient reports BRBPR with bowel movements over weekend FOBT positive on admission She had colonoscopy/EGD in early February at [facility] which was reportedly negative, will obtain these records Check CEA Qualifiers: Anemia type: unspecified type Qualified Code(s): D64.9 - Anemia, unspecified - Data of Consult Patient: known to practice within the last 3 years Consult date: 03/15/18 Requesting Physician: Eric Kinney MD Primary Care Provider: PCP NONE - Consult Narrative Reason for consult: Adenocarcinoma, unknown origin History of present illness: Ms. Cohen is a 78 year old female known to our service following previous hospitalization for increased weakness, fatigue, SOB and poor appetite. Prior to her admission in February she was recently discharged from [facility] where she initially had a CT of the chest/abdomen/pelvis which had revealed suspected colon mass, pulmonary metastases, osseous metastasis and multiple liver lesion suspected to be metastases. She underwent an EGD and Colonoscopy at [facility] which was reportedly negative for any suspicious findings according to patient as well as [facility] records (the colonoscopy report however is not scanned in, will request this specific report). She underwent a CT guided liver biopsy during her admission with [facility] on 03/01/2018. Pathology has revealed adenocarcinoma of uknown origin, potentially of UNIT SUPERVISOR/Breast/Pancreatic or cholangiocarcinoma. Patient was discharged and planned to follow up with the cancer center following a PET scan this week however, deconditioned over the weekend which eventually led to her presentation. Her daughter and nephew are at bedside and have been actively involved within her care at home. According to patients family, she became progressively lethargic and weak. She began to have worsening LE edema with noted crackles to her lung bases. Fevers have been a recurrent issue with reported TMAX of 102.6 Tuesday evening per family. Home health consulted with patient and family and recommended her presentation to the ER following lab work which indicated worsening leukocytosis and renal function. Upon presentation to the ED she had a CT of the chest which revealed Multifocal airspace disease bilaterally, known pulmonary nodules and liver lesions as well as mediastinal LN and bilateral pleural effusions. She was admitted with ID and Nephrology consultations. Upon assessment today, Ms. Cohen is quite drowsy but will awaken to voice. History was obtained from family at bedside. Symptoms are about the same as they were on admission. She reports fatigue, weakness, decreased appetite and discomfort to her abdomen. Family state that over the weekend they noticed BRBPR in toilet with BM's and on toilet paper after wiping. She has a history of hemorrhoids and states she feels discomfort with wiping. She sleeps well since starting remeron but continues to feel anxious in regards to her recent diagnosis. Past Med Surg Social Fam HX - Past Medical History Medical history: cancer Additional medical history: skin cancer, gastro ulcers Psychiatric history: anxiety, depression - Past Surgical History Surgical History: hysterectomy Additional surgical history: bladder sx, tendon repair, cscope - Social History Smoking Status: Former smoker Smokeless Tobacco Status: No Alcohol use: none Drug use: none Medications and Allergies RX: Gabapentin [Neurontin] 600 mg PO BID 02/27/18 [History] RX: Pantoprazole Sodium [Protonix] 40 mg PO DAILY 02/27/18 [History] RX: Sertraline [Zoloft] 50 mg PO DAILY 02/27/18 [History] RX: Albuterol Neb [Proventil Neb] 2.5 mg IH Q4H PRN #12 03/09/18 [Rx] RX: Amoxicillin/Clavulanate [Augmentin] 500 mg PO BIDWM #16 tablet 03/09/18 [Rx] RX: Doxycycline 100 mg PO BID #16 capsule 03/09/18 [Rx] RX: Furosemide [Lasix] 20 mg PO DAILY #30 tablet 03/09/18 [Rx] RX: Lactobacillus [Culturelle] 2 each PO DAILY #60 cap.sprink 03/09/18 [Rx] RX: Mirtazapine [Remeron] 7.5 mg PO HS #15 tablet 03/09/18 [Rx] RX: Potassium Chloride 20 meq PO DAILY 03/14/18 [History] predniSONE [PredniSONE] 40 mg PO DAILY 03/14/18 [History] Allergy/AdvReac Type Severity Reaction Status Date / Time No Known Allergies Allergy Verified 03/13/18 19:12 Constitutional: Present: anorexia, chills, fatigue, fever(s), night sweats, weakness, weight loss. Absent: frequent falls Eyes: Absent: change in vision Nose, mouth and throat: Absent: dysphagia, odynophagia Cardiovascular: Absent: chest pain, palpitations Respiratory: Present: cough, dyspnea Gastrointestinal: Present: as per HPI, abdominal pain, nausea, vomiting Additional comments: Watery stools over weekend and now having formed bowel movements. BRBPR with wiping Genitourinary: Absent: dysuria Musculoskeletal: Present: arthralgias, muscle weakness, myalgias Integumentary: Absent: rash, wounds Neurological: Absent: focal weakness, frequent falls Psychiatric: Present: anxiety, depression Hematologic/Lymphatic: Present: as per HPI Oncology - Exam - Constitutional Vitals: Temp Pulse Resp BP Pulse Ox 98.0 F 86 18 102/56 93 03/15/18 16:32 03/15/18 16:32 03/15/18 16:32 03/15/18 16:32 03/15/18 16:32 General appearance: cooperative, no acute distress, no febrile Exam: drowsy but responds to voice, appears uncomfortable at times but denies pain - Head Head exam: Present: atraumatic - ENT ENT exam: Present: mucous membranes dry - Respiratory Respiratory exam: Present: decreased breath sounds. Absent: respiratory distress - Cardiovascular Cardiovascular exam: Present: RRR, +S1, +S2 - GI/Abdominal GI/Abdominal exam: Present: normal bowel sounds Additional comments: mildly distended but not firm - Extremities Exam Extremities exam: Absent: calf tenderness Additional comments: BLE edema, pitting, 2+ - Neurological Exam Neurological exam: Present: alert, oriented X3, no focal deficits, strengths equal and symetr throughout - Psychiatric Psychiatric exam: Present: anxious - Skin Skin exam: Present: dry, intact, pallor, warm Consult Discharge Plan - Plan Referrals: Yolanda Watts MD [Non-Partnered Physician] - 03/21/18 1:30 pm <Day Tam S - Last Filed: 03/16/18 17:06> Date of Encounter: 03/15/18 - Data of Consult Requesting Physician: Eric Kinney MD Primary Care Provider: PCP NONE - Consult Narrative History of present illness: Ms. Cohen is a 78 year old female Oncology - Exam - Constitutional Vitals: Temp Pulse Resp BP Pulse Ox 98.2 F 84 18 106/57 94 03/15/18 16:35 03/15/18 16:35 03/15/18 16:35 03/15/18 16:35 03/15/18 16:35 Oncology - Results Labs: 03/15/18 03/15/18 03/15/18 11:33 06:30 06:30 WBC RBC Hgb Hct MCV MCH MCHC RDW Plt Count MPV Immature Gran % Seg Neutrophils % Lymphocytes % Monocytes % Eosinophils % Basophils % Neutrophils # Lymphocytes # Monocytes # Eosinophils # Basophils # Nucleated RBCs/100 WBC PT INR Sodium Potassium Chloride Carbon Dioxide BUN Creatinine Est GFR ( Amer) Est GFR (Non-Af Amer) BUN/Creatinine Ratio Glucose POC Glucose Calculated Osmolality Lactic Acid Uric Acid Calcium Phosphorus Magnesium Iron % Saturation Transferrin Ferritin Total Bilirubin Direct Bilirubin Indirect Bilirubin AST ALT Alkaline Phosphatase Creatine Kinase Troponin I B-Natriuretic Peptide Serum Total Protein Albumin Globulin Albumin/Globulin Ratio Folate Urine Color Urine Clarity Urine pH Ur Specific [place] Urine Protein Urine Glucose (UA) Urine Ketones Urine Blood Urine Nitrite Urine Bilirubin Urine Urobilinogen Ur Leukocyte Esterase Urine Microscopic RBC Urine Microscopic WBC Ur Eosinophil Smear Ur Squamous Epith Cells Urine Bacteria Hyaline Casts Ur Culture Indicated? Urine Creatinine Urine Sodium Urine Urea Nitrogen Stool Occult Blood Positive A Stl C. diff Tox B Gene Negative Chlamy pneumoniae PCR Adenovirus (PCR) B. pertussis DNA (PCR) B.parapertussis DNA PCR Coronavirus OC43 (PCR) Coronavirus HKU1 (PCR) Coronavirus 229E (PCR) Coronavirus NL63 (PCR) Human Metapneumovir PCR Influenza A (H1) PCR Influ A (H1N1/09) PCR Influenza A (H3) PCR Influenza A Untype (PCR) Influenza Type B (PCR) M.pneumoniae DNA (PCR) Parainfluenza 1 (PCR) Parainfluenza 2 (PCR) Parainfluenza 3 (PCR) Parainfluenza 4 (PCR) RSV (PCR) Entero/Rhino (PCR) Blood Type A POSITIVE Antibody Screen NEGATIVE Crossmatch See Detail 03/15/18 03/15/18 03/15/18 03:51 03:51 03:51 WBC 16.7 H RBC 2.74 L Hgb 7.2 L Hct 23.9 L MCV 87.2 MCH 26.3 L MCHC 30.1 L RDW 17.2 H Plt Count 208 MPV 11.6 Immature Gran % 2.6 Seg Neutrophils % 84.8 Lymphocytes % 7.8 Monocytes % 4.4 Eosinophils % 0.2 Basophils % 0.2 Neutrophils # 14.1 H Lymphocytes # 1.3 Monocytes # 0.7 Eosinophils # 0.0 Basophils # 0.0 Nucleated RBCs/100 WBC 0.2 H PT INR Sodium 139 Potassium 3.8 Chloride 107 Carbon Dioxide 23 BUN 37 H Creatinine 1.93 H Est GFR ( Amer) 30 L Est GFR (Non-Af Amer) 25 L BUN/Creatinine Ratio 19 Glucose 99 POC Glucose Calculated Osmolality 297 Lactic Acid Uric Acid Calcium 7.6 L Phosphorus Magnesium Iron 10 L % Saturation 9 L Transferrin 83 L Ferritin > 1500 H Total Bilirubin Direct Bilirubin Indirect Bilirubin AST ALT Alkaline Phosphatase Creatine Kinase Troponin I B-Natriuretic Peptide Serum Total Protein Albumin Globulin Albumin/Globulin Ratio Folate Urine Color Urine Clarity Urine pH Ur Specific [place] Urine Protein Urine Glucose (UA) Urine Ketones Urine Blood Urine Nitrite Urine Bilirubin Urine Urobilinogen Ur Leukocyte Esterase Urine Microscopic RBC Urine Microscopic WBC Ur Eosinophil Smear Ur Squamous Epith Cells Urine Bacteria Hyaline Casts Ur Culture Indicated? Urine Creatinine Urine Sodium Urine Urea Nitrogen Stool Occult Blood Stl C. diff Tox B Gene Chlamy pneumoniae PCR Adenovirus (PCR) B. pertussis DNA (PCR) B.parapertussis DNA PCR Coronavirus OC43 (PCR) Coronavirus HKU1 (PCR) Coronavirus 229E (PCR) Coronavirus NL63 (PCR) Human Metapneumovir PCR Influenza A (H1) PCR Influ A (H1N1/09) PCR Influenza A (H3) PCR Influenza A Untype (PCR) Influenza Type B (PCR) M.pneumoniae DNA (PCR) Parainfluenza 1 (PCR) Parainfluenza 2 (PCR) Parainfluenza 3 (PCR) Parainfluenza 4 (PCR) RSV (PCR) Entero/Rhino (PCR) Blood Type Antibody Screen Crossmatch 03/15/18 03/15/18 03/14/18 03:51 03:51 22:54 WBC RBC Hgb Hct MCV MCH MCHC RDW Plt Count MPV Immature Gran % Seg Neutrophils % Lymphocytes % Monocytes % Eosinophils % Basophils % Neutrophils # Lymphocytes # Monocytes # Eosinophils # Basophils # Nucleated RBCs/100 WBC PT INR Sodium Potassium Chloride Carbon Dioxide BUN Creatinine Est GFR ( Amer) Est GFR (Non-Af Amer) BUN/Creatinine Ratio Glucose POC Glucose Calculated Osmolality Lactic Acid Uric Acid 10.7 H Calcium Phosphorus Magnesium Iron % Saturation Transferrin Ferritin Total Bilirubin Direct Bilirubin Indirect Bilirubin AST ALT Alkaline Phosphatase Creatine Kinase 40 Troponin I B-Natriuretic Peptide Serum Total Protein Albumin Globulin Albumin/Globulin Ratio Folate 12.0 Urine Color Urine Clarity Urine pH Ur Specific [place] Urine Protein Urine Glucose (UA) Urine Ketones Urine Blood Urine Nitrite Urine Bilirubin Urine Urobilinogen Ur Leukocyte Esterase Urine Microscopic RBC Urine Microscopic WBC Ur Eosinophil Smear Ur Squamous Epith Cells Urine Bacteria Hyaline Casts Ur Culture Indicated? Urine Creatinine Urine Sodium < 10.0 Urine Urea Nitrogen Stool Occult Blood Stl C. diff Tox B Gene Chlamy pneumoniae PCR Adenovirus (PCR) B. pertussis DNA (PCR) B.parapertussis DNA PCR Coronavirus OC43 (PCR) Coronavirus HKU1 (PCR) Coronavirus 229E (PCR) Coronavirus NL63 (PCR) Human Metapneumovir PCR Influenza A (H1) PCR Influ A (H1N1) PCR Influenza A (H3) PCR Influenza A Untype (PCR) Influenza Type B (PCR) M.pneumoniae DNA (PCR) Parainfluenza 1 (PCR) Parainfluenza 2 (PCR) Parainfluenza 3 (PCR) Parainfluenza 4 (PCR) RSV (PCR) Entero/Rhino (PCR) Blood Type Antibody Screen Crossmatch 03/14/18 03/14/18 03/14/18 22:54 16:51 03:25 WBC RBC Hgb Hct MCV MCH MCHC RDW Plt Count MPV Immature Gran % Seg Neutrophils % Lymphocytes % Monocytes % Eosinophils % Basophils % Neutrophils # Lymphocytes # Monocytes # Eosinophils # Basophils # Nucleated RBCs/100 WBC PT INR Sodium Potassium Chloride Carbon Dioxide BUN Creatinine Est GFR ( Amer) Est GFR (Non-Af Amer) BUN/Creatinine Ratio Glucose POC Glucose 99 Calculated Osmolality Lactic Acid Uric Acid Calcium Phosphorus Magnesium Iron % Saturation Transferrin Ferritin Total Bilirubin Direct Bilirubin Indirect Bilirubin AST ALT Alkaline Phosphatase Creatine Kinase Troponin I 0.10 H* B-Natriuretic Peptide Serum Total Protein Albumin Globulin Albumin/Globulin Ratio Folate Urine Color Urine Clarity Urine pH Ur Specific [place] Urine Protein Urine Glucose (UA) Urine Ketones Urine Blood Urine Nitrite Urine Bilirubin Urine Urobilinogen Ur Leukocyte Esterase Urine Microscopic RBC Urine Microscopic WBC Ur Eosinophil Smear 0 Ur Squamous Epith Cells Urine Bacteria Hyaline Casts Ur Culture Indicated? Urine Creatinine Urine Sodium Urine Urea Nitrogen Stool Occult Blood Stl C. diff Tox B Gene Chlamy pneumoniae PCR Adenovirus (PCR) B. pertussis DNA (PCR) B.parapertussis DNA PCR Coronavirus OC43 (PCR) Coronavirus HKU1 (PCR) Coronavirus 229E (PCR) Coronavirus NL63 (PCR) Human Metapneumovir PCR Influenza A (H1) PCR Influ A (H1N1) PCR Influenza A (H3) PCR Influenza A Untype (PCR) Influenza Type B (PCR) M.pneumoniae DNA (PCR) Parainfluenza 1 (PCR) Parainfluenza 2 (PCR) Parainfluenza 3 (PCR) Parainfluenza 4 (PCR) RSV (PCR) Entero/Rhino (PCR) Blood Type Antibody Screen Crossmatch 03/14/18 03/14/18 03/14/18 03:25 03:25 03:25 WBC 17.5 H RBC 2.77 L Hgb 7.3 L Hct 24.2 L MCV 87.4 MCH 26.4 L MCHC 30.2 L RDW 17.1 H Plt Count 177 MPV 11.6 Immature Gran % 2.0 Seg Neutrophils % 82.4 Lymphocytes % 10.9 Monocytes % 4.5 Eosinophils % 0.1 Basophils % 0.1 Neutrophils # 14.4 H Lymphocytes # 1.9 Monocytes # 0.8 Eosinophils # 0.0 Basophils # 0.0 Nucleated RBCs/100 WBC 0.1 H PT 16.5 H INR 1.5 Sodium 140 Potassium 4.1 Chloride 107 Carbon Dioxide 24 BUN 38 H Creatinine 2.06 H Est GFR ( Amer) 28 L Est GFR (Non-Af Amer) 23 L BUN/Creatinine Ratio 18 Glucose 76 POC Glucose Calculated Osmolality 298 Lactic Acid Uric Acid Calcium 7.3 L Phosphorus 4.8 H Magnesium 2.1 Iron % Saturation Transferrin Ferritin Total Bilirubin 0.5 Direct Bilirubin Indirect Bilirubin AST 78 H ALT 18 Alkaline Phosphatase 177 H Creatine Kinase Troponin I B-Natriuretic Peptide Serum Total Protein 4.8 L Albumin 1.9 L Globulin 2.9 Albumin/Globulin Ratio 0.7 L Folate Urine Color Urine Clarity Urine pH Ur Specific [place] Urine Protein Urine Glucose (UA) Urine Ketones Urine Blood Urine Nitrite Urine Bilirubin Urine Urobilinogen Ur Leukocyte Esterase Urine Microscopic RBC Urine Microscopic WBC Ur Eosinophil Smear Ur Squamous Epith Cells Urine Bacteria Hyaline Casts Ur Culture Indicated? Urine Creatinine Urine Sodium Urine Urea Nitrogen Stool Occult Blood Stl C. diff Tox B Gene Chlamy pneumoniae PCR Adenovirus (PCR) B. pertussis DNA (PCR) B.parapertussis DNA PCR Coronavirus OC43 (PCR) Coronavirus HKU1 (PCR) Coronavirus 229E (PCR) Coronavirus NL63 (PCR) Human Metapneumovir PCR Influenza A (H1) PCR Influ A (H1N1/09) PCR Influenza A (H3) PCR Influenza A Untype (PCR) Influenza Type B (PCR) M.pneumoniae DNA (PCR) Parainfluenza 1 (PCR) Parainfluenza 2 (PCR) Parainfluenza 3 (PCR) Parainfluenza 4 (PCR) RSV (PCR) Entero/Rhino (PCR) Blood Type Antibody Screen Crossmatch 03/14/18 03/14/18 03/13/18 01:20 01:20 21:01 WBC RBC Hgb Hct MCV MCH MCHC RDW Plt Count MPV Immature Gran % Seg Neutrophils % Lymphocytes % Monocytes % Eosinophils % Basophils % Neutrophils # Lymphocytes # Monocytes # Eosinophils # Basophils # Nucleated RBCs/100 WBC PT INR Sodium Potassium Chloride Carbon Dioxide BUN Creatinine Est GFR ( Amer) Est GFR (Non-Af Amer) BUN/Creatinine Ratio Glucose POC Glucose Calculated Osmolality Lactic Acid Uric Acid Calcium Phosphorus Magnesium Iron % Saturation Transferrin Ferritin Total Bilirubin Direct Bilirubin Indirect Bilirubin AST ALT Alkaline Phosphatase Creatine Kinase Troponin I B-Natriuretic Peptide Serum Total Protein Albumin Globulin Albumin/Globulin Ratio Folate Urine Color Dark Yellow Urine Clarity Turbid A Urine pH 5.0 Ur Specific [place] 1.029 H Urine Protein 30 H Urine Glucose (UA) Normal Urine Ketones Negative Urine Blood Trace H Urine Nitrite Negative Urine Bilirubin Small H Urine Urobilinogen Normal Ur Leukocyte Esterase Small H Urine Microscopic RBC 0-3 Urine Microscopic WBC 15-30 H Ur Eosinophil Smear Ur Squamous Epith Cells Many H Urine Bacteria None Seen Hyaline Casts Few Ur Culture Indicated? NO. A Urine Creatinine 128 Urine Sodium Urine Urea Nitrogen 533 Stool Occult Blood Stl C. diff Tox B Gene Chlamy pneumoniae PCR Not Detected Adenovirus (PCR) Not Detected B. pertussis DNA (PCR) Not Detected B.parapertussis DNA PCR Not Detected Coronavirus OC43 (PCR) Not Detected Coronavirus HKU1 (PCR) Not Detected Coronavirus 229E (PCR) Not Detected Coronavirus NL63 (PCR) Not Detected Human Metapneumovir PCR Not Detected Influenza A (H1) PCR Not Detected Influ A (H1N1/09) PCR Not Detected Influenza A (H3) PCR Not Detected Influenza A Untype (PCR) Not Detected Influenza Type B (PCR) Not Detected M.pneumoniae DNA (PCR) Not Detected Parainfluenza 1 (PCR) Not Detected Parainfluenza 2 (PCR) Not Detected Parainfluenza 3 (PCR) Not Detected Parainfluenza 4 (PCR) Not Detected RSV (PCR) Not Detected Entero/Rhino (PCR) Not Detected Blood Type Antibody Screen Crossmatch 03/13/18 03/13/18 03/13/18 20:32 20:32 20:32 WBC RBC Hgb Hct MCV MCH MCHC RDW Plt Count MPV Immature Gran % Seg Neutrophils % Lymphocytes % Monocytes % Eosinophils % Basophils % Neutrophils # Lymphocytes # Monocytes # Eosinophils # Basophils # Nucleated RBCs/100 WBC PT INR Sodium 140 Potassium 3.8 Chloride 102 Carbon Dioxide 25 BUN 37 H Creatinine 2.15 H Est GFR ( Amer) 27 L Est GFR (Non-Af Amer) 22 L BUN/Creatinine Ratio 17 Glucose 88 POC Glucose Calculated Osmolality 298 Lactic Acid 2.2 Uric Acid Calcium 7.8 L Phosphorus 4.0 Magnesium 1.5 L Iron % Saturation Transferrin Ferritin Total Bilirubin 0.5 Direct Bilirubin 0.2 Indirect Bilirubin 0.3 AST 96 H ALT 22 Alkaline Phosphatase 202 H Creatine Kinase Troponin I 0.12 H* B-Natriuretic Peptide 158 H Serum Total Protein 5.5 L Albumin 2.2 L Globulin 3.3 Albumin/Globulin Ratio 0.7 L Folate Urine Color Urine Clarity Urine pH Ur Specific [place] Urine Protein Urine Glucose (UA) Urine Ketones Urine Blood Urine Nitrite Urine Bilirubin Urine Urobilinogen Ur Leukocyte Esterase Urine Microscopic RBC Urine Microscopic WBC Ur Eosinophil Smear Ur Squamous Epith Cells Urine Bacteria Hyaline Casts Ur Culture Indicated? Urine Creatinine Urine Sodium Urine Urea Nitrogen Stool Occult Blood Stl C. diff Tox B Gene Chlamy pneumoniae PCR Adenovirus (PCR) B. pertussis DNA (PCR) B.parapertussis DNA PCR Coronavirus OC43 (PCR) Coronavirus HKU1 (PCR) Coronavirus 229E (PCR) Coronavirus NL63 (PCR) Human Metapneumovir PCR Influenza A (H1) PCR Influ A (H1N1/09) PCR Influenza A (H3) PCR Influenza A Untype (PCR) Influenza Type B (PCR) M.pneumoniae DNA (PCR) Parainfluenza 1 (PCR) Parainfluenza 2 (PCR) Parainfluenza 3 (PCR) Parainfluenza 4 (PCR) RSV (PCR) Entero/Rhino (PCR) Blood Type Antibody Screen Crossmatch 03/13/18 20:32 WBC 20.3 H RBC 3.14 L Hgb 8.4 L Hct 27.2 L MCV 86.6 MCH 26.8 L MCHC 30.9 L RDW 16.8 H Plt Count 209 MPV 11.8 Immature Gran % 2.0 Seg Neutrophils % 85.2 Lymphocytes % 7.7 Monocytes % 5.0 Eosinophils % 0.0 Basophils % 0.1 Neutrophils # 17.3 H Lymphocytes # 1.6 Monocytes # 1.0 Eosinophils # 0.0 Basophils # 0.0 Nucleated RBCs/100 WBC 0.2 H PT INR Sodium Potassium Chloride Carbon Dioxide BUN Creatinine Est GFR ( Amer) Est GFR (Non-Af Amer) BUN/Creatinine Ratio Glucose POC Glucose Calculated Osmolality Lactic Acid Uric Acid Calcium Phosphorus Magnesium Iron % Saturation Transferrin Ferritin Total Bilirubin Direct Bilirubin Indirect Bilirubin AST ALT Alkaline Phosphatase Creatine Kinase Troponin I B-Natriuretic Peptide Serum Total Protein Albumin Globulin Albumin/Globulin Ratio Folate Urine Color Urine Clarity Urine pH Ur Specific [place] Urine Protein Urine Glucose (UA) Urine Ketones Urine Blood Urine Nitrite Urine Bilirubin Urine Urobilinogen Ur Leukocyte Esterase Urine Microscopic RBC Urine Microscopic WBC Ur Eosinophil Smear Ur Squamous Epith Cells Urine Bacteria Hyaline Casts Ur Culture Indicated? Urine Creatinine Urine Sodium Urine Urea Nitrogen Stool Occult Blood Stl C. diff Tox B Gene Chlamy pneumoniae PCR Adenovirus (PCR) B. pertussis DNA (PCR) B.parapertussis DNA PCR Coronavirus OC43 (PCR) Coronavirus HKU1 (PCR) Coronavirus 229E (PCR) Coronavirus NL63 (PCR) Human Metapneumovir PCR Influenza A (H1) PCR Influ A (H1N1/09) PCR Influenza A (H3) PCR Influenza A Untype (PCR) Influenza Type B (PCR) M.pneumoniae DNA (PCR) Parainfluenza 1 (PCR) Parainfluenza 2 (PCR) Parainfluenza 3 (PCR) Parainfluenza 4 (PCR) RSV (PCR) Entero/Rhino (PCR) Blood Type Antibody Screen Crossmatch - Attending Attestation Adenocarcinoma unknown primary. CT-guided Liver biopsy on 02/27/2018 showed IMAN positive CK 7 positive adenocarcinoma CK 20 negative. We will do further staining including ER/MT and HER-2. CT scan does not show any breast lesion. CT chest abdomen and pelvis on 03/14/2018 showed right paratracheal lymph node 2.9 x 2 cm and other smaller mediastinal adenopathy. No distinct lung mass. Multiple liver metastasis. Jerri hepatis lymph node 2 cm IMAN positive tumors include breast and urothelial cancer. Biliary tract/cholangiocarcinoma is in the differential. Breast exam unremarkable. Her CEA came back elevated. Colon cancers in the differential A long discussion with the patient and the family. They understand chemotherapy could be more harmful with her poor performance status. But if her performance status improves would consider chemotherapy. GI has been consulted as well for possible repeat colonoscopy. She had some GI bleeding as well She had recent EGD and colonoscopy at [facility] and both negative per family 2. Admitted with pneumonia. CT chest showed some lung infiltrates also small effusion in the right lung. Infectious disease following. Initial cultures of been negative including blood cultures. 3. Acute kidney injury. Her baseline creatinine is around 0.11 February 2018. Current creatinine 2 and improving with fluids Overall prognosis poor. Inpatient Charges Provider: Dr. Sharri Tam Consult - Inpatient: [id number]
[2018-03-15] MEDS: *HR* LORazepam 0.5 MG TABLET PO PRN (20:11)
[2018-03-15] MEDS: Melatonin 3 MG TABLET PO SCH (20:11)
[2018-03-15] MEDS: Mirtazapine 15 MG TABLET PO SCH (20:11)
[2018-03-15 22:10] LABS: Basophils % 0.3 %; Eosinophils % 0.1 %; Immature Granulocytes % 2.4 % (0-4); Lymphocytes # 1.2 K/mcL (0.6-4.6); Lymphocytes % 7.8 %; Mean Corpuscular HGB Conc 31.4 g/dL (31.6-35.5); Mean Corpuscular Hemoglobin 27.7 pg (28.0-33.3); Mean Corpuscular Volume 88.1 fL (83.0-100.0); Mean Platelet Volume 11.3 fL (9.4-12.4); Monocytes # 0.6 K/mcL (0.0-1.3); Monocytes % 3.7 %; Nucleated Red Blood Cells 0.2 /100 WBC (0); Platelet Count 231 K/mcL (140-400); Red Blood Count 3.18 M/mcL (3.82-4.97); Red Cell Distribution Width 17.1 % (11.5-14.5); Segmented Neutrophils % 85.7 %
[2018-03-15 22:23] LABS: Hemoglobin 8.8 g/dL (11.5-15.4)
[2018-03-16] MEDS: Ipratropium/Albuterol Neb 3 ML IH SCH ×6 (03:14→23:15)
[2018-03-16 04:12] LABS: Basophils # 0.1 K/mcL (0.0-0.2); Basophils % 0.5 %; Eosinophils % 0.3 %; Hematocrit 27.3 % (35.3-44.9); Hemoglobin 8.4 g/dL (11.5-15.4); Immature Granulocytes % 2.3 % (0-4); Lymphocytes # 1.1 K/mcL (0.6-4.6); Lymphocytes % 7.6 %; Mean Corpuscular HGB Conc 30.8 g/dL (31.6-35.5); Mean Corpuscular Hemoglobin 26.8 pg (28.0-33.3); Mean Corpuscular Volume 86.9 fL (83.0-100.0); Mean Platelet Volume 11.5 fL (9.4-12.4); Monocytes # 0.6 K/mcL (0.0-1.3); Monocytes % 4.1 %; Neutrophils # 12.1 K/mcL (1.6-8.9); Nucleated Red Blood Cells 0.3 /100 WBC (0); Platelet Count 196 K/mcL (140-400); Red Blood Count 3.14 M/mcL (3.82-4.97); Red Cell Distribution Width 17.1 % (11.5-14.5); Segmented Neutrophils % 85.2 %
[2018-03-16 04:31] LABS: Calcium 7.6 mg/dL (8.6-10.3); Potassium 4.1 mEq/L (3.5-5.1)
[2018-03-16] MEDS: *HR* Heparin 5,000 UNIT/ML VIAL SQ SCH ×3 (05:46→22:15)
[2018-03-16] MEDS: Piperacillin/Tazobactam 3.375 GM in 0.9 % Sodium Chloride Mini Bag 100 ML IVPB SCH ×2 (07:38→20:12)
[2018-03-16] MEDS: Lactobacillus 1 EACH CAP.SPRINK PO SCH (07:39)
--- NOTE | 2018-03-16 10:48 | Oncology Inp Progress Note ---
<Alex Alvarenga R - Last Filed: 03/16/18 18:59> Date of Encounter: 03/16/18 Time of Encounter: 10:30 (1) Metastatic disease Current Visit: No Status: Chronic Assessment and plan: Adenocarinoma of unknown primary. CT-guided liver biopsy on 02/27/2018 revealed adenocarcinoma with IMAN positive, CK 7 positive, CK [address] 03/14/2018 revealed bilateral airspace disease, known pulmonary nodules as well as multiple liver lesions. Enlarged right paratracheal lymph node 2.9 x 2.0 cm and enlarged asher hepatic lymph node of 2 cm. CEA elevated at ~639 Pending AFP and CA 19-9 Have asked pathology at including ER, NC and HER-2 staining Cell of origin remains unknown, differential includes breast, urothelial, GI, an d biliary Suspect patient new baseline performance status is low. At this time patient and family would like to meet with palliative care to discuss potential comfort care options and management. Will consult palliative team. (2) Anemia Current Visit: No Status: Acute Assessment and plan: Anemia present with a iron profile consistent with anemia of chronic etiology, given her BRBPR likely a component of acute blood loss as well. Low iron at 10 with 9% saturation, Ferritin >1500 Hemoglobin as low as 7.2 yesterday in the setting of bright red blood bowel movements. Received 1 unit of PRBCs yesterday with improvement in Hg to 8.4 today. FOBT positive, recent colonoscopy/egd at [place], reported to be negative, have asked for these procedure notes. Qualifiers: Anemia type: unspecified type Qualified Code(s): D64.9 - Anemia, unspecified (3) HCAP (healthcare-associated pneumonia) Current Visit: Yes Status: Acute Assessment and plan: HCAP with unknown organism. Recent discharge last week. Legionella, strep pneumo antigens negative Infectious diseases following currently on linezolid and zosyn for broad coverage. Oncology: Subj Interval history: Patient was seen and evaluated at the bedside with her daughter. She is tired and resting but easily arousable. They report little improvement in generalized fatigue and poor appetite. She did receive blood yesterday but still feels weak all over. No difficulty breathing or shortness of breath. Patient is only comfortable when lying completely flat, she is unable to articulate exactly where her discomfort is when sitting upright. Nurse notes bright blood again with bowel movement yesterday afternoon. - Constitutional Vitals: Vital Signs Temp Pulse Resp BP Pulse Ox 03/16/18 07:53 94 03/16/18 07:34 90 03/16/18 07:28 89 22 99 03/16/18 07:14 98.0 F 79 20 114/55 95 03/16/18 07:00 16 95 03/16/18 04:11 98.7 F 82 18 96/51 94 03/16/18 03:14 16 95 03/15/18 23:44 97.9 F 97 16 121/67 93 03/15/18 23:30 18 95 03/15/18 20:40 83 03/15/18 20:33 98.5 F 89 16 114/59 96 03/15/18 20:21 16 95 03/15/18 19:01 97.9 F 79 20 106/58 96 03/15/18 16:35 98.2 F 84 18 106/57 94 03/15/18 16:32 98.0 F 86 18 102/56 93 03/15/18 16:30 98.2 F 84 18 106/57 94 03/15/18 15:20 16 101/46 97 03/15/18 12:00 94 03/15/18 11:20 99.4 F 81 20 101/46 94 Intake and Output 03/15/18 03/16/18 03/16/18 23:59 07:59 15:59 Intake Total 820 / 820 300 / 300 Output Total 150 / 150 270 / 270 Balance 670 / 670 30 / 30 Intake: IV Fluids 300 / 300 100 / 100 Zyvox Premix 600mg/300mL 600 mg 300 / 300 In 300 ml @ 150 mls/hr IVPB Q12HR [facility] Rx#:[id number] Zosyn 3.375 GM In 0.9 % Sodium 100 / 100 Chloride (Mini-Bag +) 100 ML @ 25 mls/hr IVPB Q12H [facility] Rx#: [id number] Oral 170 / 170 200 / 200 Blood Product 350 / 350 Rbcs Leuko Poor As-1 Unit 350 / 350 [id number] Output: Catheter 150 / 150 270 / 270 Other: Meal Dinner Percent of Meal Consumed 50% Stool Size Small Stool Consistency liquid Stool Characteristics Normal for Patient Stool Color Brown # Bowel Movements 1 Weight 89.5 kg Patient Weight 03/16/18 23:59 Weight 89.5 kg General appearance: obese Exam: ill appearing without acute distress - Head Head exam: Present: atraumatic, normocephalic - Eye Eye exam: Present: EOMI, PERRL, conjuntiva pink - ENT ENT exam: Present: mucous membranes moist Additional comments: Dentures noted - Neck Neck exam: Absent: lymphadenopathy, tenderness - Respiratory Respiratory exam: Present: decreased breath sounds (due to body habitus and poor inspiratory effort durring exam), CTAB - Cardiovascular Cardiovascular exam: Present: RRR, +S1, +S2 - GI/Abdominal GI/Abdominal exam: Present: normal bowel sounds, soft. Absent: distended, tenderness - Extremities Exam Additional comments: Bilateral edema of the lower extremities again noted - Back Exam Back exam: Present: normal inspection - Neurological Exam Neurological exam: Present: alert, CN II-XII intact, oriented X3, no focal deficits. Absent: speech deficit - Psychiatric Psychiatric exam: Present: normal affect, normal mood - Skin Additional comments: Skin is dry throughout, less pallor noted today since blood transfusion Oncology: Obj Data - Labs CBC & Chem 7: 03/16/18 03:57 03/16/18 03:57 Labs: Laboratory Results - last 24 hr 03/14/18 03/15/18 03/15/18 16:51 11:33 21:53 WBC 15.2 H RBC 3.18 L Hgb 8.8 L D Hct 28.0 L MCV 88.1 MCH 27.7 L MCHC 31.4 L RDW 17.1 H Plt Count 231 MPV 11.3 Immature Gran % 2.4 Seg Neutrophils % 85.7 Lymphocytes % 7.8 Monocytes % 3.7 Eosinophils % 0.1 Basophils % 0.3 Neutrophils # 13.0 H Lymphocytes # 1.2 Monocytes # 0.6 Eosinophils # 0.0 Basophils # 0.0 Nucleated RBCs/100 WBC 0.2 H Sodium Potassium Chloride Carbon Dioxide BUN Creatinine Est GFR ( Amer) Est GFR (Non-Af Amer) BUN/Creatinine Ratio Glucose POC Glucose 99 Calculated Osmolality Calcium Carcinoembryonic Ag Blood Type A POSITIVE Antibody Screen NEGATIVE Crossmatch See Detail 03/16/18 03/16/18 03/16/18 03:57 03:57 03:57 WBC 14.2 H RBC 3.14 L Hgb 8.4 L Hct 27.3 L MCV 86.9 MCH 26.8 L MCHC 30.8 L RDW 17.1 H Plt Count 196 MPV 11.5 Immature Gran % 2.3 Seg Neutrophils % 85.2 Lymphocytes % 7.6 Monocytes % 4.1 Eosinophils % 0.3 Basophils % 0.5 Neutrophils # 12.1 H Lymphocytes # 1.1 Monocytes # 0.6 Eosinophils # 0.0 Basophils # 0.1 Nucleated RBCs/100 WBC 0.3 H Sodium 141 Potassium 4.1 Chloride 110 H Carbon Dioxide 22 L BUN 34 H Creatinine 1.80 H Est GFR ( Amer) 33 L Est GFR (Non-Af Amer) 27 L BUN/Creatinine Ratio 19 Glucose 115 H POC Glucose Calculated Osmolality 301 H Calcium 7.6 L Carcinoembryonic Ag 638.9 H Blood Type Antibody Screen Crossmatch - ABG Interpretation ABG results: PT/INR, D-dimer PT 16.5 Seconds (9.4-12.1) H 03/14/18 03:25 Consult Discharge Plan - Plan Referrals: Yolanda Watts MD [Non-Partnered Physician] - 03/21/18 1:30 pm <Day Tam S - Last Filed: 03/16/18 19:08> Date of Encounter: 03/16/18 - Constitutional Vitals: Vital Signs Temp Pulse Resp BP Pulse Ox 03/16/18 18:42 97.8 F 86 19 99/71 94 03/16/18 17:05 84 03/16/18 17:01 86 20 92 03/16/18 16:44 97.6 F 85 21 104/55 94 03/16/18 15:16 14 95 03/16/18 14:36 83 20 95 03/16/18 11:12 14 95 03/16/18 11:01 98.0 F 88 20 111/62 96 03/16/18 10:53 85 20 95 03/16/18 07:53 94 03/16/18 07:34 90 03/16/18 07:28 89 22 99 03/16/18 07:14 98.0 F 79 20 114/55 95 03/16/18 07:00 16 95 03/16/18 04:11 98.7 F 82 18 96/51 94 03/16/18 03:14 16 95 03/15/18 23:44 97.9 F 97 16 121/67 93 03/15/18 23:30 18 95 03/15/18 20:40 83 03/15/18 20:33 98.5 F 89 16 114/59 96 03/15/18 20:21 16 95 Intake and Output 03/16/18 03/16/18 03/16/18 07:59 15:59 23:59 Intake Total 300 / 300 720 / 720 Output Total 270 / 270 400 / 400 150 / 150 Balance 320 / 320 -150 / -150 Intake: IV Fluids 100 / 100 Zosyn 3.375 GM In 0.9 % Sodium 100 / 100 Chloride (Mini-Bag +) 100 ML @ 25 mls/hr IVPB Q12H [facility] Rx#: [id number] Oral 200 / 200 720 / 720 Output: Catheter 270 / 270 400 / 400 150 / 150 Other: Meal Lunch Dinner Percent of Meal Consumed 0% 0% Stool Size Moderate Stool Consistency soft Stool Color Brown Weight 89.5 kg Patient Weight 03/16/18 23:59 Weight 89.5 kg Oncology: Obj Data - Labs CBC & Chem 7: 03/16/18 03:57 03/16/18 03:57 Labs: Laboratory Results - last 24 hr 03/15/18 03/15/18 03/16/18 11:33 21:53 03:57 WBC 15.2 H 14.2 H RBC 3.18 L 3.14 L Hgb 8.8 L D 8.4 L Hct 28.0 L 27.3 L MCV 88.1 86.9 MCH 27.7 L 26.8 L MCHC 31.4 L 30.8 L RDW 17.1 H 17.1 H Plt Count 231 196 MPV 11.3 11.5 Immature Gran % 2.4 2.3 Seg Neutrophils % 85.7 85.2 Lymphocytes % 7.8 7.6 Monocytes % 3.7 4.1 Eosinophils % 0.1 0.3 Basophils % 0.3 0.5 Neutrophils # 13.0 H 12.1 H Lymphocytes # 1.2 1.1 Monocytes # 0.6 0.6 Eosinophils # 0.0 0.0 Basophils # 0.0 0.1 Nucleated RBCs/100 WBC 0.2 H 0.3 H Sodium Potassium Chloride Carbon Dioxide BUN Creatinine Est GFR ( Amer) Est GFR (Non-Af Amer) BUN/Creatinine Ratio Glucose Calculated Osmolality Uric Acid Calcium Carcinoembryonic Ag Crossmatch See Detail 03/16/18 03/16/18 03:57 03:57 WBC RBC Hgb Hct MCV MCH MCHC RDW Plt Count MPV Immature Gran % Seg Neutrophils % Lymphocytes % Monocytes % Eosinophils % Basophils % Neutrophils # Lymphocytes # Monocytes # Eosinophils # Basophils # Nucleated RBCs/100 WBC Sodium 141 Potassium 4.1 Chloride 110 H Carbon Dioxide 22 L BUN 34 H Creatinine 1.80 H Est GFR ( Amer) 33 L Est GFR (Non-Af Amer) 27 L BUN/Creatinine Ratio 19 Glucose 115 H Calculated Osmolality 301 H Uric Acid 9.7 H Calcium 7.6 L Carcinoembryonic Ag 638.9 H Crossmatch - ABG Interpretation ABG results: PT/INR, D-dimer PT 16.5 Seconds (9.4-12.1) H 03/14/18 03:25 - Attending Attestation I examined this patient and my medical decision-making was reviewed with the Advanced Practice Nurse. I agree with the documented findings, disposition and treatment plan as described except to the extent set forth below. 1. Adenocarcinoma unknown primary. CEA come back elevated at 600. She also has some rectal area mass which could be hemorrhoids versus prolapse. Abdominal discomfort and distention. She did have a soft bowel movement early this morning Her breast exam was unremarkable and unlikely breast primary Pulmonary consult noted I had long discussion about GI consult family is not interested. As her general condition has declined considerably. They are interested in hospice care which is very reasonable. They understand overall prognosis is very poor and they want to keep her comfortable She is also very anxious. Ativan 1 mg by mouth every 4 hours when necessary increased from 0.5 mg which she had earlier and did not help her much For cancer-related pain morphine 2 mg IV every 3 hours when necessary. May increase the dose as needed We will consult hospice in the morning
[2018-03-16] MEDS ORDERED: 0.9 % Sodium Chloride 1,000 ML IVC SCH (11:45)
--- NOTE | 2018-03-16 12:18 | Infectious Disease Progress No ---
Date of Encounter: 03/16/18 Time of Encounter: 10:00 - Assessment and Plan (1) Sepsis Status: Acute - Meets 2/4 sirs criteria on presentation with leukocytosis of 20.3 and tachycardia - Of note, on discharge at last hospital admission leukocytosis had been down trended to 14. Neutrophil predominance - Lactic acid was 2.2, patient did meet criteria for severe sepsis - Likely source: Pulmonary - Causative organism: Unclear - Clinically, review of systems is only positive for nonproductive cough as well as weakness/lethargy and loose bowel movements. - Continues to meet sirs criteria with tachycardia, tachypnea, leukocytosis which has down trended to 14.2 (yesterday was 15.2) - Discharged home with doxycycline and Augmentin for concerns for aspiration, scheduled to continue course through 03/17/18 - Urinalysis is not impressive for infection and likely contaminated - Respiratory infectious panel negative - Legionella, strep antigen negative - Blood cultures on 03/13 no growth - Chest x-ray on admission showed bilateral upper lobe infiltrates -CT chest done on 03/14 showed some areas of parenchymal opacity has increased while others remain stable. -C. difficile toxin came back negative today Started on Zyvox, Zosyn on admission. Plan - We will continue Zosyn (day 3) and put on PO zyvox. Will continue both until 03/23/18. -Etiology of leukocytosis and tachycardia may be related to known malignancy Qualifiers: Sepsis type: sepsis due to unspecified organism Qualified Code(s): A41.9 - Sepsis, unspecified organism (2) Metastatic disease Status: Chronic As demonstrated on CT scans on last admission Follows with heme/onc as outpatient Unclear primary Management as outpatient. Poor prognosis (3) Elevated troponin Status: Acute - Troponin of 0.12, 0.10 in emergency department - This is likely due to demand ischemia in the setting of acute renal failure as below - Management per primary team (4) HAP (hospital-acquired pneumonia) Status: Acute CT chest on 03/14 showed some areas of parenchymal opacity has increased while others remain stable. Plan: as above for sepsis (5) Acute renal failure Status: Acute - BUNs/creatinine of 34/1.80 today down from 37/1.93 yesterday - Stable from previous admission - Patient notably had normal kidney function at the start of last admission - Management per primary team and nephrology - Renally dose medications, avoid nephrotoxins Qualifiers: Acute renal failure type: unspecified Qualified Code(s): N17.9 - Acute kidney failure, unspecified - Subjective Interval history: Patient is seen. Appears tired but able to answer questions. She reports no fever, night sweats, chills or myalgia's. She continues to report of a cough without any sputum or hemoptysis today. Denies shortness of breath and chest pain. Denies nausea, vomiting, abdominal pain. Still reporting diarrhea. S till has little appetite. Complains of right shoulder pain from "being moved around". Infect Dis PN-Objective Data - Labs CBC & Chem 7: 03/17/18 03:32 03/17/18 03:32 Labs: Laboratory Results - last 24 hr 03/14/18 03/15/18 03/15/18 16:51 11:33 21:53 WBC 15.2 H RBC 3.18 L Hgb 8.8 L D Hct 28.0 L MCV 88.1 MCH 27.7 L MCHC 31.4 L RDW 17.1 H Plt Count 231 MPV 11.3 Immature Gran % 2.4 Seg Neutrophils % 85.7 Lymphocytes % 7.8 Monocytes % 3.7 Eosinophils % 0.1 Basophils % 0.3 Neutrophils # 13.0 H Lymphocytes # 1.2 Monocytes # 0.6 Eosinophils # 0.0 Basophils # 0.0 Nucleated RBCs/100 WBC 0.2 H Sodium Potassium Chloride Carbon Dioxide BUN Creatinine Est GFR ( Amer) Est GFR (Non-Af Amer) BUN/Creatinine Ratio Glucose POC Glucose 99 Calculated Osmolality Calcium Carcinoembryonic Ag Blood Type A POSITIVE Antibody Screen NEGATIVE Crossmatch See Detail 03/16/18 03/16/18 03/16/18 03:57 03:57 03:57 WBC 14.2 H RBC 3.14 L Hgb 8.4 L Hct 27.3 L MCV 86.9 MCH 26.8 L MCHC 30.8 L RDW 17.1 H Plt Count 196 MPV 11.5 Immature Gran % 2.3 Seg Neutrophils % 85.2 Lymphocytes % 7.6 Monocytes % 4.1 Eosinophils % 0.3 Basophils % 0.5 Neutrophils # 12.1 H Lymphocytes # 1.1 Monocytes # 0.6 Eosinophils # 0.0 Basophils # 0.1 Nucleated RBCs/100 WBC 0.3 H Sodium 141 Potassium 4.1 Chloride 110 H Carbon Dioxide 22 L BUN 34 H Creatinine 1.80 H Est GFR ( Amer) 33 L Est GFR (Non-Af Amer) 27 L BUN/Creatinine Ratio 19 Glucose 115 H POC Glucose Calculated Osmolality 301 H Calcium 7.6 L Carcinoembryonic Ag 638.9 H Blood Type Antibody Screen Crossmatch Cultures: Cultures 03/13/18 20:26 Blood Culture - Preliminary Peripheral Venipuncture Culture is incubating and being continuously monitored for growth. Final report to follow. 03/14/18 01:20 Legionella Antigen - Final Urine,[place] Streptococcus pneumoniae Antigen (M - Final 03/13/18 20:32 Blood Culture - Preliminary Peripheral Venipuncture Culture is incubating and being continuously monitored for growth. Final report to follow. Serology 03/15/18 03/15/18 03/14/18 Range/Units 06:30 06:30 22:54 Urine Color (Yellow) Urine Clarity (Clear) Urine pH (5.0-8.0) pH Units Ur Specific [place] (1.010-1.025) Urine Protein (Neg-Trace) mg/dL Urine Glucose (UA) (Normal) mg/dL Urine Ketones (Negative) mg/dL Urine Blood (Negative) Urine Nitrite (Negative) Urine Bilirubin (Negative) Urine Urobilinogen (Normal) mg/dL Ur Leukocyte Esterase (Negative) Urine Microscopic RBC (0-3) per hpf Urine Microscopic WBC (0-3) per hpf Ur Eosinophil Smear (None Seen) % Ur Squamous Epith Cells (None-Few) per lpf Urine Bacteria (None-Few) per hpf Hyaline Casts (None-Few) per lpf Ur Culture Indicated? (NO) Urine Creatinine mg/dL Urine Sodium < 10.0 mEq/L Urine Urea Nitrogen mg/dL Stool Occult Blood Positive A (Negative) Stl C. diff Tox B Gene Negative (Negative) Chlamy pneumoniae PCR (Not Detect) Adenovirus (PCR) (Not Detect) B. pertussis DNA (PCR) (Not Detect) B.parapertussis DNA PCR (Not Detect) Coronavirus OC43 (PCR) (Not Detect) Coronavirus HKU1 (PCR) (Not Detect) Coronavirus 229E (PCR) (Not Detect) Coronavirus NL63 (PCR) (Not Detect) Human Metapneumovir PCR (Not Detect) Influenza A (H1) PCR (Not Detect) Influ A (H1N1/09) PCR (Not Detect) Influenza A (H3) PCR (Not Detect) Influenza A Untype (PCR) (Not Detect) Influenza Type B (PCR) (Not Detect) M.pneumoniae DNA (PCR) (Not Detect) Parainfluenza 1 (PCR) (Not Detect) Parainfluenza 2 (PCR) (Not Detect) Parainfluenza 3 (PCR) (Not Detect) Parainfluenza 4 (PCR) (Not Detect) RSV (PCR) (Not Detect) Entero/Rhino (PCR) (Not Detect) 03/14/18 03/14/18 03/14/18 Range/Units 22:54 01:20 01:20 Urine Color (Yellow) Urine Clarity (Clear) Urine pH (5.0-8.0) pH Units Ur Specific [place] (1.010-1.025) Urine Protein (Neg-Trace) mg/dL Urine Glucose (UA) (Normal) mg/dL Urine Ketones (Negative) mg/dL Urine Blood (Negative) Urine Nitrite (Negative) Urine Bilirubin (Negative) Urine Urobilinogen (Normal) mg/dL Ur Leukocyte Esterase (Negative) Urine Microscopic RBC (0-3) per hpf Urine Microscopic WBC (0-3) per hpf Ur Eosinophil Smear 0 (None Seen) % Ur Squamous Epith Cells (None-Few) per lpf Urine Bacteria (None-Few) per hpf Hyaline Casts (None-Few) per lpf Ur Culture Indicated? (NO) Urine Creatinine 128 mg/dL Urine Sodium mEq/L Urine Urea Nitrogen 533 mg/dL Stool Occult Blood (Negative) Stl C. diff Tox B Gene (Negative) Chlamy pneumoniae PCR Not Detected (Not Detect) Adenovirus (PCR) Not Detected (Not Detect) B. pertussis DNA (PCR) Not Detected (Not Detect) B.parapertussis DNA PCR Not Detected (Not Detect) Coronavirus OC43 (PCR) Not Detected (Not Detect) Coronavirus HKU1 (PCR) Not Detected (Not Detect) Coronavirus 229E (PCR) Not Detected (Not Detect) Coronavirus NL63 (PCR) Not Detected (Not Detect) Human Metapneumovir PCR Not Detected (Not Detect) Influenza A (H1) PCR Not Detected (Not Detect) Influ A (H1N1/09) PCR Not Detected (Not Detect) Influenza A (H3) PCR Not Detected (Not Detect) Influenza A Untype (PCR) Not Detected (Not Detect) Influenza Type B (PCR) Not Detected (Not Detect) M.pneumoniae DNA (PCR) Not Detected (Not Detect) Parainfluenza 1 (PCR) Not Detected (Not Detect) Parainfluenza 2 (PCR) Not Detected (Not Detect) Parainfluenza 3 (PCR) Not Detected (Not Detect) Parainfluenza 4 (PCR) Not Detected (Not Detect) RSV (PCR) Not Detected (Not Detect) Entero/Rhino (PCR) Not Detected (Not Detect) 03/13/18 Range/Units 21:01 Urine Color Dark Yellow (Yellow) Urine Clarity Turbid A (Clear) Urine pH 5.0 (5.0-8.0) pH Units Ur Specific [place] 1.029 H (1.010-1.025) Urine Protein 30 H (Neg-Trace) mg/dL Urine Glucose (UA) Normal (Normal) mg/dL Urine Ketones Negative (Negative) mg/dL Urine Blood Trace H (Negative) Urine Nitrite Negative (Negative) Urine Bilirubin Small H (Negative) Urine Urobilinogen Normal (Normal) mg/dL Ur Leukocyte Esterase Small H (Negative) Urine Microscopic RBC 0-3 (0-3) per hpf Urine Microscopic WBC 15-30 H (0-3) per hpf Ur Eosinophil Smear (None Seen) % Ur Squamous Epith Cells Many H (None-Few) per lpf Urine Bacteria None Seen (None-Few) per hpf Hyaline Casts Few (None-Few) per lpf Ur Culture Indicated? NO. A (NO) Urine Creatinine mg/dL Urine Sodium mEq/L Urine Urea Nitrogen mg/dL Stool Occult Blood (Negative) Stl C. diff Tox B Gene (Negative) Chlamy pneumoniae PCR (Not Detect) Adenovirus (PCR) (Not Detect) B. pertussis DNA (PCR) (Not Detect) B.parapertussis DNA PCR (Not Detect) Coronavirus OC43 (PCR) (Not Detect) Coronavirus HKU1 (PCR) (Not Detect) Coronavirus 229E (PCR) (Not Detect) Coronavirus NL63 (PCR) (Not Detect) Human Metapneumovir PCR (Not Detect) Influenza A (H1) PCR (Not Detect) Influ A (H1N1/09) PCR (Not Detect) Influenza A (H3) PCR (Not Detect) Influenza A Untype (PCR) (Not Detect) Influenza Type B (PCR) (Not Detect) M.pneumoniae DNA (PCR) (Not Detect) Parainfluenza 1 (PCR) (Not Detect) Parainfluenza 2 (PCR) (Not Detect) Parainfluenza 3 (PCR) (Not Detect) Parainfluenza 4 (PCR) (Not Detect) RSV (PCR) (Not Detect) Entero/Rhino (PCR) (Not Detect) Exam - Constitutional Vitals: Temp Pulse Resp BP Pulse Ox 98.0 F 88 14 111/62 95 03/16/18 11:01 03/16/18 11:01 03/16/18 11:12 03/16/18 11:01 03/16/18 11:12 General appearance: mild distress - Respiratory Respiratory exam: Present: wheezes - Cardiovascular Cardiovascular exam: Present: RRR, +S1, +S2 - GI/Abdominal GI/Abdominal exam: Present: hypoactive bowel sounds, soft. Absent: normal bowel sounds, tenderness - Psychiatric Psychiatric exam: Present: normal affect, normal mood - Skin Skin exam: Present: normal color Consult Discharge Plan - Plan Instructions: Sepsis (DC), Pneumonia (DC) Referrals: Yolanda Watts MD [Non-Partnered Physician] - 03/21/18 1:30 pm - Attending Attestation I examined this patient and my medical decision-making was reviewed with the Resident Physician. I agree with the documented findings, disposition and treatment plan as described except to the extent set forth below.
--- NOTE | 2018-03-16 12:49 | Nephrology Progress Note ---
Date of Encounter: 03/16/18 Time of Encounter: 12:41 - Assessment and Plan (1) GARLAND (acute kidney injury) Current Visit: No Status: Acute GFR last month was greater than 60. GFR is now 27. 1 Liter NS ordered. Continue to hold Laisx, consider stopping Potassium supplement since diuretic is being held. Avoid nephrotoxins and renal dose. Strict I/O Repeat Uric Acid has still not been collected, called lab to get it drawn today. (2) Anemia Current Visit: No Status: Acute Goal HGb is 10-11. Hgb is 8.4 today. 1 Unit PRBC's given. Ferrous Sulfate ordered. Qualifiers: Qualified Code(s): D64.9 - Anemia, unspecified (3) Dehydration Current Visit: Yes Status: Acute 1 unit PRBCs infused. (4) Elevated troponin Current Visit: Yes Status: Acute 0.12 and 0.10. Per primary. (5) Lower extremity edema Current Visit: Yes Status: Acute see above. (6) Pneumonia Current Visit: Yes Status: Acute Per primary. Qualifiers: Qualified Code(s): J18.1 - Lobar pneumonia, unspecified organism Subjective Principal diagnosis: weakness,fever Interval history: Pt seen and examined, doing okay. Still appears very tired and has a washcloth over her eyes. She will answer questions when asked. Her daughter is at bedside and is reliable. Objective - Vital Signs Vital signs: Vital Signs Temp Pulse Resp BP Pulse Ox 03/16/18 11:12 14 95 03/16/18 11:01 98.0 F 88 20 111/62 96 03/16/18 10:53 85 20 95 03/16/18 07:53 94 03/16/18 07:34 90 03/16/18 07:28 89 22 99 03/16/18 07:14 98.0 F 79 20 114/55 95 03/16/18 07:00 16 95 03/16/18 04:11 98.7 F 82 18 96/51 94 03/16/18 03:14 16 95 03/15/18 23:44 97.9 F 97 16 121/67 93 03/15/18 23:30 18 95 03/15/18 20:40 83 03/15/18 20:33 98.5 F 89 16 114/59 96 03/15/18 20:21 16 95 03/15/18 19:01 97.9 F 79 20 106/58 96 03/15/18 16:35 98.2 F 84 18 106/57 94 03/15/18 16:32 98.0 F 86 18 102/56 93 03/15/18 16:30 98.2 F 84 18 106/57 94 03/15/18 15:20 16 101/46 97 Intake and Output 03/15/18 03/16/18 03/16/18 23:59 07:59 15:59 Intake Total 820 / 820 300 / 300 480 / 480 Output Total 150 / 150 270 / 270 400 / 400 Balance 670 / 670 30 / 30 80 / 80 Intake: IV Fluids 300 / 300 100 / 100 Zyvox Premix 600mg/300mL 600 mg 300 / 300 In 300 ml @ 150 mls/hr IVPB Q12HR MARIAH Rx#:[id number] Zosyn 3.375 GM In 0.9 % Sodium 100 / 100 Chloride (Mini-Bag +) 100 ML @ 25 mls/hr IVPB Q12H MARIAH Rx#: [id number] Oral 170 / 170 200 / 200 480 / 480 Blood Product 350 / 350 Rbcs Leuko Poor As-1 Unit 350 / 350 [id number] Output: Catheter 150 / 150 270 / 270 400 / 400 Other: Meal Dinner Breakfast Percent of Meal Consumed 50% 0% Stool Size Small Moderate Stool Consistency liquid soft Stool Characteristics Normal for Patient Stool Color Brown Brown # Bowel Movements 1 Weight 89.5 kg Patient Weight 03/16/18 23:59 Weight 89.5 kg - General Appearance General appearance: Present: fatigue, frail EENT: Present: ATNC, hearing intact, vision intact Neck: Present: supple Respiratory: Present: clear Cardiology: Present: no edema, normal S1, normal S2 Gastrointestinal: Present: normoactive bowel sounds, no tenderness, no guarding Integumentary: Present: no rash, warm and dry Neurologic: Present: alert and oriented x3 Psychiatric: Present: mood/affect appropriate, cooperative - Lab 03/16/18 03:57 03/16/18 03:57 Most recent lab results Calcium 7.6 mg/dL (8.6-10.3) L 03/16/18 03:57 Phosphorus 4.8 mg/dL (2.7-4.5) H 03/14/18 03:25 Magnesium 2.1 mg/dL (1.6-2.6) 03/14/18 03:25 Urine Creatinine 128 mg/dL 03/14/18 01:20 Urine Sodium < 10.0 mEq/L 03/14/18 22:54 Consult Discharge Plan - Plan Referrals: Yolanda Watts MD [Non-Partnered Physician] - 03/21/18 1:30 pm
[2018-03-16 13:04] LABS: Uric Acid 9.7 mg/dL (2.3-7.6)
--- NOTE | 2018-03-16 13:35 | Internal Med Progress Note ---
Hospitalist Progress Note - Encounter Date of Encounter: 03/16/18 Time of Encounter: 09:00 - Subjective Interval History: Pt is still weak, difficult to get up, mild SOB, no cough. no fever in last 24 hours. - Exam Vitals: Temp Pulse Resp BP Pulse Ox 98.0 F 88 14 111/62 95 03/16/18 11:01 03/16/18 11:01 03/16/18 11:12 03/16/18 11:01 03/16/18 11:12 Exam: Pt is lethargic, in mild respiratory distress. HEENT: NC/AT, PERRL Neck: Supple, no JVD Lungs: B/L scattered rhonchi Heart: S1S2, RRR Abd: Soft, mild tenderness on RUL, BS normal. Ext: Mild b/l pedal edema. Neuro: AAO x3, no focal deficit. - Assessment and Plan (1) HCAP (healthcare-associated pneumonia) Current Visit: Yes Status: Acute Assessment and Plan: Pt has recently discharged with Dx of pneumonia on po abx. Has fever, leukocytosis. CXR suggest PNA. - Cont abx linezolid and zosyn at this point, ID consult appreciated - Cont suppotive treatment (2) Elevated troponin Current Visit: Yes Status: Acute Assessment and Plan: Mild elevated troponin, start to trend down, pt denies chest pain, pt has sepsis. - Most likely demand ischemia due to sepsis, second troponin trend down, will not perform any further cardio workup. (3) Lower extremity edema Current Visit: Yes Status: Acute Assessment and Plan: Mutiple factorial with low albumin and possible diastolic CHF (LVEF 60-65%). Lasix is on hold b/o GARLAND. (4) Acute renal failure Current Visit: No Status: Acute Assessment and Plan: Consult nephro, avoid nephrotoxic medications. Closely monitor renal function. Improving renal function. (5) Leukocytosis Current Visit: No Status: Acute Assessment and Plan: Possibly due to pneumonia or malignancy. Cont abx treatment at this point. F/U CBC. WBC slightly trend down. 20.3-17.5-16.7-15.2-14.2 (6) Metastatic disease Current Visit: No Status: Chronic Assessment and Plan: Liver biopsy shows adenocarcinoma, primary site of malignancy is unclear. Pt is planned for PET as outpatient and f/u with oncology. - Will consult oncology for further management. (7) COPD (chronic obstructive pulmonary disease) Current Visit: No Status: Chronic Assessment and Plan: No signs of exacerbation, cont duoneb PRN. (8) DVT prophylaxis Current Visit: No Status: Resolved Assessment and Plan: heparin SC (9) Sepsis Current Visit: No Status: Acute Assessment and Plan: Pt meets sepsis criteria b/o leukocytosis, fever, tachycardia, and tachypnea. - IVF started in ER, lactate 2.2. - Cont abx treatment. - Repeated CT chest suggest pneumonia. - ID consult appreciated. F/U blood culture (no growth so far) (10) Abnormal liver function test Current Visit: Yes Status: Acute Assessment and Plan: CT abd shows liver metastesis. Pt has mild elevated AST and PT, and decreased albumin. Cont closely monitor pt. (11) Anemia Current Visit: Yes Status: Acute Assessment and Plan: Anemia workup shows pt has low iron and high ferritin, consider anemia due to chronic disease. FOBT positive in ER noticed. However, pt's Hgb is generally stable. Per pt's daughter, Pt just had EGD and colonoscope done in [facility] about several wks ago. No further workup so far as pt is very weak and had metastatic disease. - Had 1 unit PRBC transfusion yesterday, Hgb 8.4 today. DVT Prophylaxis: Heparin SC - Time Spent with Patient Total time spent is greater than 50% in coordination of care (as documented) at patient's floor/unit and/or counseling patient: 30 min 25 - 35 minutes Plan of Care Discussed with: patient Internal Medicine: Result - Labs CBC & Chem 7: 03/16/18 03:57 03/16/18 03:57 Labs: Short CBC 03/15/18 03/16/18 Range/Units 21:53 03:57 WBC 15.2 H 14.2 H (4.3-11.1) K/mcL Hgb 8.8 L D 8.4 L (11.5-15.4) g/dL Hct 28.0 L 27.3 L (35.3-44.9) % Plt Count 231 196 (140-400) K/mcL Neutrophils # 13.0 H 12.1 H (1.6-8.9) K/mcL BMP 03/16/18 03:57 Sodium 141 Potassium 4.1 Chloride 110 H Carbon Dioxide 22 L BUN 34 H Creatinine 1.80 H Glucose 115 H Calcium 7.6 L - ABG Interpretation ABG results: PT/INR, D-dimer PT 16.5 Seconds (9.4-12.1) H 03/14/18 03:25 Consult Discharge Plan - Plan Referrals: Yolanda Watts MD [Non-Partnered Physician] - 03/21/18 1:30 pm (4) Acute renal failure Qualifiers: Acute renal failure type: unspecified Qualified Code(s): N17.9 - Acute kidney failure, unspecified (5) Leukocytosis Qualifiers: Leukocytosis type: other Qualified Code(s): D72.828 - Other elevated white blood cell count (7) COPD (chronic obstructive pulmonary disease) Qualifiers: COPD type: unspecified COPD Qualified Code(s): J44.9 - Chronic obstructive pulmonary disease, unspecified (9) Sepsis Qualifiers: Sepsis type: sepsis due to unspecified organism Qualified Code(s): A41.9 - Sepsis, unspecified organism (11) Anemia Qualifiers: Anemia type: other cause Other causes of anemia: chronic disease, other Qualified Code(s): D63.8 - Anemia in other chronic diseases classified elsewhere
--- NOTE | 2018-03-16 14:47 | Pulmonology Consult Note ---
<Héctor Elder W - Last Filed: 03/16/18 17:14> Date of Encounter: 03/16/18 Medications and Allergies Gabapentin [Neurontin] 600 mg PO BID 02/27/18 [History] Pantoprazole Sodium [Protonix] 40 mg PO DAILY 02/27/18 [History] Sertraline [Zoloft] 50 mg PO DAILY 02/27/18 [History] Albuterol Neb [Proventil Neb] 2.5 mg IH Q4H PRN #12 03/09/18 [Rx] Amoxicillin/Clavulanate [Augmentin] 500 mg PO BIDWM #16 tablet 03/09/18 [Rx] Doxycycline 100 mg PO BID #16 capsule 03/09/18 [Rx] Furosemide [Lasix] 20 mg PO DAILY #30 tablet 03/09/18 [Rx] Lactobacillus [Culturelle] 2 each PO DAILY #60 cap.sprink 03/09/18 [Rx] Mirtazapine [Remeron] 7.5 mg PO HS #15 tablet 03/09/18 [Rx] Potassium Chloride 20 meq PO DAILY 03/14/18 [History] predniSONE [PredniSONE] 40 mg PO DAILY 03/14/18 [History] Allergy/AdvReac Type Severity Reaction Status Date / Time No Known Allergies Allergy Verified 03/13/18 19:12 All Systems: The remainder of the systems were reviewed and are negative Physical Examination Vital Signs: Vital Signs, Last 4 Hours Temp Pulse Resp BP Pulse Ox 03/16/18 17:05 84 03/16/18 17:01 86 20 92 03/16/18 16:44 97.6 F 85 21 104/55 94 03/16/18 14:36 83 20 95 Results - Laboratory Findings CBC and BMP: 03/16/18 03:57 03/16/18 03:57 PT/INR, D-dimer PT 16.5 Seconds (9.4-12.1) H 03/14/18 03:25 Abnormal lab findings: Abnormal lab results WBC 14.2 K/mcL (4.3-11.1) H 03/16/18 03:57 RBC 3.14 M/mcL (3.82-4.97) L 03/16/18 03:57 Hgb 8.4 g/dL (11.5-15.4) L 03/16/18 03:57 Hct 27.3 % (35.3-44.9) L 03/16/18 03:57 MCH 26.8 pg (28.0-33.3) L 03/16/18 03:57 MCHC 30.8 g/dL (31.6-35.5) L 03/16/18 03:57 RDW 17.1 % (11.5-14.5) H 03/16/18 03:57 Neutrophils # 12.1 K/mcL (1.6-8.9) H 03/16/18 03:57 Nucleated RBCs/100 WBC 0.3 /100 WBC (0) H 03/16/18 03:57 PT 16.5 Seconds (9.4-12.1) H 03/14/18 03:25 Chloride 110 mEq/L (98-107) H 03/16/18 03:57 Carbon Dioxide 22 mEq/L (23-29) L 03/16/18 03:57 BUN 34 mg/dL (8-23) H 03/16/18 03:57 Creatinine 1.80 mg/dL (0.60-1.20) H 03/16/18 03:57 Est GFR ( Amer) 33 (> 60) L 03/16/18 03:57 Est GFR (Non-Af Amer) 27 (> 60) L 03/16/18 03:57 Glucose 115 mg/dL (70-105) H 03/16/18 03:57 Calculated Osmolality 301 (280-300) H 03/16/18 03:57 Uric Acid 9.7 mg/dL (2.3-7.6) H 03/16/18 03:57 Calcium 7.6 mg/dL (8.6-10.3) L 03/16/18 03:57 Phosphorus 4.8 mg/dL (2.7-4.5) H 03/14/18 03:25 Iron 10 mcg/dL (50-170) L 03/15/18 03:51 % Saturation 9 % (15-50) L 03/15/18 03:51 Transferrin 83 mg/dL (203-362) L 03/15/18 03:51 Ferritin > 1500 ng/mL (10-120) H 03/15/18 03:51 AST 78 Units/L (13-39) H 03/14/18 03:25 Alkaline Phosphatase 177 Units/L (34-104) H 03/14/18 03:25 Troponin I 0.10 ng/mL (< 0.04) H* 03/14/18 03:25 B-Natriuretic Peptide 158 pg/mL (Less than 100) H 03/13/18 20:32 Serum Total Protein 4.8 g/dL (6.4-8.9) L 03/14/18 03:25 Albumin 1.9 g/dL (3.5-5.7) L 03/14/18 03:25 Albumin/Globulin Ratio 0.7 (1.1-2.2) L 03/14/18 03:25 Carcinoembryonic Ag 638.9 ng/mL (Less than 5.0) H 03/16/18 03:57 Urine Clarity Turbid (Clear) A 03/13/18 21:01 Ur Specific [place] 1.029 (1.010-1.025) H 03/13/18 21:01 Urine Protein 30 mg/dL (Neg-Trace) H 03/13/18 21:01 Urine Blood Trace (Negative) H 03/13/18 21:01 Urine Bilirubin Small (Negative) H 03/13/18 21:01 Ur Leukocyte Esterase Small (Negative) H 03/13/18 21:01 Urine Microscopic WBC 15-30 per hpf (0-3) H 03/13/18 21:01 Ur Squamous Epith Cells Many per lpf (None-Few) H 03/13/18 21:01 Ur Culture Indicated? NO. (NO) A 03/13/18 21:01 Stool Occult Blood Positive (Negative) A 03/15/18 06:30 - Clinical Findings Intake & Output: Intake & Output 03/16/18 03/16/18 03/16/18 07:59 15:59 23:59 Intake Total 300 / 300 720 / 720 Output Total 270 / 270 400 / 400 Balance 320 / 320 Weight 89.5 kg Consult Discharge Plan - Plan Referrals: Yolanda Watts MD [Non-Partnered Physician] - 03/21/18 1:30 pm - Attending Attestation I examined this patient and my medical decision-making was reviewed with the Resident Physician. I agree with the documented findings, disposition and treatment plan as described except to the extent set forth below. We independently had [id number] contact with the patient Patient seen and examined at bedside Labs, radiology, chart personally reviewed. Impression: Pneumonia Metastatic Adenocarcinoma Former Smoker Recs: I discussed at length with the patient and her family regarding this CT scan. T here is evidence of bilateral metastatic disease (lung nodules) with a concerning consolidative changes in the left upper lobe which I suspect is infectious in nature without clear infectious organism identified. I offered the patient the possibility of proceeding with bronchoscopy for further bal acterization of this infection in the context of metastatic cancer with poor functional status. At this point patient and family want to talk further with the oncologist regarding plan of care going forward and if aggressive measures are indicated. If patient family want to proceed with bronchoscopy which is keep the patient nothing by mouth overnight. Otherwise recommend antimicrobials per infectious disease team. I also placed a sputum cup by the patient to try to achieve a sample and a non-invasive way. Chemical DVT prophylaxis while inpatient is recommended unless contraindication arises <Shaorn Mayer - Last Filed: 03/16/18 22:17> Date of Encounter: 03/16/18 Time of Encounter: 14:00 Assessment and Plan (1) Metastatic adenocarcinoma Current Visit: Yes Status: Acute Unknown primary Oncology is following Multiple pulmonary nodules on chest CT--neoplasm cannot be excluded and must be considered Plan: Management per oncology (2) Pneumonia Current Visit: Yes Status: Acute Antibiotics include linezolid and zosyn Unclear whether patient's symptoms are the result of pneumonia or simply from her metastatic cancer--Bronchoscopy presented as option for determining this Whether or not results of bronchoscopy would alter her course overall was discus sed with patient and her family Patient and family would like time to discuss the option and potential benefit of bronchoscopy among themselves before making a decision Plan: Doesn't seem unreasonable to continue treating for pneumonia at this point in her care Antibiotics per ID Qualifiers: Pneumonia type: due to unspecified organism Laterality: bilateral Lung location: upper lobe of lung Qualified Code(s): J18.1 - Lobar pneumonia, unspecified organism (3) GARLAND (acute kidney injury) Current Visit: Yes Status: Acute Etiology suspected to be due to nephrotoxic effects of antibiotics that have been used attempting to treat her pneumonia Nephrology is following Plan: Further management per nephrology (4) Goals of care, counseling/discussion Current Visit: Yes Status: Acute Goals of care discussed with patient, her daughter, and grandson as discussed above History of Present Illness Consult date: 03/16/18 Reason for consult: pneumonia, abnormal CXR/CT Chief complaint: weakness History of present illness: Ms. Cohen is a 78 year old female with past medical history of COPD, carotid stenosis, hypertension, hyperlipidemia, gastric ulcers, 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 Patient presented to the emergency department for lethargy, fevers, chills, nonproductive cough, some occasional shortness of breath. She was recently hospitalized (02/27-03/09) and treated for pneumonia and acute hypoxic respiratory failure with COPD exacerbation; she was discharged to home on 2 L oxygen, antibiotics (doxycycline and Augmentin), and home health services. Per patient's daughter, the first day back home she felt really good and had some energy back, but the next day she developed a fever of 101.2 F and a Tmax of 103 F. over the next few days the patient became more lethargic, had chills, nonproductive cough, and new bilateral lower extremity swelling. The patient came to the hospital after having blood drawn by a home health aide that resulted in increased leukocytosis and decreased kidney function. Chest CT done this admission shows multifocal airspace disease bilaterally, multiple pulmonary nodules--possibility of neoplastic nodules cannot be ruled out as she was diagnosed with metastatic cancer with unknown primary 2 weeks ago. Patient is a former half pack per day smoker; she smoked for 20 years and quit smoking 20-25 years ago. She has never seen a curriculum development manager in the past. 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 There are no birds or exotic chemicals in the home., Past Med Surg Social Fam HX - Past Medical History Medical history: cancer Additional medical history: skin cancer, gastro ulcers Psychiatric history: anxiety, depression - Past Surgical History Surgical History: hysterectomy Additional surgical history: bladder sx, tendon repair, cscope - Social History Smoking Status: Former smoker Smokeless Tobacco Status: No Alcohol use: none Drug use: none All Systems: The remainder of the systems were reviewed and are negative - Constitutional Constitutional: as per HPI, chills, fatigue, fever(s), lethargy - Cardiovascular Cardiovascular: as per HPI, leg edema, no chest pain - Respiratory Respiratory: as per HPI, cough, no pain on inspirtation - Gastrointestinal Gastrointestinal: as per HPI, abdominal pain (Diffuse), hematochezia - Neurological Neurological: no abnormal speech, no confusion, no memory loss Physical Examination Vital Signs: Vital Signs, Last 4 Hours Temp Pulse Resp BP Pulse Ox 03/16/18 14:36 83 20 95 03/16/18 11:12 14 95 03/16/18 11:01 98.0 F 88 20 111/62 96 03/16/18 10:53 85 20 95 General appearance: no acute distress, lethargic Eyes: nonicteric ENT: oropharynx dry Effort: other (Decreased effort, shallow respirations, not in respiratory distress) Auscultation: bilateral: diminished breath sounds, wheezes (Occasional expiratory wheeze on anterior auscultation), rales Cardiovascular: regular rate and rhythm Gastrointestinal: normoactive bowel sounds, soft, other (No involuntary or voluntary guarding, but reports diffuse tenderness) Integumentary: normal Extremities: no cyanosis, pink and warm, pulses normal (+2/4 pedal pulses bilateral), edema (BLE +1 pitting) normal mental status (Answers questions appropriately and AAO 3), non-focal e xam, pupils equal and round, CN II-XII normal, other (Spontaneously moves all 4 limbs) other (Flat affect) Results - Laboratory Findings CBC and BMP: 03/16/18 03:57 03/16/18 03:57 PT/INR, D-dimer PT 16.5 Seconds (9.4-12.1) H 03/14/18 03:25 Abnormal lab findings: Abnormal lab results WBC 14.2 K/mcL (4.3-11.1) H 03/16/18 03:57 RBC 3.14 M/mcL (3.82-4.97) L 03/16/18 03:57 Hgb 8.4 g/dL (11.5-15.4) L 03/16/18 03:57 Hct 27.3 % (35.3-44.9) L 03/16/18 03:57 MCH 26.8 pg (28.0-33.3) L 03/16/18 03:57 MCHC 30.8 g/dL (31.6-35.5) L 03/16/18 03:57 RDW 17.1 % (11.5-14.5) H 03/16/18 03:57 Neutrophils # 12.1 K/mcL (1.6-8.9) H 03/16/18 03:57 Nucleated RBCs/100 WBC 0.3 /100 WBC (0) H 03/16/18 03:57 PT 16.5 Seconds (9.4-12.1) H 03/14/18 03:25 Chloride 110 mEq/L (98-107) H 03/16/18 03:57 Carbon Dioxide 22 mEq/L (23-29) L 03/16/18 03:57 BUN 34 mg/dL (8-23) H 03/16/18 03:57 Creatinine 1.80 mg/dL (0.60-1.20) H 03/16/18 03:57 Est GFR ( Amer) 33 (> 60) L 03/16/18 03:57 Est GFR (Non-Af Amer) 27 (> 60) L 03/16/18 03:57 Glucose 115 mg/dL (70-105) H 03/16/18 03:57 Calculated Osmolality 301 (280-300) H 03/16/18 03:57 Uric Acid 9.7 mg/dL (2.3-7.6) H 03/16/18 03:57 Calcium 7.6 mg/dL (8.6-10.3) L 03/16/18 03:57 Phosphorus 4.8 mg/dL (2.7-4.5) H 03/14/18 03:25 Iron 10 mcg/dL (50-170) L 03/15/18 03:51 % Saturation 9 % (15-50) L 03/15/18 03:51 Transferrin 83 mg/dL (203-362) L 03/15/18 03:51 Ferritin > 1500 ng/mL (10-120) H 03/15/18 03:51 AST 78 Units/L (13-39) H 03/14/18 03:25 Alkaline Phosphatase 177 Units/L (34-104) H 03/14/18 03:25 Troponin I 0.10 ng/mL (< 0.04) H* 03/14/18 03:25 B-Natriuretic Peptide 158 pg/mL (Less than 100) H 03/13/18 20:32 Serum Total Protein 4.8 g/dL (6.4-8.9) L 03/14/18 03:25 Albumin 1.9 g/dL (3.5-5.7) L 03/14/18 03:25 Albumin/Globulin Ratio 0.7 (1.1-2.2) L 03/14/18 03:25 Carcinoembryonic Ag 638.9 ng/mL (Less than 5.0) H 03/16/18 03:57 Urine Clarity Turbid (Clear) A 03/13/18 21:01 Ur Specific [place] 1.029 (1.010-1.025) H 03/13/18 21:01 Urine Protein 30 mg/dL (Neg-Trace) H 03/13/18 21:01 Urine Blood Trace (Negative) H 03/13/18 21:01 Urine Bilirubin Small (Negative) H 03/13/18 21:01 Ur Leukocyte Esterase Small (Negative) H 03/13/18 21:01 Urine Microscopic WBC 15-30 per hpf (0-3) H 03/13/18 21:01 Ur Squamous Epith Cells Many per lpf (None-Few) H 03/13/18 21:01 Ur Culture Indicated? NO. (NO) A 03/13/18 21:01 Stool Occult Blood Positive (Negative) A 03/15/18 06:30 - Clinical Findings Intake & Output: Intake & Output 03/15/18 03/16/18 03/16/18 23:59 07:59 15:59 Intake Total 820 / 820 300 / 300 480 / 480 Output Total 150 / 150 270 / 270 400 / 400 Balance 670 / 670 30 / 30 80 / 80 Weight 89.5 kg
[2018-03-16] MEDS: *HR* LORazepam 0.5 MG TABLET PO PRN (16:56)
[2018-03-16] MEDS ORDERED: *HR* Morphine 2 MG/ML SYRINGE IVP PRN (18:47)
[2018-03-16] MEDS ORDERED: *HR* OxyCODONE Immed Rel 5 MG TABLET PO PRN (19:00)
[2018-03-16] MEDS: *HR* LORazepam 1 MG TABLET PO PRN (20:11)
[2018-03-16] MEDS: Linezolid 600 MG TABLET PO SCH (20:11)
[2018-03-16] MEDS: Melatonin 3 MG TABLET PO SCH (20:11)
[2018-03-16] MEDS: Mirtazapine 15 MG TABLET PO SCH (20:13)
[2018-03-16] MEDS ORDERED: Albuterol 2.5 MG/3 ML NEBULIZER IH PRN (21:54)
[2018-03-17] MEDS: Ipratropium/Albuterol Neb 3 ML IH SCH ×3 (03:47→11:08)
[2018-03-17 04:08] LABS: Basophils # 0.1 K/mcL (0.0-0.2); Basophils % 0.3 %; Eosinophils % 0.2 %; Hematocrit 28.6 % (35.3-44.9); Hemoglobin 8.5 g/dL (11.5-15.4); Immature Granulocytes % 2.7 % (0-4); Lymphocytes # 1.1 K/mcL (0.6-4.6); Lymphocytes % 7.6 %; Mean Corpuscular HGB Conc 29.7 g/dL (31.6-35.5); Mean Corpuscular Hemoglobin 26.6 pg (28.0-33.3); Mean Corpuscular Volume 89.4 fL (83.0-100.0); Mean Platelet Volume 11.3 fL (9.4-12.4); Monocytes # 0.5 K/mcL (0.0-1.3); Monocytes % 3.7 %; Neutrophils # 12.3 K/mcL (1.6-8.9); Nucleated Red Blood Cells 0.2 /100 WBC (0); Platelet Count 199 K/mcL (140-400); Red Cell Distribution Width 17.2 % (11.5-14.5); Segmented Neutrophils % 85.5 %
[2018-03-17 04:28] LABS: Calcium 7.7 mg/dL (8.6-10.3); Potassium 4.3 mEq/L (3.5-5.1)
[2018-03-17] MEDS: *HR* Heparin 5,000 UNIT/ML VIAL SQ SCH (05:37)
[2018-03-17] MEDS: Piperacillin/Tazobactam 3.375 GM in 0.9 % Sodium Chloride Mini Bag 100 ML IVPB SCH (08:21)
[2018-03-17] MEDS: Linezolid 600 MG TABLET PO SCH (08:21)
[2018-03-17] MEDS: Lactobacillus 1 EACH CAP.SPRINK PO SCH (08:21)
--- NOTE | 2018-03-17 09:23 | Oncology Inp Progress Note ---
<Alex Alvarenga R - Last Filed: 03/17/18 14:15> Date of Encounter: 03/17/18 Time of Encounter: 09:21 (1) Metastatic disease Status: Chronic Assessment and plan: Adenocarinoma of unknown primary. CT-guided liver biopsy on 02/27/2018 revealed adenocarcinoma with IMAN positive, CK 7 positive, CK [address] 03/14/2018 revealed bilateral airspace disease, known pulmonary nodules as well as multiple liver lesions. Enlarged right paratracheal lymph node 2.9 x 2.0 cm and enlarged asher hepatic lymph node of 2 cm. CEA elevated at ~639 Pending AFP and CA 19-9 Pathology including ER, LA and HER-2 staining Cell of origin remains unknown, differential includes breast, urothelial, GI, and biliary Plan: At this time patient and family would like to meet with palliative care team to discuss goals of care and potential comfort options. Patient's overall progrnosis is quite poor. Palliative management is reasonable given her poor performance status and it is unlikely she would tolerate aggressive treatment measures. I have consulted and spoken with palliative care, they will meet with patient and family today, their consultation is appreciated. Patient has decided to pursue palliative with transition to inpatient hospice. Oncology will sign off at this time, will be happy to re-evaluate at your request. (2) Anemia Status: Acute Assessment and plan: Anemia present with a iron profile consistent with anemia of chronic etiology, given her BRBPR likely some component of acute blood loss as well. Low iron at 10 with 9% saturation, Ferritin >1500 Hemoglobin as low as 7.2 yesterday in the setting of bright red blood bowel movements. Received 1 unit of PRBCs 03/15 with improvement in Hgb, now stable. FOBT positive, recent colonoscopy/egd at [place], reported to be negative, have asked for these procedure notes from [place] Plan: Will review endoscopy/colonoscopy reports At this time the patient is not interested in colonoscopy/egd and would like to speak with palliative care. (3) HCAP (healthcare-associated pneumonia) Status: Acute Assessment and plan: HCAP with unknown organism. Recent discharge last week. Legionella, strep pneumo antigens negative Plan: Infectious diseases following currently on linezolid and zosyn for broad coverage. Pulmonology consult reviewed, patient is not interested in bronchoscopy at this time (4) Goals of care, counseling/discussion Status: Acute Assessment and plan: Per discussion with the patient and family they are interested in transitioning to comfort treatment measures rather than disease specific treatment. Have consulted palliative team, appreciate their consultation with this patient and family. Oncology: Subj Interval history: Patient is seen and evaluated at the bedside. She is resting comfortably in bed. The patients daughter and grandson are present. They report no acute changes overnight. She seems to be more comfortable since medication adjustments were made yesterday. She still has poor appetite. They continue to express interest in meeting with the palliative care team. - Constitutional Vitals: Vital Signs Temp Pulse Resp BP Pulse Ox 03/17/18 07:31 20 94 03/17/18 07:21 97.9 F 87 20 109/57 94 03/17/18 07:00 87 03/17/18 04:34 95 03/17/18 03:47 21 94 03/17/18 03:38 98.0 F 87 24 104/56 95 03/16/18 23:15 18 94 03/16/18 23:03 98.1 F 88 22 105/57 94 03/16/18 20:00 99 03/16/18 19:41 16 92 03/16/18 18:42 97.8 F 86 19 99/71 94 03/16/18 17:05 84 03/16/18 17:01 86 20 92 03/16/18 16:44 97.6 F 85 21 104/55 94 03/16/18 15:16 14 95 03/16/18 14:36 83 20 95 03/16/18 11:12 14 95 03/16/18 11:01 98.0 F 88 20 111/62 96 03/16/18 10:53 85 20 95 Intake and Output 03/16/18 03/17/18 03/17/18 23:59 07:59 15:59 Intake Total 1100 / 1100 Output Total 250 / 250 300 / 300 Balance -250 / -250 1100 / 1100 -300 / -300 Intake: IV Fluids 1100 / 1100 0.9 % Sodium Chloride 1,000 ML 1000 / 1000 @ 60 mls/hr IVC .[id number] [facility] Rx #:[id number] Zosyn 3.375 GM In 0.9 % Sodium 100 / 100 Chloride (Mini-Bag +) 100 ML @ 25 mls/hr IVPB Q12H [facility] Rx#: [id number] Output: Catheter 250 / 250 300 / 300 Other: Meal Dinner Percent of Meal Consumed 0% Stool Size Large Small Stool Consistency loose liquid Stool Characteristics Tarry Stool Color Brown Black Bright Red Blood Dark Red Blood # Bowel Movements 1 Weight 89.1 kg Blood Glucose* 149 Patient Weight 03/17/18 23:59 Weight 89.1 kg General appearance: obese Exam: chronically ill appearing - Head Head exam: Present: atraumatic, normocephalic - Eye Eye exam: Present: EOMI, PERRL, conjuntiva pink - Neck Neck exam: Absent: lymphadenopathy, tenderness - Respiratory Respiratory exam: Present: decreased breath sounds (without respiratory wheeze or rales.) - Cardiovascular Cardiovascular exam: Present: RRR, +S1, +S2 - Extremities Exam Extremities exam: Present: pedal edema - Neurological Exam Neurological exam: Present: alert, CN II-XII intact, oriented X3, no focal deficits - Psychiatric Additional comments: Improved anxiety, mood and affect appropriate for situation - Skin Skin exam: Present: dry, normal color Oncology: Obj Data - Labs CBC & Chem 7: 03/17/18 03:32 03/17/18 03:32 Labs: Laboratory Results - last 24 hr 03/16/18 03/16/18 03/17/18 03:57 17:00 03:32 WBC 14.3 H RBC 3.20 L Hgb 8.5 L Hct 28.6 L MCV 89.4 MCH 26.6 L MCHC 29.7 L RDW 17.2 H Plt Count 199 MPV 11.3 Immature Gran % 2.7 Seg Neutrophils % 85.5 Lymphocytes % 7.6 Monocytes % 3.7 Eosinophils % 0.2 Basophils % 0.3 Neutrophils # 12.3 H Lymphocytes # 1.1 Monocytes # 0.5 Eosinophils # 0.0 Basophils # 0.1 Nucleated RBCs/100 WBC 0.2 H Sodium 141 Potassium 4.1 Chloride 110 H Carbon Dioxide 22 L BUN 34 H Creatinine 1.80 H Est GFR ( Amer) 33 L Est GFR (Non-Af Amer) 27 L BUN/Creatinine Ratio 19 Glucose 115 H Calculated Osmolality 301 H Uric Acid 9.7 H Calcium 7.6 L Nasal Screen MRSA (PCR) Negative 03/17/18 03:32 WBC RBC Hgb Hct MCV MCH MCHC RDW Plt Count MPV Immature Gran % Seg Neutrophils % Lymphocytes % Monocytes % Eosinophils % Basophils % Neutrophils # Lymphocytes # Monocytes # Eosinophils # Basophils # Nucleated RBCs/100 WBC Sodium 143 Potassium 4.3 Chloride 111 H Carbon Dioxide 24 BUN 32 H Creatinine 1.62 H Est GFR ( Amer) 37 L Est GFR (Non-Af Amer) 31 L BUN/Creatinine Ratio 20 Glucose 74 Calculated Osmolality 302 H Uric Acid Calcium 7.7 L Nasal Screen MRSA (PCR) - ABG Interpretation ABG results: PT/INR, D-dimer PT 16.5 Seconds (9.4-12.1) H 03/14/18 03:25 Consult Discharge Plan - Plan Instructions: Sepsis (DC), Pneumonia (DC) Referrals: Yolanda Watts MD [Non-Partnered Physician] - 03/21/18 1:30 pm <Bird Lees - Last Filed: 03/17/18 14:23> Date of Encounter: 03/17/18 - Constitutional Vitals: Vital Signs Temp Pulse Resp BP Pulse Ox 03/17/18 11:16 98.1 F 93 20 115/63 94 03/17/18 11:08 20 95 03/17/18 11:00 91 03/17/18 07:31 20 94 03/17/18 07:21 97.9 F 87 20 109/57 94 03/17/18 07:00 87 03/17/18 04:34 95 03/17/18 03:47 21 94 03/17/18 03:38 98.0 F 87 24 104/56 95 03/16/18 23:15 18 94 03/16/18 23:03 98.1 F 88 22 105/57 94 03/16/18 20:00 99 03/16/18 19:41 16 92 03/16/18 18:42 97.8 F 86 19 99/71 94 03/16/18 17:05 84 03/16/18 17:01 86 20 92 03/16/18 16:44 97.6 F 85 21 104/55 94 03/16/18 15:16 14 95 03/16/18 14:36 83 20 95 Intake and Output 03/17/18 03/17/18 03/17/18 00:59 08:59 16:59 Intake Total 100 / 100 1000 / 1000 120 / 120 Output Total 250 / 250 300 / 300 Balance -150 / -150 700 / 700 120 / 120 Intake: IV Fluids 100 / 100 1000 / 1000 0.9 % Sodium Chloride 1,000 ML 1000 / 1000 @ 60 mls/hr IVC .[id number] [facility] Rx #:[id number] Zosyn 3.375 GM In 0.9 % Sodium 100 / 100 Chloride (Mini-Bag +) 100 ML @ 25 mls/hr IVPB Q12H [facility] Rx#: [id number] Oral 120 / 120 Output: Catheter 250 / 250 300 / 300 Other: Meal Dinner Breakfast Percent of Meal Consumed 0% 0% Stool Size Large Small Stool Consistency loose liquid Stool Characteristics Tarry Stool Color Brown Black Bright Red Blood Dark Red Blood # Bowel Movements 1 Weight 89.1 kg Blood Glucose* 149 Patient Weight 03/18/18 00:59 Weight 89.1 kg Oncology: Obj Data - Labs CBC & Chem 7: 03/17/18 03:32 03/17/18 03:32 Labs: Laboratory Results - last 24 hr 03/16/18 03/17/18 03/17/18 17:00 03:32 03:32 WBC 14.3 H RBC 3.20 L Hgb 8.5 L Hct 28.6 L MCV 89.4 MCH 26.6 L MCHC 29.7 L RDW 17.2 H Plt Count 199 MPV 11.3 Immature Gran % 2.7 Seg Neutrophils % 85.5 Lymphocytes % 7.6 Monocytes % 3.7 Eosinophils % 0.2 Basophils % 0.3 Neutrophils # 12.3 H Lymphocytes # 1.1 Monocytes # 0.5 Eosinophils # 0.0 Basophils # 0.1 Nucleated RBCs/100 WBC 0.2 H Sodium 143 Potassium 4.3 Chloride 111 H Carbon Dioxide 24 BUN 32 H Creatinine 1.62 H Est GFR ( Amer) 37 L Est GFR (Non-Af Amer) 31 L BUN/Creatinine Ratio 20 Glucose 74 Calculated Osmolality 302 H Calcium 7.7 L Nasal Screen MRSA (PCR) Negative - ABG Interpretation ABG results: PT/INR, D-dimer PT 16.5 Seconds (9.4-12.1) H 03/14/18 03:25 - Attending Attestation I examined this patient and my medical decision-making was reviewed with the Advanced Practice Nurse. I agree with the documented findings, disposition and treatment plan as described except to the extent set forth below. Assessment: 1. Metastatic Adenocarinoma of unknown primary. CT-guided liver biopsy on 02/27/2018 revealed adenocarcinoma with IMAN positive, CK 7 positive, CK 20 negative. Plan: -Patient and family are agreeable to hospice. She will be inpatient hospice. She is currently resting comfortably and her pain is well controlled. -Based on poor performance status in the presence of metastatic disease, we feel that hospice is appropriate. We will sign off at this time. Please call if any questions in the future.
[2018-03-17] MEDS: *HR* LORazepam 1 MG TABLET PO PRN (10:26)
--- NOTE | 2018-03-17 10:34 | Nephrology Progress Note ---
Date of Encounter: 03/17/18 Time of Encounter: 10:31 - Assessment and Plan (1) GARLAND (acute kidney injury) Current Visit: Yes Status: Acute Pt has decided to pursue palliative care at this time. We will continue to follow along until decision is made. GFR last month was greater than 60. GFR is now 31. Avoid nephrotoxins and renal dose. Strict I/O (2) Anemia Current Visit: No Status: Acute Goal HGb is 10-11. Hgb is 8.5 today. Qualifiers: Anemia type: unspecified type Qualified Code(s): D64.9 - Anemia, unspecified (3) Dehydration Current Visit: Yes Status: Acute Per primary. (4) Elevated troponin Current Visit: Yes Status: Acute 0.12 and 0.10. Per primary. (5) Lower extremity edema Current Visit: Yes Status: Acute see above. (6) Pneumonia Current Visit: Yes Status: Acute Per primary. Qualifiers: Pneumonia type: due to unspecified organism Laterality: bilateral Lung location: upper lobe of lung Qualified Code(s): J18.1 - Lobar pneumonia, unspecified organism Subjective Principal diagnosis: weakness,fever Interval history: Pt seen and examined, doing okay. Still appears very tired and has a washcloth over her eyes. Family members at bedside inform me that Palliative care has been consulted. Objective - Vital Signs Vital signs: Vital Signs Temp Pulse Resp BP Pulse Ox 03/17/18 07:31 20 94 03/17/18 07:21 97.9 F 87 20 109/57 94 03/17/18 07:00 87 03/17/18 04:34 95 03/17/18 03:47 21 94 03/17/18 03:38 98.0 F 87 24 104/56 95 03/16/18 23:15 18 94 03/16/18 23:03 98.1 F 88 22 105/57 94 03/16/18 20:00 99 03/16/18 19:41 16 92 03/16/18 18:42 97.8 F 86 19 99/71 94 03/16/18 17:05 84 03/16/18 17:01 86 20 92 03/16/18 16:44 97.6 F 85 21 104/55 94 03/16/18 15:16 14 95 03/16/18 14:36 83 20 95 03/16/18 11:12 14 95 03/16/18 11:01 98.0 F 88 20 111/62 96 03/16/18 10:53 85 20 95 Intake and Output 03/16/18 03/17/18 03/17/18 23:59 07:59 15:59 Intake Total 1100 / 1100 Output Total 250 / 250 300 / 300 Balance -250 / -250 1100 / 1100 -300 / -300 Intake: IV Fluids 1100 / 1100 0.9 % Sodium Chloride 1,000 ML 1000 / 1000 @ 60 mls/hr IVC .[id number] [facility] Rx #:[id number] Zosyn 3.375 GM In 0.9 % Sodium 100 / 100 Chloride (Mini-Bag +) 100 ML @ 25 mls/hr IVPB Q12H [facility] Rx#: [id number] Output: Catheter 250 / 250 300 / 300 Other: Meal Dinner Percent of Meal Consumed 0% Stool Size Large Small Stool Consistency loose liquid Stool Characteristics Tarry Stool Color Brown Black Bright Red Blood Dark Red Blood # Bowel Movements 1 Weight 89.1 kg Blood Glucose* 149 Patient Weight 03/17/18 23:59 Weight 89.1 kg - General Appearance General appearance: Present: fatigue, frail EENT: Present: ATNC, hearing intact, vision intact Neck: Present: supple Respiratory: Present: clear Cardiology: Present: edema (Trace bilat lower extremity edema), normal S1, normal S2 Gastrointestinal: Present: normoactive bowel sounds, no tenderness, no guarding Integumentary: Present: no rash, warm and dry Neurologic: Present: alert and oriented x3 Psychiatric: Present: mood/affect appropriate, cooperative - Lab 03/17/18 03:32 03/17/18 03:32 Most recent lab results Calcium 7.7 mg/dL (8.6-10.3) L 03/17/18 03:32 Phosphorus 4.8 mg/dL (2.7-4.5) H 03/14/18 03:25 Magnesium 2.1 mg/dL (1.6-2.6) 03/14/18 03:25 Urine Creatinine 128 mg/dL 03/14/18 01:20 Urine Sodium < 10.0 mEq/L 03/14/18 22:54 Consult Discharge Plan - Plan Referrals: Yolanda Watts MD [Non-Partnered Physician] - 03/21/18 1:30 pm
[2018-03-17 11:20] VITALS: BP 115/63
[2018-03-17] MEDS ORDERED: MORPHINE SUL Oral CONC 10 MG/0.5 ML ORAL.SYG SL PRN (12:09)
[2018-03-17] MEDS ORDERED: *HR* LORazepam Oral Conc 2 MG/ML SL PRN (12:09)
[2018-03-17] MEDS ORDERED: OXYCODONE Oral CONC 10 MG/0.5 ML ORAL.SYG SL PRN (12:17)
[2018-03-17] MEDS ORDERED: Atropine 1% Opth Drops 100 DROP/5 ML BOTTLE SL PRN (12:21)
--- NOTE | 2018-03-17 12:27 | Discharge Summary ---
Orders not resulted at time of discharge: Pending orders 03/13/18 20:26 Culture,Blood [BC] Stat 03/14/18 04:00 Culture,Sputum with Gram Stain [RM] AM 0400 03/16/18 03:57 AFP Tumor Marker Non- AM 0400 Cancer Antigen-GI (CA 19-9) AM 0400 Date of Encounter: 03/17/18 Time of Encounter: 11:00 - Discharge Diagnosis (1) HCAP (healthcare-associated pneumonia) Priority: Primary Status: Acute (2) Elevated troponin Priority: Primary Status: Acute (3) Lower extremity edema Priority: Primary Status: Acute (4) Acute renal failure Priority: Primary Status: Acute Qualifiers: Acute renal failure type: unspecified Qualified Code(s): N17.9 - Acute kidney failure, unspecified (5) Leukocytosis Priority: Primary Status: Acute Qualifiers: Leukocytosis type: other Qualified Code(s): D72.828 - Other elevated white blood cell count (6) Metastatic disease Priority: Primary Status: Chronic (7) COPD (chronic obstructive pulmonary disease) Priority: Secondary Status: Chronic Qualifiers: COPD type: unspecified COPD Qualified Code(s): J44.9 - Chronic obstructive pulmonary disease, unspecified (8) DVT prophylaxis Priority: Secondary Status: Resolved (9) Sepsis Priority: Primary Status: Acute Qualifiers: Sepsis type: sepsis due to unspecified organism Qualified Code(s): A41.9 - Sepsis, unspecified organism (10) Abnormal liver function test Priority: Primary Status: Acute (11) Anemia Priority: Primary Status: Acute Qualifiers: Anemia type: other cause Other causes of anemia: chronic disease, other Qualified Code(s): D63.8 - Anemia in other chronic diseases classified elsewhere Hospital course: Ms. Cohen is a 78 year old female admitted for sepsis, HCAP, past medical history is significant for metastatic malignancy without clear origin. Patient was treated with antibiotic, ID and nephrology consult saw patient. Oncology and pulmonology consult also called. After treatment, patient still very weak, remains leukocytosis. Liver biopsy shows adenocarcinoma. After patient discussed with family, they all agreed to pursue hospice care. Palliative care consult saw patient, decided to accept the patient to inpatient hospice. I have seen and examined the patient today. Patient is awake alert oriented 3. Still very weak, poor intake. Patient states she agrees for palliative care. Family at bedside. Will discharge patient to inpatient hospice. Discharge discussed with: patient, family - Time Spent with Patient Total time spent providing and/or coordinating discharge services: 25 min Less than 30 minutes - Discharge Medications Home Medications: RX: Gabapentin [Neurontin] 600 mg PO BID 02/27/18 [History] RX: Pantoprazole Sodium [Protonix] 40 mg PO DAILY 02/27/18 [History] RX: Sertraline [Zoloft] 50 mg PO DAILY 02/27/18 [History] RX: Albuterol Neb [Proventil Neb] 2.5 mg IH Q4H PRN #12 03/09/18 [Rx] RX: Amoxicillin/Clavulanate [Augmentin] 500 mg PO BIDWM #16 tablet 03/09/18 [Rx] RX: Doxycycline 100 mg PO BID #16 capsule 03/09/18 [Rx] RX: Furosemide [Lasix] 20 mg PO DAILY #30 tablet 03/09/18 [Rx] RX: Lactobacillus [Culturelle] 2 each PO DAILY #60 cap.sprink 03/09/18 [Rx] RX: Mirtazapine [Remeron] 7.5 mg PO HS #15 tablet 03/09/18 [Rx] RX: Potassium Chloride 20 meq PO DAILY 03/14/18 [History] predniSONE [PredniSONE] 40 mg PO DAILY 03/14/18 [History] Allergies/Adverse Reactions: Allergy/AdvReac Type Severity Reaction Status Date / Time No Known Allergies Allergy Verified 03/13/18 19:12 Date of admission: 03/14/18 04:44 Primary care physician: PCP NONE Consults: 03/14/18 00:27 Consult to Infectious Diseases [CONS] Routine Consulting Provider: Infectious Disease [facility] Reason for Consult: re-admit- need recs on antibiotics Call Completed: No 03/14/18 01:55 Consult to Nephrology [CONS] Routine Consulting Provider: [facility]AGUSTIN/YAN/LYNDON Reason for Consult: GARLAND Call Completed: No 03/15/18 10:20 Consult to Oncology [CONS] Routine Consulting Provider: [facility] Reason for Consult: Metastatic carcinoma Call Completed: Yes 03/16/18 10:28 Consult to Pulmonology [CONS] Routine Consulting Provider: [facility] Reason for Consult: Pneumonia, lung metastatic dis? Call Completed: Yes 03/16/18 11:28 Consult to Nutrition [CONS] Routine Comment: Consulting Provider: NUTRITION Reason for Dietary Consult: Other PO Supplementation Other:: active cancer, decreased intake, supplementation needs 03/16/18 18:49 Consult to Palliative Care [CONS] Routine Comment: Consulting Provider: Palliative Care [facility] Reason for Consult: Discuss goals of care and available options Call Completed: No Discharging clinician: Guera Hall Anticipated date of discharge: 03/17/18 - Constitutional Vitals: Temp Pulse Resp BP Pulse Ox 98.1 F 93 20 115/63 94 03/17/18 11:16 03/17/18 11:16 03/17/18 11:16 03/17/18 11:16 03/17/18 11:16 General appearance: Present: cooperative, mild distress, A&O X 3, answers questions appropriately Exam: Pt is lethargic, in mild respiratory distress. HEENT: NC/AT, PERRL Neck: Supple, no JVD Lungs: B/L scattered rhonchi Heart: S1S2, RRR Abd: Soft, mild tenderness on RUL, BS normal. Ext: Mild to moderate b/l pedal edema. Neuro: AAO x3, no focal deficit. - Patient Status Disposition: Hospice - Medical Facility Condition: Critical Functional capacity at discharge: bed bound Overall status at discharge: patient is not back to baseline - Discharge Instructions Follow Up With: oYlanda Watts MD [Non-Partnered Physician] - 03/21/18 1:30 pm - Diet and Activity Diet: advance to your usual diet
--- NOTE | 2018-03-17 12:29 | Physician Discharge Referral ---
Home Health/Hosp Referral Info Transfer to: Hospice Provider in Charge Post Discharge: [facility] [employer] Worker - Diagnosis (1) HCAP (healthcare-associated pneumonia) Status: Acute (2) Elevated troponin Status: Acute (3) Lower extremity edema Status: Acute (4) Acute renal failure Status: Acute (5) Leukocytosis Status: Acute (6) Metastatic disease Status: Chronic (7) COPD (chronic obstructive pulmonary disease) Status: Chronic (8) DVT prophylaxis Status: Resolved (9) Sepsis Status: Acute (10) Abnormal liver function test Status: Acute (11) Anemia Status: Acute - Respiratory Orders Oxygen / L per min (2) Smoking Cessation: Smoking cessation has been advised. For more information, call the [employer] Quit Line at 5-360-JEUDNOW. - Transfer Medications Home Medications: Gabapentin [Neurontin] 600 mg PO BID 02/27/18 [History] Pantoprazole Sodium [Protonix] 40 mg PO DAILY 02/27/18 [History] Sertraline [Zoloft] 50 mg PO DAILY 02/27/18 [History] Albuterol Neb [Proventil Neb] 2.5 mg IH Q4H PRN #12 03/09/18 [Rx] Amoxicillin/Clavulanate [Augmentin] 500 mg PO BIDWM #16 tablet 03/09/18 [Rx] Doxycycline 100 mg PO BID #16 capsule 03/09/18 [Rx] Furosemide [Lasix] 20 mg PO DAILY #30 tablet 03/09/18 [Rx] Lactobacillus [Culturelle] 2 each PO DAILY #60 cap.sprink 03/09/18 [Rx] Mirtazapine [Remeron] 7.5 mg PO HS #15 tablet 03/09/18 [Rx] Potassium Chloride 20 meq PO DAILY 03/14/18 [History] predniSONE [PredniSONE] 40 mg PO DAILY 03/14/18 [History] Allergies/Adverse Reactions: Allergy/AdvReac Type Severity Reaction Status Date / Time No Known Allergies Allergy Verified 03/13/18 19:12 Certification: Further, I certify that my clinical findings support that this patient is homebound (i.e. absences from home require considerable and taxing effort and are for medical reasons or yazidi services or infrequently or short duration when for other reasons) because: Homebound Reason: Patient requires assistance of a person or device to safely leave home Attestation: My signature below is to certify that this patient is under my care and that I, or nurse practitioner, or a physician's railways assistant working with me, has a [id number] encounter with this patient.
[2018-03-17] MEDS ORDERED: Scopolamine Patch 1.5 MG PATCH.TD72 TD SCH (12:30)
--- NOTE | 2018-03-17 14:07 | Palliative - Consult Note ---
Date of Encounter: 03/17/18 Time of Encounter: 11:00 - Assessment and Plan (1) Anxiety Status: Acute Assessment and plan: Patient noted to be anxious during physical examination. Ativan 1 mg SL PRN ordered. (2) Cancer associated pain Status: Acute Assessment and plan: Patient's family reports today is the first day patient has complained of pain, typically reports discomfort. Changed patient to Oxycodone SL PRN for improved pain control. Family has low threshold for increasing dose to ensure patient is comfortable. (3) GARLAND (acute kidney injury) Status: Acute Assessment and plan: Nephrology consult and recommendations appreciated. (4) Goals of care, counseling/discussion Status: Acute Assessment and plan: Conducted goals of care discussion with patient's daughter, Mckenna, and grandson, Pamela Marcano, whom are patient's primary caretakers. Patient unable to participate in conversation. Discussed progression from last admission to discharge, admission into home health, repeat lab work, readmission into [facility] for Sepsis pneumonia, improvement of infection, and worsening of clinical picture overall with poor prognosis; verbalized understanding. Present family identified Lio Cohen (Son) as MPOA [phone]. MPOA brought into conversation via telephone and updated on current clinical status. Lio requested Pamela call two other siblings (Dev and Emerald) with clinical update and give opinions on transition of care to hospice for management of symptoms and comfort care; all in agreement. Patient was able to shake head yes that she wanted to be kept comfortable. Family desires to have patient GIP for this weekend to get im provement of pain, agitation,and anxiety prior to discharge to [facility] should patient survive. CODE STATUS changed to DNRCC; state form completed. Referral called to Rani at [facility] for GIP. Notified Dr. Alvarenga (Oncology) and Dr. Hall of patient's family's desire to transition to hospice care. Notified Primary RN Tere of change in CODE STATUS and goals of care. Family agreeable to discontinuing IV antibiotics and keeping patient comfortable. (5) Pneumonia Status: Acute Qualifiers: Pneumonia type: due to unspecified organism Laterality: bilateral Lung location: upper lobe of lung Qualified Code(s): J18.1 - Lobar pneumonia, un specified organism (6) Sepsis Status: Acute Assessment and plan: Infectious disease consult appreciated. Qualifiers: Sepsis type: sepsis due to unspecified organism Qualified Code(s): A41.9 - Sepsis, unspecified organism (7) COPD (chronic obstructive pulmonary disease) Status: Chronic Assessment and plan: Pulmonology consult appreciated. Continue Nebulizer treatments as needed. Qualifiers: COPD type: unspecified COPD Qualified Code(s): J44.9 - Chronic obstructive pulmonary disease, unspecified (8) Metastatic disease Status: Chronic Assessment and plan: Oncology consult appreciated. Patient is too medically frail to continue cancer treatment at this time. Palliative-CN HPI - Data of Consult Patient: new to practice Consult date: 03/16/18 Requesting Physician: Eric Kinney MD Primary Care Provider: PCP NONE - Consult Narrative Palliative Care/Comfort Measures: Palliative care Reason for consult: Goals of care History of present illness: Ms. Cohen is a 78 year old female Arrived to [facility] on 03/13/18, for weaknes s, fever, and abnormal lab results (sent by Dr. Parker). Patient admitted and medically managed for elevated troponins, dehydrations, lower extremity edema, Sepsis, Pneumonia. Patient had been admitted last week for management of Pneumonia and discharged 4 days prior to readmission, per family report. PMH: HTN, HLD, COPD (former smoker), carotid stenosis, 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 Chest x-ray showing: Bilateral upper lobe infiltrates, stable compared to the most recent chest. EKG showing: Sinus tachycardia; Left anterior fascicular block; Low voltage, precordial leads; and Poor R wave progression in precordial leads. Nephrology consulted for management of GARLAND and dehydration. Patient medically managed for: HCAP; Elevated troponins; lower extremity edema; acute renal failure; leukocytosis; metastatic disease; COPD; Sepsis; and abnormal liver function test. Infectious disease consulted and initiated Zyvox and Zosyn. Chest CT performed without contrast, showing: Multifocal airspace disease bilaterally (Findings are indeterminate may represent pulmonary edema or pneumonia with some of the areas of parenchymal opacity are increased in others are slightly improved.); Multiple pulmonary nodules; Mediastinal lymph nodes; Pleural effusions bilaterally; Hiatal hernia; and Multiple liver lesions. Oncology consult for management of metastatic disease; with patients baseline performance status since last admission, family requested to discuss potential comfort care options. Pulmonology consulted with option of bronchoscopy; family refused. Palliative care consulted to discuss goals of care and available options. Patient lying in bed with patients daughter (Mckenna) and grandson (Pamela Marcano) present at bedside. Patient is alert; however, has difficulty responding to questions. Family reports patient newly complained of generalized pain and had received pain medication. Patients family reports patient has been finding it quite difficult to get comfortable and anxious. Denies dyspnea, nausea and vomiting. Patient answers yes and no questions only. CC: Eric Kinney MD - Time Spent with Patient Time: Total time spent is greater than 50% in coordination of care (as documented) at patient's floor/unit and/or counseling patient: Time with patient: 60 minutes Past Med Surg Social Fam HX - Past Medical History Medical history: cancer Additional medical history: skin cancer, gastro ulcers Psychiatric history: anxiety, depression - Past Surgical History Surgical History: hysterectomy Additional surgical history: bladder sx, tendon repair, cscope - Social History Smoking Status: Former smoker Smokeless Tobacco Status: No Alcohol use: none Drug use: none Medications and Allergies Gabapentin [Neurontin] 600 mg PO BID 02/27/18 [History] Pantoprazole Sodium [Protonix] 40 mg PO DAILY 02/27/18 [History] Sertraline [Zoloft] 50 mg PO DAILY 02/27/18 [History] Albuterol Neb [Proventil Neb] 2.5 mg IH Q4H PRN #12 03/09/18 [Rx] Amoxicillin/Clavulanate [Augmentin] 500 mg PO BIDWM #16 tablet 03/09/18 [Rx] Doxycycline 100 mg PO BID #16 capsule 03/09/18 [Rx] Furosemide [Lasix] 20 mg PO DAILY #30 tablet 03/09/18 [Rx] Lactobacillus [Culturelle] 2 each PO DAILY #60 cap.sprink 03/09/18 [Rx] Mirtazapine [Remeron] 7.5 mg PO HS #15 tablet 03/09/18 [Rx] Potassium Chloride 20 meq PO DAILY 03/14/18 [History] predniSONE [PredniSONE] 40 mg PO DAILY 03/14/18 [History] Allergy/AdvReac Type Severity Reaction Status Date / Time No Known Allergies Allergy Verified 03/13/18 19:12 ROS unobtainable: due to mental status (information obtained from patient's daughter and grandson, whom have been patient's primary caretakers at home.) - Constitutional Constitutional ROS PAL: decreased appetite, anorexia, fatigue, fever(s), lethargy - Cardiovascular Cardiovascular ROS: leg edema, no chest pain - Respiratory Respiratory: cough - Gastrointestinal Gastrointestinal: change in stool character, diarrhea, loose stools, melena, no nausea, no vomiting - Integumentary ROS Integumentary: dry skin - Neurological Neurological ROS: weakness, no memory loss - Psychiatric Psychiatric general PM: anxiety, irritability Palliative Care-Exam - Constitutional Vitals: Temp Pulse Resp BP Pulse Ox 98.1 F 93 20 115/63 94 03/17/18 11:16 03/17/18 11:16 03/17/18 11:16 03/17/18 11:16 03/17/18 11:16 General appearance: Present: mild distress, morbidly obese - Head Head Exam: Present: atraumatic, normal inspection - Eye Eye exam: Present: normal appearance - ENT ENT exam: Present: mucous membranes dry, normal external ear exam, normal oropharynx - Neck Neck exam: Present: full ROM - Cardiovascular Cardiovascular exam: Present: +S1, +S2 - Expanded Cardiovascular Exam Peripheral pulses: 2+: Radial (L), Radial (R), Posterior Tibialis (L), Posterior Tibialis (R), Dorsalis Pedis (L) PM, Dorsalis Pedis (R) PM - GI/Abdominal Exam GI/Abdominal exam: Present: normal bowel sounds, soft. Absent: tenderness - Rectal Rectal exam: Present: deferred - Catheter Type: Urethral (Becerra) - Extremities Exam Extremities exam: Present: pedal edema (1+). Absent: calf tenderness - Neurological Exam Neurological exam: Present: altered - Expanded Neurological Exam Coma Scale Eye Opening: To Pain Coma Scale Motor Response: Localizes to Pain Coma Scale Verbal Response: Incomprehensible Coma Scale Total: 9 - Psychiatric Psychiatric exam: Present: agitated, flat affect Internal Medicine - CN: Reslt - Labs CBC & Chem 7: 03/17/18 03:32 03/17/18 03:32 Labs: Short CBC 03/17/18 Range/Units 03:32 WBC 14.3 H (4.3-11.1) K/mcL Hgb 8.5 L (11.5-15.4) g/dL Hct 28.6 L (35.3-44.9) % Plt Count 199 (140-400) K/mcL Neutrophils # 12.3 H (1.6-8.9) K/mcL BMP 03/17/18 03:32 Sodium 143 Potassium 4.3 Chloride 111 H Carbon Dioxide 24 BUN 32 H Creatinine 1.62 H Glucose 74 Calcium 7.7 L - ABG Interpretation ABG results: PT/INR, D-dimer PT 16.5 Seconds (9.4-12.1) H 03/14/18 03:25 Consult Discharge Plan - Plan Instructions: Sepsis (DC), Pneumonia (DC) Referrals: Yolanda Watts MD [Non-Partnered Physician] - 03/21/18 1:30 pm Palliative Quality Palliative Quality: Screen for Code Status: Yes, Screen for Goals of Care: Yes, Screen for Pain: Yes, If Pain Regimen Started, Initiate Bowel Regimen: NA, Screen for Nausea/Vomitting: Yes Code Status: 03/14/18 00:28 DNR [Resuscitation Status: Active] [RES] Routine Comment: Resuscitation Status: DNR-Comfort Care-Arrest 03/17/18 12:07 DNR [Resuscitation Status: Active] [RES] Routine Comment: Resuscitation Status: DNR-Comfort Care
--- NOTE | 2018-03-17 16:14 | Infectious Disease Progress No ---
Date of Encounter: 03/17/18 Time of Encounter: 09:00 - Assessment and Plan (1) Sepsis Status: Acute - Meets 2/4 sirs criteria on presentation with leukocytosis of 20.3 and tachycardia - Of note, on discharge at last hospital admission leukocytosis had been down trended to 14. Neutrophil predominance - Lactic acid was 2.2, patient did meet criteria for severe sepsis - Likely source: Pulmonary - Causative organism: Unclear - Clinically, review of systems is only positive for nonproductive cough as well as weakness/lethargy and loose bowel movements. - Continues to meet sirs criteria with tachycardia, tachypnea, leukocytosis which has down trended to 14.2 (yesterday was 15.2) - Discharged home with doxycycline and Augmentin for concerns for aspiration, scheduled to continue course through 03/17/18 - Urinalysis is not impressive for infection and likely contaminated - Respiratory infectious panel negative - Legionella, strep antigen negative - Blood cultures on 03/13 no growth - Chest x-ray on admission showed bilateral upper lobe infiltrates -CT chest done on 03/14 showed some areas of parenchymal opacity has increased while others remain stable. -C. difficile toxin came back negative Started on Zyvox, Zosyn on admission. - MRSA swab negative Plan - Patient is previously been on Zyvox, Zosyn. Zyvox discontinued yesterday for negative MRSA swab. The family has been in discussions with palliative care for possible hospice transition. While patient is admitted, recommend continuation of Zosyn to completion date of 03/23/18. If discharged to hospice services, will defer to their judgment. -Etiology of leukocytosis and tachycardia may be related to known malignancy Qualifiers: Sepsis type: sepsis due to unspecified organism Qualified Code(s): A41.9 - Sepsis, unspecified organism (2) Metastatic disease Status: Chronic As demonstrated on CT scans on last admission Follows with heme/onc as outpatient Unclear primary Management as outpatient. Poor prognosis (3) Elevated troponin Status: Acute - Troponin of 0.12, 0.10 in emergency department - This is likely due to demand ischemia in the setting of acute renal failure as below - Management per primary team (4) HAP (hospital-acquired pneumonia) Status: Acute CT chest on 03/14 showed some areas of parenchymal opacity has increased while others remain stable. Plan: as above for sepsis (5) Acute renal failure Status: Acute - BUNs/creatinine 32/1.6 to today down from 34/1.80 yesterday - Stable from previous admission - Patient notably had normal kidney function at the start of last admission - Management per primary team and nephrology - Renally dose medications, avoid nephrotoxins Qualifiers: Acute renal failure type: unspecified Qualified Code(s): N17.9 - Acute kidney failure, unspecified - Subjective Interval history: Patient was seen and examined up and since morning. Today she is feeling very tired but does respond to questions appropriately. She is denying any symptoms of fevers, chills, nausea, vomiting. She does have poor appetite this morning. She also continued to experience symptoms of a cough which is productive with clear/green sputum. Infect Dis PN-Objective Data - Labs CBC & Chem 7: 03/17/18 03:32 03/17/18 03:32 Labs: Laboratory Results - last 24 hr 03/16/18 03/17/18 03/17/18 17:00 03:32 03:32 WBC 14.3 H RBC 3.20 L Hgb 8.5 L Hct 28.6 L MCV 89.4 MCH 26.6 L MCHC 29.7 L RDW 17.2 H Plt Count 199 MPV 11.3 Immature Gran % 2.7 Seg Neutrophils % 85.5 Lymphocytes % 7.6 Monocytes % 3.7 Eosinophils % 0.2 Basophils % 0.3 Neutrophils # 12.3 H Lymphocytes # 1.1 Monocytes # 0.5 Eosinophils # 0.0 Basophils # 0.1 Nucleated RBCs/100 WBC 0.2 H Sodium 143 Potassium 4.3 Chloride 111 H Carbon Dioxide 24 BUN 32 H Creatinine 1.62 H Est GFR ( Amer) 37 L Est GFR (Non-Af Amer) 31 L BUN/Creatinine Ratio 20 Glucose 74 Calculated Osmolality 302 H Calcium 7.7 L Nasal Screen MRSA (PCR) Negative Cultures: Cultures 03/13/18 20:26 Blood Culture - Preliminary Peripheral Venipuncture Culture is incubating and being continuously monitored for growth. Final report to follow. 03/14/18 01:20 Legionella Antigen - Final Urine,Becerra [place] Streptococcus pneumoniae Antigen (M - Final 03/13/18 20:32 Blood Culture - Preliminary Peripheral Venipuncture Culture is incubating and being continuously monitored for growth. Final report to follow. Serology 03/16/18 03/15/18 03/15/18 Range/Units 17:00 06:30 06:30 Urine Color (Yellow) Urine Clarity (Clear) Urine pH (5.0-8.0) pH Units Ur Specific [place] (1.010-1.025) Urine Protein (Neg-Trace) mg/dL Urine Glucose (UA) (Normal) mg/dL Urine Ketones (Negative) mg/dL Urine Blood (Negative) Urine Nitrite (Negative) Urine Bilirubin (Negative) Urine Urobilinogen (Normal) mg/dL Ur Leukocyte Esterase (Negative) Urine Microscopic RBC (0-3) per hpf Urine Microscopic WBC (0-3) per hpf Ur Eosinophil Smear (None Seen) % Ur Squamous Epith Cells (None-Few) per lpf Urine Bacteria (None-Few) per hpf Hyaline Casts (None-Few) per lpf Ur Culture Indicated? (NO) Urine Creatinine mg/dL Urine Sodium mEq/L Urine Urea Nitrogen mg/dL Nasal Screen MRSA (PCR) Negative (Negative) Stool Occult Blood Positive A (Negative) Stl C. diff Tox B Gene Negative (Negative) Chlamy pneumoniae PCR (Not Detect) Adenovirus (PCR) (Not Detect) B. pertussis DNA (PCR) (Not Detect) B.parapertussis DNA PCR (Not Detect) Coronavirus OC43 (PCR) (Not Detect) Coronavirus HKU1 (PCR) (Not Detect) Coronavirus 229E (PCR) (Not Detect) Coronavirus NL63 (PCR) (Not Detect) Human Metapneumovir PCR (Not Detect) Influenza A (H1) PCR (Not Detect) Influ A (H1N1/09) PCR (Not Detect) Influenza A (H3) PCR (Not Detect) Influenza A Untype (PCR) (Not Detect) Influenza Type B (PCR) (Not Detect) M.pneumoniae DNA (PCR) (Not Detect) Parainfluenza 1 (PCR) (Not Detect) Parainfluenza 2 (PCR) (Not Detect) Parainfluenza 3 (PCR) (Not Detect) Parainfluenza 4 (PCR) (Not Detect) RSV (PCR) (Not Detect) Entero/Rhino (PCR) (Not Detect) 03/14/18 03/14/18 03/14/18 Range/Units 22:54 22:54 01:20 Urine Color (Yellow) Urine Clarity (Clear) Urine pH (5.0-8.0) pH Units Ur Specific [place] (1.010-1.025) Urine Protein (Neg-Trace) mg/dL Urine Glucose (UA) (Normal) mg/dL Urine Ketones (Negative) mg/dL Urine Blood (Negative) Urine Nitrite (Negative) Urine Bilirubin (Negative) Urine Urobilinogen (Normal) mg/dL Ur Leukocyte Esterase (Negative) Urine Microscopic RBC (0-3) per hpf Urine Microscopic WBC (0-3) per hpf Ur Eosinophil Smear 0 (None Seen) % Ur Squamous Epith Cells (None-Few) per lpf Urine Bacteria (None-Few) per hpf Hyaline Casts (None-Few) per lpf Ur Culture Indicated? (NO) Urine Creatinine 128 mg/dL Urine Sodium < 10.0 mEq/L Urine Urea Nitrogen 533 mg/dL Nasal Screen MRSA (PCR) (Negative) Stool Occult Blood (Negative) Stl C. diff Tox B Gene (Negative) Chlamy pneumoniae PCR (Not Detect) Adenovirus (PCR) (Not Detect) B. pertussis DNA (PCR) (Not Detect) B.parapertussis DNA PCR (Not Detect) Coronavirus OC43 (PCR) (Not Detect) Coronavirus HKU1 (PCR) (Not Detect) Coronavirus 229E (PCR) (Not Detect) Coronavirus NL63 (PCR) (Not Detect) Human Metapneumovir PCR (Not Detect) Influenza A (H1) PCR (Not Detect) Influ A (H1N1/09) PCR (Not Detect) Influenza A (H3) PCR (Not Detect) Influenza A Untype (PCR) (Not Detect) Influenza Type B (PCR) (Not Detect) M.pneumoniae DNA (PCR) (Not Detect) Parainfluenza 1 (PCR) (Not Detect) Parainfluenza 2 (PCR) (Not Detect) Parainfluenza 3 (PCR) (Not Detect) Parainfluenza 4 (PCR) (Not Detect) RSV (PCR) (Not Detect) Entero/Rhino (PCR) (Not Detect) 03/14/18 03/13/18 Range/Units 01:20 21:01 Urine Color Dark Yellow (Yellow) Urine Clarity Turbid A (Clear) Urine pH 5.0 (5.0-8.0) pH Units Ur Specific [place] 1.029 H (1.010-1.025) Urine Protein 30 H (Neg-Trace) mg/dL Urine Glucose (UA) Normal (Normal) mg/dL Urine Ketones Negative (Negative) mg/dL Urine Blood Trace H (Negative) Urine Nitrite Negative (Negative) Urine Bilirubin Small H (Negative) Urine Urobilinogen Normal (Normal) mg/dL Ur Leukocyte Esterase Small H (Negative) Urine Microscopic RBC 0-3 (0-3) per hpf Urine Microscopic WBC 15-30 H (0-3) per hpf Ur Eosinophil Smear (None Seen) % Ur Squamous Epith Cells Many H (None-Few) per lpf Urine Bacteria None Seen (None-Few) per hpf Hyaline Casts Few (None-Few) per lpf Ur Culture Indicated? NO. A (NO) Urine Creatinine mg/dL Urine Sodium mEq/L Urine Urea Nitrogen mg/dL Nasal Screen MRSA (PCR) (Negative) Stool Occult Blood (Negative) Stl C. diff Tox B Gene (Negative) Chlamy pneumoniae PCR Not Detected (Not Detect) Adenovirus (PCR) Not Detected (Not Detect) B. pertussis DNA (PCR) Not Detected (Not Detect) B.parapertussis DNA PCR Not Detected (Not Detect) Coronavirus OC43 (PCR) Not Detected (Not Detect) Coronavirus HKU1 (PCR) Not Detected (Not Detect) Coronavirus 229E (PCR) Not Detected (Not Detect) Coronavirus NL63 (PCR) Not Detected (Not Detect) Human Metapneumovir PCR Not Detected (Not Detect) Influenza A (H1) PCR Not Detected (Not Detect) Influ A (H1N1/09) PCR Not Detected (Not Detect) Influenza A (H3) PCR Not Detected (Not Detect) Influenza A Untype (PCR) Not Detected (Not Detect) Influenza Type B (PCR) Not Detected (Not Detect) M.pneumoniae DNA (PCR) Not Detected (Not Detect) Parainfluenza 1 (PCR) Not Detected (Not Detect) Parainfluenza 2 (PCR) Not Detected (Not Detect) Parainfluenza 3 (PCR) Not Detected (Not Detect) Parainfluenza 4 (PCR) Not Detected (Not Detect) RSV (PCR) Not Detected (Not Detect) Entero/Rhino (PCR) Not Detected (Not Detect) Exam - Constitutional Vitals: Temp Pulse Resp BP Pulse Ox 98.1 F 93 20 115/63 94 03/17/18 11:16 03/17/18 11:16 03/17/18 11:16 03/17/18 11:16 03/17/18 11:16 Exam: Gen.: Vitals noted. No acute distress. AAOx3. Lethargic, responds slowly to questions HEENT: PERRL/EOMI, oropharynx clear, Normocephalic, atraumatic, MMM Cardiac: RRR, no murmur, +S1/S2 Pulmonary: CTA bilaterally, no wheezes, rales or rhonchi, equal chest expansion Abdomen: soft, nontender, BS noted, no guarding, no rebound. MSK: no joint swelling noted Extremities: 2+ BLE edema, nontender calf, no cyanosis or clubbing Neuro: A&Ox3, moves all extremities, no focal deficits Psych: Appropriate mood and behavior Consult Discharge Plan - Plan Instructions: Sepsis (DC), Pneumonia (DC) Referrals: Yolanda Watts MD [Non-Partnered Physician] - 03/21/18 1:30 pm - Attending Attestation Patient discharged before I can evaluate
[2018-03-20 08:37] LABS: AFP Tumor Marker Non-Pregnant 2 ng/mL (0-9); Cancer Antigen-GI (CA 19-9) 71 U/mL (0-37)
== END 2018-03-17 13:02 | disposition other institution (70) | DRG 871 ==
LOC: EMEROOARM 19:07 → 2NNU 19:07
PROVIDERS: ADMIT Family Medicine; ATTEND Family Medicine

== ENCOUNTER 2018-03-17 12:18 | Inpatient (IN) ==
[2018-03-17] MEDS ORDERED: Atropine Sulfate 1% 40 DROP/2 ML BOTTLE SL PRN (12:23)
[2018-03-17] MEDS ORDERED: Acetaminophen 650 MG RECTAL SUPP RC PRN (12:23)
[2018-03-17] MEDS ORDERED: Ondansetron 4 MG/2 ML VIAL IVP PRN (12:23)
[2018-03-17] MEDS ORDERED: Bisacodyl 10 MG RECTAL SUPPOSITORY RC PRN (12:23)
[2018-03-17] MEDS ORDERED: Ipratropium/Albuterol Neb 3 ML IH PRN (12:23)
[2018-03-17] MEDS ORDERED: Albuterol 2.5 MG/3 ML NEBULIZER IH PRN (12:28)
[2018-03-17] MEDS ORDERED: Scopolamine Patch 1.5 MG PATCH.TD72 TD SCH (12:30)
[2018-03-17] MEDS: *HR* LORazepam Oral Conc 2 MG/ML SL PRN (17:24)
[2018-03-17] MEDS: OXYCODONE Oral CONC 10 MG/0.5 ML ORAL.SYG SL PRN (18:05)
[2018-03-17] MEDS ORDERED: Melatonin 3 MG TABLET PO SCH (21:00)
[2018-03-17] MEDS ORDERED: Mirtazapine 15 MG TABLET PO SCH (21:00)
[2018-03-17] MEDS: Atropine Sulfate 1% 40 DROP/2 ML BOTTLE SL PRN (22:20)
[2018-03-18] MEDS: OXYCODONE Oral CONC 10 MG/0.5 ML ORAL.SYG SL PRN (03:19)
[2018-03-18] MEDS: Atropine Sulfate 1% 40 DROP/2 ML BOTTLE SL PRN ×3 (03:19→10:45)
[2018-03-18] MEDS: *HR* LORazepam Oral Conc 2 MG/ML SL PRN ×2 (07:07→12:22)
[2018-03-18 07:41] VITALS: BP 81/49
--- NOTE | 2018-03-18 09:48 | Pallative History & Physical ---
Date of Encounter: 03/18/18 Time of Encounter: 09:25 Assessment and Plan (1) Tachypnea on examination Current visit: Yes Status: Acute Patient noted to be breathing greater than 30 times per minute on physical examination. Discussed with family option of scheduling Morphine for control of dyspnea, educated on risks related to breathing drive; verbalized understanding and desire patient to be kept comfortable. (2) GARLAND (acute kidney injury) Current visit: No Status: Acute Urine output 150 in last 24 hours. (3) Acute respiratory failure with hypoxia Current visit: No Status: Acute Continue duonebs and Oxygen therapy for comfort. (4) Cancer associated pain Current visit: No Status: Acute (5) Goals of care, counseling/discussion Current visit: No Status: Acute Patient to remain [facility] at this time for further symptom management. Family in agreement. (6) Metastatic adenocarcinoma Current visit: No Status: Acute (7) COPD (chronic obstructive pulmonary disease) Current visit: No Status: Chronic Qualifiers: COPD type: unspecified COPD Qualified Code(s): J44.9 - Chronic obstructive pulmonary disease, unspecified Internal Medicine - H&P: HPI Chief complaint: Adenocarcinoma with mets Admitted From: Hospital to Hospital Transfer Plans for Post Hospital Care: Hospice - Medical Facility History of present illness: Ms. Cohen is a 78 year old female Arrived to [facility] ER on 03/13/18, for weakness, fever, and abnormal lab results (sent by Dr. Parker). Patient admitted and medically managed for elevated troponins, dehydrations, lower extremity edema, Sepsis, Pneumonia. PMH: HTN, HLD, COPD (former smoker), carotid stenosis, 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 Chest x- ray showing: Bilateral upper lobe infiltrates, stable compared to the most recent chest. Nephrology consulted for management of GARLAND and dehydration. Patient medically managed for: HCAP; Elevated troponins; lower extremity edema; acute renal failure; leukocytosis; metastatic disease; COPD; Sepsis; and abnormal liver function test. Infectious disease consulted and initiated Zyvox and Zosyn. Oncology consult for management of metastatic disease; with patients baseline performance status since last admission, family requested to discuss potential comfort care options. Pulmonology consulted with option of bronchoscopy; family refused. Palliative care consulted to discuss goals of care and available options. On 03/17/18, family made decision to transition patient to comfort care and admit to [facility] hospice. Patient lying in bed with eyes closed covered with washcloth upon arrival for assessment. Patient minimally responsive to painful stimulation. Noted decline in Vital signs and increased tachypnea. Patient's grandson present at bedside, whom reports he is unsure of last pain medication dosing. Patient did utilize Ativan and Oxycodone overnight for comfort. Past Med Surg Social Fam HX - Past Medical History Medical history: cancer Additional medical history: skin cancer, gastro ulcers Psychiatric history: anxiety, depression - Past Surgical History Surgical History: hysterectomy Additional surgical history: bladder sx, tendon repair, cscope - Social History Smoking Status: Former smoker Smokeless Tobacco Status: No Alcohol use: none Drug use: none Internal Medicine - H&P: Meds RX: Gabapentin [Neurontin] 600 mg PO BID 02/27/18 [History] RX: Pantoprazole Sodium [Protonix] 40 mg PO DAILY 02/27/18 [History] RX: Sertraline [Zoloft] 50 mg PO DAILY 02/27/18 [History] RX: Albuterol Neb [Proventil Neb] 2.5 mg IH Q4H PRN #12 03/09/18 [Rx] RX: Furosemide [Lasix] 20 mg PO DAILY #30 tablet 03/09/18 [Rx] RX: Mirtazapine [Remeron] 7.5 mg PO HS #15 tablet 03/09/18 [Rx] RX: Potassium Chloride 20 meq PO DAILY 03/14/18 [History] RX: valACYclovir [Valtrex] 500 mg PO DAILY 03/17/18 [History] Allergy/AdvReac Type Severity Reaction Status Date / Time No Known Allergies Allergy Verified 03/13/18 19:12 ROS unobtainable: due to mental status Palliative Care-Exam - Constitutional Vitals: Temp Pulse Resp BP Pulse Ox 98.2 F 101 18 81/49 89 03/18/18 07:39 03/18/18 07:39 03/18/18 07:39 03/18/18 07:39 03/18/18 07:39 General appearance: Present: mild distress, morbidly obese - Head Head Exam: Present: atraumatic, normal inspection - Eye Eye exam: Present: normal appearance, conjuntiva pink. Absent: periorbital swelling, periorbital tenderness - ENT ENT exam: Present: mucous membranes dry - Neck Neck exam: Present: normal inspection - Respiratory Respiratory exam: Present: accessory muscle use, respiratory distress, rhonchi, wheezes, tachypnea. Absent: CTAB - Expanded Cardiovascular Exam Peripheral pulses: 1+: Radial (L), Radial (R), Posterior Tibialis (L), Posterior Tibialis (R), Dorsalis Pedis (L) PM, Dorsalis Pedis (R) PM - GI/Abdominal Exam GI/Abdominal exam: Present: diminished bowel sounds, distended. Absent: tenderness - Rectal Rectal exam: Present: deferred - Catheter Type: Urethral (Becerra) - Extremities Exam Extremities exam: Present: pedal edema. Absent: calf tenderness - Neurological Exam Neurological exam: Present: altered. Absent: alert, oriented X3 - Psychiatric Psychiatric exam: Present: flat affect - Skin Skin exam: Present: dry, intact, warm Palliative Quality Palliative Quality: Screen for Code Status: Yes, Screen for Goals of Care: Yes, Screen for Pain: Yes, If Pain Regimen Started, Initiate Bowel Regimen: Yes, Screen for Nausea/Vomitting: Yes Code Status: 03/17/18 12:23 Resuscitation Status: Active [RES] Routine Comment: State form completed. Resuscitation Status: DNR-Comfort Care
[2018-03-18] MEDS ORDERED: MORPHINE SUL Oral CONC 10 MG/0.5 ML ORAL.SYG PO SCH (12:00)
--- NOTE | 2018-03-19 09:39 | Death Note ---
Discharge Sum: Summary - Date and Time Date of admission: 03/17/18 12:48 Date of : 03/18/18 Time of : 13:45 - Summary Details: Received telephone call from primary RN. Patient found without vital signs, breathing, heart beat. - Additional Data Confirmation of as documented by pronouncing clinician: no pulse, no respirations, no heart sounds, pupils fixed and dilated Family: at bedside, contacted Attending/PCP notified?: Yes Attending physician: Pennie Groves MD Was code activated?: No Autopsy requested?: No land examiner notified?: No Organ bank notified?: No Advance directives: No Hospice patient?: Yes Discharge Sum: Diag - PCOD Probable Cause of : Respiratory arrest Discharge Sum: Prov - Provider Primary care physician: PCP NONE Admitting clinician: Pennie Groves Attending physician on admission: Pennie Groves Consults: 03/17/18 12:24 Consult to Palliative Care [CONS] Routine Comment: Consulting Provider: Palliative Care [facility] Reason for Consult: GIP Management Call Completed: No
== END 2018-03-18 13:45 | disposition expired | DRG 951 ==
LOC: 2ANU 12:48
PROVIDERS: ADMIT Internal Medicine Hospice and Palliative Medicine; ATTEND Internal Medicine Hospice and Palliative Medicine